=== PATIENT | male | born 1960 | race African-American/Black ===

== ENCOUNTER 2018-02-15 11:54 | Inpatient (IN) | payer OTHER ==
[2018-02-15 12:23] VITALS: BMI 21.1
--- NOTE | 2018-02-15 13:04 | PDOC ---
History of Present Illness - General Chief Complaint: Injury Stated Complaint: FALL Time Seen by Provider: 02/15/18 12:35 History Source: Patient, Old Records Exam Limitations: No Limitations - History of Present Illness Initial Comments: 58 y/o male presenting to [facility] via ambulance. Pt denies active chief complaint but states he thinks he passed out for approx. 2 hours this morning while reading the paper in his living room. He then woke up and walked to [facility], where an ambulance was called and transported him to this facility. He states he does this about three times a year but doesnt know why. Per triage notes, pt was found passed out in the grass in front of his house. PCP: Dr. Chinchilla Social: EtOH: Endorses 2 beers yesterday but none today. Triage note reports h/o EtOH abuse. Tobacco: Endorses smoking [address] Drugs: Pt denies but prior records indicate marijuana usage. Medical Hx: Pt initially stated did not know if he had any medical problems but then remembers he has a history of seizures and takes Dilantin. Surgical Hx: - Pt denies past surgical history. Past History - Past Medical History Allergies/Adverse Reactions: Allergies Allergy/AdvReac Type Severity Reaction Status Date / Time No Known Allergies Allergy Verified 02/15/18 12:23 Home Medications: Ambulatory Orders Amlodipine Besylate [Norvasc -] 10 mg PO DAILY 02/15/18 Phenytoin Na Extended [Dilantin -] 100 mg PO DAILY 02/15/18 COPD: No GI Disorders: Yes (pancreatitis 2007) HTN: Yes Seizures: Yes - Suicide/Smoking/Psychosocial Hx Smoking History: Never smoked Have you smoked in the past 12 months: Yes Number of Cigarettes Smoked Daily: 4 Information on smoking cessation initiated: No 'Breaking Loose' booklet given: 09/09/12 Hx Alcohol Use: No Drug/Substance Use Hx: No Substance Use Type: Alcohol, Marijuana Hx Substance Use Treatment: No Review of Systems - Review of Systems Able to Perform ROS?: Yes Comments:: In addition to that documented in the HPI above, the additional ROS was obtained : Constitutional: Denies fevers or chills Eyes: Denies vision changes ENMT: Denies sore throat CV: Denies chest pain Resp: Denies SOB GI: Denies vomiting or diarrhea *Physical Exam - Vital Signs Last Vital Signs Temp Pulse Resp BP Pulse Ox 98.8 F 125 H 18 131/98 100 02/15/18 11:54 02/15/18 11:54 02/15/18 11:54 02/15/18 11:54 02/15/18 11:54 - Physical Exam Comments: Constitutional: Well-developed, thin male in no acute distress or obvious discomfort. Found standing unassisted by beside hospital bed. Alert and oriented x4. Answered all questions appropriately and completely. Speech was non -labored, non-pressured. Head: Normocephalic. No obvious external signs of trauma. No periorbital ecchymosis or Battles sign. Eyes: PERRL. EOMI. Sclerae white. Conjunctiva moist and not injected. Ears: External auditory canals and tympanic membranes clear. Hearing grossly intact. No hemotympanum. Nose: No nasal discharge. Throat: Oral cavity and pharynx normal. No inflammation, swelling, exudate, or lesions. Teeth and gingiva in good general condition. Neck: Supple, trachea is midline. Pt able to laterally rotate neck to left and right >45 degrees. No subjective C-spine tenderness or bony deformities. No step off. Cardiovascular: Tachycardic rate and regular rhythm. No murmur, rubs, clicks, or gallops. Peripheral pulses: Radial pulses full. Respiratory: Breathing unlabored. Equal chest rise and fall. Clear to auscultation bilaterally. No stridor, no wheezing, no rhonchi. Gastrointestinal: abdomen is soft, non-tender, non-distended. No hepatosplenemegaly. No pulsatile masses. No overlying skin lesions or obvious signs of trauma. Neuro: Alert and oriented. Moving all four extremities spontaneously. Gait normal, observed walking throughout the department. None tremulous. Skin: Warm, dry, and intact. No bruising, rashes, or other lesions. Lymphatics: No cervical, supraclavicular, epitrochlear or inguinal nodes palpated. : No R or L CVA tenderness. Psych: Affect: appropriate. Mood: normal. ED Treatment Course - LABORATORY CBC & Chemistry Diagram: 02/15/18 14:45 02/15/18 14:45 Medical Decision Making - Medical Decision Making *Reviewed vital signs, nursing notes, and prior visit documentation (if available). On initial interview, pt stated he did not want any further medical evaluation. He subsequently changed his opinion after further discussion. 58 y/o male s/p possible syncopal episode. Possible history of seizures and EtOH abuse. Afebrile. Vitals remarkable for mild tachycardia. Benign physical exam. Suspect possible seizure. D/D ACS, arrhythmia, vasovagal syndrome, resolved TIA, substance abuse, hyperthyroidism, electrolyte derangement. Will obtain CBC, CMP, Mag, Alcohol level, Cardiac Profile, EKG, CXR, UA, Urine Culture, UDS, and Dilantin level. Ordered NS IVFB for tachycardia. 14:48 Pt displayed tonic-clonic seizure like activity for approx. 1- 2 minutes with postictal period. No tongue biting. Ativan administered as protective given this is likely the second seizure today. All labs still pending. 16:08 Pt out of bed unassisted and against advice. Started to stumble. RN rushed to bedside and assisted the pt to a sitting position on the floor. Pt never struck his head or neck. Pt never lost consciousness. He was then assisted back into bed. Noted pt removed his IV catheter. Pt's Dilantin level found to be subtheraputic. Suspect this is the cause of the pt's seizure. 16:[address] Bowman, neurologist education analyst. Suggested loading pt with Dilantin and Lebrium if concern for withdrawal seizures. Pt will be admitted for observation and repeat Dilantin level. 18:12 Pt has repeatedly attempted to get out of bed. Pt voided urine and feces onto the floor. Hes mentation has changed since initial presentation. He is now confused and disoriented. Concern for EtOH withdrawal. Additional Ativan and Librium has been administered with little effect. Ordered Haldol and Benadryl as pt is now not competent to refuse care and continues to attempt to remove IV lines, EKG leads, and attempts to walk away from bed. Ordered head CT given mental status change. Concern for EtoH withdrawal versus Wernicke-Korsakoff. Ordered banana bag for electrolyte replenishment. Pt noted to have anion gap. Ordered VBG, acetone, and lactic acid. 02/15/18 19:00 Pt signed out to resident Dr. Ramirez after she was verbally appraised of the pt's HPI and current condition. Will follow up on CT scan and pending laboratory results. Will also likely admit pt with concern for altered mental status and seizures. *DC/Admit/Observation/Transfer Diagnosis at time of Disposition: Seizure - Discharge Dispostion Condition at time of disposition: Stable - Referrals - Patient Instructions - Post Discharge Activity
[2018-02-15] MEDS ORDERED: SODIUM CHLORIDE 0.9% 500 ML INFUS.BAG IV ONE (13:18)
--- NOTE | 2018-02-15 13:34 | PDOC ---
Attending Attestation - Resident Resident Name: ParkerJeronimo mora - ED Attending Attestation I have performed the following: I have examined & evaluated the patient, The case was reviewed & discussed with the resident, I agree w/resident's findings & plan, Exceptions are as noted - HPI HPI: 02/15/18 13:31 58-year-old gentleman history of seizures (on Dilantin) brought on by EMS for syncope/seizure. The patients history seems inconsistent obtain multiple providers the patient's notes that he was fine yesterday was drinking beer and watching sports, this morning approximately 10:00 he started feeling very dizzy and unwell was walking to [facility]. He reports that he went to the ER and EMS was called and brought the patient to [facility]. The patient denies any headache, chest pain, shortness of breath, palpitations, nausea, vomiting, abdominal pain, neck pain, back pain, extremity pain. The patient states that he is not worse today for evaluation but after extensive discussion he states that he does not like IVs but will agree to including a 1 chance to obtain his blood work and given fluids. The patient notes that he occasionally has seizures his last one was probably 7 months ago and does feel lightheaded prior to the seizures although today he denies any tongue biting, urinary or bowel incontinence. He states that he uses his Dilantin and does not miss any doses. GENERAL: The patient is awake, alert, and fully oriented, Nontoxic - in no acute distress. HEAD: Normocephalic, atraumatic. EYES: extraocular movements intact, sclera anicteric, conjunctiva clear. ENT: Normal voice, Moist mucous membranes. NECK: Normal range of motion, supple LUNGS: Breath sounds equal, clear to auscultation bilaterally. No wheezes, no rhonchi, no rales. HEART: tachycardic ABDOMEN: Soft, nontender, normoactive bowel sounds. No guarding, no rebound. . No CVA tenderness EXTREMITIES: Normal range of motion, no edema. NEUROLOGICAL: No facial assymetry, Normal speech, PSYCH: Normal mood, normal affect. SKIN: Warm, Dry, normal turgor, Back: No midline tenderness to the cervical, thoracic or lumbar spine Musculoskelatal: FROM of b/l shoulders, elbows, wrist. FROM of hips, knees, ankles - No signs of ecchymosis, erythema, or crepitus noted on palpation extremities, chest wall, clavicals, ribs, back. Differential for the patient's symptoms include syncope versus seizures, metabolic derangements, subtherapeutic Dilantin, Will obtain blood work will give fluids No signs of traumatic injury - Physicial Exam PE: 02/21/18 01:36 see abobve - Critical Care Time Total Critical Care Time: 45 Critical Care Statement: The care of this patient involved high complexity decision making to prevent further life threatening deterioration of the patient 's condition and/or to evaluate & treat vital organ system(s) failure or risk of failure. - Medical Decision Making 02/15/18 14:49 Patient had a witnessed tonic-clonic seizure episode lasting approximately 1 minute, stopped spontaneously. pt was given 2mg if ativan IV will see if his dilantin level is low - if not will obtain CT as this is his 2nd seizure today. 02/15/18 16:20 pts brother was bedside, states he just got out of work - notes the pt is an alcoholic, drinks daily, was with him yesterday when they were watching the game and drinking beers. pt has hx of seizures and is not compliant with meds, has had seizrues due to withdrawal in the past. last one was ~7 months ago. 02/15/18 17:10 pt was seen standnig, wobbling by RN, RN rushed out to pt and reached him as he was falling, was able to grab his arm and assist him to the seated position. The pt landed on his buttock. no head injury or LOC. I was immediately bedside evaluting the patient. 02/15/18 18:10 pt very agitated had pulled out his IV he seems more confused than before, ?CT? HR is in the 110 range, mildly tremulous. given 3mg o fativan restrained 4 pts at this time will give haldol and benadryl on labs, pt also has a anion gap with bicarb of 15 - juanis send vbg, lactic acid, acetones, to see what th ecause of his anion gap is 02/15/18 19:10 signed out to evening team to fu with results and dispo pt
[2018-02-15] MEDS ORDERED: LORazepam 2 MG/ML SDV VIAL ONE ×4 (14:39→22:17)
[2018-02-15 14:56] LABS: BASO % 0.5 % (0-2.0); EOS % 0.3 % (0-4.5); HEMATOCRIT 40.8 % (35.4-49); HEMOGLOBIN 13.1 GM/dL (11.7-16.9); LYMPH % 28.2 % (8-40); MCH 32.4 pg (25.7-33.7); MCHC 32.1 g/dl (32.0-35.9); MEAN CELL VOLUME 100.9 fl (80-96); MEAN PLT VOLUME 11.4 fl (7.5-11.1); MONO % 11.2 % (3.8-10.2); NEUT % 59.8 % (42.8-82.8); PLATELET COUNT 99 K/MM3 (134-434); RBC 4.04 M/mm3 (4.00-5.60); RDW 14.7 % (11.9-15.9); WHITE BLOOD COUNT 10.8 K/mm3 (4.0-10.0)
[2018-02-15 15:55] LABS: ALBUMIN 4.2 g/dl (3.4-5.0); ALK PHOS 157 U/L (45-117); ANION GAP 19 MMOL/L (8-16); BILIRUBIN,TOTAL 0.6 mg/dL (0.2-1); BLOOD UREA NITROGEN 7 mg/dL (7-18); CALCIUM 9.3 mg/dL (8.5-10.1); CHLORIDE 108 mmol/L (98-107); CO2 15 mmol/L (21-32); CREATININE 0.7 mg/dL (0.55-1.3); GLUCOSE,RANDOM 113 mg/dL (74-106); MAGNESIUM 1.7 mg/dL (1.8-2.4); POTASSIUM 4.2 mmol/L (3.5-5.1); SGOT/AST 136 U/L (15-37); SGPT/ALT 45 U/L (13-61); SODIUM 143 mmol/L (136-145)
[2018-02-15] MEDS ORDERED: chlordiazePOXIDE HCL 25 MG CAPSULE ONE (16:54)
[2018-02-15] MEDS ORDERED: chlordiazePOXIDE HCL 25 MG CAPSULE PO ONE (17:00)
[2018-02-15] MEDS ORDERED: FOLIC ACID INJECTION - 1 MG, THIAMINE HCL 100 MG, MULTIVIT INJECTION ADULT 10 ML in SOD... IVPB ONE (17:25)
[2018-02-15] MEDS ORDERED: FOSPHENYTOIN SODIUM 1,000 MG in SODIUM CHLORIDE 100 ML IVPB ONE (17:26)
[2018-02-15 17:52] LABS: URINE APPEARANCE CLEAR; URINE BILIRUBIN NEGATIVE (<2.0 mg/dL); URINE COLOR LTYELLOW; URINE GLUCOSE (UA) NEGATIVE (NEGATIVE); URINE KETONE TRACE (NEGATIVE); URINE LEUK ESTERASE NEGATIVE (NEGATIVE); URINE NITRITE NEGATIVE (NEGATIVE); URINE PROTEIN NEGATIVE (NEGATIVE); URINE UROBILINOGEN NEGATIVE mg/dL (0.2-1.0)
[2018-02-15 17:59] LABS: COCAINE, UR NEGATIVE ng/ml (CUTOFF=300); METHADONE, UR NEGATIVE ng/ml (CUTOFF=300); OPIATES, URI NEGATIVE ng/ml (CUTOFF=300); PHENCYCLIDINE,URINE NEGATIVE ng/ml (CUTOFF=25); URINE AMPHETAMINES NEGATIVE ng/ml (CUTOFF=500); URINE BARBITURATES NEGATIVE ng/ml (CUTOFF=200); URINE BENZODIAZEPINES NEGATIVE ng/ml (CUTOFF=200)
[2018-02-15] MEDS ORDERED: HALOPERIDOL LACTATE 5 MG/ML IM ONE (18:10)
[2018-02-15 18:32] LABS: EPI CELLS RARE /HPF (FEW); URINE MUCUS RARE
[2018-02-15] MEDS ORDERED: HALOPERIDOL LACTATE 5 MG/ML ONE (18:40)
--- NOTE | 2018-02-15 19:34 | PDOC ---
*Physical Exam - Vital Signs Last Vital Signs Temp Pulse Resp BP Pulse Ox 98.8 F 125 H 18 131/98 100 02/15/18 11:54 02/15/18 11:54 02/15/18 11:54 02/15/18 11:54 02/15/18 11:54 ED Treatment Course - LABORATORY CBC & Chemistry Diagram: 02/16/18 12:35 02/16/18 04:20 - ADDITIONAL ORDERS Additional order review: Laboratory Results 02/15/18 02/15/18 02/15/18 16:13 16:13 14:45 Sodium Potassium Chloride Carbon Dioxide Anion Gap BUN Creatinine Creat Clearance w eGFR Random Glucose Calcium Magnesium Total Bilirubin AST ALT Alkaline Phosphatase Creatine Kinase Creatine Kinase Index CK-MB (CK-2) Troponin I Total Protein Albumin TSH Urine Color Ltyellow Urine Appearance Clear Urine pH 5.0 Ur Specific [place] 1.013 Urine Protein Negative Urine Glucose (UA) Negative Urine Ketones Trace H Urine Blood 1+ H Urine Nitrite Negative Urine Bilirubin Negative Urine Urobilinogen Negative Ur Leukocyte Esterase Negative Urine WBC (Auto) 4 Urine RBC (Auto) <1 Ur Epithelial Cells Rare Urine Mucus Rare Opiates Screen Negative Methadone Screen Negative Barbiturate Screen Negative Phenytoin 3.9 L Phencyclidine Screen Negative Ur Amphetamines Screen Negative MDMA (Ecstasy) Screen Negative Benzodiazepines Screen Negative Cocaine Screen Negative U Marijuana (THC) Screen Positive A* Alcohol, Quantitative 02/15/18 14:45 Sodium 143 Potassium 4.2 Chloride 108 H Carbon Dioxide 15 L Anion Gap 19 H BUN 7 Creatinine 0.7 Creat Clearance w eGFR > 60 Random Glucose 113 H Calcium 9.3 Magnesium 1.7 L Total Bilirubin 0.6 AST 136 H ALT 45 Alkaline Phosphatase 157 H Creatine Kinase 183 Creatine Kinase Index 0.7 CK-MB (CK-2) 1.3 Troponin I < 0.02 Total Protein 8.0 Albumin 4.2 TSH 4.79 H Urine Color Urine Appearance Urine pH Ur Specific [place] Urine Protein Urine Glucose (UA) Urine Ketones Urine Blood Urine Nitrite Urine Bilirubin Urine Urobilinogen Ur Leukocyte Esterase Urine WBC (Auto) Urine RBC (Auto) Ur Epithelial Cells Urine Mucus Opiates Screen Methadone Screen Barbiturate Screen Phenytoin Phencyclidine Screen Ur Amphetamines Screen MDMA (Ecstasy) Screen Benzodiazepines Screen Cocaine Screen U Marijuana (THC) Screen Alcohol, Quantitative < 3.0 02/15/18 14:45 RBC 4.04 MCV 100.9 H MCHC 32.1 RDW 14.7 MPV 11.4 H Neutrophils % 59.8 Lymphocytes % 28.2 Monocytes % 11.2 H Eosinophils % 0.3 Basophils % 0.5 - Medications Given in the ED: ED Medications Discontinued Medications Generic Name Dose Route Start Last Admin Trade Name David PRN Reason Stop Dose Admin Chlordiazepoxide HCl 50 mg 02/15/18 17:00 02/15/18 17:00 Librium - PO 02/15/18 17:01 50 mg ONCE ONE Administration Diphenhydramine HCl 50 mg 02/15/18 18:11 02/15/18 18:45 Benadryl Injection - IVPUSH 02/15/18 18:12 50 mg ONCE ONE Administration Haloperidol 5 mg 02/15/18 18:10 02/15/18 18:45 Haldol Injection (Fast Acting) - IM 02/15/18 18:11 5 mg ONCE ONE Administration Lorazepam 2 mg 02/15/18 14:47 02/15/18 15:07 Ativan Injection - IM 02/15/18 14:48 Not Given ONCE ONE Lorazepam 2 mg 02/15/18 14:59 02/15/18 14:40 Ativan Injection - IVPUSH 02/15/18 15:00 2 mg ONCE ONE Administration Lorazepam 2 mg 02/15/18 16:51 02/15/18 16:55 Ativan Injection - IVPUSH 02/15/18 16:52 2 mg ONCE ONE Administration Lorazepam 1 mg 02/15/18 16:52 02/15/18 17:18 Ativan Injection - IVPUSH 02/15/18 16:53 1 mg ONCE ONE Administration Lorazepam 3 mg 02/15/18 17:21 02/15/18 18:58 Ativan Injection - IVPUSH 02/15/18 17:22 Not Given ONCE ONE Sodium Chloride 1,000 ml 02/15/18 13:18 02/15/18 14:30 Normal Saline - IV 02/15/18 13:19 1,000 ml ONCE ONE Administration Medical Decision Making - Medical Decision Making 02/15/18 19:31 58 year old male presented to ED for syncope, had a tonic clonic seizure in the Emergency Department. - 2 mg Ativan was given Initial Vital Signs Temp Pulse Resp BP Pulse Ox 98.8 F 125 H 18 131/98 100 02/15/18 11:54 02/15/18 11:54 02/15/18 11:54 02/15/18 11:54 02/15/18 11:54 Afebrile. Tachycardic, likely due to ETOH withdrawal. Mild hypertension, not high enough to be concerned for DT. No hypoxia on room air. Pt has hx of seizure disorder - Dilantin subtherapeutic Pt has hx chronic ETOH abuse, last drank two beers yesterday, AMS, agitated - Librium 50 mg given - Haldol 5 mg and Benadryl 50 mg given for agitation - Total of 5 mg Ativan given at this time - Serum ETOH level normal - Concern for Wernicke encephalopathy - Banana bag ordered - Fosphenytoin ordered Pending - CT head - AMS labs 02/15/18 20:23 CBC WBC 10.8 K/mm3 (4.0-10.0) H 02/15/18 14:45 RBC 4.04 M/mm3 (4.00-5.60) 02/15/18 14:45 Hgb 13.1 GM/dL (11.7-16.9) 02/15/18 14:45 Hct 40.8 % (35.4-49) 02/15/18 14:45 MCV 100.9 fl (80-96) H 02/15/18 14:45 MCH 32.4 pg (25.7-33.7) 02/15/18 14:45 MCHC 32.1 g/dl (32.0-35.9) 02/15/18 14:45 RDW 14.7 % (11.9-15.9) 02/15/18 14:45 Plt Count 99 K/MM3 (134-434) L 02/15/18 14:45 MPV 11.4 fl (7.5-11.1) H 02/15/18 14:45 Absolute Neuts (auto) 6.4 K/mm3 (1.5-8.0) 02/15/18 14:45 Neutrophils % 59.8 % (42.8-82.8) 02/15/18 14:45 Lymphocytes % 28.2 % (8-40) 02/15/18 14:45 Monocytes % 11.2 % (3.8-10.2) H 02/15/18 14:45 Eosinophils % 0.3 % (0-4.5) 02/15/18 14:45 Basophils % 0.5 % (0-2.0) 02/15/18 14:45 Nucleated RBC % 0 % (0-0) 02/15/18 14:45 Mild leukocytosis without left shift, elevated monocytes. No anemia, but elevated MCV. Likely secondary to ETOH abuse and malnutrition. CMP Sodium 143 mmol/L (136-145) 02/15/18 14:45 Potassium 4.2 mmol/L (3.5-5.1) 02/15/18 14:45 Chloride 108 mmol/L (98-107) H 02/15/18 14:45 Carbon Dioxide 15 mmol/L (21-32) L 02/15/18 14:45 Anion Gap 19 MMOL/L (8-16) H 02/15/18 14:45 BUN 7 mg/dL (7-18) 02/15/18 14:45 Creatinine 0.7 mg/dL (0.55-1.3) 02/15/18 14:45 Creat Clearance w eGFR > 60 (>60) 02/15/18 14:45 Random Glucose 113 mg/dL (74-106) H 02/15/18 14:45 Calcium 9.3 mg/dL (8.5-10.1) 02/15/18 14:45 Magnesium 1.7 mg/dL (1.8-2.4) L 02/15/18 14:45 Total Bilirubin 0.6 mg/dL (0.2-1) 02/15/18 14:45 AST 136 U/L (15-37) H 02/15/18 14:45 ALT 45 U/L (13-61) 02/15/18 14:45 Alkaline Phosphatase 157 U/L (45-117) H 02/15/18 14:45 Creatine Kinase 183 IU/L (26-308) 02/15/18 14:45 Creatine Kinase Index 0.7 % (0.0-5.0) 02/15/18 14:45 CK-MB (CK-2) 1.3 ng/mL (0.5-3.6) 02/15/18 14:45 Troponin I < 0.02 ng/ml (0.00-0.05) 02/15/18 14:45 Total Protein 8.0 g/dl (6.4-8.2) 02/15/18 14:45 Albumin 4.2 g/dl (3.4-5.0) 02/15/18 14:45 TSH 4.79 uIU/ml (0.358-3.74) H 02/15/18 14:45 Transaminitis consistent with ETOH abuse. Hypothyroid. Low phosphorus. - Phosphorus ordered. No acute kidney injury. 02/15/18 20:43 Pt reassessed, attempting to get out of bed, awake, alert but confused. 02/15/18 21:43 Lactate 2.4 - Will repeat after fluid hydration VBG normal. Anion Gap Anion Gap 19 MMOL/L (8-16) H 02/15/18 14:45 02/15/18 22:26 Pt reassessed, awake, alert, confused, attempting to climb out of bed, then returns to sleep. Toxic alcohol ingestion considered. Isopropyl alcohol ingestion unlikely, (+) anion gap, (-) serum osmol gap, positive acetone. Ethylene glycol ingestion unlikely, (+) anion gap, no renal failure, no hypocalcemia. Methanol ingestion unlikely, (+) anion gap, (-) serum osmol gap. 02/16/18 00:08 EKG performed at 2303 - rate 75, regular rhythm, normal axis, normal intervals, no acute ST changes. Salicyclates negative Acetaminophen level negative 02/16/18 01:33 Pt reassessed, awake, alert, confused, talking to himself, hallucinating. 02/16/18 03:11 Pt agitated prior to CT, Haldol 5 mg and Ativan [address] head - no evidence of hemorrhage, mass, acute infarct. nonacute infarct in left medial frontal lobe. Repeat BMP, lactate ordered. 02/16/18 05:08 Pt reassessed, awake, alert, confused, attempting to climb out of bed, then returns to sleep. Repeat anion gap 11 - Resolved with IVF Repeat lactate 1.1 - Resolved with IVF Repeat K+ 3.0 - IV Potassium ordered, pt unable to tolerate PO due to AMS Repeat calcium 7.1 - Calcium ordered Pt will be admitted for suspected Wernicke Encephalopathy, ETOH withdrawal, seizure, hallucinations, suspected DT. 02/16/18 05:[address] Faulkner about the case, who agrees to have the patient admitted. 02/16/18 06:[address] Faulkner, who states the ICU attending will assess the patient and decide if the pt will be placed in ICU or not. 02/16/18 07:20 I signed the case out to Dr. Parker, he states he will await confirmation of placement for patient from admitting team. *DC/Admit/Observation/Transfer Diagnosis at time of Disposition: Seizure - Discharge Dispostion Condition at time of disposition: Stable Decision to Admit order: Yes - Referrals - Patient Instructions - Post Discharge Activity
[2018-02-15 21:40] LABS: VENOUS PC02 38.6 mmHg (38-52); VENOUS PH 7.38 (7.32-7.42); VENOUS PO2 36.7 mmHg (28-48)
[2018-02-16] MEDS ORDERED: SODIUM CHLORIDE 1,000 ML IV STA (00:02)
[2018-02-16] MEDS ORDERED: HALOPERIDOL LACTATE 5 MG/ML IM ONE (01:41)
[2018-02-16] MEDS ORDERED: LORazepam 2 MG/ML SDV VIAL ONE ×2 (01:49→09:05)
[2018-02-16] MEDS ORDERED: HALOPERIDOL LACTATE 5 MG/ML ONE (01:49)
[2018-02-16 05:04] LABS: ANION GAP 11 MMOL/L (8-16); BLOOD UREA NITROGEN 5 mg/dL (7-18); CALCIUM 7.1 mg/dL (8.5-10.1); CHLORIDE 109 mmol/L (98-107); CO2 20 mmol/L (21-32); CREATININE 0.5 mg/dL (0.55-1.3); GLUCOSE,RANDOM 68 mg/dL (74-106); SODIUM 141 mmol/L (136-145)
[2018-02-16] MEDS ORDERED: CALCIUM GLUCONATE 10% - 1,000 MG/10 ML VIAL IVPUSH ONE (05:43)
[2018-02-16] MEDS ORDERED: KCL 10 MEQ IVPB 30 MEQ/300 ML INFUS.BAG IVPB ONE (05:59)
[2018-02-16] MEDS ORDERED: CALCIUM GLUCONATE 10% - 1,000 MG/10 ML VIAL ONE (05:59)
[2018-02-16] MEDS: KCL 10 MEQ IVPB 10 MEQ/100 ML INFUS.BAG IVPB SCH ×3 (06:09→08:28)
[2018-02-16] MEDS ORDERED: DEXTROSE 5%-NORMAL SALINE 1,000 ML IV SCH (08:30)
--- NOTE | 2018-02-16 08:31 | HP ---
CHIEF COMPLAINT: Altered mental status, seizures PCP: unknown HISTORY OF PRESENT ILLNESS: 58 year old male with a history of known seizure disorder presents to the hospital for syncopal episode. Patient had witnessed seizure in emergency room. It was reported to me that the patient was initially A&Ox4, but then steadily progressed to A&Ox0, wanting to leave AMA, and having a fall. History from the patient is unable to be taken because he is not alert or oriented. Patient's brother informed the ED that he drinks frequently and heavily, his last drink being either yesterday or the day before. ER course was notable for: (1) platelets 99 (2) mag 1.7 (3) dilantin level low PAST MEDICAL HISTORY: seizures PAST SURGICAL HISTORY: unknown Social History: Smoking: unknown Alcohol: heavy Drugs: unknown Family History: unknown Allergies No Known Allergies Allergy (Verified 02/15/18 12:23) HOME MEDICATIONS: Home Medications Medication Instructions Recorded Amlodipine Besylate [Norvasc -] 10 mg PO DAILY 02/15/18 Phenytoin Na Extended [Dilantin -] 100 mg PO DAILY 02/15/18 REVIEW OF SYSTEMS CONSTITUTIONAL: Absent: fever, chills, diaphoresis, generalized weakness, malaise, loss of appetite, weight change HEENT: Absent: rhinorrhea, nasal congestion, throat pain, throat swelling, difficulty swallowing, mouth swelling, ear pain, eye pain, visual changes CARDIOVASCULAR: Absent: chest pain, syncope, palpitations, irregular heart rate, lightheadedness , peripheral edema RESPIRATORY: Absent: cough, shortness of breath, dyspnea with exertion, orthopnea, wheezing, stridor, hemoptysis GASTROINTESTINAL: Absent: abdominal pain, abdominal distension, nausea, vomiting, diarrhea, constipation, melena, hematochezia GENITOURINARY: Absent: dysuria, frequency, urgency, hesitancy, hematuria, flank pain, genital pain MUSCULOSKELETAL: Absent: myalgia, arthralgia, joint swelling, back pain, neck pain SKIN: Absent: rash, itching, pallor HEMATOLOGIC/IMMUNOLOGIC: Absent: easy bleeding, easy bruising, lymphadenopathy, frequent infections ENDOCRINE: Absent: unexplained weight gain, unexplained weight loss, heat intolerance, cold intolerance NEUROLOGIC: Absent: headache, focal weakness or paresthesias, dizziness, unsteady gait, seizure, mental status changes, bladder or bowel incontinence PSYCHIATRIC: Absent: anxiety, depression, suicidal or homicidal ideation, hallucinations. PHYSICAL EXAMINATION Vital Signs - 24 hr 02/15/18 02/15/18 02/15/18 11:54 14:50 17:45 Temperature 98.8 F Pulse Rate 125 H Pulse Rate [ 122 H Apical] Respiratory 18 18 20 Rate Blood Pressure 131/98 Blood Pressure 148/89 156/99 [Right Arm] O2 Sat by Pulse 100 99 100 Oximetry (%) 02/15/18 02/15/18 02/16/18 19:10 20:00 00:30 Temperature 98.3 F Pulse Rate Pulse Rate [ 96 H 87 Apical] Respiratory 18 18 Rate Blood Pressure Blood Pressure 144/91 135/83 [Right Arm] O2 Sat by Pulse 100 100 100 Oximetry (%) 02/16/18 02/16/18 04:45 07:30 Temperature 97.9 F 98 F Pulse Rate Pulse Rate [ 69 104 H Apical] Respiratory 18 19 Rate Blood Pressure Blood Pressure 152/94 149/90 [Right Arm] O2 Sat by Pulse 100 97 Oximetry (%) GENERAL: A&Ox0 EYES: Nystagmus (horizontal and vertical noted) ENT: Dry mucus membranes NECK: No JVD LUNGS: CTA HEART: RRR, no murmurs ABDOMEN: Thin, Soft, nontender, BS present EXTREMITIES: 2+ pulses, no edema. NEUROLOGICAL: Unable to assess due to mental status Laboratory Results - last 24 hr 02/15/18 02/15/18 02/15/18 14:45 14:45 14:45 WBC 10.8 H RBC 4.04 Hgb 13.1 Hct 40.8 MCV 100.9 H MCH 32.4 MCHC 32.1 RDW 14.7 Plt Count 99 L MPV 11.4 H Absolute Neuts (auto) 6.4 Neutrophils % 59.8 Lymphocytes % 28.2 Monocytes % 11.2 H Eosinophils % 0.3 Basophils % 0.5 Nucleated RBC % 0 VBG pH POC VBG pCO2 POC VBG pO2 Mixed VBG HCO3 Sodium 143 Potassium 4.2 Chloride 108 H Carbon Dioxide 15 L Anion Gap 19 H BUN 7 Creatinine 0.7 Creat Clearance w eGFR > 60 Random Glucose 113 H Serum Osmolality Lactic Acid Calcium 9.3 Magnesium 1.7 L Total Bilirubin 0.6 AST 136 H ALT 45 Alkaline Phosphatase 157 H Ammonia Creatine Kinase 183 Creatine Kinase Index 0.7 CK-MB (CK-2) 1.3 Troponin I < 0.02 Total Protein 8.0 Albumin 4.2 Vitamin B12 TSH 4.79 H Urine Color Urine Appearance Urine pH Ur Specific [place] Urine Protein Urine Glucose (UA) Urine Ketones Urine Blood Urine Nitrite Urine Bilirubin Urine Urobilinogen Ur Leukocyte Esterase Urine WBC (Auto) Urine RBC (Auto) Ur Epithelial Cells Urine Mucus Salicylates 2.4 L Opiates Screen Methadone Screen Acetaminophen < 2.0 L Barbiturate Screen Phenytoin 3.9 L Phencyclidine Screen Ur Amphetamines Screen MDMA (Ecstasy) Screen Benzodiazepines Screen Cocaine Screen U Marijuana (THC) Screen Alcohol, Quantitative < 3.0 Acetone, Qual 02/15/18 02/15/18 02/15/18 16:13 16:13 20:09 WBC RBC Hgb Hct MCV MCH MCHC RDW Plt Count MPV Absolute Neuts (auto) Neutrophils % Lymphocytes % Monocytes % Eosinophils % Basophils % Nucleated RBC % VBG pH POC VBG pCO2 POC VBG pO2 Mixed VBG HCO3 Sodium Potassium Chloride Carbon Dioxide Anion Gap BUN Creatinine Creat Clearance w eGFR Random Glucose Serum Osmolality Lactic Acid Calcium Magnesium Total Bilirubin AST ALT Alkaline Phosphatase Ammonia 28.19 Creatine Kinase Creatine Kinase Index CK-MB (CK-2) Troponin I Total Protein Albumin Vitamin B12 TSH Urine Color Ltyellow Urine Appearance Clear Urine pH 5.0 Ur Specific [place] 1.013 Urine Protein Negative Urine Glucose (UA) Negative Urine Ketones Trace H Urine Blood 1+ H Urine Nitrite Negative Urine Bilirubin Negative Urine Urobilinogen Negative Ur Leukocyte Esterase Negative Urine WBC (Auto) 4 Urine RBC (Auto) <1 Ur Epithelial Cells Rare Urine Mucus Rare Salicylates Opiates Screen Negative Methadone Screen Negative Acetaminophen Barbiturate Screen Negative Phenytoin Phencyclidine Screen Negative Ur Amphetamines Screen Negative MDMA (Ecstasy) Screen Negative Benzodiazepines Screen Negative Cocaine Screen Negative U Marijuana (THC) Screen Positive A* Alcohol, Quantitative Acetone, Qual 02/15/18 02/15/18 02/15/18 20:55 20:55 20:55 WBC RBC Hgb Hct MCV MCH MCHC RDW Plt Count MPV Absolute Neuts (auto) Neutrophils % Lymphocytes % Monocytes % Eosinophils % Basophils % Nucleated RBC % VBG pH 7.38 POC VBG pCO2 38.6 POC VBG pO2 36.7 Mixed VBG HCO3 22.5 Sodium Potassium Chloride Carbon Dioxide Anion Gap BUN Creatinine Creat Clearance w eGFR Random Glucose Serum Osmolality Lactic Acid 2.4 H* Calcium Magnesium Total Bilirubin AST ALT Alkaline Phosphatase Ammonia Creatine Kinase Creatine Kinase Index CK-MB (CK-2) Troponin I Total Protein Albumin Vitamin B12 TSH Urine Color Urine Appearance Urine pH Ur Specific [place] Urine Protein Urine Glucose (UA) Urine Ketones Urine Blood Urine Nitrite Urine Bilirubin Urine Urobilinogen Ur Leukocyte Esterase Urine WBC (Auto) Urine RBC (Auto) Ur Epithelial Cells Urine Mucus Salicylates Opiates Screen Methadone Screen Acetaminophen Barbiturate Screen Phenytoin Phencyclidine Screen Ur Amphetamines Screen MDMA (Ecstasy) Screen Benzodiazepines Screen Cocaine Screen U Marijuana (THC) Screen Alcohol, Quantitative Acetone, Qual Positive small 1+ 02/15/18 02/15/18 02/16/18 20:55 20:55 04:20 WBC RBC Hgb Hct MCV MCH MCHC RDW Plt Count MPV Absolute Neuts (auto) Neutrophils % Lymphocytes % Monocytes % Eosinophils % Basophils % Nucleated RBC % VBG pH POC VBG pCO2 POC VBG pO2 Mixed VBG HCO3 Sodium 141 Potassium 3.0 L Chloride 109 H Carbon Dioxide 20 L Anion Gap 11 BUN 5 L Creatinine 0.5 L Creat Clearance w eGFR > 60 Random Glucose 68 L Serum Osmolality 289 Lactic Acid Calcium 7.1 L Magnesium Total Bilirubin AST ALT Alkaline Phosphatase Ammonia Creatine Kinase Creatine Kinase Index CK-MB (CK-2) Troponin I Total Protein Albumin Vitamin B12 620 TSH Urine Color Urine Appearance Urine pH Ur Specific [place] Urine Protein Urine Glucose (UA) Urine Ketones Urine Blood Urine Nitrite Urine Bilirubin Urine Urobilinogen Ur Leukocyte Esterase Urine WBC (Auto) Urine RBC (Auto) Ur Epithelial Cells Urine Mucus Salicylates Opiates Screen Methadone Screen Acetaminophen Barbiturate Screen Phenytoin Phencyclidine Screen Ur Amphetamines Screen MDMA (Ecstasy) Screen Benzodiazepines Screen Cocaine Screen U Marijuana (THC) Screen Alcohol, Quantitative Acetone, Qual 02/16/18 04:20 WBC RBC Hgb Hct MCV MCH MCHC RDW Plt Count MPV Absolute Neuts (auto) Neutrophils % Lymphocytes % Monocytes % Eosinophils % Basophils % Nucleated RBC % VBG pH POC VBG pCO2 POC VBG pO2 Mixed VBG HCO3 Sodium Potassium Chloride Carbon Dioxide Anion Gap BUN Creatinine Creat Clearance w eGFR Random Glucose Serum Osmolality Lactic Acid 1.7 Calcium Magnesium Total Bilirubin AST ALT Alkaline Phosphatase Ammonia Creatine Kinase Creatine Kinase Index CK-MB (CK-2) Troponin I Total Protein Albumin Vitamin B12 TSH Urine Color Urine Appearance Urine pH Ur Specific [place] Urine Protein Urine Glucose (UA) Urine Ketones Urine Blood Urine Nitrite Urine Bilirubin Urine Urobilinogen Ur Leukocyte Esterase Urine WBC (Auto) Urine RBC (Auto) Ur Epithelial Cells Urine Mucus Salicylates Opiates Screen Methadone Screen Acetaminophen Barbiturate Screen Phenytoin Phencyclidine Screen Ur Amphetamines Screen MDMA (Ecstasy) Screen Benzodiazepines Screen Cocaine Screen U Marijuana (THC) Screen Alcohol, Quantitative Acetone, Qual ASSESSMENT/PLAN: 58 year old male with a history of known seizure disorder presents to the hospital for syncopal episode and admitted for progressive altered mental status #Altered Mental Status: in the setting of alcohol withdrawal vs seizures -dilantin lvl low, loaded with dilantin in ED -keppra 500 IV BID -detox consulted, patient put on librium protocol -ICU consulted -Neuro consulted -folic acid -watch for DTs and seizure-like activity -banana bag given in ED, folate given #Hypertension -amlodipine 10mg PO #FEN -Banana bag given -D5LR -NPO except meds #Prophylaxis -lovenox #Disposition -admit to ICU for monitoring for DTs Visit type - Emergency Visit Emergency Visit: Yes ED Registration Date: 02/16/18 Care time: The patient presented to the Emergency Department on the above date and was hospitalized for further evaluation of their emergent condition. - New Patient This patient is new to me today: Yes Date on this admission: 02/16/18 - Critical Care Critical Care patient: Yes Total Critical Care Time (in minutes): 35 Critical Care Statement: The care of this patient involved high complexity decision making to prevent further life threatening deterioration of the patient 's condition and/or to evaluate & treat vital organ system(s) failure or risk of failure.
--- NOTE | 2018-02-16 08:35 | CON.NEURO ---
Consult - History of Present Illness History of Present Illness: 58-year-old gentleman history of seizures (on Dilantin) brought on by EMS for syncope/seizure. The patients history seems inconsistent obtain multiple providers the patient's notes that he was fine yesterday was drinking beer and watching sports, this morning approximately 10:00 he started feeling very dizzy and unwell was walking to [facility]. He reports that he went to the ER and EMS was called and brought the patient to [facility]. The patient denies any headache, chest pain, shortness of breath, palpitations, nausea, vomiting, abdominal pain, neck pain, back pain, extremity pain. The patient notes that he occasionally has seizures his last one was probably 7 months ago and does feel lightheaded prior to the seizures although today he denies any tongue biting, urinary or bowel incontinence. as per brotehr + HX of ETOH and withdrawal seziure in past. s/p fall in ER -- + metabolic issues also noted -- transferred to ICU. CT HD prelim (-) dilantin level 3.9 - Alcohol/Substance Use Hx Alcohol Use: No - Smoking History Smoking history: Never smoked Have you smoked in the past 12 months: Yes Aproximately how many cigarettes per day: 4 Home Medications - Allergies Allergies/Adverse Reactions: Allergies Allergy/AdvReac Type Severity Reaction Status Date / Time No Known Allergies Allergy Verified 02/15/18 12:23 - Home Medications Home Medications: Ambulatory Orders Amlodipine Besylate [Norvasc -] 10 mg PO DAILY 02/15/18 Phenytoin Na Extended [Dilantin -] 100 mg PO DAILY 02/15/18 Physical Exam-Neuro Vital Signs: Vital Signs Temperature 98 F 02/16/18 07:30 Pulse Rate 104 H 02/16/18 07:30 Respiratory Rate 19 02/16/18 07:30 Blood Pressure 149/90 02/16/18 07:30 O2 Sat by Pulse Oximetry (%) 97 02/16/18 07:30 Constitutional: Yes: Well Nourished Labs: CBC, BMP 02/15/18 14:45 02/16/18 04:20 - Neuro Exam Level Of Consciousness: Yes: Alert (awake alert conversive, no focal weakness, no astrerixis, nonfocal ) Imaging - Results Cat Scan: Report Reviewed, Image Reviewed Problem List - Problems (1) Alcohol abuse Code(s): F10.10 - ALCOHOL ABUSE, UNCOMPLICATED (2) Seizure Code(s): R56.9 - UNSPECIFIED CONVULSIONS Assessment/Plan 58-year-old gentleman history of seizures (on Dilantin) brought on by EMS for syncope/seizure. The patients history seems inconsistent obtain multiple providers the patient's notes that he was fine yesterday was drinking beer and watching sports, this morning approximately 10:00 he started feeling very dizzy and unwell was walking to [facility]. He reports that he went to the ER and EMS was called and brought the patient to [facility]. The patient denies any headache, chest pain, shortness of breath, palpitations, nausea, vomiting, abdominal pain, neck pain, back pain, extremity pain. The patient notes that he occasionally has seizures his last one was probably 7 months ago and does feel lightheaded prior to the seizures although today he denies any tongue biting, urinary or bowel incontinence. as per toddte + HX of ETOH and withdrawal seizure in past. s/p fall in ER -- + metabolic issues also noted -- transferred to ICU. CT HD prelim (-) dilantin level 3.9 AP : breakthrough seziure-- ? withdrawal component vs noncompliance elevated LFTS, so will DC DILANTIN start jacy [id number] [facility]
[2018-02-16] MEDS ORDERED: chlordiazePOXIDE HCL 25 MG CAPSULE PO PRN ×2 (08:51→12:17)
[2018-02-16] MEDS ORDERED: LORazepam 2 MG/ML SDV VIAL IM PRN (09:04)
[2018-02-16] MEDS ORDERED: FOLIC ACID INJECTION - 1 MG, THIAMINE HCL 100 MG, MULTIVIT INJECTION ADULT 10 ML in SOD... IVPB ONE (10:00)
[2018-02-16] MEDS ORDERED: PHENYTOIN NA EXTENDED 100 MG CAPSULE (FP) PO SCH (10:00)
[2018-02-16] MEDS: DEXTROSE 5%-LACTATED RINGERS 1,000 ML IV SCH ×2 (10:00→20:13)
[2018-02-16] MEDS ORDERED: ENOXAPARIN NA (PORCINE) 40 MG/0.4 ML DISP.SYRIN SQ SCH (10:00)
--- NOTE | 2018-02-16 10:42 | EKG ---
Test Reason : Blood Pressure : / mmHG Vent. Rate : 075 BPM Atrial Rate : 075 BPM P-R Int : 150 ms QRS Dur : 078 ms QT Int : 370 ms P-R-T Axes : 078 081 079 degrees QTc Int : 413 ms NORMAL SINUS RHYTHM NORMAL ECG Confirmed by Nik Cavanaugh MD ([id number]) on 02/16/2018 10:42:36 AM Referred By: Confirmed By:Nik Cavanaugh MD
--- NOTE | 2018-02-16 10:56 | PN ---
Teaching Attending Note Name of Resident: Tano Lambert ATTENDING PHYSICIAN STATEMENT I saw and evaluated the patient. I reviewed the resident's note and discussed the case with the resident. I agree with the resident's findings and plan as documented. SUBJECTIVE: This is a 58 year old man with a history of seizures who came to the ED yesterday because he thought he passed out for 2 hours while reading the newspaper at home. He reported that he walked to [facility] ED where an ambulance brought him here. Records show that he was found passed out in front of his house. While in the ED, he had tonic-clonic seizure activity followed by a post-ictal period. He later became confused and he is currently unable to provide a history. Family reported that he drinks heavily and that they believe he has not had a drink in 1-2 days. OBJECTIVE: Vital Signs Period Temp Pulse Resp BP Sys/Rubio Pulse Ox Last 24 Hr 97.9 F-98.8 F 69-125 18-20 131-156/83-99 97-100 GENERAL: Lethargic, arousable, confused HEART: S1S2, RRR LUNGS: Clear ABDOMEN: Soft, non-tender, non-distended, normal BS EXTREMITIES: No edema Laboratory Tests 02/15/18 02/15/18 02/15/18 14:45 14:45 14:45 WBC 10.8 H RBC 4.04 Hgb 13.1 Hct 40.8 MCV 100.9 H MCH 32.4 MCHC 32.1 RDW 14.7 Plt Count 99 L MPV 11.4 H Absolute Neuts (auto) 6.4 Neutrophils % 59.8 Lymphocytes % 28.2 Monocytes % 11.2 H Eosinophils % 0.3 Basophils % 0.5 Nucleated RBC % 0 VBG pH POC VBG pCO2 POC VBG pO2 Mixed VBG HCO3 Sodium 143 Potassium 4.2 Chloride 108 H Carbon Dioxide 15 L Anion Gap 19 H BUN 7 Creatinine 0.7 Creat Clearance w eGFR > 60 Random Glucose 113 H Serum Osmolality Lactic Acid Calcium 9.3 Magnesium 1.7 L Total Bilirubin 0.6 AST 136 H ALT 45 Alkaline Phosphatase 157 H Ammonia Creatine Kinase 183 Creatine Kinase Index 0.7 CK-MB (CK-2) 1.3 Troponin I < 0.02 Total Protein 8.0 Albumin 4.2 Vitamin B12 TSH 4.79 H Urine Color Urine Appearance Urine pH Ur Specific [place] Urine Protein Urine Glucose (UA) Urine Ketones Urine Blood Urine Nitrite Urine Bilirubin Urine Urobilinogen Ur Leukocyte Esterase Urine WBC (Auto) Urine RBC (Auto) Ur Epithelial Cells Urine Mucus Salicylates 2.4 L Opiates Screen Methadone Screen Acetaminophen < 2.0 L Barbiturate Screen Phenytoin 3.9 L Phencyclidine Screen Ur Amphetamines Screen MDMA (Ecstasy) Screen Benzodiazepines Screen Cocaine Screen U Marijuana (THC) Screen Alcohol, Quantitative < 3.0 Acetone, Qual RPR Titer 02/15/18 02/15/18 02/15/18 16:13 16:13 20:09 WBC RBC Hgb Hct MCV MCH MCHC RDW Plt Count MPV Absolute Neuts (auto) Neutrophils % Lymphocytes % Monocytes % Eosinophils % Basophils % Nucleated RBC % VBG pH POC VBG pCO2 POC VBG pO2 Mixed VBG HCO3 Sodium Potassium Chloride Carbon Dioxide Anion Gap BUN Creatinine Creat Clearance w eGFR Random Glucose Serum Osmolality Lactic Acid Calcium Magnesium Total Bilirubin AST ALT Alkaline Phosphatase Ammonia 28.19 Creatine Kinase Creatine Kinase Index CK-MB (CK-2) Troponin I Total Protein Albumin Vitamin B12 TSH Urine Color Ltyellow Urine Appearance Clear Urine pH 5.0 Ur Specific [place] 1.013 Urine Protein Negative Urine Glucose (UA) Negative Urine Ketones Trace H Urine Blood 1+ H Urine Nitrite Negative Urine Bilirubin Negative Urine Urobilinogen Negative Ur Leukocyte Esterase Negative Urine WBC (Auto) 4 Urine RBC (Auto) <1 Ur Epithelial Cells Rare Urine Mucus Rare Salicylates Opiates Screen Negative Methadone Screen Negative Acetaminophen Barbiturate Screen Negative Phenytoin Phencyclidine Screen Negative Ur Amphetamines Screen Negative MDMA (Ecstasy) Screen Negative Benzodiazepines Screen Negative Cocaine Screen Negative U Marijuana (THC) Screen Positive A* Alcohol, Quantitative Acetone, Qual RPR Titer 02/15/18 02/15/18 02/15/18 20:55 20:55 20:55 WBC RBC Hgb Hct MCV MCH MCHC RDW Plt Count MPV Absolute Neuts (auto) Neutrophils % Lymphocytes % Monocytes % Eosinophils % Basophils % Nucleated RBC % VBG pH 7.38 POC VBG pCO2 38.6 POC VBG pO2 36.7 Mixed VBG HCO3 22.5 Sodium Potassium Chloride Carbon Dioxide Anion Gap BUN Creatinine Creat Clearance w eGFR Random Glucose Serum Osmolality Lactic Acid 2.4 H* Calcium Magnesium Total Bilirubin AST ALT Alkaline Phosphatase Ammonia Creatine Kinase Creatine Kinase Index CK-MB (CK-2) Troponin I Total Protein Albumin Vitamin B12 TSH Urine Color Urine Appearance Urine pH Ur Specific [place] Urine Protein Urine Glucose (UA) Urine Ketones Urine Blood Urine Nitrite Urine Bilirubin Urine Urobilinogen Ur Leukocyte Esterase Urine WBC (Auto) Urine RBC (Auto) Ur Epithelial Cells Urine Mucus Salicylates Opiates Screen Methadone Screen Acetaminophen Barbiturate Screen Phenytoin Phencyclidine Screen Ur Amphetamines Screen MDMA (Ecstasy) Screen Benzodiazepines Screen Cocaine Screen U Marijuana (THC) Screen Alcohol, Quantitative Acetone, Qual Positive small 1+ RPR Titer 02/15/18 02/15/18 02/15/18 20:55 20:55 20:55 WBC RBC Hgb Hct MCV MCH MCHC RDW Plt Count MPV Absolute Neuts (auto) Neutrophils % Lymphocytes % Monocytes % Eosinophils % Basophils % Nucleated RBC % VBG pH POC VBG pCO2 POC VBG pO2 Mixed VBG HCO3 Sodium Potassium Chloride Carbon Dioxide Anion Gap BUN Creatinine Creat Clearance w eGFR Random Glucose Serum Osmolality 289 Lactic Acid Calcium Magnesium Total Bilirubin AST ALT Alkaline Phosphatase Ammonia Creatine Kinase Creatine Kinase Index CK-MB (CK-2) Troponin I Total Protein Albumin Vitamin B12 620 TSH Urine Color Urine Appearance Urine pH Ur Specific [place] Urine Protein Urine Glucose (UA) Urine Ketones Urine Blood Urine Nitrite Urine Bilirubin Urine Urobilinogen Ur Leukocyte Esterase Urine WBC (Auto) Urine RBC (Auto) Ur Epithelial Cells Urine Mucus Salicylates Opiates Screen Methadone Screen Acetaminophen Barbiturate Screen Phenytoin Phencyclidine Screen Ur Amphetamines Screen MDMA (Ecstasy) Screen Benzodiazepines Screen Cocaine Screen U Marijuana (THC) Screen Alcohol, Quantitative Acetone, Qual RPR Titer Nonreactive 02/16/18 02/16/18 04:20 04:20 WBC RBC Hgb Hct MCV MCH MCHC RDW Plt Count MPV Absolute Neuts (auto) Neutrophils % Lymphocytes % Monocytes % Eosinophils % Basophils % Nucleated RBC % VBG pH POC VBG pCO2 POC VBG pO2 Mixed VBG HCO3 Sodium 141 Potassium 3.0 L Chloride 109 H Carbon Dioxide 20 L Anion Gap 11 BUN 5 L Creatinine 0.5 L Creat Clearance w eGFR > 60 Random Glucose 68 L Serum Osmolality Lactic Acid 1.7 Calcium 7.1 L Magnesium Total Bilirubin AST ALT Alkaline Phosphatase Ammonia Creatine Kinase Creatine Kinase Index CK-MB (CK-2) Troponin I Total Protein Albumin Vitamin B12 TSH Urine Color Urine Appearance Urine pH Ur Specific [place] Urine Protein Urine Glucose (UA) Urine Ketones Urine Blood Urine Nitrite Urine Bilirubin Urine Urobilinogen Ur Leukocyte Esterase Urine WBC (Auto) Urine RBC (Auto) Ur Epithelial Cells Urine Mucus Salicylates Opiates Screen Methadone Screen Acetaminophen Barbiturate Screen Phenytoin Phencyclidine Screen Ur Amphetamines Screen MDMA (Ecstasy) Screen Benzodiazepines Screen Cocaine Screen U Marijuana (THC) Screen Alcohol, Quantitative Acetone, Qual RPR Titer Home Medications Medication Instructions Recorded Amlodipine Besylate [Norvasc -] 10 mg PO DAILY 02/15/18 Phenytoin Na Extended [Dilantin -] 100 mg PO DAILY 02/15/18 ASSESSMENT AND PLAN: This is a 58 year old man with a history of HTN, seizure disorder who presented to the ED after being found passed out in front of his house. While in the ED, he had a tonic-clonic seizure followed by post-ictal period then confusion. 1. Acute metabolic encephalopathy secondary to acute alcohol withdrawal - Ativan IV 2. Seizure, likely alcohol withdrawal - Continue Dilantin - level low so was loaded in ED - Keppra started 3. Thrombocytopenia secondary to alcohol use - Monitor platelets 4. Hypokalemia - Replete potassium, magnesium 5. Hypomagnesemia - Supplement magnesium 6. Hypophosphatemia - Supplement phosphorus 7. Continuous alcohol dependence - Thiamine, multivitamin, folic acid 8. HTN - Continue Norvasc
[2018-02-16] MEDS ORDERED: chlordiazePOXIDE HCL 25 MG CAPSULE PO SCH ×2 (11:00)
[2018-02-16] MEDS: amLODIPine BESYLATE 10 MG TABLET (FP) PO SCH (11:02)
[2018-02-16] MEDS: MUPIROCIN 2% TOPICAL OINTMENT FOR DECOLONIZATION NS SCH ×2 (11:03→22:00)
[2018-02-16] MEDS: FOLIC ACID 1 MG TABLET (FP) PO SCH (11:03)
--- NOTE | 2018-02-16 11:04 | CONSULT ---
Consultation: REQUESTING PROVIDER: CONSULT REQUEST: We have been asked to medically evaluate this patient for ICU. HISTORY OF PRESENT ILLNESS: Pt. is a 50 y.o. M w/ PMHx. of seizure disorder and EtOH abuse. Pt. record from chart as Pt. is in a confused state. Pt. passed out yesterday morning and walked into the [facility] ER, where he called an EMS was sent here to [facility]. In the ER he states that he does this 3x per year. Pt. in the ED was found to be A&O x 4. Pt. had a witnessed seizure that lasted 1 -2 min with postictal confusion. Pt. did not bite tongue. Ativan protocol was started as Pt. had elevated LFTs. Pt. was belligerent in ED and restraints were ordered. EKG was found to be normal. Pt. denies any pain, chest pain, difficulty breathing or any complaints. Pt. keeps asking to leave and get a sandwich. This afternoon Pt. admits to drinking 1 pint of "Gin Juice" per day and that he drank recently. This afternoon Pt. had a seizure, as witnessed by nursing staff, for approximately 2 minutes. Pt. was given 2mg Ativan. REVIEW OF SYSTEMS: Pt. unable to answer due/ to mental status. Pt. was A&O x 1 when I assessed. PHYSICAL EXAMINATION Vital Signs - 24 hr 02/15/18 02/15/18 02/15/18 11:54 14:50 17:45 Temperature 98.8 F Pulse Rate 125 H Pulse Rate [ 122 H Apical] Respiratory 18 18 20 Rate Blood Pressure 131/98 Blood Pressure 148/89 156/99 [Right Arm] O2 Sat by Pulse 100 99 100 Oximetry (%) 02/15/18 02/15/18 02/16/18 19:10 20:00 00:30 Temperature 98.3 F Pulse Rate Pulse Rate [ 96 H 87 Apical] Respiratory 18 18 Rate Blood Pressure Blood Pressure 144/91 135/83 [Right Arm] O2 Sat by Pulse 100 100 100 Oximetry (%) 02/16/18 02/16/18 04:45 07:30 Temperature 97.9 F 98 F Pulse Rate Pulse Rate [ 69 104 H Apical] Respiratory 18 19 Rate Blood Pressure Blood Pressure 152/94 149/90 [Right Arm] O2 Sat by Pulse 100 97 Oximetry (%) GENERAL: NAD, A&O x 1, disheveled appearance, confused/delirious HEAD: Normal with no signs of trauma. EYES: Pupils dilated and fixed, , scleral icterus, EARS, NOSE, THROAT: Ears normal, nares patent, oropharynx with exudates. Dry mucous membranes. LUNGS: Breath sounds equal, clear to auscultation bilaterally. No wheezes, and no crackles. No accessory muscle use. HEART: Limited exam- Regular rate and rhythm, normal S1 and S2 ABDOMEN: nontender, not distended, normoactive bowel sounds, guarding?, soft?- Pt. moving around and uncooperative UPPER EXTREMITIES: warm, well-perfused. No cyanosis. No clubbing. No peripheral edema. LOWER EXTREMITIES: 2+ dorsal pedal pulses, warm, well-perfused. No calf tenderness. No peripheral edema. PSYCHIATRIC: Uncooperative. Confused/delirious. SKIN: Warm, dry, xerotic skin in extremities. Laboratory Results - last 24 hr 02/15/18 02/15/18 02/15/18 14:45 14:45 14:45 WBC 10.8 H RBC 4.04 Hgb 13.1 Hct 40.8 MCV 100.9 H MCH 32.4 MCHC 32.1 RDW 14.7 Plt Count 99 L MPV 11.4 H Absolute Neuts (auto) 6.4 Neutrophils % 59.8 Lymphocytes % 28.2 Monocytes % 11.2 H Eosinophils % 0.3 Basophils % 0.5 Nucleated RBC % 0 VBG pH POC VBG pCO2 POC VBG pO2 Mixed VBG HCO3 Sodium 143 Potassium 4.2 Chloride 108 H Carbon Dioxide 15 L Anion Gap 19 H BUN 7 Creatinine 0.7 Creat Clearance w eGFR > 60 Random Glucose 113 H Serum Osmolality Lactic Acid Calcium 9.3 Magnesium 1.7 L Total Bilirubin 0.6 AST 136 H ALT 45 Alkaline Phosphatase 157 H Ammonia Creatine Kinase 183 Creatine Kinase Index 0.7 CK-MB (CK-2) 1.3 Troponin I < 0.02 Total Protein 8.0 Albumin 4.2 Vitamin B12 TSH 4.79 H Urine Color Urine Appearance Urine pH Ur Specific [place] Urine Protein Urine Glucose (UA) Urine Ketones Urine Blood Urine Nitrite Urine Bilirubin Urine Urobilinogen Ur Leukocyte Esterase Urine WBC (Auto) Urine RBC (Auto) Ur Epithelial Cells Urine Mucus Salicylates 2.4 L Opiates Screen Methadone Screen Acetaminophen < 2.0 L Barbiturate Screen Phenytoin 3.9 L Phencyclidine Screen Ur Amphetamines Screen MDMA (Ecstasy) Screen Benzodiazepines Screen Cocaine Screen U Marijuana (THC) Screen Alcohol, Quantitative < 3.0 Acetone, Qual RPR Titer 02/15/18 02/15/18 02/15/18 16:13 16:13 20:09 WBC RBC Hgb Hct MCV MCH MCHC RDW Plt Count MPV Absolute Neuts (auto) Neutrophils % Lymphocytes % Monocytes % Eosinophils % Basophils % Nucleated RBC % VBG pH POC VBG pCO2 POC VBG pO2 Mixed VBG HCO3 Sodium Potassium Chloride Carbon Dioxide Anion Gap BUN Creatinine Creat Clearance w eGFR Random Glucose Serum Osmolality Lactic Acid Calcium Magnesium Total Bilirubin AST ALT Alkaline Phosphatase Ammonia 28.19 Creatine Kinase Creatine Kinase Index CK-MB (CK-2) Troponin I Total Protein Albumin Vitamin B12 TSH Urine Color Ltyellow Urine Appearance Clear Urine pH 5.0 Ur Specific [place] 1.013 Urine Protein Negative Urine Glucose (UA) Negative Urine Ketones Trace H Urine Blood 1+ H Urine Nitrite Negative Urine Bilirubin Negative Urine Urobilinogen Negative Ur Leukocyte Esterase Negative Urine WBC (Auto) 4 Urine RBC (Auto) <1 Ur Epithelial Cells Rare Urine Mucus Rare Salicylates Opiates Screen Negative Methadone Screen Negative Acetaminophen Barbiturate Screen Negative Phenytoin Phencyclidine Screen Negative Ur Amphetamines Screen Negative MDMA (Ecstasy) Screen Negative Benzodiazepines Screen Negative Cocaine Screen Negative U Marijuana (THC) Screen Positive A* Alcohol, Quantitative Acetone, Qual RPR Titer 02/15/18 02/15/18 02/15/18 20:55 20:55 20:55 WBC RBC Hgb Hct MCV MCH MCHC RDW Plt Count MPV Absolute Neuts (auto) Neutrophils % Lymphocytes % Monocytes % Eosinophils % Basophils % Nucleated RBC % VBG pH 7.38 POC VBG pCO2 38.6 POC VBG pO2 36.7 Mixed VBG HCO3 22.5 Sodium Potassium Chloride Carbon Dioxide Anion Gap BUN Creatinine Creat Clearance w eGFR Random Glucose Serum Osmolality Lactic Acid 2.4 H* Calcium Magnesium Total Bilirubin AST ALT Alkaline Phosphatase Ammonia Creatine Kinase Creatine Kinase Index CK-MB (CK-2) Troponin I Total Protein Albumin Vitamin B12 TSH Urine Color Urine Appearance Urine pH Ur Specific [place] Urine Protein Urine Glucose (UA) Urine Ketones Urine Blood Urine Nitrite Urine Bilirubin Urine Urobilinogen Ur Leukocyte Esterase Urine WBC (Auto) Urine RBC (Auto) Ur Epithelial Cells Urine Mucus Salicylates Opiates Screen Methadone Screen Acetaminophen Barbiturate Screen Phenytoin Phencyclidine Screen Ur Amphetamines Screen MDMA (Ecstasy) Screen Benzodiazepines Screen Cocaine Screen U Marijuana (THC) Screen Alcohol, Quantitative Acetone, Qual Positive small 1+ RPR Titer 02/15/18 02/15/18 02/15/18 20:55 20:55 20:55 WBC RBC Hgb Hct MCV MCH MCHC RDW Plt Count MPV Absolute Neuts (auto) Neutrophils % Lymphocytes % Monocytes % Eosinophils % Basophils % Nucleated RBC % VBG pH POC VBG pCO2 POC VBG pO2 Mixed VBG HCO3 Sodium Potassium Chloride Carbon Dioxide Anion Gap BUN Creatinine Creat Clearance w eGFR Random Glucose Serum Osmolality 289 Lactic Acid Calcium Magnesium Total Bilirubin AST ALT Alkaline Phosphatase Ammonia Creatine Kinase Creatine Kinase Index CK-MB (CK-2) Troponin I Total Protein Albumin Vitamin B12 620 TSH Urine Color Urine Appearance Urine pH Ur Specific [place] Urine Protein Urine Glucose (UA) Urine Ketones Urine Blood Urine Nitrite Urine Bilirubin Urine Urobilinogen Ur Leukocyte Esterase Urine WBC (Auto) Urine RBC (Auto) Ur Epithelial Cells Urine Mucus Salicylates Opiates Screen Methadone Screen Acetaminophen Barbiturate Screen Phenytoin Phencyclidine Screen Ur Amphetamines Screen MDMA (Ecstasy) Screen Benzodiazepines Screen Cocaine Screen U Marijuana (THC) Screen Alcohol, Quantitative Acetone, Qual RPR Titer Nonreactive 02/16/18 02/16/18 04:20 04:20 WBC RBC Hgb Hct MCV MCH MCHC RDW Plt Count MPV Absolute Neuts (auto) Neutrophils % Lymphocytes % Monocytes % Eosinophils % Basophils % Nucleated RBC % VBG pH POC VBG pCO2 POC VBG pO2 Mixed VBG HCO3 Sodium 141 Potassium 3.0 L Chloride 109 H Carbon Dioxide 20 L Anion Gap 11 BUN 5 L Creatinine 0.5 L Creat Clearance w eGFR > 60 Random Glucose 68 L Serum Osmolality Lactic Acid 1.7 Calcium 7.1 L Magnesium Total Bilirubin AST ALT Alkaline Phosphatase Ammonia Creatine Kinase Creatine Kinase Index CK-MB (CK-2) Troponin I Total Protein Albumin Vitamin B12 TSH Urine Color Urine Appearance Urine pH Ur Specific [place] Urine Protein Urine Glucose (UA) Urine Ketones Urine Blood Urine Nitrite Urine Bilirubin Urine Urobilinogen Ur Leukocyte Esterase Urine WBC (Auto) Urine RBC (Auto) Ur Epithelial Cells Urine Mucus Salicylates Opiates Screen Methadone Screen Acetaminophen Barbiturate Screen Phenytoin Phencyclidine Screen Ur Amphetamines Screen MDMA (Ecstasy) Screen Benzodiazepines Screen Cocaine Screen U Marijuana (THC) Screen Alcohol, Quantitative Acetone, Qual RPR Titer Active Medications Current Medications Amlodipine Besylate (Norvasc -) 10 mg PO DAILY [facility] Last Admin: 02/16/18 11:02 Dose: Not Given Chlorhexidine Gluconate (Hibiclens For Decolonization -) 1 applic TP HS [facility] Enoxaparin Sodium (Lovenox -) 40 mg SQ DAILY [facility] Folic Acid (Folic Acid -) 1 mg PO DAILY [facility] Last Admin: 02/16/18 11:03 Dose: Not Given Folic Acid 1 mg/ Thiamine HCl 100 mg/ Multivitamins/Minerals 10 ml/ Sodium Chloride 1,000 mls @ 125 mls/hr IVPB ONCE ONE Stop: 02/16/18 17:59 Last Admin: 02/16/18 11:02 Dose: 125 mls/hr Dextrose/Lactated Ringer's (D5-Lr -) 1,000 mls @ 83 mls/hr IV ASDIR [facility] Levetiracetam (Keppra Injection -) 500 mg IVPB BID [facility] Lorazepam (Ativan Injection -) 2 mg IVPUSH Q6H-IV [facility] Last Admin: 02/16/18 10:00 Dose: 2 mg Lorazepam (Ativan Injection -) 2 mg IM Q2H PRN PRN Reason: ANXIETY Mupirocin (Bactroban Ointment (For Decolonization) -) 1 applic NS BID [facility] Stop: 02/21/18 09:59 Last Admin: 02/16/18 11:03 Dose: 1 applic ASSESSMENT/PLAN: Pt. is a 50 y.o. M w/ PMHx. of seizure disorder and EtOH abuse presenting to the ICU with confusion and #Neurology -Seizure Disorder s/p witnessed seizure in the ED ( 1-2 min, tonic-clonic, post-ictal state, Phenytoin level 3.9) Started Keppra 500mg BID D/C-ed Dilantin Neurology consult appreciated (Dr. Bowman) #Psychiatry -Delirium Tremens CIWA score of 17 c/w Ativan 2mg Q6H and Q2H PRN as Pt. is refusing Librium at this time ABD-US: showed mild dilatation of intrahepatic biliary tree, diffuse fatty liver infiltrates, chronic calcific pancreas w/ dilated irregular main duct (8mm ). 1:1 Observation Alcohol level <3.0 Detox consult appreciated #F/E/N -replete electrolytes as needed -received Banana bag -Replete Thiamine, Folic Acid and B12(620 -02/16/18) -Regular Diet #DVT Ppx. -Lovenox 40mg SQ #Dispo: We will continue to follow the patient. Thank you for this consultative opportunity. Visit type - Emergency Visit Emergency Visit: No - New Patient This patient is new to me today: Yes Date on this admission: 03/02/18 - Critical Care Critical Care patient: Yes Total Critical Care Time (in minutes): 44 Critical Care Statement: The care of this patient involved high complexity decision making to prevent further life threatening deterioration of the patient 's condition and/or to evaluate & treat vital organ system(s) failure or risk of failure.
[2018-02-16] MEDS: levETIRAcetam 500 MG/5 ML INJECTION VIAL IVPB SCH ×2 (11:52→22:00)
--- NOTE | 2018-02-16 11:52 | CONSULT ---
"Consult Detox [facility] Reason for Current Admission/Consult: alcohol use and seizure, ? DT's - History History of Present Illness: 58 yo male with acute mental status changes. Pt is in 4 point restraints- pt was trying to leave bed to go to his favorite deli for a sandwich. Pt is alert but oriented to name, address, . Pt states his favorite drink is gin juice- drinks about a pint a day. Also drinks beer- could not quantify how much he drank. Pt not able to endorse to h/ o withdrawal Sx, seizures or DT's. Says he goes to [facility] as needed- could not verbalize why he goes there. In 2012: pt was admitted to [facility] for alcohol dependence- could not access those notes. Pt denies being in pain now. Pt is on Bezodiazepines- Librium or Valium for presumed alcohol withdrawal. Admission tox screen positive only for THC, negative for all substances including alcohol. Confidential Drug Utilization Report/QUALITY IMPROVEMENT COORDINATOR. Search Terms: sean raymundo, 1960 Search Date: 02/16/2018 11:51:13 AM The Drug Utilization Report below displays all of the controlled substance prescriptions, if any, that your patient has filled in the last twelve months. The information displayed on this report is compiled from pharmacy submissions to the Department, and accurately reflects the information as submitted by the pharmacies. This report was requested by: Jagdeep Ann | Reference #: [id number] There are no results for the search terms that you entered. - History Source History Provided By: Patient Limitations to Obtaining History: Other (delirium) - Alcohol/Substance Use Hx Alcohol Use: Yes (gin juice and beer) CIWA Score - CIWA Score Nausea/Vomitin-No Nausea/No Vomiting (pt is with acute mental status changes - CIWA score probably not accurate) Muscle Tremors: None Anxiety: 2 Agitation: 5 Paroxysmal Sweats: No Perspiration Orientation: 1-Uncertain about Date Assessment Plan - Diagnosis (1) Alcohol abuse Status: Acute - Plan Plan: pt has a h/o alcohol use. Unclear if this episode of mental status changes is related to alcohol use/withdrawal. Agree with current benzo based treatment for h/o alcohol use and repleting his vitamins and minerals. Please call us back if we can be of further assistance: [phone]. - Medication Detox Regimen/Protocol: Librium"
[2018-02-16 12:51] LABS: HEMOGLOBIN 14.2 GM/dL (11.7-16.9); MCH 32.6 pg (25.7-33.7); MEAN CELL VOLUME 98.8 fl (80-96); MEAN PLT VOLUME 11.1 fl (7.5-11.1); PLATELET COUNT 91 K/MM3 (134-434); RBC 4.35 M/mm3 (4.00-5.60); RDW 14.3 % (11.9-15.9); WHITE BLOOD COUNT 8.7 K/mm3 (4.0-10.0)
--- NOTE | 2018-02-16 12:58 | PN ---
Teaching Attending Note Name of Resident: Hi Reza ATTENDING PHYSICIAN STATEMENT I saw and evaluated the patient. I reviewed the resident's note and discussed the case with the resident. I agree with the resident's findings and plan as documented. SUBJECTIVE: Pt seen and examined in the ICU. Confused, tachycardic but no further seizures noted. OBJECTIVE: Vital Signs Period Temp Pulse Resp BP Sys/Rubio Pulse Ox Last 24 Hr 97.9 F-98.3 F 69-122 18-20 135-156/83-99 97-100 Intake & Output 02/13/18 02/14/18 02/15/18 02/16/18 23:59 23:59 23:59 23:59 Weight 61.235 kg 61.235 kg Gen: confused, breathing nonlabored Heart: tachycardic, regular Lung: decreased breath sounds at the bases Abd: soft, nontender Ext: no edema CBC, BMP 02/16/18 12:35 02/16/18 04:20 Active Medications Amlodipine Besylate (Norvasc -) 10 mg PO DAILY [facility] Last Admin: 02/16/18 11:02 Dose: Not Given Chlordiazepoxide HCl (Librium -) 50 mg PO [id number] [facility] Stop: 02/17/18 05:01 Chlordiazepoxide HCl (Librium -) 25 mg PO [id number] [facility] Stop: 02/18/18 05:01 Chlordiazepoxide HCl (Librium -) 15 mg PO [id number] [facility] Stop: 02/19/18 05:01 Chlordiazepoxide HCl (Librium -) 25 mg PO Q4H PRN PRN Reason: WITHDRAWAL(CONT SUBST) Stop: 02/19/18 12:16 Chlordiazepoxide HCl (Librium -) 10 mg PO [id number] [facility] Stop: 02/20/18 05:01 Chlorhexidine Gluconate (Hibiclens For Decolonization -) 1 applic TP HS [facility] Enoxaparin Sodium (Lovenox -) 40 mg SQ DAILY [facility] Folic Acid (Folic Acid -) 1 mg PO DAILY [facility] Last Admin: 02/16/18 11:03 Dose: Not Given Folic Acid 1 mg/ Thiamine HCl 100 mg/ Multivitamins/Minerals 10 ml/ Sodium Chloride 1,000 mls @ 125 mls/hr IVPB ONCE ONE Stop: 02/16/18 17:59 Last Admin: 02/16/18 11:02 Dose: 125 mls/hr Dextrose/Lactated Ringer's (D5-Lr -) 1,000 mls @ 83 mls/hr IV ASDIR [facility] Influenza Virus Vaccine Quadrival (Flulaval Quad [id number]) 60 mcg IM .ONCE ONE Stop: 02/16/18 12:53 Levetiracetam (Keppra Injection -) 500 mg IVPB BID [facility] Last Admin: 02/16/18 11:52 Dose: 500 mg Mupirocin (Bactroban Ointment (For Decolonization) -) 1 applic NS BID [facility] Stop: 02/21/18 09:59 Last Admin: 02/16/18 11:03 Dose: 1 applic ASSESSMENT AND PLAN: Altered Mental Status Alcohol Abuse r/o Alcohol Withdrawal Thrombocytopenia Seizure Disorder HTN - librium protocol - aspiration precautions - IVF - replete lytes - DVT prophylaxis - continue ICU monitoring
[2018-02-16] MEDS ORDERED: FLU VACCINE QUAD 60 MCG/0.5 ML (MDV 18-19) IM ONE (13:00)
[2018-02-16] MEDS ORDERED: POTASSIUM CHLORIDE TABS 20 MEQ TABLET.ER (FP) PO ONE (13:13)
[2018-02-16 13:15] LABS: MAGNESIUM 1.5 mg/dL (1.8-2.4)
[2018-02-16] MEDS ORDERED: MAGNESIUM SULF 50% (8.12 MEQ/2 ML-1 GM VIAL) IVPB ONE (13:31)
[2018-02-16] MEDS ORDERED: CYANOCOBALAMIN (VITAMIN B-12) 1000 MCG/1 ML VIAL IM ONE (14:00)
[2018-02-16] MEDS ORDERED: POTASSIUM PHOSPHATE 40 MM in SODIUM CHLORIDE 500 ML IVPB ONE (14:30)
[2018-02-16] MEDS ORDERED: LORazepam 2 MG/ML SDV VIAL IVPUSH SCH (15:00)
[2018-02-16] MEDS ORDERED: PT OWN MED DRAWER 7, Y5N ONE (15:46)
[2018-02-16] MEDS: LORazepam 2 MG/ML SDV VIAL IM PRN ×2 (19:00→23:22)
[2018-02-16] MEDS: CHLORHEXIDINE GLUCONATE 4% CLEANSER FOR DECOLONIZATION TP SCH (22:00)
[2018-02-17] MEDS: LORazepam 2 MG/ML SDV VIAL IM PRN ×5 (04:17→20:00)
[2018-02-17 06:11] LABS: HEP B CORE AB, TOT Positive (Negative); HEPATITIS B CORE ANTIBODY,IGM Negative (Negative)
[2018-02-17 06:39] LABS: ANION GAP 13 MMOL/L (8-16); BLOOD UREA NITROGEN 4 mg/dL (7-18); CALCIUM 8.1 mg/dL (8.5-10.1); CHLORIDE 101 mmol/L (98-107); CO2 21 mmol/L (21-32); CREATININE 0.6 mg/dL (0.55-1.3); GLUCOSE,RANDOM 142 mg/dL (74-106); HEMATOCRIT 42.5 % (35.4-49); HEMOGLOBIN 13.8 GM/dL (11.7-16.9); MCH 32.7 pg (25.7-33.7); MCHC 32.5 g/dl (32.0-35.9); MEAN CELL VOLUME 100.7 fl (80-96); MEAN PLT VOLUME 11.9 fl (7.5-11.1); PHOSPHOROUS 3.2 mg/dL (2.5-4.9); PLATELET COUNT 73 K/MM3 (134-434); POTASSIUM 3.8 mmol/L (3.5-5.1); RBC 4.21 M/mm3 (4.00-5.60); SODIUM 135 mmol/L (136-145); WHITE BLOOD COUNT 8.8 K/mm3 (4.0-10.0)
[2018-02-17] MEDS: amLODIPine BESYLATE 10 MG TABLET (FP) PO SCH (09:42)
[2018-02-17] MEDS: levETIRAcetam 500 MG/5 ML INJECTION VIAL IVPB SCH ×2 (09:42→22:28)
[2018-02-17] MEDS: FOLIC ACID 1 MG TABLET (FP) PO SCH (09:42)
[2018-02-17] MEDS: MUPIROCIN 2% TOPICAL OINTMENT FOR DECOLONIZATION NS SCH ×2 (09:44→22:27)
[2018-02-17] MEDS: DEXTROSE 5%-LACTATED RINGERS 1,000 ML IV SCH (09:44)
--- NOTE | 2018-02-17 10:30 | PN ---
Progress Note (short form) - Note Progress Note: 58-year-old gentleman history of seizures (on Dilantin) brought on by EMS for syncope/seizure. The patients history seems inconsistent obtain multiple providers the patient's notes that he was fine yesterday was drinking beer and watching sports, this morning approximately 10:00 he started feeling very dizzy and unwell was walking to [facility]. He reports that he went to the ER and EMS was called and brought the patient to [facility]. The patient denies any headache, chest pain, shortness of breath, palpitations, nausea, vomiting, abdominal pain, neck pain, back pain, extremity pain. The patient notes that he occasionally has seizures his last one was probably 7 months ago and does feel lightheaded prior to the seizures although today he denies any tongue biting, urinary or bowel incontinence. as per brotehr + HX of ETOH and withdrawal seziure in past. s/p fall in ER -- + metabolic issues also noted -- transferred to ICU. CT HD left frontal encephalomalcia dilantin level 3.9 FU : confused , not oriented to place, yr ,time no new sz reported seen by addiction medicine - Alcohol/Substance Use Hx Alcohol Use: No - Smoking History Smoking history: Never smoked Have you smoked in the past 12 months: Yes Aproximately how many cigarettes per day: 4 Home Medications - Allergies Allergies/Adverse Reactions: Allergies Allergy/AdvReac Type Severity Reaction Status Date / Time No Known Allergies Allergy Verified 02/15/18 12:23 - Home Medications Home Medications: Ambulatory Orders Amlodipine Besylate [Norvasc -] 10 mg PO DAILY 02/15/18 Phenytoin Na Extended [Dilantin -] 100 mg PO DAILY 02/15/18 Physical Exam-Neuro Vital Signs: Vital Signs Temperature 98.4 F 02/17/18 10:00 Pulse Rate 74 02/17/18 10:00 Respiratory Rate 20 02/17/18 10:00 Blood Pressure 140/108 H 02/17/18 10:00 O2 Sat by Pulse Oximetry (%) 97 02/16/18 21:00 Constitutional: Yes: Well Nourished Labs: CBCD WBC 8.8 K/mm3 (4.0-10.0) 02/17/18 05:30 RBC 4.21 M/mm3 (4.00-5.60) 02/17/18 05:30 Hgb 13.8 GM/dL (11.7-16.9) 02/17/18 05:30 Hct 42.5 % (35.4-49) 02/17/18 05:30 MCV 100.7 fl (80-96) H 02/17/18 05:30 MCHC 32.5 g/dl (32.0-35.9) 02/17/18 05:30 RDW 14.0 % (11.9-15.9) 02/17/18 05:30 Plt Count 73 K/MM3 (134-434) L 02/17/18 05:30 MPV 11.9 fl (7.5-11.1) H 02/17/18 05:30 CMP Sodium 135 mmol/L (136-145) L 02/17/18 05:30 Potassium 3.8 mmol/L (3.5-5.1) 02/17/18 05:30 Chloride 101 mmol/L (98-107) 02/17/18 05:30 Carbon Dioxide 21 mmol/L (21-32) 02/17/18 05:30 Anion Gap 13 MMOL/L (8-16) 02/17/18 05:30 BUN 4 mg/dL (7-18) L 02/17/18 05:30 Creatinine 0.6 mg/dL (0.55-1.3) 02/17/18 05:30 Creat Clearance w eGFR > 60 (>60) 02/17/18 05:30 Calcium 8.1 mg/dL (8.5-10.1) L 02/17/18 05:30 Total Bilirubin 0.6 mg/dL (0.2-1) 02/15/18 14:45 AST 136 U/L (15-37) H 02/15/18 14:45 ALT 45 U/L (13-61) 02/15/18 14:45 Alkaline Phosphatase 157 U/L (45-117) H 02/15/18 14:45 Total Protein 8.0 g/dl (6.4-8.2) 02/15/18 14:45 Albumin 4.2 g/dl (3.4-5.0) 02/15/18 14:45 - Neuro Exam Level Of Consciousness: Yes: Alert (awake alert conversive, no focal weakness, no astrerixis, nonfocal ) Imaging - Results Cat Scan: Report Reviewed, Image Reviewed Problem List - Problems (1) Alcohol abuse Code(s): F10.10 - ALCOHOL ABUSE, UNCOMPLICATED (2) Seizure Code(s): R56.9 - UNSPECIFIED CONVULSIONS Assessment/Plan 58-year-old gentleman history of seizures (on Dilantin) brought on by EMS for syncope/seizure. The patients history seems inconsistent obtain multiple providers the patient's notes that he was fine yesterday was drinking beer and watching sports, this morning approximately 10:00 he started feeling very dizzy and unwell was walking to [facility]. He reports that he went to the ER and EMS was called and brought the patient to [facility]. The patient denies any headache, chest pain, shortness of breath, palpitations, nausea, vomiting, abdominal pain, neck pain, back pain, extremity pain. The patient notes that he occasionally has seizures his last one was probably 7 months ago and does feel lightheaded prior to the seizures although today he denies any tongue biting, urinary or bowel incontinence. as per tatiana + HX of ETOH and withdrawal seizure in past. s/p fall in ER -- + metabolic issues also noted -- transferred to ICU. CT HD prelim (-) dilantin level 3.9 AP : breakthrough seizure-- ? withdrawal component vs noncompliance with underlying encephalopathy elevated LFTS, now off of DILANTIN continue keppra 500BID librium protocol and FU electrolyes FU B12 , B1 and TSh levels DR BELTRAN Problem List - Problems (1) Alcohol abuse Code(s): F10.10 - ALCOHOL ABUSE, UNCOMPLICATED (2) Seizure Code(s): R56.9 - UNSPECIFIED CONVULSIONS
[2018-02-17] MEDS ORDERED: chlordiazePOXIDE HCL 25 MG CAPSULE PO SCH ×2 (11:00)
[2018-02-17] MEDS ORDERED: PANTOPRAZOLE SODIUM 40 MG VIAL IVPUSH SCH (12:00)
--- NOTE | 2018-02-17 12:15 | PN ---
Teaching Attending Note Name of Resident: Hi Reza ATTENDING PHYSICIAN STATEMENT I saw and evaluated the patient. I reviewed the resident's note and discussed the case with the resident. I agree with the resident's findings and plan as documented. SUBJECTIVE: Pt seen and examined in the ICU. Remains confused, agitated at times. OBJECTIVE: Vital Signs Period Temp Pulse Resp BP Sys/Rubio Pulse Ox Last 24 Hr 98 F-98.9 F 67-95 14-20 113-154/68-108 97-97 Intake & Output 02/14/18 02/15/18 02/16/18 02/17/18 23:59 23:59 23:59 23:59 Intake Total 1125 1546 Balance 1125 1546 Weight 61.235 kg 61.235 kg Gen: confused but in NAD Heart: RRR Lung: decreased breath sounds at the bases Abd: soft, nontender Ext: no edema CBC, BMP 02/17/18 05:30 02/17/18 05:30 Active Medications Amlodipine Besylate (Norvasc -) 10 mg PO DAILY [facility] Last Admin: 02/17/18 09:42 Dose: 10 mg Chlorhexidine Gluconate (Hibiclens For Decolonization -) 1 applic TP HS [facility] Last Admin: 02/16/18 22:00 Dose: 1 applic Folic Acid (Folic Acid -) 1 mg PO DAILY [facility] Last Admin: 02/17/18 09:42 Dose: 1 mg Dextrose/Lactated Ringer's (D5-Lr -) 1,000 mls @ 83 mls/hr IV ASDIR [facility] Last Admin: 02/17/18 09:44 Dose: 83 mls/hr Levetiracetam (Keppra Injection -) 500 mg IVPB BID [facility] Last Admin: 02/17/18 09:42 Dose: 500 mg Lorazepam (Ativan Injection -) 2 mg IM Q6H PRN PRN Reason: ANXIETY Last Admin: 02/17/18 09:42 Dose: 2 mg Lorazepam (Ativan Injection -) 2 mg IM Q2H PRN PRN Reason: ANXIETY Last Admin: 02/17/18 11:07 Dose: 2 mg Mupirocin (Bactroban Ointment (For Decolonization) -) 1 applic NS BID [facility] Stop: 02/21/18 09:59 Last Admin: 02/17/18 09:44 Dose: 1 applic Pantoprazole Sodium (Protonix Iv) 40 mg IVPUSH DAILY [facility] ASSESSMENT AND PLAN: Altered Mental Status Alcohol Abuse/Alcohol Withdrawal Thrombocytopenia Seizure Disorder HTN - librium protocol - aspiration precautions - IVF - replete lytes - DVT prophylaxis - can monitor on floor
--- NOTE | 2018-02-17 15:11 | PN ---
Teaching Attending Note Name of Resident: Pantera Cook ATTENDING PHYSICIAN STATEMENT I saw and evaluated the patient. I reviewed the resident's note and discussed the case with the resident. I agree with the resident's findings and plan as documented. SUBJECTIVE: not able to obtain hx due to AMS. No events over night . admitted to visual hallucinations to resident OBJECTIVE: NAD , awake, talking to himself, dry MM Cv : RRR, noMRG Lungs: CTAB ABd: sfot, NT, ND , NL BS , liver and spleen are not palpated or percussed Ext : no edema . refused feet exam ASSESSMENT AND PLAN: 58 y/o man with h/o ETOH abuse, seizure disorder/withdrawal seizures, and HTN who presented with AMS and was found ot have seizures in ER 1- AMS/encephalopathy due to ETOH withdrawal - treat alcohol withdrawal - cont keppra - off dilantin 2- Seizure : cont keppra 3- ETOH withdrawal and DT : - monitor closely - cont Ativan per CIWA . hold for sedation - thiamin, folate, MVT . - monitor electrolytes closely and replete 4- slightly elevated TSH: repeat TFTs when in normal state of health as out pt 5- Elevated lactic acid, due to volume depletion and seizure. cont IVF 6- Dc lovenox due to thrombocytopenia ( form alcohol use ) SCDS monitor in ICU Critical Care Total Critical Care Time (in minutes): 40 Critical Care Statement: The care of this patient involved high complexity decision making to prevent further life threatening deterioration of the patient 's condition and/or to evaluate & treat vital organ system(s) failure or risk of failure.
--- NOTE | 2018-02-17 16:09 | PN ---
Physical Exam: SUBJECTIVE: Patient seen and examined. SIMEON overnight, no seizure activity. Pt. received flu shot yesterday. Pt. endorses having Hepatitis B for the last 30 years, states that he got it from swimming in a pool with one of his male friends. Pt. denies IV drug use and denies having sex with men. During the afternoon, Pt. became alarmed and stated that he was seeing and hearing a dog run around his room, Pt. given 2mg Ativan. OBJECTIVE: Vital Signs Period Temp Pulse Resp BP Sys/Rubio Pulse Ox Last 24 Hr 98.1 F-98.7 F 67-90 14-20 100-155/57-108 97-97 GENERAL: The patient is awake, alert oriented to name only, in no acute distress. HEAD: Normal with no signs of trauma. EYES: PERRL, extraocular movements intact, sclera icteric, No ptosis. ENT: Ears normal, nares patent, oropharynx clear without exudates, moist mucous membranes. LUNGS: Breath sounds equal, clear to auscultation bilaterally, no wheezes, no crackles, no accessory muscle use. HEART: Regular rate and rhythm, S1, S2 without murmur ABDOMEN: Soft, nontender, nondistended, normoactive bowel sounds, no guarding EXTREMITIES: 2+ dorsal pedal pulses, warm, well-perfused, no calf tenderness, no edema. NEUROLOGICAL: Cranial nerves II through XII grossly intact. Confused speech, gait not observed. SKIN: Warm, dry, normal turgor Laboratory Results - last 24 hr 02/16/18 02/17/18 02/17/18 12:35 05:30 05:30 WBC 8.8 RBC 4.21 Hgb 13.8 Hct 42.5 MCV 100.7 H MCH 32.7 MCHC 32.5 RDW 14.0 Plt Count 73 L MPV 11.9 H Sodium 135 L Potassium 3.8 Chloride 101 Carbon Dioxide 21 Anion Gap 13 BUN 4 L Creatinine 0.6 Creat Clearance w eGFR > 60 Random Glucose 142 H Calcium 8.1 L Phosphorus 3.2 Magnesium 2.0 Free T4 0.91 Hep B Core Total Ab Positive H Hep B Core IgM Ab Negative Active Medications Current Medications Amlodipine Besylate (Norvasc -) 10 mg PO DAILY [facility] Last Admin: 02/17/18 09:42 Dose: 10 mg Chlorhexidine Gluconate (Hibiclens For Decolonization -) 1 applic TP HS [facility] Last Admin: 02/16/18 22:00 Dose: 1 applic Folic Acid (Folic Acid -) 1 mg PO DAILY [facility] Last Admin: 02/17/18 09:42 Dose: 1 mg Dextrose/Lactated Ringer's (D5-Lr -) 1,000 mls @ 83 mls/hr IV ASDIR [facility] Last Admin: 02/17/18 09:44 Dose: 83 mls/hr Levetiracetam (Keppra Injection -) 500 mg IVPB BID [facility] Last Admin: 02/17/18 09:42 Dose: 500 mg Lorazepam (Ativan Injection -) 2 mg IM Q6H PRN PRN Reason: ANXIETY Last Admin: 02/17/18 09:42 Dose: 2 mg Lorazepam (Ativan Injection -) 2 mg IM Q2H PRN PRN Reason: ANXIETY Last Admin: 02/17/18 13:49 Dose: 2 mg Mupirocin (Bactroban Ointment (For Decolonization) -) 1 applic NS BID [facility] Stop: 02/21/18 09:59 Last Admin: 02/17/18 09:44 Dose: 1 applic Pantoprazole Sodium (Protonix Iv) 40 mg IVPUSH DAILY [facility] Last Admin: 02/17/18 13:49 Dose: 40 mg Thiamine HCl (Vitamin B1 -) 100 mg PO DAILY [facility] ASSESSMENT/PLAN: Pt. is a 50 y.o. M w/ PMHx. of seizure disorder and EtOH abuse presenting to the ICU with confusion and agitation. #Neurology -Seizure Disorder -stable s/p witnessed seizure in the ED ( 1-2 min, tonic-clonic, post-ictal state, Phenytoin level 3.9) Started Keppra 500mg BID D/C-ed Dilantin Neurology consult appreciated (Dr. Bowman) #Psychiatry -Delirium Tremens CIWA score of 10 today c/w Ativan 2mg Q6H and Q2H PRN as Pt. is refusing Librium at this time ABD-US: showed mild dilatation of intrahepatic biliary tree, diffuse fatty liver infiltrates, chronic calcific pancreas w/ dilated irregular main duct (8mm ). 1:1 Observation Alcohol level <3.0 Detox consult appreciated #F/E/N -replete electrolytes as needed -received Banana bag -Replete Thiamine, Folic Acid and B12(620 -02/16/18) -Regular Diet #DVT Ppx. -Lovenox 40mg SQ #Dispo: Med/Surg Visit type - Emergency Visit Emergency Visit: Yes ED Registration Date: 02/16/18 Care time: The patient presented to the Emergency Department on the above date and was hospitalized for further evaluation of their emergent condition. - New Patient This patient is new to me today: No - Critical Care Critical Care patient: Yes Total Critical Care Time (in minutes): 38 Critical Care Statement: The care of this patient involved high complexity decision making to prevent further life threatening deterioration of the patient 's condition and/or to evaluate & treat vital organ system(s) failure or risk of failure. - Discharge Referral Referred to [facility] Med P.C.: No
[2018-02-17 19:23] LABS: INR 1.03 (0.83-1.09); PROTHROMBIN TIME (PATIENT) 12.2 SEC (9.7-13.0)
--- NOTE | 2018-02-17 21:15 | PN ---
Physical Exam: SUBJECTIVE: Patient seen and examined this morning in the ICU. Patient was able to tolerate dinner; Otherwise no acute events as per nursing staff. Unable to obtain Hx as patient was altered, speaking to himself. OBJECTIVE: Vital Signs Period Temp Pulse Resp BP Sys/Rubio Pulse Ox Last 24 Hr 97.5 F-98.7 F 67-90 14-20 100-155/57-119 97-97 GENERAL: A&O to name only, NAD HEAD: NCAT EYES: PERRL ENT: Oropharynx clear without exudates, MMM NECK: No JVD. LUNGS: CTA bilaterally, no wheezes HEART: Regular rate and rhythm, S1, S2 without murmur ABDOMEN: Soft, nontender, nondistended, + bowel sounds, no guarding EXTREMITIES: 2+ pulses, no edema. NEUROLOGICAL: Confused speech. Unable to assess further as patient has difficulty following commands SKIN: Warm, dry, no rashes or lesions noted Laboratory Results - last 24 hr 02/16/18 02/17/18 02/17/18 12:35 05:30 05:30 WBC 8.8 RBC 4.21 Hgb 13.8 Hct 42.5 MCV 100.7 H MCH 32.7 MCHC 32.5 RDW 14.0 Plt Count 73 L MPV 11.9 H PT with INR INR PTT (Actin FS) Sodium 135 L Potassium 3.8 Chloride 101 Carbon Dioxide 21 Anion Gap 13 BUN 4 L Creatinine 0.6 Creat Clearance w eGFR > 60 Random Glucose 142 H Calcium 8.1 L Phosphorus 3.2 Magnesium 2.0 Free T4 0.91 Hep B Core Total Ab Positive H Hep B Core IgM Ab Negative 02/17/18 18:00 WBC RBC Hgb Hct MCV MCH MCHC RDW Plt Count MPV PT with INR 12.20 INR 1.03 PTT (Actin FS) 29.0 Sodium Potassium Chloride Carbon Dioxide Anion Gap BUN Creatinine Creat Clearance w eGFR Random Glucose Calcium Phosphorus Magnesium Free T4 Hep B Core Total Ab Hep B Core IgM Ab Microbiology 02/15/18 20:55 Blood - Peripheral Venous Blood Culture - Preliminary NO GROWTH OBTAINED AFTER 48 HOURS, INCUBATION TO CONTINUE FOR 3 DAYS. 02/15/18 20:55 Blood - Peripheral Venous Blood Culture - Preliminary NO GROWTH OBTAINED AFTER 48 HOURS, INCUBATION TO CONTINUE FOR 3 DAYS. 02/15/18 16:13 Urine - Urine Clean Catch Urine Culture - Final NO GROWTH OBTAINED Active Medications Amlodipine Besylate (Norvasc -) 10 mg PO DAILY [facility] Last Admin: 02/17/18 09:42 Dose: 10 mg Chlorhexidine Gluconate (Hibiclens For Decolonization -) 1 applic TP HS [facility] Last Admin: 02/16/18 22:00 Dose: 1 applic Folic Acid (Folic Acid -) 1 mg PO DAILY [facility] Last Admin: 02/17/18 09:42 Dose: 1 mg Dextrose/Lactated Ringer's (D5-Lr -) 1,000 mls @ 83 mls/hr IV ASDIR [facility] Last Admin: 02/17/18 09:44 Dose: 83 mls/hr Levetiracetam (Keppra Injection -) 500 mg IVPB BID [facility] Last Admin: 02/17/18 09:42 Dose: 500 mg Lorazepam (Ativan Injection -) 2 mg IM Q6H PRN PRN Reason: ANXIETY Last Admin: 02/17/18 20:00 Dose: 2 mg Lorazepam (Ativan Injection -) 2 mg IM Q2H PRN PRN Reason: ANXIETY Last Admin: 02/17/18 13:49 Dose: 2 mg Mupirocin (Bactroban Ointment (For Decolonization) -) 1 applic NS BID [facility] Stop: 02/21/18 09:59 Last Admin: 02/17/18 09:44 Dose: 1 applic Pantoprazole Sodium (Protonix Iv) 40 mg IVPUSH DAILY [facility] Last Admin: 02/17/18 13:49 Dose: 40 mg Thiamine HCl (Vitamin B1 -) 100 mg PO DAILY [facility] IMAGING: -EKG: NORMAL SINUS RHYTHM, NORMAL ECG -CXR: No acute disease. -CT Head without contrast: The craniocervical junction was not included on this exam as well as inferior margin of the cerebellum, bilaterally. Moderate atrophy and ventricular dilatation. Encephalomalacia in the left frontal lobe, anteriorly that has increased in size since prior examination. Otherwise, no gross acute intracranial pathology is identified. -US Abdomen: Mild dilatation of the intrahepatic biliary tree. Diffuse fatty infiltration of the liver. Limited evaluation of the pancreas. Findings suggest chronic calcific pancreatitis with dilated, somewhat irregular main pancreatic duct. ASSESSMENT/PLAN: 58 y/o M with PMHx of known seizure disorder and EtOH abuse presents to the hospital with altered mental status. 1. Acute metabolic encephalopathy -Likely due to alcohol withdrawal, CIWA score 10 today (down from 17) -Continue to monitor for DTs and seizure-like activity -Banana bag given in ED; Continue Thiamine, Folic acid -Alcohol level < 3.0 -Continue Ativan; Patient has been refusing librium -Detox (Dr. Ann) consulted, Appreciate rec's -Continue D5-Lr @ 83 mls/hr 2. Hx of Known seizure disorder -S/P witnessed, Tonic-clonic seizure with post-ictal state in the ED -Dilantin level low on arrival ED, Dilantin D/C'ed -Neurology (Dr. Bowman) consulted, appreciate rec's -Continue Keppra 500 IV BID -aspiration precautions 3. HTN -Amlodipine 10mg PO -Continue to monitor 4. Lactic Acidosis -Resolved 5. FEN -D5-Lr @ 83 mls/hr -Lytes WNL, Closely monitor -Regular diet 6. PPx -Lovenox held; SCDs Dispo: Med-Surg Visit type - Emergency Visit Emergency Visit: Yes ED Registration Date: 02/16/18 Care time: The patient presented to the Emergency Department on the above date and was hospitalized for further evaluation of their emergent condition. - New Patient This patient is new to me today: Yes Date on this admission: 02/17/18 - Critical Care Critical Care patient: Yes Total Critical Care Time (in minutes): 45 Critical Care Statement: The care of this patient involved high complexity decision making to prevent further life threatening deterioration of the patient 's condition and/or to evaluate & treat vital organ system(s) failure or risk of failure.
[2018-02-17] MEDS: CHLORHEXIDINE GLUCONATE 4% CLEANSER FOR DECOLONIZATION TP SCH (22:27)
[2018-02-18] MEDS: LORazepam 2 MG/ML SDV VIAL IM PRN (00:39)
[2018-02-18] MEDS: DEXTROSE 5%-LACTATED RINGERS 1,000 ML IV SCH (02:30)
[2018-02-18] MEDS ORDERED: DEXTROSE 5%-LACTATED RINGERS 1,000 ML IV SCH (07:03)
[2018-02-18] MEDS ORDERED: LORazepam 2 MG/ML SDV VIAL IM PRN ×3 (07:03→07:08)
[2018-02-18 07:25] LABS: HEMATOCRIT 41.7 % (35.4-49); HEMOGLOBIN 13.7 GM/dL (11.7-16.9); MCH 32.7 pg (25.7-33.7); MCHC 32.9 g/dl (32.0-35.9); MEAN CELL VOLUME 99.2 fl (80-96); MEAN PLT VOLUME 11.3 fl (7.5-11.1); PLATELET COUNT 60 K/MM3 (134-434); RBC 4.21 M/mm3 (4.00-5.60); RDW 14.1 % (11.9-15.9); WHITE BLOOD COUNT 6.6 K/mm3 (4.0-10.0)
[2018-02-18 08:09] LABS: ANION GAP 9 MMOL/L (8-16); CHLORIDE 101 mmol/L (98-107); CO2 25 mmol/L (21-32); CREATININE 0.5 mg/dL (0.55-1.3); GLUCOSE,RANDOM 206 mg/dL (74-106); MAGNESIUM 1.7 mg/dL (1.8-2.4); PHOSPHOROUS 2.2 mg/dL (2.5-4.9); POTASSIUM 3.7 mmol/L (3.5-5.1); SODIUM 136 mmol/L (136-145)
[2018-02-18 08:13] LABS: BLOOD UREA NITROGEN 1 mg/dL (7-18)
[2018-02-18] MEDS ORDERED: THIAMINE HCL 100 MG TABLET (FP) PO SCH (10:00)
[2018-02-18] MEDS ORDERED: MAGNESIUM SULF 50% (8.12 MEQ/2 ML-1 GM VIAL) IVPB ONE (10:26)
[2018-02-18] MEDS ORDERED: POTASSIUM PHOSPHATE 30 MM in SODIUM CHLORIDE 500 ML IVPB ONE (10:27)
[2018-02-18] MEDS ORDERED: chlordiazePOXIDE 5 MG CAPSULE PO SCH ×2 (11:00)
[2018-02-18] MEDS: levETIRAcetam 500 MG/5 ML INJECTION VIAL IVPB SCH ×2 (11:12→21:31)
[2018-02-18] MEDS: FOLIC ACID 1 MG TABLET (FP) PO SCH (11:15)
[2018-02-18] MEDS: PANTOPRAZOLE SODIUM 40 MG VIAL IVPUSH SCH (11:15)
[2018-02-18] MEDS: THIAMINE HCL 100 MG TABLET (FP) PO SCH (11:15)
[2018-02-18] MEDS: amLODIPine BESYLATE 10 MG TABLET (FP) PO SCH (11:16)
[2018-02-18] MEDS: SODIUM CHLORIDE 1,000 ML IV SCH ×2 (11:16→11:20)
--- NOTE | 2018-02-18 14:36 | PN ---
Teaching Attending Note Name of Resident: Vale Chun ATTENDING PHYSICIAN STATEMENT I saw and evaluated the patient. I reviewed the resident's note and discussed the case with the resident. I agree with the resident's findings and plan as documented. SUBJECTIVE: confused and agitated over night . no other events. unable to take hx form patient OBJECTIVE: NAD , awake, knows his name , not location or year . no nystagmus . no facial droop Cv: RRR, no MRG Lungs: CTAB ABd: soft , NT, ND , NL BS Ext : no edema ASSESSMENT AND PLAN: 58 y/o man with h/o ETOH abuse, seizure disorder/withdrawal seizures, and HTN who presented with AMS and was found ot have seizures in ER 1- AMS/encephalopathy due to ETOH withdrawal - treat alcohol withdrawal 2- Seizure: cont keppra. off dilantin 3- ETOH withdrawal and DT: - cont Ativan per CIWA. hold for sedation - thiamin, folate, MVT . - replete electrolytes 4- Slightly elevated TSH: repeat TFTs when in normal state of health as out pt 5- follow final hepatitis serology 6-SCDS due to thrombocytopenia
--- NOTE | 2018-02-18 18:50 | PN ---
Physical Exam: SUBJECTIVE: Patient seen and examined this morning at bedside. Patient was very confused, mumbling his words, not speaking in a coherent or understandable manner. Unable to obtain history as patient was altered and fell asleep during examination. OBJECTIVE: Vital Signs Period Temp Pulse Resp BP Sys/Rubio Pulse Ox Last 24 Hr 97.8 F-99.1 F 69-96 18-20 102-147/58-81 97-100 GENERAL: A&Ox1 to name only, NAD HEAD: NCAT EYES: PERRL ENT: Oropharynx clear without exudates, MMM NECK: No JVD. LUNGS: CTA bilaterally, no wheezes HEART: Regular rate and rhythm, S1, S2 without murmur ABDOMEN: Soft, nontender, nondistended, + bowel sounds, no guarding EXTREMITIES: 2+ pulses, no edema. Upper extremities restrained. NEUROLOGICAL: Confused speech. Unable to assess further as patient has difficulty following commands, Unable to assess CIWA score SKIN: Warm, dry Laboratory Results - last 24 hr 02/15/18 02/17/18 02/17/18 15:00 05:30 18:00 WBC RBC Hgb Hct MCV MCH MCHC RDW Plt Count MPV PT with INR 12.20 INR 1.03 PTT (Actin FS) 29.0 Sodium Potassium Chloride Carbon Dioxide Anion Gap BUN Creatinine Creat Clearance w eGFR Random Glucose Calcium Phosphorus Magnesium Total T3 72.00 Ethylene Glycol Cancelled Methyl Alcohol Level Cancelled 02/18/18 02/18/18 06:24 06:24 WBC 6.6 RBC 4.21 Hgb 13.7 Hct 41.7 MCV 99.2 H MCH 32.7 MCHC 32.9 RDW 14.1 Plt Count 60 L MPV 11.3 H PT with INR INR PTT (Actin FS) Sodium 136 Potassium 3.7 Chloride 101 Carbon Dioxide 25 Anion Gap 9 BUN 1 L* Creatinine 0.5 L Creat Clearance w eGFR > 60 Random Glucose 206 H Calcium 8.0 L Phosphorus 2.2 L Magnesium 1.7 L Total T3 Ethylene Glycol Methyl Alcohol Level Microbiology 02/15/18 20:55 Blood - Peripheral Venous Blood Culture - Preliminary NO GROWTH OBTAINED AFTER 48 HOURS, INCUBATION TO CONTINUE FOR 3 DAYS. 02/15/18 20:55 Blood - Peripheral Venous Blood Culture - Preliminary NO GROWTH OBTAINED AFTER 48 HOURS, INCUBATION TO CONTINUE FOR 3 DAYS. 10/01/18 16:13 Urine - Urine Clean Catch Urine Culture - Final NO GROWTH OBTAINED Active Medications Amlodipine Besylate (Norvasc -) 10 mg PO DAILY [facility] Last Admin: 02/18/18 11:16 Dose: 10 mg Folic Acid (Folic Acid -) 1 mg PO DAILY [facility] Last Admin: 02/18/18 11:15 Dose: 1 mg Sodium Chloride (Normal Saline -) 1,000 mls @ 83 mls/hr IV ASDIR [facility] Last Admin: 02/18/18 11:20 Dose: 83 mls/hr Levetiracetam (Keppra Injection -) 500 mg IVPB BID [facility] Last Admin: 02/18/18 11:12 Dose: 500 mg Lorazepam (Ativan Injection -) 2 mg IM Q6H PRN PRN Reason: ANXIETY Lorazepam (Ativan Injection -) 2 mg IM Q2H PRN PRN Reason: ANXIETY Multivitamins/Minerals/Vitamin C (Tab-A-Vit -) 1 tab PO DAILY [facility] Pantoprazole Sodium (Protonix Iv) 40 mg IVPUSH DAILY [facility] Last Admin: 02/18/18 11:15 Dose: 40 mg Thiamine HCl (Vitamin B1 -) 100 mg PO DAILY [facility] Last Admin: 02/18/18 11:15 Dose: 100 mg IMAGING: -EKG: NORMAL SINUS RHYTHM, NORMAL ECG -CXR: No acute disease. -CT Head without contrast: The craniocervical junction was not included on this exam as well as inferior margin of the cerebellum, bilaterally. Moderate atrophy and ventricular dilatation. Encephalomalacia in the left frontal lobe, anteriorly that has increased in size since prior examination. Otherwise, no gross acute intracranial pathology is identified. -US Abdomen: Mild dilatation of the intrahepatic biliary tree. Diffuse fatty infiltration of the liver. Limited evaluation of the pancreas. Findings suggest chronic calcific pancreatitis with dilated, somewhat irregular main pancreatic duct. ASSESSMENT/PLAN: 58 y/o M with PMHx of known seizure disorder and EtOH abuse presents to the hospital with altered mental status. 1. Acute metabolic encephalopathy -Likely due to alcohol withdrawal, CIWA score 10 yesterday, unable to assess today given patients mental status -Continue to monitor for DTs and seizure-like activity -Banana bag given in ED; Continue Thiamine, Folic acid -Alcohol level < 3.0 -Continue Ativan; Patient has been refusing librium -Detox (Dr. Ann) consulted, Appreciate rec's -Continue NS @ 83 mls/hr 2. Hx of Known seizure disorder -S/P witnessed, Tonic-clonic seizure with post-ictal state in the ED -Dilantin level low on arrival ED, Dilantin D/C'ed -Neurology (Dr. Bowman) consulted, appreciate rec's -Continue Keppra 500 IV BID -Aspiration precautions 3. HTN -Amlodipine 10mg PO -Continue to monitor 4. Lactic Acidosis -Resolved 5. FEN -NS @ 83 mls/hr -Lytes WNL, Closely monitor -Regular diet 6. PPx -Lovenox held; SCDs Dispo: Med-Surg Visit type - Emergency Visit Emergency Visit: Yes ED Registration Date: 02/16/18 Care time: The patient presented to the Emergency Department on the above date and was hospitalized for further evaluation of their emergent condition. - New Patient This patient is new to me today: No - Critical Care Critical Care patient: No
[2018-02-19] MEDS: SODIUM CHLORIDE 1,000 ML IV SCH ×2 (05:42→15:33)
[2018-02-19 06:06] LABS: HEP.C VIRUS AB <0.1 s/co ratio (0.0-0.9)
[2018-02-19 08:27] LABS: BASO % 0.8 % (0-2.0); EOS % 2.4 % (0-4.5); HEMATOCRIT 40.7 % (35.4-49); HEMOGLOBIN 13.4 GM/dL (11.7-16.9); LYMPH % 20.8 % (8-40); MCH 32.6 pg (25.7-33.7); MCHC 32.8 g/dl (32.0-35.9); MEAN CELL VOLUME 99.4 fl (80-96); MEAN PLT VOLUME 11.6 fl (7.5-11.1); MONO % 18.9 % (3.8-10.2); NEUT % 57.1 % (42.8-82.8); PLATELET COUNT 69 K/MM3 (134-434); RDW 13.9 % (11.9-15.9)
[2018-02-19 08:34] LABS: ALBUMIN 3.4 g/dl (3.4-5.0); ALK PHOS 132 U/L (45-117); ANION GAP 10 MMOL/L (8-16); BILIRUBIN,TOTAL 0.7 mg/dL (0.2-1); CALCIUM 8.9 mg/dL (8.5-10.1); CHLORIDE 100 mmol/L (98-107); CO2 28 mmol/L (21-32); CREATININE 0.3 mg/dL (0.55-1.3); GLUCOSE,RANDOM 81 mg/dL (74-106); MAGNESIUM 1.8 mg/dL (1.8-2.4); PHOSPHOROUS 3.1 mg/dL (2.5-4.9); POTASSIUM 3.3 mmol/L (3.5-5.1); SGOT/AST 89 U/L (15-37); SGPT/ALT 32 U/L (13-61); SODIUM 137 mmol/L (136-145); TOT PROT 6.6 g/dl (6.4-8.2)
[2018-02-19 08:48] LABS: BLOOD UREA NITROGEN 1 mg/dL (7-18)
[2018-02-19] MEDS: amLODIPine BESYLATE 10 MG TABLET (FP) PO SCH (10:00)
[2018-02-19] MEDS: MULTIVITAMINS (DAILY MVI) TABLET (FP) PO SCH (10:00)
[2018-02-19] MEDS: FOLIC ACID 1 MG TABLET (FP) PO SCH (10:00)
[2018-02-19] MEDS: THIAMINE HCL 100 MG TABLET (FP) PO SCH (10:00)
[2018-02-19] MEDS ORDERED: chlordiazePOXIDE 5 MG CAPSULE PO SCH (11:00)
[2018-02-19] MEDS ORDERED: chlordiazePOXIDE HCL 10 MG CAPSULE PO SCH (11:00)
[2018-02-19] MEDS: levETIRAcetam 500 MG/5 ML INJECTION VIAL IVPB SCH ×2 (11:39→21:48)
[2018-02-19] MEDS: PANTOPRAZOLE SODIUM 40 MG VIAL IVPUSH SCH (11:40)
[2018-02-19] MEDS ORDERED: LORazepam 1 MG TABLET PO PRN (17:08)
[2018-02-19] MEDS ORDERED: LORazepam 2 MG/ML SDV VIAL IM PRN (18:29)
--- NOTE | 2018-02-19 19:02 | PN ---
Teaching Attending Note Name of Resident: Vale Chun ATTENDING PHYSICIAN STATEMENT I saw and evaluated the patient. I reviewed the resident's note and discussed the case with the resident. I agree with the resident's findings and plan as documented. SUBJECTIVE: he feels better. No pain . wants to go home . per RN cough with food intake , was suctioned OBJECTIVE: NAD, awake,alert , cooperative Cv: RRR, no MRG Lungs: CTAB Ext : no edema , no tremor ASSESSMENT AND PLAN: 58 y/o man with h/o ETOH abuse, seizure disorder/withdrawal seizures, and HTN who presented with AMS and was found ot have seizures in ER 1- AMS/encephalopathy due to ETOH withdrawal . improved - treat alcohol withdrawal 2- Seizure: cont keppra. off dilantin 3- ETOH withdrawal and DT: - cont Ativan per CIWA. hold for sedation - add po ativan PRN . decrease IV ativan to 1 mg - thiamin, folate, MVT . - replete electrolytes 4- Slightly elevated TSH: repeat TFTs when in normal state of health as out pt 5- follow final hepatitis serology: add hep B s abs. 6-SCDS due to thrombocytopenia
--- NOTE | 2018-02-19 19:13 | PN ---
Physical Exam: SUBJECTIVE: Patient seen and examined this morning at bedside. Patient remains very confused, continues to mumble his words, however speech was more coherent. Patient received Ativan x1 overnight. OBJECTIVE: Vital Signs Period Temp Pulse Resp BP Sys/Rubio Pulse Ox Last 24 Hr 97.7 F-99.2 F 80-104 20-20 108-139/76-88 100 GENERAL: A&Ox1 to name only, NAD, Dried residual white spite over his face HEAD: NCAT EYES: PERRL ENT: Oropharynx clear without exudates, MMM NECK: No JVD. LUNGS: CTA bilaterally, no wheezes HEART: Regular rate and rhythm, S1, S2 without murmur ABDOMEN: Soft, nontender, nondistended, + bowel sounds, no guarding EXTREMITIES: 2+ pulses, no edema. Upper and lower extremities restrained. NEUROLOGICAL: Confused speech. Unable to assess further as patient has difficulty following commands, Unable to assess CIWA score SKIN: Warm, dry Laboratory Results - last 24 hr 02/16/18 02/17/18 02/19/18 12:35 12:05 07:30 WBC 8.0 RBC 4.10 Hgb 13.4 Hct 40.7 MCV 99.4 H MCH 32.6 MCHC 32.8 RDW 13.9 Plt Count 69 L MPV 11.6 H Absolute Neuts (auto) 4.6 Neutrophils % 57.1 Lymphocytes % 20.8 D Monocytes % 18.9 H Eosinophils % 2.4 D Basophils % 0.8 Nucleated RBC % 0 Sodium Potassium Chloride Carbon Dioxide Anion Gap BUN Creatinine Creat Clearance w eGFR Random Glucose Calcium Phosphorus Magnesium Total Bilirubin AST ALT Alkaline Phosphatase Total Protein Albumin Hepatitis A IgM Ab Negative Hep Bs Antigen Negative Hep B Core IgM Ab Negative Hepatitis Be Antibody Negative Hepatitis Be Antigen Negative Hepatitis C Antibody <0.1 02/19/18 07:30 WBC RBC Hgb Hct MCV MCH MCHC RDW Plt Count MPV Absolute Neuts (auto) Neutrophils % Lymphocytes % Monocytes % Eosinophils % Basophils % Nucleated RBC % Sodium 137 Potassium 3.3 L Chloride 100 Carbon Dioxide 28 Anion Gap 10 BUN 1 L* Creatinine 0.3 L Creat Clearance w eGFR > 60 Random Glucose 81 Calcium 8.9 Phosphorus 3.1 Magnesium 1.8 Total Bilirubin 0.7 AST 89 H ALT 32 Alkaline Phosphatase 132 H Total Protein 6.6 Albumin 3.4 Hepatitis A IgM Ab Hep Bs Antigen Hep B Core IgM Ab Hepatitis Be Antibody Hepatitis Be Antigen Hepatitis C Antibody Microbiology 02/15/18 20:55 Blood - Peripheral Venous Blood Culture - Preliminary NO GROWTH OBTAINED AFTER 72 HOURS, INCUBATION TO CONTINUE FOR 2 DAYS. 02/15/18 20:55 Blood - Peripheral Venous Blood Culture - Preliminary NO GROWTH OBTAINED AFTER 72 HOURS, INCUBATION TO CONTINUE FOR 2 DAYS. 02/15/18 16:13 Urine - Urine Clean Catch Urine Culture - Final NO GROWTH OBTAINED Active Medications Amlodipine Besylate (Norvasc -) 10 mg PO DAILY [facility] Last Admin: 02/19/18 10:00 Dose: Not Given Folic Acid (Folic Acid -) 1 mg PO DAILY [facility] Last Admin: 02/19/18 10:00 Dose: Not Given Sodium Chloride (Normal Saline -) 1,000 mls @ 83 mls/hr IV ASDIR [facility] Last Admin: 02/19/18 15:33 Dose: Not Given Levetiracetam (Keppra Injection -) 500 mg IVPB BID [facility] Last Admin: 02/19/18 11:39 Dose: 500 mg Lorazepam (Ativan -) 2 mg PO Q6H PRN PRN Reason: ANXIETY Lorazepam (Ativan Injection -) 1 mg IM Q6H PRN PRN Reason: ANXIETY Stop: 02/20/18 18:28 Multivitamins/Minerals/Vitamin C (Tab-A-Vit -) 1 tab PO DAILY [facility] Last Admin: 02/19/18 10:00 Dose: Not Given Pantoprazole Sodium (Protonix Iv) 40 mg IVPUSH DAILY [facility] Last Admin: 02/19/18 11:40 Dose: 40 mg Thiamine HCl (Vitamin B1 -) 100 mg PO DAILY [facility] Last Admin: 02/19/18 10:00 Dose: Not Given IMAGING: -EKG: NORMAL SINUS RHYTHM, NORMAL ECG -CXR: No acute disease. -CT Head without contrast: The craniocervical junction was not included on this exam as well as inferior margin of the cerebellum, bilaterally. Moderate atrophy and ventricular dilatation. Encephalomalacia in the left frontal lobe, anteriorly that has increased in size since prior examination. Otherwise, no gross acute intracranial pathology is identified. -US Abdomen: Mild dilatation of the intrahepatic biliary tree. Diffuse fatty infiltration of the liver. Limited evaluation of the pancreas. Findings suggest chronic calcific pancreatitis with dilated, somewhat irregular main pancreatic duct. ASSESSMENT/PLAN: 58 y/o M with PMHx of known seizure disorder and EtOH abuse presents to the hospital with altered mental status. 1. Acute metabolic encephalopathy -Likely due to alcohol withdrawal, CIWA score 10 yesterday, unable to assess today given patients mental status -Continue to monitor for DTs and seizure-like activity -Banana bag given in ED; Continue Thiamine, Folic acid -Alcohol level < 3.0 -Continue IV Ativan, Added PO Ativan also; Patient has been refusing librium -Detox (Dr. Ann) consulted, Appreciate rec's -Continue NS @ 83 mls/hr 2. Hx of Known seizure disorder -S/P witnessed, Tonic-clonic seizure with post-ictal state in the ED -Dilantin level low on arrival ED, Dilantin D/C'ed -Neurology (Dr. Bowman) consulted, appreciate rec's -Continue Keppra 500 IV BID -Aspiration precautions 3. HTN -Amlodipine 10mg PO -Continue to monitor 4. Lactic Acidosis -Resolved 5. FEN -NS @ 83 mls/hr -Lytes WNL, Closely monitor -Regular diet 6. PPx -Lovenox held; SCDs Dispo: Med-Surg Visit type - Emergency Visit Emergency Visit: Yes ED Registration Date: 02/16/18 Care time: The patient presented to the Emergency Department on the above date and was hospitalized for further evaluation of their emergent condition. - New Patient This patient is new to me today: No - Critical Care Critical Care patient: No - Discharge Referral Referred to [facility] Med P.C.: No
[2018-02-20] MEDS: levETIRAcetam 500 MG/5 ML INJECTION VIAL IVPB SCH ×2 (01:58→10:50)
[2018-02-20] MEDS: THIAMINE HCL 100 MG TABLET (FP) PO SCH (10:49)
[2018-02-20] MEDS: levETIRAcetam 500 MG TABLET (FP) PO SCH ×2 (10:49→21:18)
[2018-02-20] MEDS: amLODIPine BESYLATE 10 MG TABLET (FP) PO SCH (10:49)
[2018-02-20] MEDS: MULTIVITAMINS (DAILY MVI) TABLET (FP) PO SCH (10:50)
[2018-02-20] MEDS: PANTOPRAZOLE SODIUM 40 MG VIAL IVPUSH SCH (10:51)
[2018-02-20] MEDS: FOLIC ACID 1 MG TABLET (FP) PO SCH (11:04)
--- NOTE | 2018-02-20 14:46 | PN ---
Physical Exam: SUBJECTIVE: Patient seen and examined this morning at bedside. Received Ativan PO x1 over night. Kept falling asleep during my interview. Unable to obtain ROS. OBJECTIVE: Vital Signs Period Temp Pulse Resp BP Sys/Rubio Pulse Ox Last 24 Hr 98.1 F-99.2 F 81-104 16-20 108-154/53-91 97-97 GENERAL: A&Ox1 to name only, Kept falling asleep during my exam, believes he is outside on eriberto av HEAD: NCAT EYES: PERRL ENT: Oropharynx clear without exudates, MMM NECK: No JVD. LUNGS: CTA bilaterally, no wheezes HEART: Regular rate and rhythm, S1, S2 without murmur ABDOMEN: Soft, nontender, nondistended, + bowel sounds, no guarding EXTREMITIES: 2+ pulses, no edema. Upper and lower extremities restrained. NEUROLOGICAL: Confused speech. Only able to perform handgrip, does not respond to other commands. Unable to assess CIWA score SKIN: Warm, dry Active Medications Amlodipine Besylate (Norvasc -) 10 mg PO DAILY [facility] Last Admin: 02/20/18 10:49 Dose: 10 mg Folic Acid (Folic Acid -) 1 mg PO DAILY [facility] Last Admin: 02/20/18 11:04 Dose: 1 mg Sodium Chloride (Normal Saline -) 1,000 mls @ 83 mls/hr IV ASDIR [facility] Last Admin: 02/19/18 15:33 Dose: Not Given Levetiracetam (Keppra -) 500 mg PO BID [facility] Last Admin: 02/20/18 10:49 Dose: 500 mg Lorazepam (Ativan -) 1 mg PO Q6H PRN PRN Reason: ANXIETY Multivitamins/Minerals/Vitamin C (Tab-A-Vit -) 1 tab PO DAILY [facility] Last Admin: 02/20/18 10:50 Dose: 1 tab Pantoprazole Sodium (Protonix Iv) 40 mg IVPUSH DAILY [facility] Last Admin: 02/20/18 10:51 Dose: Not Given Thiamine HCl (Vitamin B1 -) 100 mg PO DAILY [facility] Last Admin: 02/20/18 10:49 Dose: 100 mg IMAGING: -EKG: NORMAL SINUS RHYTHM, NORMAL ECG -CXR: No acute disease. -CT Head without contrast: The craniocervical junction was not included on this exam as well as inferior margin of the cerebellum, bilaterally. Moderate atrophy and ventricular dilatation. Encephalomalacia in the left frontal lobe, anteriorly that has increased in size since prior examination. Otherwise, no gross acute intracranial pathology is identified. -US Abdomen: Mild dilatation of the intrahepatic biliary tree. Diffuse fatty infiltration of the liver. Limited evaluation of the pancreas. Findings suggest chronic calcific pancreatitis with dilated, somewhat irregular main pancreatic duct. ASSESSMENT/PLAN: 58 y/o M with PMHx of known seizure disorder and EtOH abuse presents to the hospital with altered mental status. 1. Acute metabolic encephalopathy -Likely due to alcohol withdrawal, Previous CIWA score 10, unable to assess today given patients mental status -Continue to monitor for DTs and seizure-like activity -Banana bag given in ED; Continue Thiamine, Folic acid -Alcohol level < 3.0 -Decreased PO Ativan to 1mg, d/c'ed IV Ativan; Patient has been refusing librium -Detox (Dr. Ann) consulted, Appreciate rec's -Continue NS @ 83 mls/hr 2. Hx of Known seizure disorder -S/P witnessed, Tonic-clonic seizure with post-ictal state in the ED -Dilantin level low on arrival ED, Dilantin D/C'ed -Neurology (Dr. Bowman) consulted, appreciate rec's -Keppra 500mg BID changed to PO -Aspiration precautions 3. HTN -Amlodipine 10mg PO -Continue to monitor 4. Lactic Acidosis -Resolved 5. FEN -NS @ 83 mls/hr -Lytes WNL, Closely monitor -Regular diet 6. PPx -Lovenox held; SCDs Dispo: Med-Surg Visit type - Emergency Visit Emergency Visit: Yes ED Registration Date: 02/16/18 Care time: The patient presented to the Emergency Department on the above date and was hospitalized for further evaluation of their emergent condition. - New Patient This patient is new to me today: No - Critical Care Critical Care patient: No - Discharge Referral Referred to [facility] Med P.C.: No
--- NOTE | 2018-02-20 15:22 | PN ---
Teaching Attending Note Name of Resident: Vale Chun ATTENDING PHYSICIAN STATEMENT I saw and evaluated the patient. I reviewed the resident's note and discussed the case with the resident. I agree with the resident's findings and plan as documented. SUBJECTIVE: received ativan , lethargic , unable to obtain hx lost IV access OBJECTIVE: NAD,lethargic, opens eyes to commands but not particiapte in exam Cv: RRR, no MRG Lungs: CTAB Ext : no edema , no tremor Abd: sfot, NT, ND ,NL BS ASSESSMENT AND PLAN: 58 y/o man with h/o ETOH abuse, seizure disorder/withdrawal seizures, and HTN who presented with AMS and was found ot have seizures in ER 1- AMS/encephalopathy due to ETOH withdrawal - treat alcohol withdrawal 2- Seizure: cont keppra. switch to po 3- ETOH withdrawal and DT: - dc IV ativan ( too much sedation ) - decrease dose of po ativan - thiamin, folate, MVT. -follow electrolytes 4- Slightly elevated TSH: repeat TFTs when in normal state of health as out pt 5- follow final hepatitis serology: add hep B s abs. 6-SCDS due to thrombocytopenia
[2018-02-20] MEDS: SODIUM CHLORIDE 1,000 ML IV SCH (18:11)
[2018-02-20] MEDS: LORazepam 1 MG TABLET PO PRN (21:18)
[2018-02-21] MEDS: SODIUM CHLORIDE 1,000 ML IV SCH ×2 (06:03→15:25)
[2018-02-21 08:02] LABS: ANION GAP 8 MMOL/L (8-16); BLOOD UREA NITROGEN 8 mg/dL (7-18); CALCIUM 8.2 mg/dL (8.5-10.1); CHLORIDE 99 mmol/L (98-107); CO2 30 mmol/L (21-32); CREATININE 0.5 mg/dL (0.55-1.3); GLUCOSE,RANDOM 70 mg/dL (74-106); PHOSPHOROUS 3.3 mg/dL (2.5-4.9); POTASSIUM 3.2 mmol/L (3.5-5.1); SODIUM 137 mmol/L (136-145)
[2018-02-21] MEDS: amLODIPine BESYLATE 10 MG TABLET (FP) PO SCH (09:26)
[2018-02-21] MEDS: levETIRAcetam 500 MG TABLET (FP) PO SCH ×2 (09:26→22:44)
[2018-02-21] MEDS: FOLIC ACID 1 MG TABLET (FP) PO SCH (09:26)
[2018-02-21] MEDS: THIAMINE HCL 100 MG TABLET (FP) PO SCH (09:26)
[2018-02-21] MEDS: PANTOPRAZOLE SODIUM 40 MG VIAL IVPUSH SCH (09:26)
[2018-02-21] MEDS: MULTIVITAMINS (DAILY MVI) TABLET (FP) PO SCH (09:26)
[2018-02-21] MEDS ORDERED: POTASSIUM CHLORIDE TABS 20 MEQ TABLET.ER (FP) PO ONE ×2 (16:54→21:00)
--- NOTE | 2018-02-21 17:02 | PN ---
Progress Note (short form) - Note Progress Note: Subjective: No pain, no complaints. He wants to go home Objective: Vital Signs: Last Vital Signs Temp Pulse Resp BP Pulse Ox 98.4 F 70 20 117/49 L 97 02/21/18 13:56 02/21/18 13:56 02/21/18 13:56 02/21/18 13:56 02/21/18 09:00 Laboratory Results - last 24 hr 02/21/18 06:00 Sodium 137 Potassium 3.2 L Chloride 99 Carbon Dioxide 30 Anion Gap 8 BUN 8 Creatinine 0.5 L Creat Clearance w eGFR > 60 Random Glucose 70 L Calcium 8.2 L Phosphorus 3.3 Magnesium 2.0 Physical Exam: NAD,awake , alert , cooperative Cv: RRR, no MRG Lungs: CTAB Ext : no edema, no tremor Abd: soft, NT, ND , NL BS ASSESSMENT AND PLAN: 58 y/o man with h/o ETOH abuse, seizure disorder/withdrawal seizures, and HTN who presented with AMS and was found ot have seizures in ER 1- AMS/encephalopathy due to ETOH withdrawal - treat alcohol withdrawal 2- Seizure: cont keppra. switch to po 3- ETOH withdrawal and DT: much improved -cont with PO ativan as needed. last use 6 pm yesterday - thiamin, folate, MVT. -follow electrolytes and replete 4- Slightly elevated TSH: repeat TFTs when in normal state of health as out pt 5- follow final hepatitis serology: add hep B s abs. 6-SCDS due to thrombocytopenia PT eval pending . if no use of ativan by tomorrow , then can dc Visit type - Emergency Visit Emergency Visit: Yes ED Registration Date: 02/16/18 Care time: The patient presented to the Emergency Department on the above date and was hospitalized for further evaluation of their emergent condition. - New Patient This patient is new to me today: No - Critical Care Critical Care patient: No
[2018-02-21] MEDS: LORazepam 1 MG TABLET PO PRN (22:46)
[2018-02-22 08:16] LABS: MAGNESIUM 1.8 mg/dL (1.8-2.4); PHOSPHOROUS 2.4 mg/dL (2.5-4.9); POTASSIUM 4.3 mmol/L (3.5-5.1)
[2018-02-22] MEDS: MULTIVITAMINS (DAILY MVI) TABLET (FP) PO SCH (10:19)
[2018-02-22] MEDS: levETIRAcetam 500 MG TABLET (FP) PO SCH (10:19)
[2018-02-22] MEDS: FOLIC ACID 1 MG TABLET (FP) PO SCH (10:19)
[2018-02-22] MEDS: amLODIPine BESYLATE 10 MG TABLET (FP) PO SCH (10:19)
[2018-02-22] MEDS: THIAMINE HCL 100 MG TABLET (FP) PO SCH (10:19)
[2018-02-22] MEDS: PANTOPRAZOLE SODIUM 40 MG VIAL IVPUSH SCH (10:20)
[2018-02-22] MEDS ORDERED: NAPH,MB-DB/K PH,MBDB POWDER PACKET PO ONE (11:10)
--- NOTE | 2018-02-22 12:24 | CONSULT ---
Admitting History and Physical - Primary Care Physician PCP: Claudia Maloney - Admission History of Present Illness: 58 y/o M with PMHx of known seizure disorder and EtOH abuse presents to the hospital with altered mental status. Per EMR: Acute metabolic encephalopathy-Likely due to alcohol withdrawal EKG: NORMAL SINUS RHYTHM, NORMAL ECG -CXR: No acute disease. -CT Head without contrast: The craniocervical junction was not included on this exam as well as inferior margin of the cerebellum, bilaterally. Moderate atrophy and ventricular dilatation. Encephalomalacia in the left frontal lobe, anteriorly that has increased in size since prior examination. Otherwise, no gross acute intracranial pathology is identified. -US Abdomen: Mild dilatation of the intrahepatic biliary tree. Diffuse fatty infiltration of the liver. Limited evaluation of the pancreas. Findings suggest chronic calcific pancreatitis with dilated, somewhat irregular main pancreatic duct. Selected Entries 02/21/18 02/21/18 02/21/18 01:00 05:00 09:00 Breakfast Lunch Temperature 98.2 F 98.6 F 98.3 F 02/21/18 02/21/18 02/21/18 13:56 17:32 21:00 Breakfast 50% Lunch 50% Temperature 98.4 F 98.6 F 98.2 F 02/22/18 02/22/18 02/22/18 01:51 06:01 08:28 Breakfast Lunch Temperature 98.4 F 98.3 F 98.4 F 02/22/18 09:31 Breakfast 100% Lunch Temperature Laboratory Tests 02/19/18 07:30 WBC 8.0 History Source: Medical Record Limitations to Obtaining History: Clinical Condition - Smoking History Smoking history: Never smoked Have you smoked in the past 12 months: Yes Aproximately how many cigarettes per day: 4 - Alcohol/Substance Use Hx Alcohol Use: Yes (gin juice and beer) History - Admission Reason For Visit: SEIZURE HYPOCALCEMIA - Diagnostics X-ray: Report Reviewed - General Mental Status: Awake and Alert, Able to Follow Commands, Forgetful (not oriented to time) Attention: Intact Ability to Follow Directions: Good Head/Neck Control: WFL - Hearing Hearing: Normal Speech Evaluation - Communication Primary Language: H[place]UR[place] Communication: Yes: Within Normal Limits - Speech Production Able to Make Needs Known: Yes: WNL Intelligibility: Yes: WNL - Speech Characteristics Voice Loudness: Normal Voice Pitch: Yes: Normal Voice Phonatory-based Quality: Yes: Normal Speech Pattern: Normal Speech Clarity: < 100% Nasal Resonance: Normal Articulation: Yes: Precise - Language/Auditory Comprehension Follows: Yes: 1 Stage Simple Commands - Language/Verbal Expression Able to Respond to Simple Queries: Yes: WNL Able to Communicate Wants and Needs: Yes: WNL Functional Communication Status: Yes: WNL - Swallow Evaluation/Bedside Assessment Current Nutritional Intake: Soft, Thin Liquids Oral Secretions: Yes: WFL Dentition: Yes: Edentulous Facial Symmetry at Rest: Symmetrical Facial Symmetry on Retraction: Symmetrical Facial Movement: Controlled Against Resistance Opening: Normal Against Resistance Closing: Normal Pucker Lips: Normal Smile: Normal Lingual Movement: Normal, Symmetric Lingual Speed of Movement: Normal Lingual Movement Strgth Against Opposition: Normal Lingual Movement Characteristics: Normal Velopharyngeal Movement: Normal Laryngeal Elevation: WFL Laryngeal Movement: Able to Palpate Rate of Intake: WFL Bolus Size: WFL Labial Seal: WFL Chewing: WFL Oral Prep Time: WFL A-P Transit: WFL Pocketing: None Timing of Swallow: WFL Coughing/Throat Clear: No Change in Voice: No Recommendations - Speech Evaluation, Impression/Plan Impression: Edentulous. Swallowing overtly intact. - Dysphagia Impressions/Plan Swallowing Skills: WFL Dysphagia Impressions: No Impairment *Silent aspiration: cannot be R/O at bedside - Recommendations Diet Consistency: Regular (soft) Medication Administration: Whole with water Liquids: Thin Liquids
--- NOTE | 2018-02-22 14:19 | PN ---
Teaching Attending Note Name of Resident: Vale Chun ATTENDING PHYSICIAN STATEMENT I saw and evaluated the patient. I reviewed the resident's note and discussed the case with the resident. I agree with the resident's findings and plan as documented. SUBJECTIVE: No fever or chills. No abd pain , no N/V . was given ativan last night due to his wanting to leave the bed. OBJECTIVE: NAD,awake , alert , cooperative . knows his location , president, month, year, medical condition and address. Cv: RRR, no MRG Lungs: CTAB Ext : no edema, no tremor Abd: soft, NT, ND , NL BS Gait: he walked with me about 30 feet holding to the IV stand . he was steady and turned safely . NO light headedness . he uses a walker at home ASSESSMENT AND PLAN: 58 y/o man with h/o ETOH abuse, seizure disorder/withdrawal seizures, and HTN who presented with AMS and was found ot have seizures in ER 1- AMS/encephalopathy due to ETOH withdrawal - resolved. last ativan was given at 10 pm as he wanted to leave the bed 2- Seizure: cont keppra. off dilantin . 3- ETOH withdrawal and DT: resolved - thiamin, folate, MVT. 4- Slightly elevated TSH: repeat TFTs when in normal state of health as out pt 5- Final hepatitis serology indicate old infection PT eval pending . will dc home today with Home pT if indicated. patient was observed walking ( as above) . he is capable of making decisions and does not need psych eval.
[2018-02-22 14:23] VITALS: BP 122/67; PULSE 78; TEMP 98.3
--- NOTE | 2018-02-22 15:34 | DS ---
Physical Exam: SUBJECTIVE: Patient seen and examined this morning at bedside. No acute overnight events, no new complaints. Denies fevers, chills, chest pain, SOB, nausea, vomiting, diarrhea, constipation. OBJECTIVE: Vital Signs Period Temp Pulse Resp BP Sys/Rubio Pulse Ox Last 24 Hr 98.2 F-98.6 F 64-80 18-20 106-137/59-76 97-98 PHYSICAL EXAM GENERAL: A&Ox3, NAD HEAD: NCAT EYES: PERRL, EOMI ENT: Oropharynx clear without exudates, MMM NECK: No JVD LUNGS: CTA bilaterally, no wheezes HEART: Regular rate and rhythm, S1, S2 without murmur ABDOMEN: Soft, nontender, nondistended, + bowel sounds, no guarding EXTREMITIES: 2+ pulses, no edema. NEUROLOGICAL: Cranial nerves II through XII grossly intact. Normal speech, SKIN: Warm, dry LABS Laboratory Results - last 24 hr 02/21/18 02/22/18 06:00 06:30 Potassium 4.3 Phosphorus 2.4 L Magnesium 1.8 Hep Bs Antibody, Quant 23.6 Microbiology 02/15/18 20:55 Blood - Peripheral Venous Blood Culture - Final NO GROWTH AFTER 5 DAYS INCUBATION 02/15/18 20:55 Blood - Peripheral Venous Blood Culture - Final NO GROWTH AFTER 5 DAYS INCUBATION 02/15/18 16:13 Urine - Urine Clean Catch Urine Culture - Final NO GROWTH OBTAINED IMAGING: -EKG: NORMAL SINUS RHYTHM, NORMAL ECG -CXR: No acute disease. -CT Head without contrast: The craniocervical junction was not included on this exam as well as inferior margin of the cerebellum, bilaterally. Moderate atrophy and ventricular dilatation. Encephalomalacia in the left frontal lobe, anteriorly that has increased in size since prior examination. Otherwise, no gross acute intracranial pathology is identified. -US Abdomen: Mild dilatation of the intrahepatic biliary tree. Diffuse fatty infiltration of the liver. Limited evaluation of the pancreas. Findings suggest chronic calcific pancreatitis with dilated, somewhat irregular main pancreatic duct. HOSPITAL COURSE: Date of Admission:02/16/18 Date of Discharge: 02/22/18 58 y/o M with PMHx of known seizure disorder and EtOH abuse was [facility] to [facility] with altered mental status. Patient was admitted to the ICU for Alcohol withdrawal and possibly delirium tremens. Addiction medicine and Neurology were both consulted. In the setting of elevated LFTs on admission, Patients home dose Dilantin was discontinued, he was started on Keppra 500mg BID and an abdominal ultrasound was done (noted above). His CIWA score on admission was 17 and patient was started on an Ativan protocol as he was refusing Librium. Patients CIWA score trended down, he was weened off Ativan, his electrolytes ( Potassium, Mag, Phos), thiamine, folic acid were all repleted and his lactic acidosis resolved. He was monitored for thrombocytopenia as his plts continued to trend down. He was told this is likely due to his alcohol use and to continue to monitor for signs of bleeding. He was also evaluated by speech and swallow who recommended a regular diet with thin liquids. Patient was discharged home and refused VNS at home. He was given strict instructions to follow up with GI, his PCP and to eliminate alcohol use. Minutes to complete discharge: 40 Discharge Summary Reason For Visit: SEIZURE HYPOCALCEMIA Current Active Problems Alcohol abuse (Acute) Hypokalemia (Acute) Hypomagnesemia (Acute) Hypophosphatasia (Acute) HTN (hypertension) (Chronic) Seizure disorder (Chronic) Condition: Stable - Instructions Diet, Activity, Other Instructions: You presented to the hospital with altered mental status likely due to alcohol withdrawal. Imaging of your head did not reveal any pathology. It is very important you stop using alcohol. You were seen by a Detox doctor. Please visit [facility] whenever you are ready for help in quitting. Dr. Ann's information has also been provided to you. You were seen by a neurologist. Your home dose Dilantin has been stopped and you were started on Keppra. Please continue to take this medication as prescribed. It is very important you do not miss a dose as this medication helps control your seizures. Abdominal Ultrasound revealed some abnormalities with your liver and pancreas. Please follow up with a GI doctor to further manage these problems. Dr. Ascencio 's information has been provided. Many of your electrolytes (potassium, phosphorus, magnesium) were low. It is important to eat nutritious meals regularly and to hydrate yourself. We are giving you multivitamins including thiamine, ad folic acid to take daily. It is important you follow up with your primary care physician in one week to have electrolyte levels checked again. Please follow up with your primary care physician in one week. If you do not have one, Please follow up with Dr. Chun on Thursday at 3pm at the [facility]. Continue all your other medications as prescribed Please return to the ER if you have any signs or symptoms of chest pain, shortness of breath, uncontrollable fever, chills, nausea, vomiting, numbness, tingling, or weakness in any part of your body, changes in vision, or slurred speech. Please return to the ER if symptoms persist, worsen, or new symptoms arise. Referrals: Troy Ruth MD [Staff Physician] - 1 Week (Please follow up with Dr. Chun on Thursday at 3pm.) Sid Ascencio DO [Staff Physician] - 1 Week Bob Bowman DO [Staff Physician] - 1 Week Jagdeep Ann MD [Staff Physician] - 1 Week Disposition: HOME - Home Medications Comprehensive Discharge Medication List: Ambulatory Orders Amlodipine Besylate [Norvasc -] 10 mg PO DAILY 02/15/18 Folic Acid - 1 mg PO DAILY #30 tablet 02/22/18 Multivitamins [Multivit ([facility] Formulary)] 1 tab PO DAILY #30 tab 02/22/18 Thiamine HCl [Vitamin B1 -] 100 mg PO DAILY #30 tablet 02/22/18 levETIRAcetam [Keppra -] 500 mg PO BID #60 tablet 02/22/18 This patient is new to me today: No Emergency Visit: No Critical Care patient: No - Discharge Referral Referred to [facility] Med P.C.: No
== END 2018-02-22 18:05 | disposition home or self-care (01) | DRG 775 ==
LOC: JER 11:54 → JERBED 02-16 05:17 → UNDOADMIN 02-16 06:42 → JICU 02-16 08:44 → J7W 02-17 19:30
PROVIDERS: ADMIT Internal Medicine; ATTEND Internal Medicine
PROC: HZ2ZZZZ Detoxification Services for Substance Abuse Treatment (ICD-10-PCS; principal; 2018-02-16)
DX: F10.231 Alcohol dependence with withdrawal delirium (principal); E87.2 Acidosis; D69.6 Thrombocytopenia, unspecified; R41.82 Altered mental status, unspecified; E87.6 Hypokalemia; I10 Essential (primary) hypertension; G40.909 Epilepsy, unspecified, not intractable, without status epilepticus; E83.42 Hypomagnesemia; E83.39 Other disorders of phosphorus metabolism; K76.0 Fatty (change of) liver, not elsewhere classified; R00.0 Tachycardia, unspecified; R74.0 Nonspecific elevation of levels of transaminase and lactic acid dehydrogenase [LDH]; E03.9 Hypothyroidism, unspecified; D72.829 Elevated white blood cell count, unspecified; R44.3 Hallucinations, unspecified
CPT/HCPCS: 36415; 70450-TC; 71045-TC-FY; 76705-TC; 80048; 80053; 80074; 80185; 80307; 81003; 81015; 82009; 82140; 82550; 82553; 82607; 82693; 82803; 83605; 83690; 83735; 83930; 84100; 84132; 84439; 84443; 84480; 84484; 85025; 85027; 85610; 85730; 86317; 86593; 86704; 86705; 86707; 87040; 87086; 87350; 87389; 87522; 90688; 93005; 93010; 97116-GP; 97161-GP; 99285-25; G0008; J7030

== ENCOUNTER 2018-07-16 09:13 | Inpatient (IN) | payer OTHER ==
[2018-07-16] MEDS ORDERED: LORazepam 2 MG/ML SDV VIAL ONE ×2 (09:18→09:26)
[2018-07-16] MEDS ORDERED: levETIRAcetam 500 MG/5 ML INJECTION VIAL IVPB ONE ×2 (09:22→09:38)
[2018-07-16] MEDS ORDERED: RAPID SEQUENCE INTUBATION KIT NR ONE (09:26)
[2018-07-16] MEDS: PROPOFOL 1,000,000 MCG/100 ML VIAL IVPB SCH ×2 (09:38→15:36)
[2018-07-16] MEDS ORDERED: PROPOFOL 1,000,000 MCG/100 ML VIAL ONE ×2 (09:38→12:24)
[2018-07-16] MEDS ORDERED: SUCCINYLCHOLINE CHLORIDE 200 MG/10 ML VIAL IVPUSH ONE (09:39)
[2018-07-16] MEDS ORDERED: ACETAMINOPHEN INJECTION 100 ML IVPB ONE (09:39)
[2018-07-16] MEDS ORDERED: ETOMIDATE 40 MG/20 ML VIAL IVPUSH ONE (09:39)
[2018-07-16] MEDS ORDERED: SODIUM CHLORIDE 1,000 ML IV STA (09:39)
[2018-07-16] MEDS ORDERED: ACETAMINOPHEN 1000 MG/100 ML VIAL (NON FORMULARY) IVPB ONE (09:55)
[2018-07-16 10:03] LABS: BASO % 0.5 % (0-2.0); EOS % 0.2 % (0-4.5); HEMATOCRIT 36.2 % (35.4-49); HEMOGLOBIN 12.3 GM/dL (11.7-16.9); LYMPH % 40.8 % (8-40); MCH 35.5 pg (25.7-33.7); MCHC 34.1 g/dl (32.0-35.9); MEAN CELL VOLUME 104.1 fl (80-96); MEAN PLT VOLUME 12.9 fl (7.5-11.1); MONO % 8.9 % (3.8-10.2); NEUT % 49.6 % (42.8-82.8); RBC 3.47 M/mm3 (4.00-5.60); RDW 13.8 % (11.9-15.9); WHITE BLOOD COUNT 7.5 K/mm3 (4.0-10.0)
[2018-07-16] MEDS ORDERED: FOLIC ACID INJECTION - 1 MG, THIAMINE HCL 100 MG, MULTIVIT INJECTION ADULT 10 ML in SOD... IVPB ONE ×2 (10:23→15:22)
[2018-07-16 10:29] LABS: VENOUS PC02 36.7 mmHg (38-52); VENOUS PH 7.29 (7.32-7.42); VENOUS PO2 38.3 mmHg (28-48)
--- NOTE | 2018-07-16 10:29 | PDOC ---
History of Present Illness <Maame Campos - Last Filed: 07/16/18 12:05> - General History Source: EMS Exam Limitations: Unresponsive - History of Present Illness Initial Comments: 07/16/18 10:23 58 year old male with PMH HTN, seizure disorder, ETOH abuse BIBA to ED after 3 witnessed falls. Upon presentation pt was unresponsive, actively seizing. <Radha Ramirez - Last Filed: 07/16/18 14:18> - General Chief Complaint: Injury Stated Complaint: FALL Time Seen by Provider: 07/16/18 09:40 Past History <Maame Campos - Last Filed: 07/16/18 12:05> - Past Medical History COPD: No GI Disorders: Yes (pancreatitis 2007) HTN: Yes Seizures: Yes - Suicide/Smoking/Psychosocial Hx Smoking History: Never smoked Have you smoked in the past 12 months: No Number of Cigarettes Smoked Daily: 4 Information on smoking cessation initiated: No 'Breaking Loose' booklet given: 09/09/12 Hx Alcohol Use: No Drug/Substance Use Hx: No Substance Use Type: Alcohol, Marijuana Hx Substance Use Treatment: No <Radha Ramirez - Last Filed: 07/16/18 14:18> - Past Medical History Allergies/Adverse Reactions: Allergies Allergy/AdvReac Type Severity Reaction Status Date / Time No Known Allergies Allergy Verified 07/16/18 09:34 Home Medications: Ambulatory Orders Amlodipine Besylate [Norvasc -] 10 mg PO DAILY 02/15/18 Folic Acid - 1 mg PO DAILY #30 tablet 02/22/18 Multivitamins [Multivit ([facility] Formul[facility])] 1 tab PO DAILY #30 tab 02/22/18 Thiamine HCl [Vitamin B1 -] 100 mg PO DAILY #30 tablet 02/22/18 levETIRAcetam [Keppra -] 500 mg PO BID #60 tablet 02/22/18 Review of Systems - Review of Systems Able to Perform ROS?: No (Pt unresponsive) <Radha Ramirez - Last Filed: 07/16/18 14:18> *Physical Exam - Vital Signs Last Vital Signs Temp Pulse Resp BP Pulse Ox 99.9 F H 90 12 130/80 100 07/16/18 11:13 07/16/18 11:54 07/16/18 11:54 07/16/18 11:54 07/16/18 11:54 <Maame Campos - Last Filed: 07/16/18 12:05> - Vital Signs Last Vital Signs Temp Pulse Resp BP Pulse Ox 102.1 F H 155 H 12 155/92 100 07/16/18 09:57 07/16/18 09:28 07/16/18 09:30 07/16/18 09:38 07/16/18 09:15 - Physical Exam Comments: 07/16/18 10:25 Constitutional: cachectic. frail. HEENT: head is normocephalic, atraumatic. no scalp hematomas. no romero sign. no raccoon eyes. PERRLA. Neck: supple. Heart: tachycardic. regular rhythm. no murmurs, rubs or gallops. Lungs: clear to auscultation bilaterally. no crackles, rhonchi or wheezing. no stridor. Abdomen: soft, flat, nontender. normal bowel sounds. Extremities: Peripheral pulses intact. No lower extremity edema. Neurological: unresponsive. moving all four extremities. Psych: unresponsive. <Radha Ramirez - Last Filed: 07/16/18 14:18> Moderate Sedation - Procedure Monitoring Vital Signs: Procedure Monitoring Vital Signs Temperature 99.9 F H 07/16/18 11:13 Pulse Rate 90 07/16/18 11:54 Respiratory Rate 12 07/16/18 11:54 Blood Pressure 130/80 07/16/18 11:54 O2 Sat by Pulse Oximetry (%) 100 07/16/18 11:54 <Maame Campos - Last Filed: 07/16/18 12:05> - Procedure Monitoring Vital Signs: Procedure Monitoring Vital Signs Temperature 102.1 F H 07/16/18 09:57 Pulse Rate 155 H 07/16/18 09:28 Respiratory Rate 12 07/16/18 09:30 Blood Pressure 155/92 07/16/18 09:38 O2 Sat by Pulse Oximetry (%) 100 07/16/18 09:15 <Radha Ramirez - Last Filed: 07/16/18 14:18> Procedures - Lumbar Puncture Indication: AMS, Fever, other (Seizure) CT Scan: Yes Betadine Prep: Yes Position: Left lateral decubitus Site: L4-L51 Local Anesthesia: 1% Lidocaine with epi Volume(ml): 5 Lumbar Puncture Kit: Adult Opening Pressure(mmHg): N/A Closing Pressure(mmHg): N/A Traumatic Tap: No Tubes Obtained: 4 Clear Fluid: Yes Progress: 07/16/18 13:36 Pt tolerated procedure well. Pre-procedure vitals: HR 115 RR 15 BP 118/82 Post-procedure vitals: HR 109 RR 12 BP 136/98 <Radha Ramirez - Last Filed: 07/16/18 14:18> ED Treatment Course - LABORATORY CBC & Chemistry Diagram: 07/16/18 09:32 07/16/18 09:32 - ADDITIONAL ORDERS Additional order review: Laboratory Results 07/16/18 07/16/18 07/16/18 11:09 10:46 10:24 PTT (Actin FS) Anticoagulation Therapy No Result Required. Puncture Site Right radial ABG pH 7.40 ABG pCO2 at Pt Temp 34.3 L ABG pO2 at Pt Temp 231.0 H* ABG HCO3 20.6 L ABG O2 Sat (Measured) 99.4 H ABG O2 Content 15.0 ABG Base Excess -3.2 L Praful Test Positive VBG pH POC VBG pCO2 POC VBG pO2 Mixed VBG HCO3 Carboxyhemoglobin 0.6 Methemoglobin 0.5 O2 Delivery Device No Result Required. Oxygen Flow Rate Yes Vent Mode No Result Required. Vent Rate No Result Required. Mechanical Rate No Result Required. Pressure Support Vent No Result Required. Sodium Potassium Chloride Carbon Dioxide Anion Gap BUN Creatinine Creat Clearance w eGFR POC Glucometer Random Glucose Lactic Acid Calcium Total Bilirubin AST ALT Alkaline Phosphatase Ammonia Creatine Kinase Creatine Kinase Index CK-MB (CK-2) Troponin I Total Protein Albumin Urine Color Straw Urine Appearance Clear Urine pH 6.0 Ur Specific [place] 1.009 L Urine Protein Negative Urine Glucose (UA) 1+ H Urine Ketones Negative Urine Blood 1+ H Urine Nitrite Negative Urine Bilirubin Negative Urine Urobilinogen Negative Ur Leukocyte Esterase Negative Urine WBC (Auto) None Urine RBC (Auto) 1 Urine Mucus Rare Salicylates Cancelled Acetaminophen Cancelled 07/16/18 07/16/18 07/16/18 10:22 10:19 09:44 PTT (Actin FS) Anticoagulation Therapy Puncture Site ABG pH ABG pCO2 at Pt Temp ABG pO2 at Pt Temp ABG HCO3 ABG O2 Sat (Measured) ABG O2 Content ABG Base Excess Praful Test VBG pH 7.29 L POC VBG pCO2 36.7 L POC VBG pO2 38.3 Mixed VBG HCO3 17.1 L Carboxyhemoglobin Methemoglobin O2 Delivery Device Oxygen Flow Rate Vent Mode Vent Rate Mechanical Rate Pressure Support Vent Sodium Potassium Chloride Carbon Dioxide Anion Gap BUN Creatinine Creat Clearance w eGFR POC Glucometer Random Glucose Lactic Acid 9.7 H* Calcium Total Bilirubin AST ALT Alkaline Phosphatase Ammonia 82.10 H Creatine Kinase Creatine Kinase Index CK-MB (CK-2) Troponin I Total Protein Albumin Urine Color Urine Appearance Urine pH Ur Specific [place] Urine Protein Urine Glucose (UA) Urine Ketones Urine Blood Urine Nitrite Urine Bilirubin Urine Urobilinogen Ur Leukocyte Esterase Urine WBC (Auto) Urine RBC (Auto) Urine Mucus Salicylates Acetaminophen 07/16/18 07/16/18 07/16/18 09:38 09:38 09:32 PTT (Actin FS) 27.9 Anticoagulation Therapy Puncture Site ABG pH ABG pCO2 at Pt Temp ABG pO2 at Pt Temp ABG HCO3 ABG O2 Sat (Measured) ABG O2 Content ABG Base Excess Praful Test VBG pH POC VBG pCO2 POC VBG pO2 Mixed VBG HCO3 Carboxyhemoglobin Methemoglobin O2 Delivery Device Oxygen Flow Rate Vent Mode Vent Rate Mechanical Rate Pressure Support Vent Sodium 128 L Potassium 4.0 Chloride 93 L Carbon Dioxide 15 L Anion Gap 20 H BUN 4 L Creatinine 1.1 Creat Clearance w eGFR > 60 POC Glucometer Random Glucose 238 H Lactic Acid Calcium 8.3 L Total Bilirubin 1.4 H AST 506 H ALT 160 H Alkaline Phosphatase 130 H Ammonia Creatine Kinase 286 Creatine Kinase Index 0.8 CK-MB (CK-2) 2.3 Troponin I 0.03 0.03 Total Protein 7.6 Albumin 4.1 Urine Color Urine Appearance Urine pH Ur Specific [place] Urine Protein Urine Glucose (UA) Urine Ketones Urine Blood Urine Nitrite Urine Bilirubin Urine Urobilinogen Ur Leukocyte Esterase Urine WBC (Auto) Urine RBC (Auto) Urine Mucus Salicylates < 1.7 L Acetaminophen < 10 L 07/16/18 09:24 PTT (Actin FS) Anticoagulation Therapy Puncture Site ABG pH ABG pCO2 at Pt Temp ABG pO2 at Pt Temp ABG HCO3 ABG O2 Sat (Measured) ABG O2 Content ABG Base Excess Praful Test VBG pH POC VBG pCO2 POC VBG pO2 Mixed VBG HCO3 Carboxyhemoglobin Methemoglobin O2 Delivery Device Oxygen Flow Rate Vent Mode Vent Rate Mechanical Rate Pressure Support Vent Sodium Potassium Chloride Carbon Dioxide Anion Gap BUN Creatinine Creat Clearance w eGFR POC Glucometer 279 Random Glucose Lactic Acid Calcium Total Bilirubin AST ALT Alkaline Phosphatase Ammonia Creatine Kinase Creatine Kinase Index CK-MB (CK-2) Troponin I Total Protein Albumin Urine Color Urine Appearance Urine pH Ur Specific [place] Urine Protein Urine Glucose (UA) Urine Ketones Urine Blood Urine Nitrite Urine Bilirubin Urine Urobilinogen Ur Leukocyte Esterase Urine WBC (Auto) Urine RBC (Auto) Urine Mucus Salicylates Acetaminophen 07/16/18 07/16/18 09:32 09:24 RBC 3.47 L MCV 104.1 H MCHC 34.1 RDW 13.8 MPV 12.9 H D Neutrophils % 49.6 Lymphocytes % 40.8 H D Monocytes % 8.9 Eosinophils % 0.2 D Basophils % 0.5 POC Glucometer 279 - Medications Given in the ED: ED Medications Discontinued Medications Generic Name Dose Route Start Last Admin Trade Name Jjq PRN Reason Stop Dose Admin Acetaminophen 1,000 mg 07/16/18 09:55 07/16/18 09:40 Ofirmev Injection - IVPB 07/16/18 09:56 1,000 mg ONCE ONE Administration Etomidate 20 mg 07/16/18 09:39 07/16/18 09:28 Amidate - IVPUSH 07/16/18 09:40 20 mg NOW ONE Administration Fentanyl 25 mcg 07/16/18 11:30 07/16/18 11:15 Sublimaze Injection - IVPUSH 07/16/18 11:31 25 mcg ONCE ONE Administration Sodium Chloride 1,000 mls @ 1,000 mls/hr 07/16/18 09:39 07/16/18 10:14 Normal Saline - IV 07/16/18 10:38 1,000 mls/hr ASDIR STA Administration Ceftriaxone Sodium 1,000 mg/ 50 mls @ 100 mls/hr 07/16/18 10:39 07/16/18 10: 59 Dextrose IVPB 07/16/18 11:08 100 mls/hr ONCE ONE Administration Piperacillin Sod/Tazobactam 100 mls @ 200 mls/hr 07/16/18 10:39 07/16/18 11: 15 Sod 4.5 gm/ Dextrose IVPB 07/16/18 11:08 200 mls/hr ONCE ONE Administration Protocol Lactulose 20 gm 07/16/18 10:49 07/16/18 11:34 Cephulac (Oral Use) PO 07/16/18 10:50 20 gm ONCE ONE Administration Levetiracetam 1,000 mg 07/16/18 09:38 07/16/18 09:25 Keppra Injection - IVPB 07/16/18 09:39 1,000 mg ONCE ONE Administration Lorazepam 4 mg 07/16/18 09:38 07/16/18 09:26 Ativan Injection - IVPUSH 07/16/18 09:39 4 mg ONCE ONE Administration Propofol 20 mcg 07/16/18 11:17 07/16/18 10:00 Diprivan - IVPUSH 07/16/18 11:18 20 mcg ONCE ONE Administration Propofol 30 mcg 07/16/18 11:18 07/16/18 11:00 Diprivan - IVPUSH 07/16/18 11:19 30 mcg ONCE ONE Administration Propofol 30 mcg 07/16/18 11:18 07/16/18 10:40 Diprivan - IVPUSH 07/16/18 11:19 30 mcg ONCE ONE Administration Succinylcholine Chloride 100 mg 07/16/18 09:39 07/16/18 09:28 Quelicin - IVPUSH 07/16/18 09:40 100 mg ONCE ONE Administration <Maame Campos - Last Filed: 07/16/18 12:05> - LABORATORY CBC & Chemistry Diagram: 07/16/18 09:32 07/16/18 09:32 - ADDITIONAL ORDERS Additional order review: Laboratory Results 07/16/18 07/16/18 09:38 09:24 PTT (Actin FS) 27.9 POC Glucometer 279 07/16/18 07/16/18 09:32 09:24 RBC 3.47 L MCV 104.1 H MCHC 34.1 RDW 13.8 Neutrophils % 49.6 Lymphocytes % 40.8 H D Monocytes % 8.9 Eosinophils % 0.2 D Basophils % 0.5 POC Glucometer 279 - RADIOLOGY Radiology Studies Ordered: Category Date Time Status CERVICAL SPINE CT W/O CONTR [CT] Stat CT Scan 07/16/18 09:59 Taken - Medications Given in the ED: ED Medications Discontinued Medications Generic Name Dose Route Start Last Admin Trade Name David PRN Reason Stop Dose Admin Acetaminophen 1,000 mg 07/16/18 09:55 07/16/18 09:40 Ofirmev Injection - IVPB 07/16/18 09:56 1,000 mg ONCE ONE Administration Etomidate 20 mg 07/16/18 09:39 07/16/18 09:28 Amidate - IVPUSH 07/16/18 09:40 20 mg NOW ONE Administration Levetiracetam 1,000 mg 07/16/18 09:38 07/16/18 09:25 Keppra Injection - IVPB 07/16/18 09:39 1,000 mg ONCE ONE Administration Lorazepam 4 mg 07/16/18 09:38 07/16/18 09:26 Ativan Injection - IVPUSH 07/16/18 09:39 4 mg ONCE ONE Administration Succinylcholine Chloride 100 mg 07/16/18 09:39 07/16/18 09:28 Quelicin - IVPUSH 07/16/18 09:40 100 mg ONCE ONE Administration <Radha Ramirez - Last Filed: 07/16/18 14:18> Medical Decision Making - Medical Decision Making 07/16/18 10:26 58 year old male with above PMH brought to ED by EMS after multiple witnessed falls. Pt actively seizing in ED. Given Ativan 2 mg without resolution of seizure. Given Keppra 1000 mg without resolution of seizure. Pt sedated and intubated and started on propofol drip. Pt required 10 cc propofol bolus initially. In CT pt was not adequately sedated, another 10 cc bolus of propofol was given. Once back in ED pt again became not adequately sedated, 30 cc propofol bolus given with adequate sedation. Initial Vital Signs Temp Pulse Resp BP Pulse Ox 102.5 F H 156 H 18 149/90 100 07/16/18 09:15 07/16/18 09:15 07/16/18 09:15 07/16/18 09:15 07/16/18 09:15 Febrile. Tachycardic. No tachypnea. Mild hypertension. No hypoxia on room air. Imaging ordered: CT head, CT c-spine, CXR Medications ordered: Vancomycin, Zosyn, Ceftriaxone, Acyclovir, normal saline bolus 1000 cc, banana bag, tylenol IV, propofol drip CBC WBC 7.5 K/mm3 (4.0-10.0) 07/16/18 09:32 RBC 3.47 M/mm3 (4.00-5.60) L 07/16/18 09:32 Hgb 12.3 GM/dL (11.7-16.9) 07/16/18 09:32 Hct 36.2 % (35.4-49) 07/16/18 09:32 MCV 104.1 fl (80-96) H 07/16/18 09:32 MCH 35.5 pg (25.7-33.7) H 07/16/18 09:32 MCHC 34.1 g/dl (32.0-35.9) 07/16/18 09:32 RDW 13.8 % (11.9-15.9) 07/16/18 09:32 Absolute Neuts (auto) 3.7 K/mm3 (1.5-8.0) 07/16/18 09:32 Neutrophils % 49.6 % (42.8-82.8) 07/16/18 09:32 Lymphocytes % 40.8 % (8-40) H D 07/16/18 09:32 Monocytes % 8.9 % (3.8-10.2) 07/16/18 09:32 Eosinophils % 0.2 % (0-4.5) D 07/16/18 09:32 Basophils % 0.5 % (0-2.0) 07/16/18 09:32 Nucleated RBC % 0 % (0-0) 07/16/18 09:32 No leukocytosis. No anemia. Increased MCV - Hx of ETOH abuse - Banana bag ordered Thombocytopenia. CMP POC Glucometer 279 UNITS (80-120) 07/16/18 09:24 POC glucose mild hyperglycemia - Pt is receiving normal saline bolus 1000 cc 07/16/18 10:35 CT head report: moferate volume loss. ventricular dilation. periventricular chronic microvascular ischemic disease changes. encephalomalacia in the left frontal lobe anteriorly. no mass lesion, no gross acute infarct, no intracranial hemorrhage indentified. no midline shift. right medial maxillary antrostomy. CT c-spine report: no compression deformities, no subluxation, ET tube noted, NG tube noted, no acute bony abnormalities. 07/16/18 10:50 CMP Sodium 128 mmol/L (136-145) L 07/16/18 09:32 Potassium 4.0 mmol/L (3.5-5.1) 07/16/18 09:32 Chloride 93 mmol/L (98-107) L 07/16/18 09:32 Carbon Dioxide 15 mmol/L (21-32) L 07/16/18 09:32 Anion Gap 20 MMOL/L (8-16) H 07/16/18 09:32 BUN 4 mg/dL (7-18) L 07/16/18 09:32 Creatinine 1.1 mg/dL (0.55-1.3) 07/16/18 09:32 Creat Clearance w eGFR > 60 (>60) 07/16/18 09:32 POC Glucometer 279 UNITS (80-120) 07/16/18 09:24 Random Glucose 238 mg/dL (74-106) H 07/16/18 09:32 Calcium 8.3 mg/dL (8.5-10.1) L 07/16/18 09:32 Total Bilirubin 1.4 mg/dL (0.2-1) H 07/16/18 09:32 AST 506 U/L (15-37) H 07/16/18 09:32 ALT 160 U/L (13-61) H 07/16/18 09:32 Alkaline Phosphatase 130 U/L (45-117) H 07/16/18 09:32 Ammonia 82.10 umol/L (11-32) H 07/16/18 09:44 Creatine Kinase 286 U/L (26-308) 07/16/18 09:32 Troponin I 0.03 ng/ml (0.00-0.05) 07/16/18 09:38 Total Protein 7.6 g/dl (6.4-8.2) 07/16/18 09:32 Albumin 4.1 g/dl (3.4-5.0) 07/16/18 09:32 Hyponatremia - Pt is receiving normal saline, will recheck after normal saline and banana bag BROOKS Transaminitis Hyperammonemia - Lactulose ordered Urine Test Results Urine Color Straw 07/16/18 10:24 Urine Appearance Clear 07/16/18 10:24 Urine pH 6.0 (5.0-8.0) 07/16/18 10:24 Ur Specific [place] 1.009 (1.010-1.035) L 07/16/18 10:24 Urine Protein Negative (NEGATIVE) 07/16/18 10:24 Urine Glucose (UA) 1+ (NEGATIVE) H 07/16/18 10:24 Urine Ketones Negative (NEGATIVE) 07/16/18 10:24 Urine Blood 1+ (NEGATIVE) H 07/16/18 10:24 Urine Nitrite Negative (NEGATIVE) 07/16/18 10:24 Urine Bilirubin Negative (<2.0 mg/dL) 07/16/18 10:24 Ur Leukocyte Esterase Negative (NEGATIVE) 07/16/18 10:24 Urine Mucus Rare 07/16/18 10:24 Negative for UTI. Influenza testing negative. 07/16/18 12:46 CXR report: no evidence of active pulmonary disease. Urine drug screen negative. 07/16/18 12:[address] Saldivar, neuro purification operator, about the case. He recommended: 1) Keppra 1000 mg daily 2) Locosamide 400 mg loading dose 3) Locosamide 200 mg BID He stated he will come to evaluate the patient. 07/16/18 12:56 Next of Kin was attempted to be contacted for consent for lumbar puncture. No next of kin listed in the system. Risk of meningitis high, pt febrile and seizing. Will perform LP. 07/16/18 14:01 LP performed without difficulty. See above procedure note. 07/16/18 14:18 Pt transported to ICU by RN. <Radha Ramirez - Last Filed: 07/16/18 14:18> *DC/Admit/Observation/Transfer - Discharge Dispostion Decision to Admit order: Yes <Maame Campos - Last Filed: 07/16/18 12:05> - Discharge Dispostion Decision to Admit order: Yes <Radha Ramirez - Last Filed: 07/16/18 14:18> Diagnosis at time of Disposition: Seizure, Sepsis Altered mental status Qualifiers: Altered mental status type: coma Coma depth: [place] coma 3-8 Coma timing: at arrival to emergency department Qualified Code(s): R40.2432 - [place] coma scale score 3-8, at arrival to emergency department - Discharge Dispostion Condition at time of disposition: Critical
[2018-07-16 10:31] LABS: ALBUMIN 4.1 g/dl (3.4-5.0); ALK PHOS 130 U/L (45-117); ANION GAP 20 MMOL/L (8-16); BILIRUBIN,TOTAL 1.4 mg/dL (0.2-1); BLOOD UREA NITROGEN 4 mg/dL (7-18); CALCIUM 8.3 mg/dL (8.5-10.1); CHLORIDE 93 mmol/L (98-107); CO2 15 mmol/L (21-32); CREATININE 1.1 mg/dL (0.55-1.3); GLUCOSE,RANDOM 238 mg/dL (74-106); SGOT/AST 506 U/L (15-37); SGPT/ALT 160 U/L (13-61); SODIUM 128 mmol/L (136-145); TOT PROT 7.6 g/dl (6.4-8.2)
[2018-07-16] MEDS ORDERED: CEFTRIAXONE 1,000 MG in DEXTROSE 5%-WATER - 50 ML IVPB ONE (10:39)
[2018-07-16] MEDS ORDERED: PIPERACILLIN/TAZOB 4.5 GM 4.5 GM in DEXTROSE 5%-WATER 100 ML IVPB ONE (10:39)
[2018-07-16] MEDS ORDERED: VANCOMYCIN 1,000 MG in DEXTROSE 5%-WATER - 250 ML IVPB ONE (10:39)
[2018-07-16] MEDS ORDERED: ACYCLOVIR INJECTION 680 MG in DEXTROSE 5%-WATER - 100 ML IVPB ONE (10:40)
[2018-07-16] MEDS ORDERED: VANCOMYCIN 1 GRAM (PRE-DOCKED) 1,000 MG/250 ML BAG IVPB ONE (10:48)
[2018-07-16] MEDS ORDERED: PIPERACILLIN/TAZOB 4.5 GM 4.5 GM/100 ML BAG IVPB ONE (10:48)
[2018-07-16] MEDS ORDERED: CEFTRIAXONE 1 GM/50 ML BAG ONE (10:48)
[2018-07-16 10:49] LABS: URINE APPEARANCE CLEAR; URINE BILIRUBIN NEGATIVE (<2.0 mg/dL); URINE COLOR STRAW; URINE GLUCOSE (UA) 1+ (NEGATIVE); URINE KETONE NEGATIVE (NEGATIVE); URINE LEUK ESTERASE NEGATIVE (NEGATIVE); URINE NITRITE NEGATIVE (NEGATIVE); URINE PROTEIN NEGATIVE (NEGATIVE); URINE UROBILINOGEN NEGATIVE mg/dL (0.2-1.0)
[2018-07-16] MEDS ORDERED: LACTULOSE 20 GM/30 ML UDC (FOR ORAL USE ONLY) PO ONE (10:49)
[2018-07-16 10:53] LABS: URINE MUCUS RARE
[2018-07-16] MEDS ORDERED: PROPOFOL 200 MG/20 ML VIAL IVPUSH ONE ×3 (11:17→11:18)
[2018-07-16 11:22] LABS: ARTERIAL BLD GAS O2 SATURATION 99.4 % (90-98.9); ARTERIAL BLOOD GAS BASE EXCESS -3.2 meq/l (-2-2); ARTERIAL BLOOD GAS PCO2 34.3 mmHg (35-45); CARBOXYHEMOGLOBIN 0.6 gm% (0.5-2.0)
[2018-07-16 11:23] LABS: ALLENS TEST POSITIVE
[2018-07-16] MEDS ORDERED: LACTULOSE 20 GM/30 ML UDC (FOR ORAL USE ONLY) ONE (11:26)
[2018-07-16 11:36] LABS: PLATELET COUNT 31 K/MM3 (134-434)
[2018-07-16] MEDS ORDERED: fentaNYL CITRATE 250 MCG/5 ML VIAL ONE ×2 (11:39→21:31)
[2018-07-16] MEDS ORDERED: FENTANYL INJECTION 500 MCG in DEXTROSE 5%-WATER - 90 ML IVPB SCH (11:45)
--- NOTE | 2018-07-16 12:00 | CONSULT ---
Consultation: REQUESTING PROVIDER: Dr. Gamboa CONSULT REQUEST: We have been asked to medically evaluate this patient for seizures HISTORY OF PRESENT ILLNESS: 58 year old male with a past medical history of hypertension, seizure disorder, pancreatitis and alcohol abuse was brought to the hospital following 3 falls. Upon being brought to the emergency room, he was noted to be seizing. In the ED , he received 4 rounds of ativan, keppra, and finally he was sedated with propofol and intubated. History is unable to be taken at present time due to mental status. He was admitted in February REVIEW OF SYSTEMS: Unable to assess due to mental status PHYSICAL EXAMINATION Vital Signs - 24 hr 07/16/18 07/16/18 07/16/18 09:15 09:28 09:30 Temperature 102.5 F H Pulse Rate 156 H Pulse Rate [ 155 H Left] Respiratory 18 16 Rate Blood Pressure 149/90 Blood Pressure 144/99 [Left Arm] O2 Sat by Pulse 100 Oximetry (%) 07/16/18 07/16/18 07/16/18 09:38 09:57 10:42 Temperature 102.1 F H Pulse Rate Pulse Rate [ Left] Respiratory Rate Blood Pressure Blood Pressure 155/92 [Left Arm] O2 Sat by Pulse 100 Oximetry (%) 07/16/18 07/16/18 07/16/18 10:44 11:13 11:54 Temperature 99.9 F H Pulse Rate Pulse Rate [ 113 H 96 H 90 Left] Respiratory 12 12 Rate Blood Pressure Blood Pressure 131/88 155/84 130/80 [Left Arm] O2 Sat by Pulse 100 100 100 Oximetry (%) GENERAL: A&Ox0, intubated and sedated EYES: PERRLA, EOMI ENT: Dry mucus membranes NECK: No JVD LUNGS: CTA, no wheezes, intubated and sedated HEART: mildly tachycardic, no murmurs ABDOMEN: Soft, BS present EXTREMITIES: 2+ pulses, no edema. NEUROLOGICAL: Unable to assess Laboratory Results - last 24 hr 07/16/18 07/16/18 07/16/18 09:24 09:32 09:32 WBC 7.5 RBC 3.47 L Hgb 12.3 Hct 36.2 MCV 104.1 H MCH 35.5 H MCHC 34.1 RDW 13.8 Plt Count 31 L* D MPV 12.9 H D Absolute Neuts (auto) 3.7 Neutrophils % 49.6 Lymphocytes % 40.8 H D Monocytes % 8.9 Eosinophils % 0.2 D Basophils % 0.5 Nucleated RBC % 0 Platelet Comment Large platelets PTT (Actin FS) Anticoagulation Therapy Puncture Site ABG pH ABG pCO2 at Pt Temp ABG pO2 at Pt Temp ABG HCO3 ABG O2 Sat (Measured) ABG O2 Content ABG Base Excess Praful Test VBG pH POC VBG pCO2 POC VBG pO2 Mixed VBG HCO3 Carboxyhemoglobin Methemoglobin O2 Delivery Device Oxygen Flow Rate Vent Mode Vent Rate Mechanical Rate Pressure Support Vent Sodium 128 L Potassium 4.0 Chloride 93 L Carbon Dioxide 15 L Anion Gap 20 H BUN 4 L Creatinine 1.1 Creat Clearance w eGFR > 60 POC Glucometer 279 Random Glucose 238 H Lactic Acid Calcium 8.3 L Total Bilirubin 1.4 H AST 506 H ALT 160 H Alkaline Phosphatase 130 H Ammonia Creatine Kinase 286 Creatine Kinase Index 0.8 CK-MB (CK-2) 2.3 Troponin I 0.03 Total Protein 7.6 Albumin 4.1 Urine Color Urine Appearance Urine pH Ur Specific [place] Urine Protein Urine Glucose (UA) Urine Ketones Urine Blood Urine Nitrite Urine Bilirubin Urine Urobilinogen Ur Leukocyte Esterase Urine WBC (Auto) Urine RBC (Auto) Urine Mucus Salicylates < 1.7 L Acetaminophen < 10 L Influenza A (Rapid) Influenza B (Rapid) 07/16/18 07/16/18 07/16/18 09:38 09:38 09:44 WBC RBC Hgb Hct MCV MCH MCHC RDW Plt Count MPV Absolute Neuts (auto) Neutrophils % Lymphocytes % Monocytes % Eosinophils % Basophils % Nucleated RBC % Platelet Comment PTT (Actin FS) 27.9 Anticoagulation Therapy Puncture Site ABG pH ABG pCO2 at Pt Temp ABG pO2 at Pt Temp ABG HCO3 ABG O2 Sat (Measured) ABG O2 Content ABG Base Excess Praful Test VBG pH POC VBG pCO2 POC VBG pO2 Mixed VBG HCO3 Carboxyhemoglobin Methemoglobin O2 Delivery Device Oxygen Flow Rate Vent Mode Vent Rate Mechanical Rate Pressure Support Vent Sodium Potassium Chloride Carbon Dioxide Anion Gap BUN Creatinine Creat Clearance w eGFR POC Glucometer Random Glucose Lactic Acid Calcium Total Bilirubin AST ALT Alkaline Phosphatase Ammonia 82.10 H Creatine Kinase Creatine Kinase Index CK-MB (CK-2) Troponin I 0.03 Total Protein Albumin Urine Color Urine Appearance Urine pH Ur Specific [place] Urine Protein Urine Glucose (UA) Urine Ketones Urine Blood Urine Nitrite Urine Bilirubin Urine Urobilinogen Ur Leukocyte Esterase Urine WBC (Auto) Urine RBC (Auto) Urine Mucus Salicylates Acetaminophen Influenza A (Rapid) Influenza B (Rapid) 07/16/18 07/16/18 07/16/18 10:19 10:22 10:24 WBC RBC Hgb Hct MCV MCH MCHC RDW Plt Count MPV Absolute Neuts (auto) Neutrophils % Lymphocytes % Monocytes % Eosinophils % Basophils % Nucleated RBC % Platelet Comment PTT (Actin FS) Anticoagulation Therapy Puncture Site ABG pH ABG pCO2 at Pt Temp ABG pO2 at Pt Temp ABG HCO3 ABG O2 Sat (Measured) ABG O2 Content ABG Base Excess Praful Test VBG pH 7.29 L POC VBG pCO2 36.7 L POC VBG pO2 38.3 Mixed VBG HCO3 17.1 L Carboxyhemoglobin Methemoglobin O2 Delivery Device Oxygen Flow Rate Vent Mode Vent Rate Mechanical Rate Pressure Support Vent Sodium Potassium Chloride Carbon Dioxide Anion Gap BUN Creatinine Creat Clearance w eGFR POC Glucometer Random Glucose Lactic Acid 9.7 H* Calcium Total Bilirubin AST ALT Alkaline Phosphatase Ammonia Creatine Kinase Creatine Kinase Index CK-MB (CK-2) Troponin I Total Protein Albumin Urine Color Straw Urine Appearance Clear Urine pH 6.0 Ur Specific [place] 1.009 L Urine Protein Negative Urine Glucose (UA) 1+ H Urine Ketones Negative Urine Blood 1+ H Urine Nitrite Negative Urine Bilirubin Negative Urine Urobilinogen Negative Ur Leukocyte Esterase Negative Urine WBC (Auto) None Urine RBC (Auto) 1 Urine Mucus Rare Salicylates Acetaminophen Influenza A (Rapid) Influenza B (Rapid) 07/16/18 07/16/18 07/16/18 10:46 10:55 11:09 WBC RBC Hgb Hct MCV MCH MCHC RDW Plt Count MPV Absolute Neuts (auto) Neutrophils % Lymphocytes % Monocytes % Eosinophils % Basophils % Nucleated RBC % Platelet Comment PTT (Actin FS) Anticoagulation Therapy No Result Required. Puncture Site Right radial ABG pH 7.40 ABG pCO2 at Pt Temp 34.3 L ABG pO2 at Pt Temp 231.0 H* ABG HCO3 20.6 L ABG O2 Sat (Measured) 99.4 H ABG O2 Content 15.0 ABG Base Excess -3.2 L Praful Test Positive VBG pH POC VBG pCO2 POC VBG pO2 Mixed VBG HCO3 Carboxyhemoglobin 0.6 Methemoglobin 0.5 O2 Delivery Device No Result Required. Oxygen Flow Rate Yes Vent Mode No Result Required. Vent Rate No Result Required. Mechanical Rate No Result Required. Pressure Support Vent No Result Required. Sodium Potassium Chloride Carbon Dioxide Anion Gap BUN Creatinine Creat Clearance w eGFR POC Glucometer Random Glucose Lactic Acid Calcium Total Bilirubin AST ALT Alkaline Phosphatase Ammonia Creatine Kinase Creatine Kinase Index CK-MB (CK-2) Troponin I Total Protein Albumin Urine Color Urine Appearance Urine pH Ur Specific [place] Urine Protein Urine Glucose (UA) Urine Ketones Urine Blood Urine Nitrite Urine Bilirubin Urine Urobilinogen Ur Leukocyte Esterase Urine WBC (Auto) Urine RBC (Auto) Urine Mucus Salicylates Cancelled Acetaminophen Cancelled Influenza A (Rapid) Negative Influenza B (Rapid) Negative Active Medications Generic Name Dose Route Start Last Admin Trade Name Freq PRN Reason Stop Dose Admin Propofol 1,000,000 mcg in 100 mls @ 2.041 mls/hr 07/16/18 10:00 07/16/18 11: 16 Diprivan - IVPB 45 mcg/kg/min TITR MIGUEL 18.371 mls/hr Titration Protocol 5 MCG/KG/MIN Folic Acid 1 mg/ Thiamine HCl 1,000 mls @ 125 mls/hr 07/16/18 10:23 07/16/18 10:47 100 mg/ Multivitamins/Minerals IVPB 07/16/18 18:22 125 mls/hr 10 ml/ Sodium Chloride ONCE ONE Administration Vancomycin HCl 1,000 mg/ 250 mls @ 166.667 mls/hr 07/16/18 10:39 07/16/18 11: 17 Dextrose IVPB 07/16/18 12:08 166.667 mls/hr ONCE ONE Administration Protocol Fentanyl 500 mcg/ Dextrose 100 mls @ 5 mls/hr 07/16/18 11:45 07/16/18 11:50 IVPB 25 mcg/hr TITR MIGUEL 5 mls/hr Administration Protocol 25 MCG/HR ASSESSMENT/PLAN: 58 year old male with a past medical history of hypertension, seizure disorder, pancreatitis and alcohol abuse was brought to the hospital following 3 falls and found to be seizing requiring intubation. Neurological: patient intubated and sedated on propofol, unable to assess mental status at present time but not actively seizing - possibly secondary to improper use of antiepileptic medications, febrile -LP performed and CSF sent for analysis -per neuro, Keppra 1000 mg daily -Lacosamide 200 mg BID -Dr. Saldivar consulted -ammonia elevated which could be component of hepatic encephalopathy, lactulose titrate to 3 bm a day -banana bag for alcoholism -trend lactate, hydrate patient -head CT negative Cardiovascular -tachycardic but otherwise stable Pulmonary -intubated and sedated -vent settings TV 400, PEEP 1, FIO2 40 Rate 12 -will attempt to wake up and wean in AM Gastrointestinal -cirrhotic picture with chronic decrease in platelets, elevated INR, decreased albumin, and elevated LFTs, patient also has chronic pancreatitis -banana bag and further fluid resuscitation -ultrasound ruq -lactulose titrated to 3 bm a day Renal -patient is hyponatremic, repeat BMP after banana bag finishes and start normal saline if not improved ID patient was febrile on admission follow cultures CXR Heme patient thrombocytopenic and has elevated INR, likely secondary to cirrhosis- like picture transfuse platelets if <10 or if signs of bleeding Prophylaxis SCDs Dispo: We will continue to follow the patient. Thank you for this consultative opportunity. Visit type - Emergency Visit Emergency Visit: Yes ED Registration Date: 07/16/18 Care time: The patient presented to the Emergency Department on the above date and was hospitalized for further evaluation of their emergent condition. - New Patient This patient is new to me today: Yes Date on this admission: 07/16/18 - Critical Care Critical Care patient: Yes Total Critical Care Time (in minutes): 38 Critical Care Statement: The care of this patient involved high complexity decision making to prevent further life threatening deterioration of the patient 's condition and/or to evaluate & treat vital organ system(s) failure or risk of failure.
--- NOTE | 2018-07-16 12:33 | PDOC ---
Attending Attestation - Medical Decision Making 07/16/18 12:38 Call placed to neurology maintenance mechanic telephone, awaiting call back from [facility]. <Georgette Rodriguez - Last Filed: 07/16/18 12:38> - Resident Resident Name: Radha Ramirez - HPI HPI: 07/16/18 12:26 Pt presents to the ED actively seizing. As per EMS, the patient fell several times and was confused, but not seizing in the ambulance. Chart review suggests history of seizure disorder treated with dilantin and alcoholism. Prior visits to the ED for altered mental status. 07/16/18 12:27 - Physicial Exam PE: 07/16/18 12:30 Agree with resident exam. Patient was actively seizing on arrival to the ED. Normotensive with oxygen saturation of 100% on RA. No external signs of trauma. Disconjugate gaze which resolved after sedation and intubation. - Critical Care Time Total Critical Care Time: 60 Critical Care Statement: The care of this patient involved high complexity decision making to prevent further life threatening deterioration of the patient 's condition and/or to evaluate & treat vital organ system(s) failure or risk of failure. - Medical Decision Making 07/16/18 12:33 Pt presents to the ED with altered mental status and status epilepticus. Actively seizing on ED arrival, no response to ativan 4 mg IV and keppra 1 g. Intubated for status epilepticus and sedated with propofol. Rectal temp 102. Labs show mild hyponatremia, elevated ammonia and acidosis. Differential included status epilepticus due to non compliance with medications, sepsis, meningitis, intracranial lession, hepatic encephalopathy. CT head is negative for acute findings. IV antibiotics for sepsis started, along with ceftriaxone and acyclovir. Flu test is negative. Will perform LP to rule out meningitis. Will admit to ICU. <Maame Campos - Last Filed: 07/16/18 13:51> Attestations - Attestations 07/16/18 12:39 Documentation prepared by Georgette Rodriguez, acting as medical videographer for Maame Campos MD. <Georgette Rodriguez - Last Filed: 07/16/18 12:38>
[2018-07-16 12:38] LABS: COCAINE, UR NEGATIVE ng/ml (CUTOFF=300); METHADONE, UR NEGATIVE ng/ml (CUTOFF=300); OPIATES, URI NEGATIVE ng/ml (CUTOFF=300); PHENCYCLIDINE,URINE NEGATIVE ng/ml (CUTOFF=25); URINE AMPHETAMINES NEGATIVE ng/ml (CUTOFF=500); URINE BARBITURATES NEGATIVE ng/ml (CUTOFF=200); URINE BENZODIAZEPINES NEGATIVE ng/ml (CUTOFF=200)
[2018-07-16] MEDS ORDERED: Lacosamide 200 MG/20 ML VIAL IVPB ONE (12:53)
[2018-07-16 13:08] LABS: INR 1.74 (0.83-1.09); PROTHROMBIN TIME (PATIENT) 20.6 SEC (9.7-13.0)
[2018-07-16] MEDS ORDERED: DEXTROSE 5%-0.45% SALINE 1,000 ML IV SCH (14:15)
--- NOTE | 2018-07-16 15:12 | PN ---
Teaching Attending Note Name of Resident: Tano Lambert ATTENDING PHYSICIAN STATEMENT I saw and evaluated the patient. I reviewed the resident's note and discussed the case with the resident. I agree with the resident's findings and plan as documented. SUBJECTIVE: Patient seen and examined in the ICU. 58 M, HTN, seizure disorder, pancreatitis , and ETOH abuse. Admitted via the ER after 3 witnessed falls. Patient was apparently actively seizing upon presentation to the ER. No further history is available. Patient was endotracheally intubated and placed on mechanical ventilation for refractory seizures and airway protection. LP was performed for concern for meningitis. CXR: No acute process. Intake & Output 07/13/18 07/14/18 07/15/18 07/16/18 23:59 23:59 23:59 23:59 Weight 1.654 oz Last Vital Signs Temp Pulse Resp BP Pulse Ox 99.5 F 98 H 12 104/77 99 07/16/18 14:17 07/16/18 14:17 07/16/18 14:17 07/16/18 14:17 07/16/18 14:17 Active Medications Propofol (Diprivan -) 1,000,000 mcg in 100 mls @ 2.041 mls/hr IVPB TITR MIGUEL; Protocol Last Titration: 07/16/18 11:16 Dose: 45 mcg/kg/min, 18.371 mls/hr Folic Acid 1 mg/ Thiamine HCl 100 mg/ Multivitamins/Minerals 10 ml/ Sodium Chloride 1,000 mls @ 125 mls/hr IVPB ONCE ONE Stop: 07/16/18 18:22 Last Admin: 07/16/18 10:47 Dose: 125 mls/hr Fentanyl 500 mcg/ Dextrose 100 mls @ 5 mls/hr IVPB TITR MIGUEL; Protocol Last Admin: 07/16/18 11:50 Dose: 25 mcg/hr, 5 mls/hr Dextrose/Sodium Chloride (D5-1/2ns -) 1,000 mls @ 83 mls/hr IV ASDIR MIGUEL Levetiracetam (Keppra Injection -) 500 mg IVPB BID MIGUEL Constitutional: Intubated and sedated, cachectic. HEENT: normocephalic, atraumatic. Neck: supple. Heart: S1S2, tachycardic. regular rhythm. no murmurs, rubs or gallops. Lungs: clear to auscultation bilaterally. no crackles, rhonchi or wheezing. no stridor. Abdomen: soft, flat, nontender. normal bowel sounds. Extremities: Peripheral pulses intact. No lower extremity edema. Neurological: sedated Psych: sedated Laboratory Results 07/16/18 07/16/18 07/16/18 11:09 10:46 10:24 PTT (Actin FS) Anticoagulation Therapy No Result Required. Puncture Site Right radial ABG pH 7.40 ABG pCO2 at Pt Temp 34.3 L ABG pO2 at Pt Temp 231.0 H* ABG HCO3 20.6 L ABG O2 Sat (Measured) 99.4 H ABG O2 Content 15.0 ABG Base Excess -3.2 L Praful Test Positive VBG pH POC VBG pCO2 POC VBG pO2 Mixed VBG HCO3 Carboxyhemoglobin 0.6 Methemoglobin 0.5 O2 Delivery Device No Result Required. Oxygen Flow Rate Yes Vent Mode No Result Required. Vent Rate No Result Required. Mechanical Rate No Result Required. Pressure Support Vent No Result Required. Sodium Potassium Chloride Carbon Dioxide Anion Gap BUN Creatinine Creat Clearance w eGFR POC Glucometer Random Glucose Lactic Acid Calcium Total Bilirubin AST ALT Alkaline Phosphatase Ammonia Creatine Kinase Creatine Kinase Index CK-MB (CK-2) Troponin I Total Protein Albumin Urine Color Straw Urine Appearance Clear Urine pH 6.0 Ur Specific [place] 1.009 L Urine Protein Negative Urine Glucose (UA) 1+ H Urine Ketones Negative Urine Blood 1+ H Urine Nitrite Negative Urine Bilirubin Negative Urine Urobilinogen Negative Ur Leukocyte Esterase Negative Urine WBC (Auto) None Urine RBC (Auto) 1 Urine Mucus Rare Salicylates Cancelled Acetaminophen Cancelled 07/16/18 07/16/18 07/16/18 10:22 10:19 09:44 PTT (Actin FS) Anticoagulation Therapy Puncture Site ABG pH ABG pCO2 at Pt Temp ABG pO2 at Pt Temp ABG HCO3 ABG O2 Sat (Measured) ABG O2 Content ABG Base Excess Praful Test VBG pH 7.29 L POC VBG pCO2 36.7 L POC VBG pO2 38.3 Mixed VBG HCO3 17.1 L Carboxyhemoglobin Methemoglobin O2 Delivery Device Oxygen Flow Rate Vent Mode Vent Rate Mechanical Rate Pressure Support Vent Sodium Potassium Chloride Carbon Dioxide Anion Gap BUN Creatinine Creat Clearance w eGFR POC Glucometer Random Glucose Lactic Acid 9.7 H* Calcium Total Bilirubin AST ALT Alkaline Phosphatase Ammonia 82.10 H Creatine Kinase Creatine Kinase Index CK-MB (CK-2) Troponin I Total Protein Albumin Urine Color Urine Appearance Urine pH Ur Specific [place] Urine Protein Urine Glucose (UA) Urine Ketones Urine Blood Urine Nitrite Urine Bilirubin Urine Urobilinogen Ur Leukocyte Esterase Urine WBC (Auto) Urine RBC (Auto) Urine Mucus Salicylates Acetaminophen 07/16/18 07/16/18 07/16/18 09:38 09:38 09:32 PTT (Actin FS) 27.9 Anticoagulation Therapy Puncture Site ABG pH ABG pCO2 at Pt Temp ABG pO2 at Pt Temp ABG HCO3 ABG O2 Sat (Measured) ABG O2 Content ABG Base Excess Praful Test VBG pH POC VBG pCO2 POC VBG pO2 Mixed VBG HCO3 Carboxyhemoglobin Methemoglobin O2 Delivery Device Oxygen Flow Rate Vent Mode Vent Rate Mechanical Rate Pressure Support Vent Sodium 128 L Potassium 4.0 Chloride 93 L Carbon Dioxide 15 L Anion Gap 20 H BUN 4 L Creatinine 1.1 Creat Clearance w eGFR > 60 POC Glucometer Random Glucose 238 H Lactic Acid Calcium 8.3 L Total Bilirubin 1.4 H AST 506 H ALT 160 H Alkaline Phosphatase 130 H Ammonia Creatine Kinase 286 Creatine Kinase Index 0.8 CK-MB (CK-2) 2.3 Troponin I 0.03 0.03 Total Protein 7.6 Albumin 4.1 Urine Color Urine Appearance Urine pH Ur Specific [place] Urine Protein Urine Glucose (UA) Urine Ketones Urine Blood Urine Nitrite Urine Bilirubin Urine Urobilinogen Ur Leukocyte Esterase Urine WBC (Auto) Urine RBC (Auto) Urine Mucus Salicylates < 1.7 L Acetaminophen < 10 L 07/16/18 09:24 PTT (Actin FS) Anticoagulation Therapy Puncture Site ABG pH ABG pCO2 at Pt Temp ABG pO2 at Pt Temp ABG HCO3 ABG O2 Sat (Measured) ABG O2 Content ABG Base Excess Praful Test VBG pH POC VBG pCO2 POC VBG pO2 Mixed VBG HCO3 Carboxyhemoglobin Methemoglobin O2 Delivery Device Oxygen Flow Rate Vent Mode Vent Rate Mechanical Rate Pressure Support Vent Sodium Potassium Chloride Carbon Dioxide Anion Gap BUN Creatinine Creat Clearance w eGFR POC Glucometer 279 Random Glucose Lactic Acid Calcium Total Bilirubin AST ALT Alkaline Phosphatase Ammonia Creatine Kinase Creatine Kinase Index CK-MB (CK-2) Troponin I Total Protein Albumin Urine Color Urine Appearance Urine pH Ur Specific [place] Urine Protein Urine Glucose (UA) Urine Ketones Urine Blood Urine Nitrite Urine Bilirubin Urine Urobilinogen Ur Leukocyte Esterase Urine WBC (Auto) Urine RBC (Auto) Urine Mucus Salicylates Acetaminophen 07/16/18 07/16/18 09:32 09:24 RBC 3.47 L MCV 104.1 H MCHC 34.1 RDW 13.8 MPV 12.9 H D Neutrophils % 49.6 Lymphocytes % 40.8 H D Monocytes % 8.9 Eosinophils % 0.2 D Basophils % 0.5 POC Glucometer 279 Laboratory Results 07/16/18 07/16/18 09:38 09:24 PTT (Actin FS) 27.9 POC Glucometer 279 07/16/18 07/16/18 09:32 09:24 RBC 3.47 L MCV 104.1 H MCHC 34.1 RDW 13.8 Neutrophils % 49.6 Lymphocytes % 40.8 H D Monocytes % 8.9 Eosinophils % 0.2 D Basophils % 0.5 POC Glucometer 279 IMP: Acute Respiratory Failure Status epilepticus Suspected Cirrhosis Transaminitis Seizure D/O History of ETOH abuse Low clinical suspicion of meningitis Hyperammonemia Follow CSF assay Change IVF to normal saline Strict I & O AEDs Monitor off ABX for now Replete lytes Lactulose Requires ICU monitoring Dr Ann Critical care time spent in reviewing chart, evaluating patient and formulating plan - 36 minutes.
[2018-07-16] MEDS ORDERED: PROPOFOL 1,000,000 MCG/100 ML VIAL IVPB SCH (15:30)
[2018-07-16] MEDS ORDERED: LACTULOSE 20 GM/30 ML UDC (FOR ORAL USE ONLY) PO PRN (16:08)
--- NOTE | 2018-07-16 16:39 | HP ---
CHIEF COMPLAINT: seizure PCP:none HISTORY OF PRESENT ILLNESS: 58 year old male with PMH HTN, seizure disorder, ETOH abuse BIBA to ED after 3 witnessed falls. Upon presentation pt was unresponsive, actively seizing. In her he recieved the anti seizure later on was intubated and started on propofol .He has multiple admissions to hospital for seizure and alcohol intoxication. ER course was notable for: (1)uncontrolled seizure (2)alcohol abuse (3)multiple admissions Recent Travel:none PAST MEDICAL HISTORY:seizure disorder PAST SURGICAL HISTORY:not known Social History: Smoking:yes Alcohol:yes Drugs: nne Family History:not known Allergies No Known Allergies Allergy (Verified 07/16/18 09:34) HOME MEDICATIONS: Home Medications Medication Instructions Recorded Amlodipine Besylate [Norvasc -] 10 mg PO DAILY 02/15/18 Folic Acid - 1 mg PO DAILY #30 tablet 02/22/18 Multivitamins [Multivit ([facility] 1 tab PO DAILY #30 tab 02/22/18 Formulary)] Thiamine HCl [Vitamin B1 -] 100 mg PO DAILY #30 tablet 02/22/18 levETIRAcetam [Keppra -] 500 mg PO BID #60 tablet 02/22/18 REVIEW OF SYSTEMS cannot be done due to intubation PHYSICAL EXAMINATION Vital Signs - 24 hr 07/16/18 07/16/18 07/16/18 09:15 09:28 09:30 Temperature 102.5 F H Pulse Rate 156 H Pulse Rate [ 155 H Left] Respiratory 18 16 Rate Blood Pressure 149/90 Blood Pressure 144/99 [Left Arm] O2 Sat by Pulse 100 Oximetry (%) 07/16/18 07/16/18 07/16/18 09:38 09:57 10:42 Temperature 102.1 F H Pulse Rate Pulse Rate [ Left] Respiratory Rate Blood Pressure Blood Pressure 155/92 [Left Arm] O2 Sat by Pulse 100 Oximetry (%) 07/16/18 07/16/18 07/16/18 10:44 11:13 11:54 Temperature 99.9 F H Pulse Rate Pulse Rate [ 113 H 96 H 90 Left] Respiratory 12 12 Rate Blood Pressure Blood Pressure 131/88 155/84 130/80 [Left Arm] O2 Sat by Pulse 100 100 100 Oximetry (%) 07/16/18 07/16/18 07/16/18 13:02 13:45 14:15 Temperature Pulse Rate Pulse Rate [ 104 H Left] Respiratory 14 12 20 Rate Blood Pressure Blood Pressure 106/78 [Left Arm] O2 Sat by Pulse 99 Oximetry (%) 07/16/18 07/16/18 14:17 16:06 Temperature 99.5 F Pulse Rate 98 H Pulse Rate [ Left] Respiratory 12 13 Rate Blood Pressure 104/77 Blood Pressure [Left Arm] O2 Sat by Pulse 99 Oximetry (%) GENERAL: on vent HEAD: Normal with no signs of trauma. EYES: Pupils equal, round and reactive to light, extraocular movements intact, sclera anicteric, conjunctiva clear. No lid lag. EARS, NOSE, THROAT:et in place NECK: Normal range of motion, supple without lymphadenopathy, JVD, or masses. LUNGS: Breath sounds equal, clear to auscultation bilaterally. No wheezes, and no crackles. No accessory muscle use. HEART: Regular rate and rhythm, normal S1 and S2 without murmur, rub or gallop. ABDOMEN: Soft, nontender, not distended, normoactive bowel sounds, no guarding, no rebound, no masses. No hepatomegaly or splenomegaly. MUSCULOSKELETAL: Normal range of motion at all joints. No bony deformities or tenderness. No CVA tenderness. UPPER EXTREMITIES: 2+ pulses, warm, well-perfused. No cyanosis. No clubbing. No peripheral edema. LOWER EXTREMITIES: 2+ pulses, warm, well-perfused. No calf tenderness. No peripheral edema. NEUROLOGICAL: induced coma SKIN: Warm, dry, normal turgor, no rashes or lesions noted, normal capillary refill. Laboratory Results - last 24 hr 07/16/18 07/16/18 07/16/18 09:24 09:32 09:32 WBC 7.5 RBC 3.47 L Hgb 12.3 Hct 36.2 MCV 104.1 H MCH 35.5 H MCHC 34.1 RDW 13.8 Plt Count 31 L* D MPV 12.9 H D Absolute Neuts (auto) 3.7 Neutrophils % 49.6 Lymphocytes % 40.8 H D Monocytes % 8.9 Eosinophils % 0.2 D Basophils % 0.5 Nucleated RBC % 0 Platelet Comment Large platelets PT with INR INR PTT (Actin FS) Anticoagulation Therapy Puncture Site ABG pH ABG pCO2 at Pt Temp ABG pO2 at Pt Temp ABG HCO3 ABG O2 Sat (Measured) ABG O2 Content ABG Base Excess Praful Test VBG pH POC VBG pCO2 POC VBG pO2 Mixed VBG HCO3 Carboxyhemoglobin Methemoglobin O2 Delivery Device Oxygen Flow Rate Vent Mode Vent Rate Mechanical Rate Pressure Support Vent Sodium 128 L Potassium 4.0 Chloride 93 L Carbon Dioxide 15 L Anion Gap 20 H BUN 4 L Creatinine 1.1 Creat Clearance w eGFR > 60 POC Glucometer 279 Random Glucose 238 H Lactic Acid Calcium 8.3 L Total Bilirubin 1.4 H AST 506 H ALT 160 H Alkaline Phosphatase 130 H Ammonia Creatine Kinase 286 Creatine Kinase Index 0.8 CK-MB (CK-2) 2.3 Troponin I 0.03 Total Protein 7.6 Albumin 4.1 Urine Color Urine Appearance Urine pH Ur Specific [place] Urine Protein Urine Glucose (UA) Urine Ketones Urine Blood Urine Nitrite Urine Bilirubin Urine Urobilinogen Ur Leukocyte Esterase Urine WBC (Auto) Urine RBC (Auto) Urine Mucus Salicylates < 1.7 L Opiates Screen Methadone Screen Acetaminophen < 10 L Barbiturate Screen Phenytoin Phencyclidine Screen Ur Amphetamines Screen MDMA (Ecstasy) Screen Benzodiazepines Screen Cocaine Screen U Marijuana (THC) Screen HIV 1&2 Antibody Screen HIV P24 Antigen Influenza A (Rapid) Influenza B (Rapid) 07/16/18 07/16/18 07/16/18 09:38 09:38 09:44 WBC RBC Hgb Hct MCV MCH MCHC RDW Plt Count MPV Absolute Neuts (auto) Neutrophils % Lymphocytes % Monocytes % Eosinophils % Basophils % Nucleated RBC % Platelet Comment PT with INR INR PTT (Actin FS) 27.9 Anticoagulation Therapy Puncture Site ABG pH ABG pCO2 at Pt Temp ABG pO2 at Pt Temp ABG HCO3 ABG O2 Sat (Measured) ABG O2 Content ABG Base Excess Praful Test VBG pH POC VBG pCO2 POC VBG pO2 Mixed VBG HCO3 Carboxyhemoglobin Methemoglobin O2 Delivery Device Oxygen Flow Rate Vent Mode Vent Rate Mechanical Rate Pressure Support Vent Sodium Potassium Chloride Carbon Dioxide Anion Gap BUN Creatinine Creat Clearance w eGFR POC Glucometer Random Glucose Lactic Acid Calcium Total Bilirubin AST ALT Alkaline Phosphatase Ammonia 82.10 H Creatine Kinase Creatine Kinase Index CK-MB (CK-2) Troponin I 0.03 Total Protein Albumin Urine Color Urine Appearance Urine pH Ur Specific [place] Urine Protein Urine Glucose (UA) Urine Ketones Urine Blood Urine Nitrite Urine Bilirubin Urine Urobilinogen Ur Leukocyte Esterase Urine WBC (Auto) Urine RBC (Auto) Urine Mucus Salicylates Opiates Screen Methadone Screen Acetaminophen Barbiturate Screen Phenytoin Phencyclidine Screen Ur Amphetamines Screen MDMA (Ecstasy) Screen Benzodiazepines Screen Cocaine Screen U Marijuana (THC) Screen HIV 1&2 Antibody Screen HIV P24 Antigen Influenza A (Rapid) Influenza B (Rapid) 07/16/18 07/16/18 07/16/18 10:16 10:19 10:22 WBC RBC Hgb Hct MCV MCH MCHC RDW Plt Count MPV Absolute Neuts (auto) Neutrophils % Lymphocytes % Monocytes % Eosinophils % Basophils % Nucleated RBC % Platelet Comment PT with INR INR PTT (Actin FS) Anticoagulation Therapy Puncture Site ABG pH ABG pCO2 at Pt Temp ABG pO2 at Pt Temp ABG HCO3 ABG O2 Sat (Measured) ABG O2 Content ABG Base Excess Praful Test VBG pH 7.29 L POC VBG pCO2 36.7 L POC VBG pO2 38.3 Mixed VBG HCO3 17.1 L Carboxyhemoglobin Methemoglobin O2 Delivery Device Oxygen Flow Rate Vent Mode Vent Rate Mechanical Rate Pressure Support Vent Sodium Potassium Chloride Carbon Dioxide Anion Gap BUN Creatinine Creat Clearance w eGFR POC Glucometer Random Glucose Lactic Acid 3.8 H* 9.7 H* Calcium Total Bilirubin AST ALT Alkaline Phosphatase Ammonia Creatine Kinase Creatine Kinase Index CK-MB (CK-2) Troponin I Total Protein Albumin Urine Color Urine Appearance Urine pH Ur Specific [place] Urine Protein Urine Glucose (UA) Urine Ketones Urine Blood Urine Nitrite Urine Bilirubin Urine Urobilinogen Ur Leukocyte Esterase Urine WBC (Auto) Urine RBC (Auto) Urine Mucus Salicylates Opiates Screen Methadone Screen Acetaminophen Barbiturate Screen Phenytoin Phencyclidine Screen Ur Amphetamines Screen MDMA (Ecstasy) Screen Benzodiazepines Screen Cocaine Screen U Marijuana (THC) Screen HIV 1&2 Antibody Screen HIV P24 Antigen Influenza A (Rapid) Influenza B (Rapid) 07/16/18 07/16/18 07/16/18 10:24 10:40 10:46 WBC RBC Hgb Hct MCV MCH MCHC RDW Plt Count MPV Absolute Neuts (auto) Neutrophils % Lymphocytes % Monocytes % Eosinophils % Basophils % Nucleated RBC % Platelet Comment PT with INR INR PTT (Actin FS) Anticoagulation Therapy Puncture Site ABG pH ABG pCO2 at Pt Temp ABG pO2 at Pt Temp ABG HCO3 ABG O2 Sat (Measured) ABG O2 Content ABG Base Excess Praful Test VBG pH POC VBG pCO2 POC VBG pO2 Mixed VBG HCO3 Carboxyhemoglobin Methemoglobin O2 Delivery Device Oxygen Flow Rate Vent Mode Vent Rate Mechanical Rate Pressure Support Vent Sodium Potassium Chloride Carbon Dioxide Anion Gap BUN Creatinine Creat Clearance w eGFR POC Glucometer Random Glucose Lactic Acid Calcium Total Bilirubin AST ALT Alkaline Phosphatase Ammonia Creatine Kinase Creatine Kinase Index CK-MB (CK-2) Troponin I Total Protein Albumin Urine Color Straw Urine Appearance Clear Urine pH 6.0 Ur Specific [place] 1.009 L Urine Protein Negative Urine Glucose (UA) 1+ H Urine Ketones Negative Urine Blood 1+ H Urine Nitrite Negative Urine Bilirubin Negative Urine Urobilinogen Negative Ur Leukocyte Esterase Negative Urine WBC (Auto) None Urine RBC (Auto) 1 Urine Mucus Rare Salicylates Cancelled Opiates Screen Negative Methadone Screen Negative Acetaminophen Cancelled Barbiturate Screen Negative Phenytoin Phencyclidine Screen Negative Ur Amphetamines Screen Negative MDMA (Ecstasy) Screen Negative Benzodiazepines Screen Negative Cocaine Screen Negative U Marijuana (THC) Screen Negative HIV 1&2 Antibody Screen HIV P24 Antigen Influenza A (Rapid) Influenza B (Rapid) 07/16/18 07/16/18 07/16/18 10:55 11:09 12:00 WBC RBC Hgb Hct MCV MCH MCHC RDW Plt Count MPV Absolute Neuts (auto) Neutrophils % Lymphocytes % Monocytes % Eosinophils % Basophils % Nucleated RBC % Platelet Comment PT with INR 20.60 H INR 1.74 H PTT (Actin FS) Anticoagulation Therapy No Result Required. Puncture Site Right radial ABG pH 7.40 ABG pCO2 at Pt Temp 34.3 L ABG pO2 at Pt Temp 231.0 H* ABG HCO3 20.6 L ABG O2 Sat (Measured) 99.4 H ABG O2 Content 15.0 ABG Base Excess -3.2 L Praful Test Positive VBG pH POC VBG pCO2 POC VBG pO2 Mixed VBG HCO3 Carboxyhemoglobin 0.6 Methemoglobin 0.5 O2 Delivery Device No Result Required. Oxygen Flow Rate Yes Vent Mode No Result Required. Vent Rate No Result Required. Mechanical Rate No Result Required. Pressure Support Vent No Result Required. Sodium Potassium Chloride Carbon Dioxide Anion Gap BUN Creatinine Creat Clearance w eGFR POC Glucometer Random Glucose Lactic Acid Calcium Total Bilirubin AST ALT Alkaline Phosphatase Ammonia Creatine Kinase Creatine Kinase Index CK-MB (CK-2) Troponin I Total Protein Albumin Urine Color Urine Appearance Urine pH Ur Specific [place] Urine Protein Urine Glucose (UA) Urine Ketones Urine Blood Urine Nitrite Urine Bilirubin Urine Urobilinogen Ur Leukocyte Esterase Urine WBC (Auto) Urine RBC (Auto) Urine Mucus Salicylates Opiates Screen Methadone Screen Acetaminophen Barbiturate Screen Phenytoin Phencyclidine Screen Ur Amphetamines Screen MDMA (Ecstasy) Screen Benzodiazepines Screen Cocaine Screen U Marijuana (THC) Screen HIV 1&2 Antibody Screen HIV P24 Antigen Influenza A (Rapid) Negative Influenza B (Rapid) Negative 07/16/18 07/16/18 12:32 12:32 WBC RBC Hgb Hct MCV MCH MCHC RDW Plt Count MPV Absolute Neuts (auto) Neutrophils % Lymphocytes % Monocytes % Eosinophils % Basophils % Nucleated RBC % Platelet Comment PT with INR INR PTT (Actin FS) Anticoagulation Therapy Puncture Site ABG pH ABG pCO2 at Pt Temp ABG pO2 at Pt Temp ABG HCO3 ABG O2 Sat (Measured) ABG O2 Content ABG Base Excess Praful Test VBG pH POC VBG pCO2 POC VBG pO2 Mixed VBG HCO3 Carboxyhemoglobin Methemoglobin O2 Delivery Device Oxygen Flow Rate Vent Mode Vent Rate Mechanical Rate Pressure Support Vent Sodium Potassium Chloride Carbon Dioxide Anion Gap BUN Creatinine Creat Clearance w eGFR POC Glucometer Random Glucose Lactic Acid Calcium Total Bilirubin AST ALT Alkaline Phosphatase Ammonia Creatine Kinase Creatine Kinase Index CK-MB (CK-2) Troponin I Total Protein Albumin Urine Color Urine Appearance Urine pH Ur Specific [place] Urine Protein Urine Glucose (UA) Urine Ketones Urine Blood Urine Nitrite Urine Bilirubin Urine Urobilinogen Ur Leukocyte Esterase Urine WBC (Auto) Urine RBC (Auto) Urine Mucus Salicylates Opiates Screen Methadone Screen Acetaminophen Barbiturate Screen Phenytoin 4.9 L Phencyclidine Screen Ur Amphetamines Screen MDMA (Ecstasy) Screen Benzodiazepines Screen Cocaine Screen U Marijuana (THC) Screen HIV 1&2 Antibody Screen Negative HIV P24 Antigen Negative Influenza A (Rapid) Influenza B (Rapid) ASSESSMENT/PLAN: 58 year old male with PMH HTN, seizure disorder, ETOH abuse BIBA to ED after 3 witnessed falls. Upon presentation pt was unresponsive, actively seizing. Neuro consult , pulmonary and ham smoker consult and f/u for vent management start on iv kappra iv fluid thiamin and folic acid he got his first dose in ER icu management Visit type - Emergency Visit Emergency Visit: Yes ED Registration Date: 07/16/18 Care time: The patient presented to the Emergency Department on the above date and was hospitalized for further evaluation of their emergent condition. - New Patient This patient is new to me today: Yes Date on this admission: 07/16/18 - Critical Care Critical Care patient: Yes Total Critical Care Time (in minutes): 45 Critical Care Statement: The care of this patient involved high complexity decision making to prevent further life threatening deterioration of the patient 's condition and/or to evaluate & treat vital organ system(s) failure or risk of failure.
[2018-07-16 17:30] LABS: CSF APPEARANCE CLEAR; CSF COLOR COLORLESS
[2018-07-16 17:31] LABS: CSF WBC 0
[2018-07-16 18:01] LABS: BF GLUCOSE (CSF ONLY) 133 mg/dL (40-70)
--- NOTE | 2018-07-16 18:58 | CON.NEURO ---
Consult Consult Specialty:: NEUROLOGY-SHIVAM KELLY - History of Present Illness History of Present Illness: 58 year old male with PMH HTN, seizure disorder, ETOH abuse BIBA to ED after 3 witnessed falls. Upon presentation pt was unresponsive, actively seizing. In her he recieved the anti seizure later on was intubated and started on propofol .He has multiple admissions to hospital for seizure and alcohol intoxication. CT head-left frontal encephalomalacia. He is currently sedated with fentanyl/propofol. ER course was notable for: (1)uncontrolled seizure (2)alcohol abuse (3)multiple admissions - Alcohol/Substance Use Hx Alcohol Use: No - Smoking History Smoking history: Never smoked Have you smoked in the past 12 months: No Aproximately how many cigarettes per day: 4 Home Medications - Allergies Allergies/Adverse Reactions: Allergies Allergy/AdvReac Type Severity Reaction Status Date / Time No Known Allergies Allergy Verified 07/16/18 09:34 - Home Medications Home Medications: Ambulatory Orders Amlodipine Besylate [Norvasc -] 10 mg PO DAILY 02/15/18 Folic Acid - 1 mg PO DAILY #30 tablet 02/22/18 Multivitamins [Multivit ([facility] Formulary)] 1 tab PO DAILY #30 tab 02/22/18 Thiamine HCl [Vitamin B1 -] 100 mg PO DAILY #30 tablet 02/22/18 levETIRAcetam [Keppra -] 500 mg PO BID #60 tablet 02/22/18 Physical Exam-Neuro Vital Signs: Vital Signs Temperature 99.5 F 07/16/18 14:17 Pulse Rate 93 H 07/16/18 18:00 Respiratory Rate 19 07/16/18 18:24 Blood Pressure 107/78 07/16/18 18:00 O2 Sat by Pulse Oximetry (%) 99 07/16/18 14:17 Labs: CBC, BMP 07/16/18 09:32 07/16/18 09:32 INR, PTT INR 1.74 (0.83-1.09) H 07/16/18 12:00 - Neuro Exam Level Of Consciousness: Yes: Sedated Eyes: Yes: CRYSTAL Cranial Nerves II-XII Intact: Yes (+ Dolls eye movements/corneal reflexes) Motor Strength: 0/5: Left Arm, Right Arm, Left Leg, Right Leg (sedated, not testable) Gait: Deferred Assessment/Plan Pt. with sz. d/o, left frontal encephalomalacia, now with flurry of sz. In ER i recommended loading with Lacosamide 400mg x1 and cont Keppra 1000mg bid. He is now sedated.On empiric ceftriaxone/acyclovir L/P results pending Suggest: Will presume NCSE, would cont Keppra 1000mg bid and lacosamide 200mg bid Cont. of ceftriaxone/acyclovir dependant on tap results, if no abn than would d/ c. EEG, taper sedation tomorrow. Thank you, Carolina Saldivar MD
[2018-07-16] MEDS: DEXTROSE 5%-NORMAL SALINE 1,000 ML IV SCH (21:28)
[2018-07-16] MEDS: levETIRAcetam 500 MG/5 ML INJECTION VIAL IVPB SCH (21:37)
[2018-07-16] MEDS: LACTULOSE 20 GM/30 ML UDC (FOR ORAL USE ONLY) PO SCH (21:38)
[2018-07-16] MEDS: Lacosamide 200 MG/20 ML VIAL IVPB SCH (21:41)
[2018-07-16] MEDS ORDERED: HEPARIN NA (PORCINE) 5,000 UNITS/ML 1ML VIAL SQ SCH (22:00)
[2018-07-17 00:27] LABS: ANION GAP 9 MMOL/L (8-16); CALCIUM 7.6 mg/dL (8.5-10.1); CHLORIDE 94 mmol/L (98-107); CO2 26 mmol/L (21-32); CREATININE 0.7 mg/dL (0.55-1.3); GLUCOSE,RANDOM 132 mg/dL (74-106); SODIUM 129 mmol/L (136-145)
[2018-07-17 00:31] LABS: BLOOD UREA NITROGEN 2 mg/dL (7-18); POTASSIUM 2.8 mmol/L (3.5-5.1)
[2018-07-17] MEDS: KCL 10 MEQ IVPB 10 MEQ/100 ML INFUS.BAG IVPB SCH ×3 (00:48→02:47)
[2018-07-17] MEDS ORDERED: MAGNESIUM 2GM/50ML STERILE WATER IVPB IVPB ONE (00:52)
[2018-07-17] MEDS ORDERED: diazePAM 5 MG TABLET PO SCH (06:00)
[2018-07-17] MEDS: LACTULOSE 20 GM/30 ML UDC (FOR ORAL USE ONLY) PO SCH ×3 (06:26→22:08)
[2018-07-17 07:14] LABS: BASO % 0.4 % (0-2.0); EOS % 1.8 % (0-4.5); HEMATOCRIT 32.1 % (35.4-49); HEMOGLOBIN 11.2 GM/dL (11.7-16.9); LYMPH % 29.4 % (8-40); MCH 35.3 pg (25.7-33.7); MCHC 34.9 g/dl (32.0-35.9); MEAN CELL VOLUME 101.2 fl (80-96); MEAN PLT VOLUME 10.7 fl (7.5-11.1); MONO % 4.5 % (3.8-10.2); NEUT % 63.9 % (42.8-82.8); RBC 3.17 M/mm3 (4.00-5.60); RDW 13.4 % (11.9-15.9); WHITE BLOOD COUNT 9.1 K/mm3 (4.0-10.0)
[2018-07-17 07:27] LABS: PLATELET COUNT 16 K/MM3 (134-434)
[2018-07-17 07:30] LABS: ALK PHOS 99 U/L (45-117); ANION GAP 9 MMOL/L (8-16); BILIRUBIN,TOTAL 1.6 mg/dL (0.2-1); CALCIUM 7.4 mg/dL (8.5-10.1); CHLORIDE 94 mmol/L (98-107); CO2 25 mmol/L (21-32); CREATININE 0.7 mg/dL (0.55-1.3); GLUCOSE,RANDOM 101 mg/dL (74-106); MAGNESIUM 2.8 mg/dL (1.8-2.4); PHOSPHOROUS 2.6 mg/dL (2.5-4.9); SGOT/AST 237 U/L (15-37); SGPT/ALT 102 U/L (13-61); SODIUM 129 mmol/L (136-145)
[2018-07-17] MEDS ORDERED: POTASSIUM CHLORIDE 20 MEQ PREMIX IVPB 100 ML IVPB SCH (07:45)
[2018-07-17] MEDS ORDERED: POTASSIUM CHLORIDE TABS 20 MEQ TABLET.ER (FP) PO ONE (08:08)
[2018-07-17 08:30] LABS: BLOOD UREA NITROGEN 1 mg/dL (7-18)
[2018-07-17] MEDS: levETIRAcetam 500 MG/5 ML INJECTION VIAL IVPB SCH ×2 (09:06→23:25)
[2018-07-17] MEDS: Lacosamide 200 MG/20 ML VIAL IVPB SCH ×2 (09:11→23:25)
--- NOTE | 2018-07-17 09:38 | PN ---
Teaching Attending Note Name of Resident: Frida Vieyra ATTENDING PHYSICIAN STATEMENT I saw and evaluated the patient. I reviewed the resident's note and discussed the case with the resident. I agree with the resident's findings and plan as documented. SUBJECTIVE: Patient seen and examined in the ICU. Intubated and off sedation. Agitated but able to follow some commands. CPAP trial started. Intake & Output 07/14/18 07/15/18 07/16/18 07/17/18 23:59 23:59 23:59 23:59 Intake Total 1714 Output Total 300 700 Balance -300 1014 Weight 103 lb 6.349 oz Last Vital Signs Temp Pulse Resp BP Pulse Ox 99.6 F 99 H 14 88/69 L 100 07/17/18 06:00 07/17/18 06:00 07/17/18 06:30 07/17/18 06:00 07/16/18 21:48 Active Medications Heparin Sodium (Porcine) (Heparin -) 5,000 unit SQ BID [facility] Last Admin: 07/16/18 21:41 Dose: 5,000 unit Fentanyl 500 mcg/ Dextrose 100 mls @ 5 mls/hr IVPB TITR MIGUEL; Protocol Last Titration: 07/17/18 08:09 Dose: 0 mcg/hr, 0 mls/hr Propofol (Diprivan -) 1,000,000 mcg in 100 mls @ 0.001 mls/hr IVPB TITR MIGUEL; Protocol Last Titration: 07/17/18 08:08 Dose: 0 mcg/kg/min, 0 mls/hr Dextrose/Sodium Chloride (D5-Ns -) 1,000 mls @ 83 mls/hr IV ASDIR [facility] Last Admin: 07/16/18 21:28 Dose: Not Given Lacosamide (Vimpat Injection -) 200 mg IVPB BID [facility] Last Admin: 07/17/18 09:11 Dose: 200 mg Lactulose (Cephulac (Oral Use)) 20 gm PO TID [facility] Last Admin: 07/17/18 06:26 Dose: 20 gm Levetiracetam (Keppra Injection -) 500 mg IVPB BID [facility] Last Admin: 07/17/18 09:06 Dose: 500 mg Pantoprazole Sodium (Protonix -) 20 mg PO DAILY [facility] Constitutional: Intubated, awake, cachectic. HEENT: normocephalic, atraumatic. Neck: supple. Heart: S1S2, tachycardic. regular rhythm. no murmurs, rubs or gallops. Lungs: clear to auscultation bilaterally. no crackles, rhonchi or wheezing. no stridor. Abdomen: soft, flat, nontender. normal bowel sounds. Extremities: Peripheral pulses intact. No lower extremity edema. Neurological: sedated Psych: sedated Laboratory Results - last 24 hr 07/16/18 07/16/18 07/16/18 09:24 09:32 09:32 WBC 7.5 RBC 3.47 L Hgb 12.3 Hct 36.2 MCV 104.1 H MCH 35.5 H MCHC 34.1 RDW 13.8 Plt Count 31 L* D MPV 12.9 H D Absolute Neuts (auto) 3.7 Neutrophils % 49.6 Lymphocytes % 40.8 H D Monocytes % 8.9 Eosinophils % 0.2 D Basophils % 0.5 Nucleated RBC % 0 Platelet Comment Large platelets PT with INR INR PTT (Actin FS) Anticoagulation Therapy Puncture Site ABG pH ABG pCO2 at Pt Temp ABG pO2 at Pt Temp ABG HCO3 ABG O2 Sat (Measured) ABG O2 Content ABG Base Excess Praful Test VBG pH POC VBG pCO2 POC VBG pO2 Mixed VBG HCO3 Carboxyhemoglobin Methemoglobin O2 Delivery Device Oxygen Flow Rate Vent Mode Vent Rate Mechanical Rate Pressure Support Vent Sodium 128 L Potassium 4.0 Chloride 93 L Carbon Dioxide 15 L Anion Gap 20 H BUN 4 L Creatinine 1.1 Creat Clearance w eGFR > 60 POC Glucometer 279 Random Glucose 238 H Lactic Acid Calcium 8.3 L Phosphorus Magnesium Total Bilirubin 1.4 H AST 506 H ALT 160 H Alkaline Phosphatase 130 H Ammonia Creatine Kinase 286 Creatine Kinase Index 0.8 CK-MB (CK-2) 2.3 Troponin I 0.03 Total Protein 7.6 Albumin 4.1 Urine Color Urine Appearance Urine pH Ur Specific [place] Urine Protein Urine Glucose (UA) Urine Ketones Urine Blood Urine Nitrite Urine Bilirubin Urine Urobilinogen Ur Leukocyte Esterase Urine WBC (Auto) Urine RBC (Auto) Urine Mucus CSF Appearance CSF Color CSF WBC CSF RBC CSF Neutrophils CSF Lymphocytes CSF Eosinophils CSF Basophils CSF Macrophages CSF Plasma Cells CSF Diff Comment CSF Comment CSF Glucose CSF Total Protein Salicylates < 1.7 L Opiates Screen Methadone Screen Acetaminophen < 10 L Barbiturate Screen Phenytoin Phencyclidine Screen Ur Amphetamines Screen MDMA (Ecstasy) Screen Benzodiazepines Screen Cocaine Screen U Marijuana (THC) Screen HIV 1&2 Antibody Screen HIV P24 Antigen Influenza A (Rapid) Influenza B (Rapid) 07/16/18 07/16/18 07/16/18 09:38 09:38 09:44 WBC RBC Hgb Hct MCV MCH MCHC RDW Plt Count MPV Absolute Neuts (auto) Neutrophils % Lymphocytes % Monocytes % Eosinophils % Basophils % Nucleated RBC % Platelet Comment PT with INR INR PTT (Actin FS) 27.9 Anticoagulation Therapy Puncture Site ABG pH ABG pCO2 at Pt Temp ABG pO2 at Pt Temp ABG HCO3 ABG O2 Sat (Measured) ABG O2 Content ABG Base Excess Praful Test VBG pH POC VBG pCO2 POC VBG pO2 Mixed VBG HCO3 Carboxyhemoglobin Methemoglobin O2 Delivery Device Oxygen Flow Rate Vent Mode Vent Rate Mechanical Rate Pressure Support Vent Sodium Potassium Chloride Carbon Dioxide Anion Gap BUN Creatinine Creat Clearance w eGFR POC Glucometer Random Glucose Lactic Acid Calcium Phosphorus Magnesium Total Bilirubin AST ALT Alkaline Phosphatase Ammonia 82.10 H Creatine Kinase Creatine Kinase Index CK-MB (CK-2) Troponin I 0.03 Total Protein Albumin Urine Color Urine Appearance Urine pH Ur Specific [place] Urine Protein Urine Glucose (UA) Urine Ketones Urine Blood Urine Nitrite Urine Bilirubin Urine Urobilinogen Ur Leukocyte Esterase Urine WBC (Auto) Urine RBC (Auto) Urine Mucus CSF Appearance CSF Color CSF WBC CSF RBC CSF Neutrophils CSF Lymphocytes CSF Eosinophils CSF Basophils CSF Macrophages CSF Plasma Cells CSF Diff Comment CSF Comment CSF Glucose CSF Total Protein Salicylates Opiates Screen Methadone Screen Acetaminophen Barbiturate Screen Phenytoin Phencyclidine Screen Ur Amphetamines Screen MDMA (Ecstasy) Screen Benzodiazepines Screen Cocaine Screen U Marijuana (THC) Screen HIV 1&2 Antibody Screen HIV P24 Antigen Influenza A (Rapid) Influenza B (Rapid) 07/16/18 07/16/18 07/16/18 10:16 10:19 10:22 WBC RBC Hgb Hct MCV MCH MCHC RDW Plt Count MPV Absolute Neuts (auto) Neutrophils % Lymphocytes % Monocytes % Eosinophils % Basophils % Nucleated RBC % Platelet Comment PT with INR INR PTT (Actin FS) Anticoagulation Therapy Puncture Site ABG pH ABG pCO2 at Pt Temp ABG pO2 at Pt Temp ABG HCO3 ABG O2 Sat (Measured) ABG O2 Content ABG Base Excess Praful Test VBG pH 7.29 L POC VBG pCO2 36.7 L POC VBG pO2 38.3 Mixed VBG HCO3 17.1 L Carboxyhemoglobin Methemoglobin O2 Delivery Device Oxygen Flow Rate Vent Mode Vent Rate Mechanical Rate Pressure Support Vent Sodium Potassium Chloride Carbon Dioxide Anion Gap BUN Creatinine Creat Clearance w eGFR POC Glucometer Random Glucose Lactic Acid 3.8 H* 9.7 H* Calcium Phosphorus Magnesium Total Bilirubin AST ALT Alkaline Phosphatase Ammonia Creatine Kinase Creatine Kinase Index CK-MB (CK-2) Troponin I Total Protein Albumin Urine Color Urine Appearance Urine pH Ur Specific [place] Urine Protein Urine Glucose (UA) Urine Ketones Urine Blood Urine Nitrite Urine Bilirubin Urine Urobilinogen Ur Leukocyte Esterase Urine WBC (Auto) Urine RBC (Auto) Urine Mucus CSF Appearance CSF Color CSF WBC CSF RBC CSF Neutrophils CSF Lymphocytes CSF Eosinophils CSF Basophils CSF Macrophages CSF Plasma Cells CSF Diff Comment CSF Comment CSF Glucose CSF Total Protein Salicylates Opiates Screen Methadone Screen Acetaminophen Barbiturate Screen Phenytoin Phencyclidine Screen Ur Amphetamines Screen MDMA (Ecstasy) Screen Benzodiazepines Screen Cocaine Screen U Marijuana (THC) Screen HIV 1&2 Antibody Screen HIV P24 Antigen Influenza A (Rapid) Influenza B (Rapid) 07/16/18 07/16/18 07/16/18 10:24 10:40 10:46 WBC RBC Hgb Hct MCV MCH MCHC RDW Plt Count MPV Absolute Neuts (auto) Neutrophils % Lymphocytes % Monocytes % Eosinophils % Basophils % Nucleated RBC % Platelet Comment PT with INR INR PTT (Actin FS) Anticoagulation Therapy Puncture Site ABG pH ABG pCO2 at Pt Temp ABG pO2 at Pt Temp ABG HCO3 ABG O2 Sat (Measured) ABG O2 Content ABG Base Excess Praful Test VBG pH POC VBG pCO2 POC VBG pO2 Mixed VBG HCO3 Carboxyhemoglobin Methemoglobin O2 Delivery Device Oxygen Flow Rate Vent Mode Vent Rate Mechanical Rate Pressure Support Vent Sodium Potassium Chloride Carbon Dioxide Anion Gap BUN Creatinine Creat Clearance w eGFR POC Glucometer Random Glucose Lactic Acid Calcium Phosphorus Magnesium Total Bilirubin AST ALT Alkaline Phosphatase Ammonia Creatine Kinase Creatine Kinase Index CK-MB (CK-2) Troponin I Total Protein Albumin Urine Color Straw Urine Appearance Clear Urine pH 6.0 Ur Specific [place] 1.009 L Urine Protein Negative Urine Glucose (UA) 1+ H Urine Ketones Negative Urine Blood 1+ H Urine Nitrite Negative Urine Bilirubin Negative Urine Urobilinogen Negative Ur Leukocyte Esterase Negative Urine WBC (Auto) None Urine RBC (Auto) 1 Urine Mucus Rare CSF Appearance CSF Color CSF WBC CSF RBC CSF Neutrophils CSF Lymphocytes CSF Eosinophils CSF Basophils CSF Macrophages CSF Plasma Cells CSF Diff Comment CSF Comment CSF Glucose CSF Total Protein Salicylates Cancelled Opiates Screen Negative Methadone Screen Negative Acetaminophen Cancelled Barbiturate Screen Negative Phenytoin Phencyclidine Screen Negative Ur Amphetamines Screen Negative MDMA (Ecstasy) Screen Negative Benzodiazepines Screen Negative Cocaine Screen Negative U Marijuana (THC) Screen Negative HIV 1&2 Antibody Screen HIV P24 Antigen Influenza A (Rapid) Influenza B (Rapid) 07/16/18 07/16/18 07/16/18 10:55 11:09 12:00 WBC RBC Hgb Hct MCV MCH MCHC RDW Plt Count MPV Absolute Neuts (auto) Neutrophils % Lymphocytes % Monocytes % Eosinophils % Basophils % Nucleated RBC % Platelet Comment PT with INR 20.60 H INR 1.74 H PTT (Actin FS) Anticoagulation Therapy No Result Required. Puncture Site Right radial ABG pH 7.40 ABG pCO2 at Pt Temp 34.3 L ABG pO2 at Pt Temp 231.0 H* ABG HCO3 20.6 L ABG O2 Sat (Measured) 99.4 H ABG O2 Content 15.0 ABG Base Excess -3.2 L Praful Test Positive VBG pH POC VBG pCO2 POC VBG pO2 Mixed VBG HCO3 Carboxyhemoglobin 0.6 Methemoglobin 0.5 O2 Delivery Device No Result Required. Oxygen Flow Rate Yes Vent Mode No Result Required. Vent Rate No Result Required. Mechanical Rate No Result Required. Pressure Support Vent No Result Required. Sodium Potassium Chloride Carbon Dioxide Anion Gap BUN Creatinine Creat Clearance w eGFR POC Glucometer Random Glucose Lactic Acid Calcium Phosphorus Magnesium Total Bilirubin AST ALT Alkaline Phosphatase Ammonia Creatine Kinase Creatine Kinase Index CK-MB (CK-2) Troponin I Total Protein Albumin Urine Color Urine Appearance Urine pH Ur Specific [place] Urine Protein Urine Glucose (UA) Urine Ketones Urine Blood Urine Nitrite Urine Bilirubin Urine Urobilinogen Ur Leukocyte Esterase Urine WBC (Auto) Urine RBC (Auto) Urine Mucus CSF Appearance CSF Color CSF WBC CSF RBC CSF Neutrophils CSF Lymphocytes CSF Eosinophils CSF Basophils CSF Macrophages CSF Plasma Cells CSF Diff Comment CSF Comment CSF Glucose CSF Total Protein Salicylates Opiates Screen Methadone Screen Acetaminophen Barbiturate Screen Phenytoin Phencyclidine Screen Ur Amphetamines Screen MDMA (Ecstasy) Screen Benzodiazepines Screen Cocaine Screen U Marijuana (THC) Screen HIV 1&2 Antibody Screen HIV P24 Antigen Influenza A (Rapid) Negative Influenza B (Rapid) Negative 07/16/18 07/16/18 07/16/18 12:32 12:32 13:25 WBC RBC Hgb Hct MCV MCH MCHC RDW Plt Count MPV Absolute Neuts (auto) Neutrophils % Lymphocytes % Monocytes % Eosinophils % Basophils % Nucleated RBC % Platelet Comment PT with INR INR PTT (Actin FS) Anticoagulation Therapy Puncture Site ABG pH ABG pCO2 at Pt Temp ABG pO2 at Pt Temp ABG HCO3 ABG O2 Sat (Measured) ABG O2 Content ABG Base Excess Praful Test VBG pH POC VBG pCO2 POC VBG pO2 Mixed VBG HCO3 Carboxyhemoglobin Methemoglobin O2 Delivery Device Oxygen Flow Rate Vent Mode Vent Rate Mechanical Rate Pressure Support Vent Sodium Potassium Chloride Carbon Dioxide Anion Gap BUN Creatinine Creat Clearance w eGFR POC Glucometer Random Glucose Lactic Acid Calcium Phosphorus Magnesium Total Bilirubin AST ALT Alkaline Phosphatase Ammonia Creatine Kinase Creatine Kinase Index CK-MB (CK-2) Troponin I Total Protein Albumin Urine Color Urine Appearance Urine pH Ur Specific [place] Urine Protein Urine Glucose (UA) Urine Ketones Urine Blood Urine Nitrite Urine Bilirubin Urine Urobilinogen Ur Leukocyte Esterase Urine WBC (Auto) Urine RBC (Auto) Urine Mucus CSF Appearance Clear CSF Color Colorless CSF WBC 0 CSF RBC 1 CSF Neutrophils TNP CSF Lymphocytes TNP CSF Eosinophils TNP CSF Basophils TNP CSF Macrophages TNP CSF Plasma Cells TNP CSF Diff Comment No Result Required. CSF Comment No Result Required. CSF Glucose 133 H CSF Total Protein 54 H Salicylates Opiates Screen Methadone Screen Acetaminophen Barbiturate Screen Phenytoin 4.9 L Phencyclidine Screen Ur Amphetamines Screen MDMA (Ecstasy) Screen Benzodiazepines Screen Cocaine Screen U Marijuana (THC) Screen HIV 1&2 Antibody Screen Negative HIV P24 Antigen Negative Influenza A (Rapid) Influenza B (Rapid) 07/16/18 07/16/18 07/17/18 16:50 23:30 00:00 WBC RBC Hgb Hct MCV MCH MCHC RDW Plt Count MPV Absolute Neuts (auto) Neutrophils % Lymphocytes % Monocytes % Eosinophils % Basophils % Nucleated RBC % Platelet Comment PT with INR INR PTT (Actin FS) Anticoagulation Therapy Puncture Site ABG pH ABG pCO2 at Pt Temp ABG pO2 at Pt Temp ABG HCO3 ABG O2 Sat (Measured) ABG O2 Content ABG Base Excess Praful Test VBG pH POC VBG pCO2 POC VBG pO2 Mixed VBG HCO3 Carboxyhemoglobin Methemoglobin O2 Delivery Device Oxygen Flow Rate Vent Mode Vent Rate Mechanical Rate Pressure Support Vent Sodium 129 L Potassium 2.8 L* Chloride 94 L Carbon Dioxide 26 Anion Gap 9 BUN 2 L* Creatinine 0.7 Creat Clearance w eGFR > 60 POC Glucometer Random Glucose 132 H Lactic Acid 2.7 H* Calcium 7.6 L Phosphorus Magnesium 1.2 L Total Bilirubin AST ALT Alkaline Phosphatase Ammonia Creatine Kinase Creatine Kinase Index CK-MB (CK-2) Troponin I Total Protein Albumin Urine Color Urine Appearance Urine pH Ur Specific [place] Urine Protein Urine Glucose (UA) Urine Ketones Urine Blood Urine Nitrite Urine Bilirubin Urine Urobilinogen Ur Leukocyte Esterase Urine WBC (Auto) Urine RBC (Auto) Urine Mucus CSF Appearance CSF Color CSF WBC CSF RBC CSF Neutrophils CSF Lymphocytes CSF Eosinophils CSF Basophils CSF Macrophages CSF Plasma Cells CSF Diff Comment CSF Comment CSF Glucose CSF Total Protein Salicylates Opiates Screen Methadone Screen Acetaminophen Barbiturate Screen Phenytoin Phencyclidine Screen Ur Amphetamines Screen MDMA (Ecstasy) Screen Benzodiazepines Screen Cocaine Screen U Marijuana (THC) Screen HIV 1&2 Antibody Screen HIV P24 Antigen Influenza A (Rapid) Influenza B (Rapid) 07/17/18 07/17/18 05:30 05:30 WBC 9.1 RBC 3.17 L Hgb 11.2 L Hct 32.1 L MCV 101.2 H MCH 35.3 H MCHC 34.9 RDW 13.4 Plt Count 16 L* D MPV 10.7 D Absolute Neuts (auto) 5.8 Neutrophils % 63.9 D Lymphocytes % 29.4 D Monocytes % 4.5 Eosinophils % 1.8 D Basophils % 0.4 Nucleated RBC % 0 Platelet Comment PT with INR INR PTT (Actin FS) Anticoagulation Therapy Puncture Site ABG pH ABG pCO2 at Pt Temp ABG pO2 at Pt Temp ABG HCO3 ABG O2 Sat (Measured) ABG O2 Content ABG Base Excess Praful Test VBG pH POC VBG pCO2 POC VBG pO2 Mixed VBG HCO3 Carboxyhemoglobin Methemoglobin O2 Delivery Device Oxygen Flow Rate Vent Mode Vent Rate Mechanical Rate Pressure Support Vent Sodium 129 L Potassium 3.0 L Chloride 94 L Carbon Dioxide 25 Anion Gap 9 BUN 1 L* Creatinine 0.7 Creat Clearance w eGFR > 60 POC Glucometer Random Glucose 101 Lactic Acid Calcium 7.4 L Phosphorus 2.6 Magnesium 2.8 H Total Bilirubin 1.6 H AST 237 H ALT 102 H Alkaline Phosphatase 99 Ammonia Creatine Kinase Creatine Kinase Index CK-MB (CK-2) Troponin I Total Protein 6.0 L Albumin 3.0 L Urine Color Urine Appearance Urine pH Ur Specific [place] Urine Protein Urine Glucose (UA) Urine Ketones Urine Blood Urine Nitrite Urine Bilirubin Urine Urobilinogen Ur Leukocyte Esterase Urine WBC (Auto) Urine RBC (Auto) Urine Mucus CSF Appearance CSF Color CSF WBC CSF RBC CSF Neutrophils CSF Lymphocytes CSF Eosinophils CSF Basophils CSF Macrophages CSF Plasma Cells CSF Diff Comment CSF Comment CSF Glucose CSF Total Protein Salicylates Opiates Screen Methadone Screen Acetaminophen Barbiturate Screen Phenytoin Phencyclidine Screen Ur Amphetamines Screen MDMA (Ecstasy) Screen Benzodiazepines Screen Cocaine Screen U Marijuana (THC) Screen HIV 1&2 Antibody Screen HIV P24 Antigen Influenza A (Rapid) Influenza B (Rapid) IMP: Acute Respiratory Failure Status epilepticus Suspected Cirrhosis Transaminitis Seizure D/O History of ETOH abuse Low clinical suspicion of meningitis Hyperammonemia SBTs with trial of extubation Follow pending CSF assay IVF ETOH withdrawal monitoring Strict I & O AEDs Monitor off ABX for now Replete lytes Lactulose Requires continued ICU monitoring Dr Ann Critical care time spent in reviewing chart, evaluating patient and formulating plan - 36 minutes.
[2018-07-17] MEDS ORDERED: chlordiazePOXIDE HCL 25 MG CAPSULE PO PRN ×2 (09:50→11:37)
--- NOTE | 2018-07-17 10:17 | PN ---
Physical Exam: SUBJECTIVE: Patient seen and examined by me at bedside Intubated and off sedation. Patient agitated off sedation but is able to follow commands. Plans for Extubation today. OBJECTIVE: Vital Signs Period Temp Pulse Resp BP Sys/Rubio Pulse Ox Last 24 Hr 98.2 F-99.9 F 90-119 12-20 83-155/62-88 99-100 GENERAL: The patient is awake, intubated, off sedation and able to follow some verbal commands HEAD: Normal with no signs of trauma. EYES: PERRL, sclera anicteric, conjunctiva clear. ENT: Dry mucous membranes. NECK: (-) JVD LUNGS: Breath sounds equal, clear to auscultation bilaterally, no wheezes, no crackles, no accessory muscle use. HEART: Tachycardia with regular rhythm, normal s1 and s2 without murmur, rub or gallop. ABDOMEN: Soft, nontender, nondistended, normoactive bowel sounds. EXTREMITIES: No edema. NEUROLOGICAL: Unable to assess Laboratory Results 07/17/18 05:30 07/17/18 05:30 07/17/18 05:30 Magnesium 2.8 H Total Bilirubin 1.6 H AST 237 H ALT 102 H Alkaline Phosphatase 99 Active Medications Generic Name Dose Route Start Last Admin Trade Name Freq PRN Reason Stop Dose Admin Chlordiazepoxide HCl 25 mg 07/17/18 09:50 Librium - PO Q4H PRN WITHDRAWAL(CONT SUBST) Fentanyl 500 mcg/ Dextrose 100 mls @ 5 mls/hr 07/16/18 11:45 07/17/18 08:09 IVPB 0 mcg/hr TITR MIGUEL 0 mls/hr Titration Protocol 25 MCG/HR Dextrose/Sodium Chloride 1,000 mls @ 83 mls/hr 07/16/18 16:45 07/16/18 21:28 D5-Ns - IV Not Given ASDIR MIGUEL Lacosamide 200 mg 07/16/18 22:00 07/17/18 09:11 Vimpat Injection - IVPB 200 mg BID MIGUEL Administration Lactulose 20 gm 07/16/18 22:00 07/17/18 06:26 Cephulac (Oral Use) PO 20 gm TID MIGUEL Administration Levetiracetam 500 mg 07/16/18 22:00 07/17/18 09:06 Keppra Injection - IVPB 500 mg BID MIGUEL Administration Pantoprazole Sodium 20 mg 07/17/18 10:00 Protonix - PO DAILY MIGUEL ASSESSMENT/PLAN: Patient is a 58 year old male who was brought to the hospital following 3 falls and found to be seizing requiring intubation. Neurological #History of Seizure Disorder -Patient intubated and sedated on propofol - possibly secondary to improper use of antiepileptic medications vs alcohol withdrawal -LP pending -Continue Keppra 1000 mg daily and Lacosamide 200 mg BID -Continue lactulose and titrate to 3 bm a day -Continue D5-NS @83mls/hr #History of Alcohol Abuse and Withdrawal -Unable to fully assess CIWA score as patient is extremely agitated -Will begin Librium Protocol Cardiovascular #HTN -Currently borderline hypotensive. -Hold off BP medications -Continue to monitor BP Pulmonary -intubated and sedated -vent settings TV 400, PEEP 1, FIO2 40 Rate 12 -will attempt to extubate Gastrointestinal -Cirrhotic picture with chronic decrease in platelets, elevated INR, decreased albumin, and elevated LFTs, patient also has chronic pancreatitis -Continue D5-NS @83mls/hr -ultrasound ruq -lactulose titrated to 3 bm a day Renal -Hyponatremia, Hypokalemia. -40meq PO KCl ordered -Continue to monitor ID -Patient was febrile on admission but was afebrile overnight -LP results pending -Continue to monitor off antibiotics Heme -patient thrombocytopenic and has elevated INR, likely secondary to cirrhosis- like picture -Platelets 16 today. Will order HIIT and repeat CBC later this afternoon F/E/N -D5-NS@83mls/hr -Hyponatremia and hypokalemia. Replete and repeat -NPO until extubation Prophylaxis -SCD's for DVT -Protonix 20mg daily Disposition -Full code -Continue ICU monitoring. Will attempt to extubate Frida Vieyra [id number] Visit type - Emergency Visit Emergency Visit: Yes ED Registration Date: 07/16/18 Care time: The patient presented to the Emergency Department on the above date and was hospitalized for further evaluation of their emergent condition. - New Patient This patient is new to me today: Yes Date on this admission: 07/17/18 - Critical Care Critical Care patient: Yes Total Critical Care Time (in minutes): 45 Critical Care Statement: The care of this patient involved high complexity decision making to prevent further life threatening deterioration of the patient 's condition and/or to evaluate & treat vital organ system(s) failure or risk of failure.
[2018-07-17] MEDS ORDERED: chlordiazePOXIDE HCL 25 MG CAPSULE PO SCH (11:00)
[2018-07-17] MEDS: PANTOPRAZOLE 20 MG TABLET (FP) PO SCH (11:18)
[2018-07-17] MEDS ORDERED: diazePAM 5 MG TABLET PO ONE (11:40)
[2018-07-17] MEDS: diazePAM 5 MG TABLET PO SCH ×3 (12:08→22:31)
[2018-07-17] MEDS: diazePAM 5 MG TABLET PO PRN ×2 (12:23→18:53)
--- NOTE | 2018-07-17 14:00 | PN ---
Physical Exam: SUBJECTIVE: Patient seen and examined. He is sleepy but arousable after being given Valium. He was extubated earlier today. OBJECTIVE: Vital Signs Period Temp Pulse Resp BP Sys/Rubio Pulse Ox Last 24 Hr 98.2 F-100.3 F 93-119 9-20 81-116/62-80 99-100 GENERAL: The patient is in no acute distress. LUNGS: Breath sounds equal, clear to auscultation bilaterally, no wheezes, no crackles, no accessory muscle use. HEART: Regular rate and rhythm, S1, S2 without murmur, rub or gallop. ABDOMEN: Soft, nontender, nondistended, normoactive bowel sounds, no guarding, no rebound, no hepatosplenomegaly, no masses. EXTREMITIES: 2+ pulses, warm, well-perfused, no edema. Laboratory Results - last 24 hr 07/16/18 07/16/18 07/16/18 13:25 16:50 23:30 WBC RBC Hgb Hct MCV MCH MCHC RDW Plt Count MPV Absolute Neuts (auto) Neutrophils % Lymphocytes % Monocytes % Eosinophils % Basophils % Nucleated RBC % Sodium 129 L Potassium 2.8 L* Chloride 94 L Carbon Dioxide 26 Anion Gap 9 BUN 2 L* Creatinine 0.7 Creat Clearance w eGFR > 60 Random Glucose 132 H Lactic Acid 2.7 H* Calcium 7.6 L Phosphorus Magnesium Total Bilirubin AST ALT Alkaline Phosphatase Total Protein Albumin CSF Appearance Clear CSF Color Colorless CSF WBC 0 CSF RBC 1 CSF Neutrophils TNP CSF Lymphocytes TNP CSF Eosinophils TNP CSF Basophils TNP CSF Macrophages TNP CSF Plasma Cells TNP CSF Diff Comment No Result Required. CSF Comment No Result Required. CSF Glucose 133 H CSF Total Protein 54 H 07/17/18 07/17/18 07/17/18 00:00 05:30 05:30 WBC 9.1 RBC 3.17 L Hgb 11.2 L Hct 32.1 L MCV 101.2 H MCH 35.3 H MCHC 34.9 RDW 13.4 Plt Count 16 L* D MPV 10.7 D Absolute Neuts (auto) 5.8 Neutrophils % 63.9 D Lymphocytes % 29.4 D Monocytes % 4.5 Eosinophils % 1.8 D Basophils % 0.4 Nucleated RBC % 0 Sodium 129 L Potassium 3.0 L Chloride 94 L Carbon Dioxide 25 Anion Gap 9 BUN 1 L* Creatinine 0.7 Creat Clearance w eGFR > 60 Random Glucose 101 Lactic Acid Calcium 7.4 L Phosphorus 2.6 Magnesium 1.2 L 2.8 H Total Bilirubin 1.6 H AST 237 H ALT 102 H Alkaline Phosphatase 99 Total Protein 6.0 L Albumin 3.0 L CSF Appearance CSF Color CSF WBC CSF RBC CSF Neutrophils CSF Lymphocytes CSF Eosinophils CSF Basophils CSF Macrophages CSF Plasma Cells CSF Diff Comment CSF Comment CSF Glucose CSF Total Protein Active Medications Generic Name Dose Route Start Last Admin Trade Name Freq PRN Reason Stop Dose Admin Diazepam 5 mg 07/19/18 10:00 Valium - PO 07/20/18 22:01 BID MIGUEL Diazepam 5 mg 07/21/18 10:00 Valium - PO 07/21/18 10:01 DAILY MIGUEL Diazepam 10 mg 07/17/18 11:40 07/17/18 12:23 Valium - PO 07/20/18 11:39 10 mg Q4H PRN Administration WITHDRAWAL(CONT SUBST) Diazepam 5 mg 07/17/18 12:00 Valium - PO 07/18/18 22:01 [facility] Dextrose/Sodium Chloride 1,000 mls @ 83 mls/hr 07/16/18 16:45 07/16/18 21:28 D5-Ns - IV Not Given ASDIR MIGULE Lacosamide 200 mg 07/16/18 22:00 07/17/18 09:11 Vimpat Injection - IVPB 200 mg BID MIGUEL Administration Lactulose 20 gm 07/16/18 22:00 07/17/18 06:26 Cephulac (Oral Use) PO 20 gm TID MIGUEL Administration Levetiracetam 500 mg 07/16/18 22:00 07/17/18 09:06 Keppra Injection - IVPB 500 mg BID MIGUEL Administration Pantoprazole Sodium 20 mg 07/17/18 10:00 07/17/18 11:18 Protonix - PO 20 mg DAILY MIGUEL Administration ASSESSMENT/PLAN: This is a 58 year old man with a history of HTN, seizure disorder, alcohol abuse who presented to the ED seizing. 1. Acute hypoxic respiratory failure secondary to seizures - Extubated today 2. Seizure disorder with status epilepticus - Resolved - Continue Keppra, Valium - Vimpat added yesterday - Doubt meningitis 3. Probable alcoholic cirrhosis 4. Hyperammonemia - Continue Lactulose 5. Continuous alcohol dependence - Continue Valium for possible withdrawal 6. Thrombocytopenia - Likely secondary to liver disease 7. Hyponatremia - Continue IV NS - Monitor electrolytes 8. Hypokalemia - Replete potassium 9. DVT prophylaxis - SCDs - Not on heparin/Lovenox secondary to thrombocytopenia Visit type - Emergency Visit Emergency Visit: Yes ED Registration Date: 07/16/18 Care time: The patient presented to the Emergency Department on the above date and was hospitalized for further evaluation of their emergent condition. - New Patient This patient is new to me today: Yes Date on this admission: 07/17/18 - Critical Care Critical Care patient: No - Discharge Referral Referred to [facility] No
[2018-07-17 21:26] LABS: BASO % 0.2 % (0-2.0); EOS % 0.6 % (0-4.5); HEMATOCRIT 34.9 % (35.4-49); HEMOGLOBIN 11.9 GM/dL (11.7-16.9); LYMPH % 17.8 % (8-40); MCH 34.9 pg (25.7-33.7); MCHC 34.1 g/dl (32.0-35.9); MEAN CELL VOLUME 102.2 fl (80-96); MONO % 6.9 % (3.8-10.2); NEUT % 74.5 % (42.8-82.8); RBC 3.42 M/mm3 (4.00-5.60); WHITE BLOOD COUNT 9.8 K/mm3 (4.0-10.0)
[2018-07-17] MEDS: DEXTROSE 5%-NORMAL SALINE 1,000 ML IV SCH (22:08)
[2018-07-17 22:09] LABS: MEAN PLT VOLUME 10.8 fl (7.5-11.1)
[2018-07-17 22:10] LABS: PLATELET COUNT 16 K/MM3 (134-434)
[2018-07-17 22:11] LABS: PLATELET ESTIMATE MARKEDLY DECREASED.
[2018-07-18] MEDS ORDERED: ACETAMINOPHEN 325 MG TABLET (FP) PO ONE (01:49)
[2018-07-18 05:56] LABS: HEMATOCRIT 31.3 % (35.4-49); HEMOGLOBIN 10.9 GM/dL (11.7-16.9); MCH 35.1 pg (25.7-33.7); MCHC 34.8 g/dl (32.0-35.9); MEAN CELL VOLUME 100.7 fl (80-96); MEAN PLT VOLUME 10.9 fl (7.5-11.1); RBC 3.11 M/mm3 (4.00-5.60); RDW 12.9 % (11.9-15.9); WHITE BLOOD COUNT 8.5 K/mm3 (4.0-10.0)
[2018-07-18 06:10] LABS: PLATELET COUNT 16 K/MM3 (134-434)
[2018-07-18] MEDS: LACTULOSE 20 GM/30 ML UDC (FOR ORAL USE ONLY) PO SCH ×3 (06:29→21:24)
[2018-07-18] MEDS: diazePAM 5 MG TABLET PO SCH ×3 (06:29→21:16)
[2018-07-18 06:30] LABS: ALBUMIN 3.2 g/dl (3.4-5.0); ALK PHOS 96 U/L (45-117); ANION GAP 9 MMOL/L (8-16); BILIRUBIN,TOTAL 1.5 mg/dL (0.2-1); CALCIUM 8.3 mg/dL (8.5-10.1); CHLORIDE 100 mmol/L (98-107); CO2 25 mmol/L (21-32); CREATININE 0.6 mg/dL (0.55-1.3); GLUCOSE,RANDOM 74 mg/dL (74-106); MAGNESIUM 1.7 mg/dL (1.8-2.4); PHOSPHOROUS 1.9 mg/dL (2.5-4.9); SGOT/AST 135 U/L (15-37); SGPT/ALT 76 U/L (13-61); SODIUM 135 mmol/L (136-145)
[2018-07-18 06:42] LABS: POTASSIUM 2.8 mmol/L (3.5-5.1)
[2018-07-18 06:43] LABS: BLOOD UREA NITROGEN 2 mg/dL (7-18)
[2018-07-18 07:09] LABS: HBSAG SCREEN Negative (Negative); HEP B CORE AB, TOT Positive (Negative)
[2018-07-18] MEDS ORDERED: POTASSIUM PHOSPHATE 30 MM in DEXTROSE 5%-WATER - 250 ML IVPB ONE (08:16)
[2018-07-18] MEDS ORDERED: POTASSIUM CHLORIDE TABS 20 MEQ TABLET.ER (FP) PO ONE (08:17)
[2018-07-18] MEDS ORDERED: MAGNESIUM SULF 50% (8.12 MEQ/2 ML-1 GM VIAL) IVPB ONE (08:17)
[2018-07-18] MEDS: diazePAM 5 MG TABLET PO PRN (08:24)
[2018-07-18] MEDS: levETIRAcetam 500 MG/5 ML INJECTION VIAL IVPB SCH ×2 (09:12→21:15)
--- NOTE | 2018-07-18 09:41 | PN ---
Teaching Attending Note Name of Resident: Durga Faulkner ATTENDING PHYSICIAN STATEMENT I saw and evaluated the patient. I reviewed the resident's note and discussed the case with the resident. I agree with the resident's findings and plan as documented. SUBJECTIVE: Patient seen and examined in the ICU. Remains extubated. Awake and alert but very confused. Thinks he is in [place]. Unaware he is in a hospital. Denies CP or SOB. Tolerating PO intake. ] Intake & Output 07/15/18 07/16/18 07/17/18 07/18/18 23:59 23:59 23:59 23:59 Intake Total 2764 400 Output Total 300 700 Balance -300 2064 400 Weight 103 lb 6.349 oz 107 lb 5.842 oz Last Vital Signs Temp Pulse Resp BP Pulse Ox 98.5 F 65 10 144/76 98 07/18/18 06:00 07/18/18 06:00 07/18/18 06:00 07/18/18 06:00 07/17/18 22:00 Active Medications Diazepam (Valium -) 5 mg PO BID [facility] Stop: 07/20/18 22:01 Diazepam (Valium -) 5 mg PO DAILY [facility] Stop: 07/21/18 10:01 Diazepam (Valium -) 10 mg PO Q4H PRN PRN Reason: WITHDRAWAL(CONT SUBST) Stop: 07/20/18 11:39 Last Admin: 07/18/18 08:24 Dose: 10 mg Diazepam (Valium -) 5 mg PO TID [facility] Stop: 07/18/18 22:01 Last Admin: 07/18/18 06:29 Dose: 5 mg Potassium Phosphate 30 mm/ (Dextrose) 260 mls @ 43.333 mls/hr IVPB ONCE ONE Stop: 07/18/18 14:15 Last Admin: 07/18/18 09:07 Dose: 43.333 mls/hr Lacosamide (Vimpat Injection -) 200 mg IVPB BID [facility] Last Admin: 07/17/18 23:25 Dose: 200 mg Lactulose (Cephulac (Oral Use)) 20 gm PO TID [facility] Last Admin: 07/18/18 06:29 Dose: Not Given Levetiracetam (Keppra Injection -) 500 mg IVPB BID [facility] Last Admin: 07/18/18 09:12 Dose: 500 mg Pantoprazole Sodium (Protonix -) 20 mg PO DAILY MIGUEL Last Admin: 07/17/18 11:18 Dose: 20 mg Constitutional: Extubated, awake, confused HEENT: normocephalic, atraumatic. Neck: supple. Heart: S1S2. no murmurs, rubs or gallops. Lungs: clear to auscultation bilaterally. no crackles, rhonchi or wheezing. no stridor. Abdomen: soft, flat, nontender. normal bowel sounds. Extremities: Peripheral pulses intact. No lower extremity edema. Neurological: confused, non-focal Psych: confused Laboratory Results - last 24 hr 07/16/18 07/16/18 07/16/18 12:32 19:00 19:00 WBC RBC Hgb Hct MCV MCH MCHC RDW Plt Count MPV Absolute Neuts (auto) Neutrophils % Lymphocytes % Monocytes % Eosinophils % Basophils % Nucleated RBC % Platelet Estimate Platelet Comment Sodium Potassium Chloride Carbon Dioxide Anion Gap BUN Creatinine Creat Clearance w eGFR POC Glucometer Random Glucose Calcium Phosphorus Magnesium Total Bilirubin AST ALT Alkaline Phosphatase Total Protein Albumin Hepatitis A Ab Total Negative Hep Bs Antigen Negative Hep Bs Antibody Reactive Hep B Core Total Ab Positive H Hep C Ab Diagnostic <0.1 HIV Genotype Non reactive Blood Type Antibody Screen 07/17/18 07/17/18 07/18/18 21:15 22:40 02:49 WBC 9.8 RBC 3.42 L Hgb 11.9 Hct 34.9 L MCV 102.2 H MCH 34.9 H MCHC 34.1 RDW 13.0 Plt Count 16 L* MPV 10.8 Absolute Neuts (auto) 7.3 Neutrophils % 74.5 Lymphocytes % 17.8 D Monocytes % 6.9 Eosinophils % 0.6 Basophils % 0.2 Nucleated RBC % 0 Platelet Estimate Markedly decreased. Platelet Comment Sodium Potassium Chloride Carbon Dioxide Anion Gap BUN Creatinine Creat Clearance w eGFR POC Glucometer 103 Random Glucose Calcium Phosphorus Magnesium Total Bilirubin AST ALT Alkaline Phosphatase Total Protein Albumin Hepatitis A Ab Total Hep Bs Antigen Hep Bs Antibody Hep B Core Total Ab Hep C Ab Diagnostic HIV Genotype Blood Type A POSITIVE Antibody Screen Negative 07/18/18 07/18/18 07/18/18 02:50 05:18 05:30 WBC 8.5 RBC 3.11 L Hgb 10.9 L Hct 31.3 L MCV 100.7 H MCH 35.1 H MCHC 34.8 RDW 12.9 Plt Count 16 L* MPV 10.9 Absolute Neuts (auto) Neutrophils % Lymphocytes % Monocytes % Eosinophils % Basophils % Nucleated RBC % Platelet Estimate Platelet Comment Sodium Potassium Chloride Carbon Dioxide Anion Gap BUN Creatinine Creat Clearance w eGFR POC Glucometer 87 Random Glucose Calcium Phosphorus Magnesium Total Bilirubin AST ALT Alkaline Phosphatase Total Protein Albumin Hepatitis A Ab Total Hep Bs Antigen Hep Bs Antibody Hep B Core Total Ab Hep C Ab Diagnostic HIV Genotype Blood Type A POSITIVE Antibody Screen 07/18/18 05:30 WBC RBC Hgb Hct MCV MCH MCHC RDW Plt Count MPV Absolute Neuts (auto) Neutrophils % Lymphocytes % Monocytes % Eosinophils % Basophils % Nucleated RBC % Platelet Estimate Platelet Comment Sodium 135 L Potassium 2.8 L* Chloride 100 Carbon Dioxide 25 Anion Gap 9 BUN 2 L* Creatinine 0.6 Creat Clearance w eGFR > 60 POC Glucometer Random Glucose 74 Calcium 8.3 L Phosphorus 1.9 L Magnesium 1.7 L Total Bilirubin 1.5 H AST 135 H ALT 76 H Alkaline Phosphatase 96 Total Protein 6.0 L Albumin 3.2 L Hepatitis A Ab Total Hep Bs Antigen Hep Bs Antibody Hep B Core Total Ab Hep C Ab Diagnostic HIV Genotype Blood Type Antibody Screen IMP: Acute Respiratory Failure Status epilepticus Suspected Cirrhosis Transaminitis Seizure D/O History of ETOH abuse Low clinical suspicion of meningitis Hyperammonemia PO as tolerated IVF ETOH withdrawal monitoring Strict I & O AEDs Monitor off ABX for now Replete lytes Lactulose Caution with Valium for over sedation Floor Dr Ann
--- NOTE | 2018-07-18 09:45 | PN ---
Physical Exam: SUBJECTIVE: Patient seen and examined at bedside. Pt was confused and combative during the night. OBJECTIVE: Vital Signs Period Temp Pulse Resp BP Sys/Rubio Pulse Ox Last 24 Hr 98.3 F-100.5 F 65-119 9-20 97-144/66-88 98-100 Gen: Alert. Not oriented. Appears comfortable HEENT: NCAT, EOMI, adentulous Neck: no jvd Cardio: rrr, normal s1s2, no mrg Pulm: cta b/l, no rales/ronchi Abd: scaphoid, soft, nontender Ext: no edema Laboratory Results - last 24 hr 07/16/18 07/16/18 07/16/18 12:32 19:00 19:00 WBC RBC Hgb Hct MCV MCH MCHC RDW Plt Count MPV Absolute Neuts (auto) Neutrophils % Lymphocytes % Monocytes % Eosinophils % Basophils % Nucleated RBC % Platelet Estimate Platelet Comment Sodium Potassium Chloride Carbon Dioxide Anion Gap BUN Creatinine Creat Clearance w eGFR POC Glucometer Random Glucose Calcium Phosphorus Magnesium Total Bilirubin AST ALT Alkaline Phosphatase Total Protein Albumin Hepatitis A Ab Total Negative Hep Bs Antigen Negative Hep Bs Antibody Reactive Hep B Core Total Ab Positive H Hep C Ab Diagnostic <0.1 HIV Genotype Non reactive Blood Type Antibody Screen 07/17/18 07/17/18 07/18/18 21:15 22:40 02:49 WBC 9.8 RBC 3.42 L Hgb 11.9 Hct 34.9 L MCV 102.2 H MCH 34.9 H MCHC 34.1 RDW 13.0 Plt Count 16 L* MPV 10.8 Absolute Neuts (auto) 7.3 Neutrophils % 74.5 Lymphocytes % 17.8 D Monocytes % 6.9 Eosinophils % 0.6 Basophils % 0.2 Nucleated RBC % 0 Platelet Estimate Markedly decreased. Platelet Comment Sodium Potassium Chloride Carbon Dioxide Anion Gap BUN Creatinine Creat Clearance w eGFR POC Glucometer 103 Random Glucose Calcium Phosphorus Magnesium Total Bilirubin AST ALT Alkaline Phosphatase Total Protein Albumin Hepatitis A Ab Total Hep Bs Antigen Hep Bs Antibody Hep B Core Total Ab Hep C Ab Diagnostic HIV Genotype Blood Type A POSITIVE Antibody Screen Negative 07/18/18 07/18/18 07/18/18 02:50 05:18 05:30 WBC 8.5 RBC 3.11 L Hgb 10.9 L Hct 31.3 L MCV 100.7 H MCH 35.1 H MCHC 34.8 RDW 12.9 Plt Count 16 L* MPV 10.9 Absolute Neuts (auto) Neutrophils % Lymphocytes % Monocytes % Eosinophils % Basophils % Nucleated RBC % Platelet Estimate Platelet Comment Sodium Potassium Chloride Carbon Dioxide Anion Gap BUN Creatinine Creat Clearance w eGFR POC Glucometer 87 Random Glucose Calcium Phosphorus Magnesium Total Bilirubin AST ALT Alkaline Phosphatase Total Protein Albumin Hepatitis A Ab Total Hep Bs Antigen Hep Bs Antibody Hep B Core Total Ab Hep C Ab Diagnostic HIV Genotype Blood Type A POSITIVE Antibody Screen 07/18/18 05:30 WBC RBC Hgb Hct MCV MCH MCHC RDW Plt Count MPV Absolute Neuts (auto) Neutrophils % Lymphocytes % Monocytes % Eosinophils % Basophils % Nucleated RBC % Platelet Estimate Platelet Comment Sodium 135 L Potassium 2.8 L* Chloride 100 Carbon Dioxide 25 Anion Gap 9 BUN 2 L* Creatinine 0.6 Creat Clearance w eGFR > 60 POC Glucometer Random Glucose 74 Calcium 8.3 L Phosphorus 1.9 L Magnesium 1.7 L Total Bilirubin 1.5 H AST 135 H ALT 76 H Alkaline Phosphatase 96 Total Protein 6.0 L Albumin 3.2 L Hepatitis A Ab Total Hep Bs Antigen Hep Bs Antibody Hep B Core Total Ab Hep C Ab Diagnostic HIV Genotype Blood Type Antibody Screen Active Medications Generic Name Dose Route Start Last Admin Trade Name Freq PRN Reason Stop Dose Admin Diazepam 5 mg 07/19/18 10:00 Valium - PO 07/20/18 22:01 BID MIGUEL Diazepam 5 mg 07/21/18 10:00 Valium - PO 07/21/18 10:01 DAILY MIGUEL Diazepam 10 mg 07/17/18 11:40 07/18/18 08:24 Valium - PO 07/20/18 11:39 10 mg Q4H PRN Administration WITHDRAWAL(CONT SUBST) Diazepam 5 mg 07/17/18 12:00 07/18/18 06:29 Valium - PO 07/18/18 22:01 5 mg TID MIGUEL Administration Potassium Phosphate 30 mm/ 260 mls @ 43.333 mls/hr 07/18/18 08:16 07/18/18 09 :07 Dextrose IVPB 07/18/18 14:15 43.333 mls/hr ONCE ONE Administration Lacosamide 200 mg 07/16/18 22:00 07/17/18 23:25 Vimpat Injection - IVPB 200 mg BID MIGUEL Administration Lactulose 20 gm 07/16/18 22:00 07/18/18 06:29 Cephulac (Oral Use) PO Not Given TID MIGUEL Levetiracetam 500 mg 07/16/18 22:00 07/18/18 09:12 Keppra Injection - IVPB 500 mg BID MIGUEL Administration Pantoprazole Sodium 20 mg 07/17/18 10:00 07/17/18 11:18 Protonix - PO 20 mg DAILY MIGUEL Administration ASSESSMENT/PLAN: Patient is a 58 year old male who was brought to the hospital following 3 falls and found to be seizing requiring intubation. Neurological #History of Seizure Disorder -possibly secondary to improper use of antiepileptic medications vs alcohol withdrawal -LP pending -Continue Keppra 1000 mg daily and Lacosamide 200 mg BID -Continue lactulose and titrate to 3 bm a day -off sedation. Try to minimize sedation #History of Alcohol Abuse and Withdrawal -pt on valium protocol Cardiovascular #HTN -BP wnl at this time -Hold off BP medications -Continue to monitor BP Pulmonary -extubated and comfortable Gastrointestinal -Cirrhotic picture with chronic decrease in platelets, elevated INR, decreased albumin, and elevated LFTs, patient also has chronic pancreatitis -ultrasound ruq without acute pathology. Stable CBD dilation and fatty liver -lactulose titrated to 3 bm a day Renal -Hyponatremia, Hypokalemia, hypomagnesemia, hypophosphatemia -electrolyte abnormalities possibly 2/2 EtOH abuse -replete -Continue to monitor ID -Patient was febrile on admission but was afebrile overnight -LP results pending -Continue to monitor off antibiotics Heme -patient thrombocytopenic and has elevated INR, likely secondary to cirrhosis- like picture -Platelets 16. DORINA panel pending. -Will need 2 physician consent for plt transfusion F/E/N -Hyponatremia and hypokalemia, hypomagnesemia, hypophosphatemia. Replete and repeat -NPO until extubation Prophylaxis -SCD's for DVT -Protonix 20mg daily Disposition -Full code -transfer to [facility] Visit type - Emergency Visit Emergency Visit: No - New Patient This patient is new to me today: Yes Date on this admission: 07/18/18 - Critical Care Critical Care patient: Yes Total Critical Care Time (in minutes): 45 Critical Care Statement: The care of this patient involved high complexity decision making to prevent further life threatening deterioration of the patient 's condition and/or to evaluate & treat vital organ system(s) failure or risk of failure.
[2018-07-18] MEDS ORDERED: CHLORHEXIDINE GLUCONATE 0.12% 15ML CUP MM SCH (10:00)
--- NOTE | 2018-07-18 10:04 | PN ---
Physical Exam: SUBJECTIVE: Patient seen and examined. He is sleepy but arousable. OBJECTIVE: Vital Signs Period Temp Pulse Resp BP Sys/Rubio Pulse Ox Last 24 Hr 98.3 F-100.5 F 65-119 10-20 97-144/69-88 98-100 GENERAL: The patient is in no acute distress. LUNGS: Breath sounds equal, clear to auscultation bilaterally, no wheezes, no crackles, no accessory muscle use. HEART: Regular rate and rhythm, S1, S2 without murmur, rub or gallop. ABDOMEN: Soft, nontender, nondistended, normoactive bowel sounds, no guarding, no rebound, no hepatosplenomegaly, no masses. EXTREMITIES: 2+ pulses, warm, well-perfused, no edema. Laboratory Results - last 24 hr 07/16/18 07/16/18 07/16/18 12:32 19:00 19:00 WBC RBC Hgb Hct MCV MCH MCHC RDW Plt Count MPV Absolute Neuts (auto) Neutrophils % Lymphocytes % Monocytes % Eosinophils % Basophils % Nucleated RBC % Platelet Estimate Platelet Comment Sodium Potassium Chloride Carbon Dioxide Anion Gap BUN Creatinine Creat Clearance w eGFR POC Glucometer Random Glucose Calcium Phosphorus Magnesium Total Bilirubin AST ALT Alkaline Phosphatase Total Protein Albumin Hepatitis A Ab Total Negative Hep Bs Antigen Negative Hep Bs Antibody Reactive Hep B Core Total Ab Positive H Hep C Ab Diagnostic <0.1 HIV Genotype Non reactive Blood Type Antibody Screen 07/17/18 07/17/18 07/18/18 21:15 22:40 02:49 WBC 9.8 RBC 3.42 L Hgb 11.9 Hct 34.9 L MCV 102.2 H MCH 34.9 H MCHC 34.1 RDW 13.0 Plt Count 16 L* MPV 10.8 Absolute Neuts (auto) 7.3 Neutrophils % 74.5 Lymphocytes % 17.8 D Monocytes % 6.9 Eosinophils % 0.6 Basophils % 0.2 Nucleated RBC % 0 Platelet Estimate Markedly decreased. Platelet Comment Sodium Potassium Chloride Carbon Dioxide Anion Gap BUN Creatinine Creat Clearance w eGFR POC Glucometer 103 Random Glucose Calcium Phosphorus Magnesium Total Bilirubin AST ALT Alkaline Phosphatase Total Protein Albumin Hepatitis A Ab Total Hep Bs Antigen Hep Bs Antibody Hep B Core Total Ab Hep C Ab Diagnostic HIV Genotype Blood Type A POSITIVE Antibody Screen Negative 07/18/18 07/18/18 07/18/18 02:50 05:18 05:30 WBC 8.5 RBC 3.11 L Hgb 10.9 L Hct 31.3 L MCV 100.7 H MCH 35.1 H MCHC 34.8 RDW 12.9 Plt Count 16 L* MPV 10.9 Absolute Neuts (auto) Neutrophils % Lymphocytes % Monocytes % Eosinophils % Basophils % Nucleated RBC % Platelet Estimate Platelet Comment Sodium Potassium Chloride Carbon Dioxide Anion Gap BUN Creatinine Creat Clearance w eGFR POC Glucometer 87 Random Glucose Calcium Phosphorus Magnesium Total Bilirubin AST ALT Alkaline Phosphatase Total Protein Albumin Hepatitis A Ab Total Hep Bs Antigen Hep Bs Antibody Hep B Core Total Ab Hep C Ab Diagnostic HIV Genotype Blood Type A POSITIVE Antibody Screen 07/18/18 05:30 WBC RBC Hgb Hct MCV MCH MCHC RDW Plt Count MPV Absolute Neuts (auto) Neutrophils % Lymphocytes % Monocytes % Eosinophils % Basophils % Nucleated RBC % Platelet Estimate Platelet Comment Sodium 135 L Potassium 2.8 L* Chloride 100 Carbon Dioxide 25 Anion Gap 9 BUN 2 L* Creatinine 0.6 Creat Clearance w eGFR > 60 POC Glucometer Random Glucose 74 Calcium 8.3 L Phosphorus 1.9 L Magnesium 1.7 L Total Bilirubin 1.5 H AST 135 H ALT 76 H Alkaline Phosphatase 96 Total Protein 6.0 L Albumin 3.2 L Hepatitis A Ab Total Hep Bs Antigen Hep Bs Antibody Hep B Core Total Ab Hep C Ab Diagnostic HIV Genotype Blood Type Antibody Screen Active Medications Generic Name Dose Route Start Last Admin Trade Name Freq PRN Reason Stop Dose Admin Diazepam 5 mg 07/19/18 10:00 Valium - PO 07/20/18 22:01 BID MIGUEL Diazepam 5 mg 07/21/18 10:00 Valium - PO 07/21/18 10:01 DAILY MIGUEL Diazepam 10 mg 07/17/18 11:40 07/18/18 08:24 Valium - PO 07/20/18 11:39 10 mg Q4H PRN Administration WITHDRAWAL(CONT SUBST) Diazepam 5 mg 07/17/18 12:00 07/18/18 06:29 Valium - PO 07/18/18 22:01 5 mg TID MIGUEL Administration Potassium Phosphate 30 mm/ 260 mls @ 43.333 mls/hr 07/18/18 08:16 07/18/18 09 :07 Dextrose IVPB 07/18/18 14:15 43.333 mls/hr ONCE ONE Administration Lacosamide 200 mg 07/16/18 22:00 07/17/18 23:25 Vimpat Injection - IVPB 200 mg BID MIGUEL Administration Lactulose 20 gm 07/16/18 22:00 07/18/18 06:29 Cephulac (Oral Use) PO Not Given TID MIGUEL Levetiracetam 500 mg 07/16/18 22:00 07/18/18 09:12 Keppra Injection - IVPB 500 mg BID MIGUEL Administration Pantoprazole Sodium 20 mg 07/17/18 10:00 07/17/18 11:18 Protonix - PO 20 mg DAILY MIGUEL Administration ASSESSMENT/PLAN: This is a 58 year old man with a history of HTN, seizure disorder, alcohol abuse who presented to the ED seizing. 1. Acute hypoxic respiratory failure secondary to seizures - Extubated 3/ 2. Seizure disorder with status epilepticus - Resolved - Continue Keppra, Vimpat, Valium - Doubt meningitis 3. Probable alcoholic cirrhosis 4. Hyperammonemia - Continue Lactulose 5. Continuous alcohol dependence - Continue Valium for possible withdrawal 6. Thrombocytopenia - Likely secondary to liver disease - 1 unit platelets ordered for transfusion today - HIT Ab pending 7. Hyponatremia - Improved 8. Hypokalemia - Continue to replete potassium 9. Hypomagnesemia - Supplement magnesium 10. Hypophosphatemia - Supplement phosphorus 11. DVT prophylaxis - SCDs - Not on heparin/Lovenox secondary to thrombocytopenia Visit type - Emergency Visit Emergency Visit: Yes ED Registration Date: 07/16/18 Care time: The patient presented to the Emergency Department on the above date and was hospitalized for further evaluation of their emergent condition. - New Patient This patient is new to me today: No - Critical Care Critical Care patient: No - Discharge Referral Referred to [facility] Med [facility] No
[2018-07-18] MEDS: Lacosamide 200 MG/20 ML VIAL IVPB SCH ×2 (10:30→22:36)
[2018-07-18] MEDS ORDERED: chlordiazePOXIDE HCL 25 MG CAPSULE PO SCH (11:00)
[2018-07-18] MEDS: PANTOPRAZOLE 20 MG TABLET (FP) PO SCH (11:10)
[2018-07-18 12:41] VITALS: BMI 16.7
[2018-07-18] MEDS ORDERED: diazePAM 5 MG TABLET PO PRN (13:30)
[2018-07-18] MEDS: LORazepam 2 MG/ML SDV VIAL IM PRN (20:26)
[2018-07-19] MEDS: LORazepam 2 MG/ML SDV VIAL IM PRN (04:25)
[2018-07-19] MEDS: LACTULOSE 20 GM/30 ML UDC (FOR ORAL USE ONLY) PO SCH ×3 (06:41→23:39)
[2018-07-19 08:54] LABS: ALBUMIN 3.4 g/dl (3.4-5.0); ALK PHOS 107 U/L (45-117); ANION GAP 8 MMOL/L (8-16); BILIRUBIN,DIRECT 0.9 mg/dL (0.0-0.2); BILIRUBIN,TOTAL 1.5 mg/dL (0.2-1); CALCIUM 8.8 mg/dL (8.5-10.1); CHLORIDE 101 mmol/L (98-107); CO2 27 mmol/L (21-32); CREATININE 0.6 mg/dL (0.55-1.3); GLUCOSE,RANDOM 86 mg/dL (74-106); POTASSIUM 3.2 mmol/L (3.5-5.1); SGOT/AST 76 U/L (15-37); SGPT/ALT 62 U/L (13-61); SODIUM 136 mmol/L (136-145); TOT PROT 6.5 g/dl (6.4-8.2)
[2018-07-19 09:01] LABS: BLOOD UREA NITROGEN 2 mg/dL (7-18)
[2018-07-19] MEDS: PANTOPRAZOLE 20 MG TABLET (FP) PO SCH (09:18)
[2018-07-19] MEDS: levETIRAcetam 500 MG/5 ML INJECTION VIAL IVPB SCH ×2 (09:18→23:40)
[2018-07-19] MEDS: Lacosamide 200 MG/20 ML VIAL IVPB SCH ×2 (09:18→23:39)
[2018-07-19] MEDS: diazePAM 5 MG TABLET PO SCH ×2 (09:18→23:39)
--- NOTE | 2018-07-19 09:42 | PN ---
Physical Exam: SUBJECTIVE: Patient seen and examined. He is awake, alert and confused. OBJECTIVE: Vital Signs Period Temp Pulse Resp BP Sys/Rubio Pulse Ox Last 24 Hr 97.5 F-98.8 F 74-94 15-20 104-145/69-86 98 GENERAL: The patient is in no acute distress. LUNGS: Breath sounds equal, clear to auscultation bilaterally, no wheezes, no crackles, no accessory muscle use. HEART: Regular rate and rhythm, S1, S2 without murmur, rub or gallop. ABDOMEN: Soft, nontender, nondistended, normoactive bowel sounds, no guarding, no rebound, no hepatosplenomegaly, no masses. EXTREMITIES: 2+ pulses, warm, well-perfused, no edema. Laboratory Results - last 24 hr 07/19/18 07/19/18 07/19/18 07:40 07:40 07:40 WBC Cancelled Corrected WBC (auto) Cancelled RBC Cancelled Hgb Cancelled Hct Cancelled MCV Cancelled MCH Cancelled MCHC Cancelled RDW Cancelled Plt Count Cancelled MPV Cancelled Manual Slide Review Cancelled Platelet Comment Cancelled Sodium 136 Potassium 3.2 L Chloride 101 Carbon Dioxide 27 Anion Gap 8 BUN 2 L* Creatinine 0.6 Creat Clearance w eGFR > 60 Random Glucose 86 Calcium 8.8 Phosphorus 3.0 Magnesium 2.0 Total Bilirubin 1.5 H Direct Bilirubin 0.9 H AST 76 H ALT 62 H Alkaline Phosphatase 107 Ammonia 53.90 H Total Protein 6.5 Albumin 3.4 Active Medications Generic Name Dose Route Start Last Admin Trade Name Freq PRN Reason Stop Dose Admin Diazepam 10 mg 07/18/18 13:30 Valium - PO 07/20/18 11:39 Q4H PRN WITHDRAWAL(CONT SUBST) Diazepam 5 mg 07/19/18 10:00 07/19/18 09:18 Valium - PO 07/20/18 22:01 5 mg BID MIGUEL Administration Diazepam 5 mg 07/21/18 10:00 Valium - PO 07/21/18 10:01 DAILY MIGUEL Lacosamide 200 mg 07/18/18 22:00 07/19/18 09:18 Vimpat Injection - IVPB 200 mg BID MIGUEL Administration Lactulose 20 gm 07/18/18 14:00 07/19/18 06:41 Cephulac (Oral Use) PO 20 gm TID MIGUEL Administration Levetiracetam 500 mg 07/18/18 22:00 07/19/18 09:18 Keppra Injection - IVPB 500 mg BID MIGUEL Administration Lorazepam 1 mg 07/18/18 19:00 07/19/18 04:25 Ativan Injection - IM 1 mg Q6H PRN Administration AGITATION Pantoprazole Sodium 20 mg 07/19/18 10:00 07/19/18 09:18 Protonix - PO 20 mg DAILY MIGUEL Administration ASSESSMENT/PLAN: This is a 58 year old man with a history of HTN, seizure disorder, alcohol abuse who presented to the ED seizing. 1. Acute hypoxic respiratory failure secondary to seizures - Extubated 07/17 2. Seizure disorder with status epilepticus - Resolved - Continue Keppra, Vimpat, Valium - Doubt meningitis 3. Probable alcoholic cirrhosis 4. Hyperammonemia - Continue Lactulose 5. Continuous alcohol dependence - Continue Valium for possible withdrawal 6. Thrombocytopenia - Likely secondary to liver disease - Transfused 1 unit platelets with improvement - HIT Ab pending 7. Hyponatremia - Improved 8. Hypokalemia - Continue to replete potassium 9. Hypomagnesemia - Improved 10. Hypophosphatemia - Improved 11. DVT prophylaxis - SCDs - Not on heparin/Lovenox secondary to thrombocytopenia Visit type - Emergency Visit Emergency Visit: Yes ED Registration Date: 07/16/18 Care time: The patient presented to the Emergency Department on the above date and was hospitalized for further evaluation of their emergent condition. - New Patient This patient is new to me today: No - Critical Care Critical Care patient: No - Discharge Referral Referred to [facility] Med P.C.: No
[2018-07-19] MEDS ORDERED: POTASSIUM CHLORIDE TABS 20 MEQ TABLET.ER (FP) PO ONE (09:43)
[2018-07-19] MEDS ORDERED: diazePAM 5 MG TABLET PO SCH (10:00)
[2018-07-19 10:57] LABS: BASO % 0.6 % (0-2.0); EOS % 2.9 % (0-4.5); HEMATOCRIT 31.2 % (35.4-49); HEMOGLOBIN 10.8 GM/dL (11.7-16.9); LYMPH % 26.6 % (8-40); MCH 35.3 pg (25.7-33.7); MCHC 34.6 g/dl (32.0-35.9); MEAN CELL VOLUME 102.3 fl (80-96); MEAN PLT VOLUME 9.7 fl (7.5-11.1); MONO % 10.5 % (3.8-10.2); NEUT % 59.4 % (42.8-82.8); PLATELET COUNT 89 K/MM3 (134-434); RBC 3.05 M/mm3 (4.00-5.60); RDW 13.1 % (11.9-15.9); WHITE BLOOD COUNT 6.7 K/mm3 (4.0-10.0)
[2018-07-19] MEDS ORDERED: chlordiazePOXIDE 5 MG CAPSULE PO SCH (11:00)
--- NOTE | 2018-07-19 11:06 | EKG ---
Test Reason : Blood Pressure : / mmHG Vent. Rate : 147 BPM Atrial Rate : 147 BPM P-R Int : 000 ms QRS Dur : 058 ms QT Int : 328 ms P-R-T Axes : 080 036 085 degrees QTc Int : 513 ms SINUS TACHYCARDIA SEPTAL INFARCT , AGE UNDETERMINED ABNORMAL ECG WHEN COMPARED WITH ECG OF 15-FEB-2018 23:03, VENT. RATE HAS INCREASED BY 72 BPM T WAVE VARIATION Confirmed by SOLANGE KELLY, JUDIT ([id number]) on 07/19/2018 11:06:26 AM Referred By: Confirmed By:JUDIT NARVAEZ MD
[2018-07-20] MEDS ORDERED: PT OWN MED DRAWER 7, Y5N ONE (02:43)
[2018-07-20] MEDS: LACTULOSE 20 GM/30 ML UDC (FOR ORAL USE ONLY) PO SCH ×3 (06:59→22:15)
[2018-07-20 07:30] LABS: HEMATOCRIT 33.7 % (35.4-49); HEMOGLOBIN 11.5 GM/dL (11.7-16.9); MCH 34.7 pg (25.7-33.7); MEAN PLT VOLUME 10.5 fl (7.5-11.1); PLATELET COUNT 115 K/MM3 (134-434); RDW 13.2 % (11.9-15.9); WHITE BLOOD COUNT 6.8 K/mm3 (4.0-10.0)
[2018-07-20 08:37] LABS: ANION GAP 8 MMOL/L (8-16); BLOOD UREA NITROGEN 3 mg/dL (7-18); CALCIUM 9.1 mg/dL (8.5-10.1); CHLORIDE 101 mmol/L (98-107); CO2 26 mmol/L (21-32); CREATININE 0.6 mg/dL (0.55-1.3); GLUCOSE,RANDOM 83 mg/dL (74-106); MAGNESIUM 1.7 mg/dL (1.8-2.4); PHOSPHOROUS 2.8 mg/dL (2.5-4.9); POTASSIUM 3.8 mmol/L (3.5-5.1); SODIUM 135 mmol/L (136-145)
[2018-07-20] MEDS: PANTOPRAZOLE 20 MG TABLET (FP) PO SCH (10:42)
[2018-07-20] MEDS: diazePAM 5 MG TABLET PO SCH ×2 (10:43→22:16)
[2018-07-20] MEDS: levETIRAcetam 500 MG/5 ML INJECTION VIAL IVPB SCH ×2 (10:45→22:16)
[2018-07-20] MEDS ORDERED: chlordiazePOXIDE HCL 10 MG CAPSULE PO SCH (11:00)
--- NOTE | 2018-07-20 11:17 | PN ---
Physical Exam: SUBJECTIVE: Patient seen and examined at the bedside. OBJECTIVE: Vital Signs Period Temp Pulse Resp BP Sys/Rubio Pulse Ox Last 24 Hr 97.9 F-100.5 F 70-90 18-20 113-140/69-84 100 GENERAL: The patient is awake, and able to follow some verbal commands HEAD: Normal with no signs of trauma. EYES: PERRL, sclera anicteric, conjunctiva clear. ENT: Dry mucous membranes. LUNGS: Breath sounds equal, clear to auscultation bilaterally, no wheezes, no crackles, no accessory muscle use. HEART: rrr ABDOMEN: Soft, nontender, nondistended, normoactive bowel sounds. EXTREMITIES: No edema. Laboratory Results - last 24 hr 07/16/18 07/16/18 07/19/18 13:25 23:30 10:30 WBC RBC Hgb Hct MCV MCH MCHC RDW Plt Count 89 L D MPV 9.7 D Sodium Potassium Chloride Carbon Dioxide Anion Gap BUN Creatinine Creat Clearance w eGFR Random Glucose Calcium Phosphorus Magnesium CSF Lyme Disease DNA Cancelled Hepatitis Be Antibody Positive H HSV I DNA Quant (PCR) Cancelled HSV II DNA Quant (PCR) Cancelled 07/20/18 07/20/18 07:00 07:00 WBC 6.8 RBC 3.30 L Hgb 11.5 L Hct 33.7 L MCV 102.0 H MCH 34.7 H MCHC 34.0 RDW 13.2 Plt Count 115 L D MPV 10.5 Sodium 135 L Potassium 3.8 Chloride 101 Carbon Dioxide 26 Anion Gap 8 BUN 3 L Creatinine 0.6 Creat Clearance w eGFR > 60 Random Glucose 83 Calcium 9.1 Phosphorus 2.8 Magnesium 1.7 L CSF Lyme Disease DNA Hepatitis Be Antibody HSV I DNA Quant (PCR) HSV II DNA Quant (PCR) Active Medications Generic Name Dose Route Start Last Admin Trade Name Freq PRN Reason Stop Dose Admin Diazepam 10 mg 07/18/18 13:30 Valium - PO 07/20/18 11:39 Q4H PRN WITHDRAWAL(CONT SUBST) Diazepam 5 mg 07/19/18 10:00 07/20/18 10:43 Valium - PO 07/20/18 22:01 5 mg BID MIGUEL Administration Diazepam 5 mg 07/21/18 10:00 Valium - PO 07/21/18 10:01 DAILY MIGUEL Lacosamide 200 mg 07/18/18 22:00 07/19/18 23:39 Vimpat Injection - IVPB 200 mg BID MIGUEL Administration Lactulose 20 gm 07/18/18 14:00 07/20/18 06:59 Cephulac (Oral Use) PO 20 gm TID MIGUEL Administration Levetiracetam 500 mg 07/18/18 22:00 07/20/18 10:45 Keppra Injection - IVPB 500 mg BID MIGUEL Administration Lorazepam 1 mg 07/18/18 19:00 07/19/18 04:25 Ativan Injection - IM 1 mg Q6H PRN Administration AGITATION Pantoprazole Sodium 20 mg 07/19/18 10:00 07/20/18 10:42 Protonix - PO 20 mg DAILY MIGUEL Administration ASSESSMENT/PLAN: Patient is a 58 year old male with a past medical history of hypertension, seizure disorder, ETOH abuse BIBA to ED after 3 witnessed falls. Upon presentation pt was unresponsive, actively seizing. He was intubated on admission, extubated on 07/18/18. Neuro: Seizures Possibly 2/2 to etoh withdrawal vs medication non compliance On Keppra bid, Lacosamide 200mg bid Maintain seizure precautions Psyche ETOH abuse/withdrawal On valium protocol Card: Hypertension. controlled GI ast/alt trending down Renal Hyponatremia, resolving Hypokalemia, resolved Hypomagnesemia, supplements added Heme: Thrombocytopenia plates 16>116 Hit panel pending fen tolerating po monitor labs Prophy: scds protonix Visit type - Emergency Visit Emergency Visit: Yes ED Registration Date: 07/16/18 Care time: The patient presented to the Emergency Department on the above date and was hospitalized for further evaluation of their emergent condition. - New Patient This patient is new to me today: Yes Date on this admission: 07/20/18 - Critical Care Critical Care patient: No - Discharge Referral Referred to [facility] Med P.C.: No
[2018-07-20] MEDS: Lacosamide 200 MG/20 ML VIAL IVPB SCH ×2 (11:47→22:16)
[2018-07-20] MEDS: MAGNESIUM OXIDE 400 MG TABLET (FP) PO SCH (22:16)
[2018-07-21 03:15] LABS: FIBROSIS SCORE. 0.92 (0.00-0.21); HCV ALPHA 2 MACRO CHART 286 mg/dL (110-276); HCV GGT 1141 IU/L (0-65); NECRO.INFLAM ACT.SCORE 0.59 (0.00-0.17); NECROINFLAM. ACTIVITY GRADE A2-Moderate activity (.)
[2018-07-21] MEDS: LACTULOSE 20 GM/30 ML UDC (FOR ORAL USE ONLY) PO SCH ×3 (06:58→22:01)
[2018-07-21 07:15] LABS: BASO % 0.8 % (0-2.0); EOS % 1.8 % (0-4.5); HEMATOCRIT 29.2 % (35.4-49); HEMOGLOBIN 9.9 GM/dL (11.7-16.9); LYMPH % 37.6 % (8-40); MCH 34.5 pg (25.7-33.7); MEAN CELL VOLUME 101.6 fl (80-96); MEAN PLT VOLUME 10.2 fl (7.5-11.1); MONO % 30.6 % (3.8-10.2); NEUT % 29.2 % (42.8-82.8); PLATELET COUNT 126 K/MM3 (134-434); RBC 2.88 M/mm3 (4.00-5.60); RDW 13.1 % (11.9-15.9); WHITE BLOOD COUNT 7.1 K/mm3 (4.0-10.0)
[2018-07-21 07:47] LABS: ALBUMIN 2.9 g/dl (3.4-5.0); ALK PHOS 89 U/L (45-117); ANION GAP 6 MMOL/L (8-16); BILIRUBIN,TOTAL 0.6 mg/dL (0.2-1); BLOOD UREA NITROGEN 10 mg/dL (7-18); CALCIUM 8.4 mg/dL (8.5-10.1); CHLORIDE 101 mmol/L (98-107); CO2 27 mmol/L (21-32); CREATININE 0.7 mg/dL (0.55-1.3); GLUCOSE,RANDOM 85 mg/dL (74-106); POTASSIUM 3.7 mmol/L (3.5-5.1); SGOT/AST 44 U/L (15-37); SGPT/ALT 43 U/L (13-61); SODIUM 135 mmol/L (136-145); TOT PROT 5.9 g/dl (6.4-8.2)
[2018-07-21] MEDS ORDERED: diazePAM 5 MG TABLET PO SCH ×2 (10:00)
[2018-07-21] MEDS: PANTOPRAZOLE 20 MG TABLET (FP) PO SCH (10:42)
[2018-07-21] MEDS: LACOSAMIDE 50 MG TABLET PO SCH ×2 (10:42→21:58)
[2018-07-21] MEDS: levETIRAcetam 500 MG TABLET (FP) PO SCH ×2 (10:42→22:00)
[2018-07-21] MEDS: MAGNESIUM OXIDE 400 MG TABLET (FP) PO SCH ×2 (10:42→21:59)
[2018-07-21 11:22] LABS: ANISOCYTOSIS 1+; MACROCYTOSIS 1+; OVALOCYTE 1+; PLATELET ESTIMATE DECREASED; TARGET CELLS 1+
--- NOTE | 2018-07-21 15:57 | PN ---
Physical Exam: SUBJECTIVE: Patient seen and examined at the bedside. in no acute distress. sleeping on and off. has completed the valium protocol OBJECTIVE: discharge planning Vital Signs Period Temp Pulse Resp BP Sys/Rubio Pulse Ox Last 24 Hr 98.1 F-98.5 F 60-96 16-20 118-156/66-86 GENERAL: The patient is awake, and able to follow some verbal commands HEAD: Normal with no signs of trauma. EYES: PERRL, sclera anicteric, conjunctiva clear. ENT: Dry mucous membranes. LUNGS: Breath sounds equal, clear to auscultation bilaterally, no wheezes, no crackles, no accessory muscle use. HEART: rrr ABDOMEN: Soft, nontender, nondistended, normoactive bowel sounds. EXTREMITIES: No edema. Laboratory Results - last 24 hr 07/16/18 07/16/18 07/21/18 13:25 23:30 06:20 WBC 7.1 RBC 2.88 L Hgb 9.9 L Hct 29.2 L MCV 101.6 H MCH 34.5 H MCHC 34.0 RDW 13.1 Plt Count 126 L MPV 10.2 Absolute Neuts (auto) 2.1 Neutrophils % 29.2 L D Neutrophils % (Manual) 33.6 L Band Neutrophils % 1.0 Lymphocytes % 37.6 D Lymphocytes % (Manual) 33.7 Monocytes % 30.6 H D Monocytes % (Manual) 26 H Eosinophils % 1.8 Eosinophils % (Manual) 2.0 Basophils % 0.8 Basophils % (Manual) 1.0 Myelocytes % (Man) 0 Promyelocytes % (Man) 0 Blast Cells % (Manual) 0 Nucleated RBC % 0 Metamyelocytes 0 Hypochromia 0 Platelet Estimate Decreased Polychromasia 0 Poikilocytosis 0 Anisocytosis 1+ Microcytosis 0 Macrocytosis 1+ Target Cells 1+ Ovalocytes 1+ Stomatocytes 1+ Sodium Potassium Chloride Carbon Dioxide Anion Gap BUN Creatinine Creat Clearance w eGFR Random Glucose Calcium Total Bilirubin AST ALT Alkaline Phosphatase Liver GGT 1141 H Liver Total Bilirubin 1.3 H Liver Fibrosis ALT 60 H Liver Haptoglobin 137 Liver Fibrosis Score 0.92 H Necroinflammator Score 0.59 H Necroinflam Pat Score Necroinflammator Grade A2-moderate activity Total Protein Albumin Apolipoprotein A-1 105 CSF Lyme Disease DNA Negative Liver Fibrosis Comment Liver Fibrosis Limits Liver Fibrosis Interp HSV I DNA Quant (PCR) Negative HSV II DNA Quant (PCR) Negative 07/21/18 06:20 WBC RBC Hgb Hct MCV MCH MCHC RDW Plt Count MPV Absolute Neuts (auto) Neutrophils % Neutrophils % (Manual) Band Neutrophils % Lymphocytes % Lymphocytes % (Manual) Monocytes % Monocytes % (Manual) Eosinophils % Eosinophils % (Manual) Basophils % Basophils % (Manual) Myelocytes % (Man) Promyelocytes % (Man) Blast Cells % (Manual) Nucleated RBC % Metamyelocytes Hypochromia Platelet Estimate Polychromasia Poikilocytosis Anisocytosis Microcytosis Macrocytosis Target Cells Ovalocytes Stomatocytes Sodium 135 L Potassium 3.7 Chloride 101 Carbon Dioxide 27 Anion Gap 6 L BUN 10 Creatinine 0.7 Creat Clearance w eGFR > 60 Random Glucose 85 Calcium 8.4 L Total Bilirubin 0.6 AST 44 H ALT 43 Alkaline Phosphatase 89 Liver GGT Liver Total Bilirubin Liver Fibrosis ALT Liver Haptoglobin Liver Fibrosis Score Necroinflammator Score Necroinflam Pat Score Necroinflammator Grade Total Protein 5.9 L Albumin 2.9 L Apolipoprotein A-1 CSF Lyme Disease DNA Liver Fibrosis Comment Liver Fibrosis Limits Liver Fibrosis Interp HSV I DNA Quant (PCR) HSV II DNA Quant (PCR) Active Medications Generic Name Dose Route Start Last Admin Trade Name Freq PRN Reason Stop Dose Admin Lacosamide 200 mg 07/21/18 10:00 07/21/18 10:42 Vimpat - PO 200 mg BID MIGUEL Administration Lactulose 20 gm 07/18/18 14:00 07/21/18 14:41 Cephulac (Oral Use) PO 20 gm TID MIGUEL Administration Levetiracetam 500 mg 07/21/18 10:00 07/21/18 10:42 Keppra - PO 500 mg BID MIGUEL Administration Lorazepam 1 mg 07/18/18 19:00 07/19/18 04:25 Ativan Injection - IM 1 mg Q6H PRN Administration AGITATION Magnesium Oxide 400 mg 07/20/18 22:00 07/21/18 10:42 Mag-Ox - PO 400 mg BID MIGUEL Administration Pantoprazole Sodium 20 mg 07/19/18 10:00 07/21/18 10:42 Protonix - PO 20 mg DAILY MIGUEL Administration ASSESSMENT/PLAN: Patient is a 58 year old male with a past medical history of hypertension, seizure disorder, ETOH abuse BIBA to ED after 3 witnessed falls. Upon presentation pt was unresponsive, actively seizing. He was intubated on admission, extubated on 07/18/18 and been downgraded to med surg. Neuro: Seizures Possibly 2/2 to etoh withdrawal vs medication non compliance On Keppra 500mg bid, Lacosamide 200mg bid Maintain seizure precautions Psyche ETOH abuse/withdrawal completed valium protocol. Card: Hypertension. controlled GI ast/alt trending down Renal Hyponatremia, within normal limits Hypokalemia, resolved Hypomagnesemia, supplements added Heme: Thrombocytopenia plates 16>127 Hit panel reviewed fen tolerating po monitor labs Prophy: scds protonix Visit type - Emergency Visit Emergency Visit: Yes ED Registration Date: 07/16/18 Care time: The patient presented to the Emergency Department on the above date and was hospitalized for further evaluation of their emergent condition. - New Patient This patient is new to me today: No - Critical Care Critical Care patient: No - Discharge Referral Referred to [facility] Med P.C.: No
[2018-07-22] MEDS: LACTULOSE 20 GM/30 ML UDC (FOR ORAL USE ONLY) PO SCH ×3 (06:07→22:17)
[2018-07-22 08:44] LABS: ALK PHOS 79 U/L (45-117); ANION GAP 7 MMOL/L (8-16); BILIRUBIN,TOTAL 0.4 mg/dL (0.2-1); BLOOD UREA NITROGEN 14 mg/dL (7-18); CALCIUM 8.6 mg/dL (8.5-10.1); CHLORIDE 102 mmol/L (98-107); CO2 30 mmol/L (21-32); CREATININE 0.6 mg/dL (0.55-1.3); GLUCOSE,RANDOM 88 mg/dL (74-106); MAGNESIUM 1.8 mg/dL (1.8-2.4); POTASSIUM 3.5 mmol/L (3.5-5.1); SGOT/AST 60 U/L (15-37); SGPT/ALT 41 U/L (13-61); SODIUM 140 mmol/L (136-145)
[2018-07-22 08:59] LABS: BASO % 0.9 % (0-2.0); EOS % 3.6 % (0-4.5); HEMATOCRIT 28.3 % (35.4-49); HEMOGLOBIN 9.6 GM/dL (11.7-16.9); LYMPH % 41.1 % (8-40); MCH 34.7 pg (25.7-33.7); MEAN CELL VOLUME 102.2 fl (80-96); MONO % 27.9 % (3.8-10.2); NEUT % 26.5 % (42.8-82.8); PLATELET COUNT 170 K/MM3 (134-434); RBC 2.77 M/mm3 (4.00-5.60); RDW 13.3 % (11.9-15.9); WHITE BLOOD COUNT 8.8 K/mm3 (4.0-10.0)
[2018-07-22] MEDS: PANTOPRAZOLE 20 MG TABLET (FP) PO SCH (09:33)
[2018-07-22] MEDS: levETIRAcetam 500 MG TABLET (FP) PO SCH ×2 (09:33→22:18)
[2018-07-22] MEDS: LACOSAMIDE 50 MG TABLET PO SCH ×2 (09:33→22:18)
[2018-07-22] MEDS: MAGNESIUM OXIDE 400 MG TABLET (FP) PO SCH ×2 (09:33→22:18)
--- NOTE | 2018-07-22 11:32 | PN ---
Physical Exam: SUBJECTIVE: Patient seen and examined at the bedside. s/p fall from bed without any obvious injury. fall was unwitnessed. will order head ct and monitor per hospital protocol. OBJECTIVE: Vital Signs Period Temp Pulse Resp BP Sys/Rubio Pulse Ox Last 24 Hr 97.7 F-98.1 F 60-87 16-18 109-127/66-75 GENERAL: The patient is awake, and able to follow some verbal commands HEAD: Normal with no signs of trauma. EYES: PERRL, sclera anicteric, conjunctiva clear. ENT: Dry mucous membranes. LUNGS: Breath sounds equal, clear to auscultation bilaterally, no wheezes, no crackles, no accessory muscle use. HEART: rrr ABDOMEN: Soft, nontender, nondistended, normoactive bowel sounds. EXTREMITIES: No edema. Laboratory Results - last 24 hr 07/16/18 07/21/18 07/22/18 13:25 06:20 07:50 WBC 8.8 RBC 2.77 L Hgb 9.6 L Hct 28.3 L MCV 102.2 H MCH 34.7 H MCHC 34.0 RDW 13.3 Plt Count 170 D MPV 10.0 Absolute Neuts (auto) 2.3 Neutrophils % 26.5 L Neutrophils % (Manual) 33.6 L Band Neutrophils % 1.0 Lymphocytes % 41.1 H Lymphocytes % (Manual) 33.7 Monocytes % 27.9 H Monocytes % (Manual) 26 H Eosinophils % 3.6 D Eosinophils % (Manual) 2.0 Basophils % 0.9 Basophils % (Manual) 1.0 Myelocytes % (Man) 0 Promyelocytes % (Man) 0 Blast Cells % (Manual) 0 Nucleated RBC % 0 Metamyelocytes 0 Hypochromia 0 Platelet Estimate Decreased Polychromasia 0 Poikilocytosis 0 Anisocytosis 1+ Microcytosis 0 Macrocytosis 1+ Target Cells 1+ Ovalocytes 1+ Stomatocytes 1+ Sodium Potassium Chloride Carbon Dioxide Anion Gap BUN Creatinine Creat Clearance w eGFR Random Glucose Calcium Magnesium Total Bilirubin AST ALT Alkaline Phosphatase Total Protein Albumin DEEDEE Virus DNA (PCR) Negative 07/22/18 07:50 WBC RBC Hgb Hct MCV MCH MCHC RDW Plt Count MPV Absolute Neuts (auto) Neutrophils % Neutrophils % (Manual) Band Neutrophils % Lymphocytes % Lymphocytes % (Manual) Monocytes % Monocytes % (Manual) Eosinophils % Eosinophils % (Manual) Basophils % Basophils % (Manual) Myelocytes % (Man) Promyelocytes % (Man) Blast Cells % (Manual) Nucleated RBC % Metamyelocytes Hypochromia Platelet Estimate Polychromasia Poikilocytosis Anisocytosis Microcytosis Macrocytosis Target Cells Ovalocytes Stomatocytes Sodium 140 Potassium 3.5 Chloride 102 Carbon Dioxide 30 Anion Gap 7 L BUN 14 Creatinine 0.6 Creat Clearance w eGFR > 60 Random Glucose 88 Calcium 8.6 Magnesium 1.8 Total Bilirubin 0.4 AST 60 H ALT 41 Alkaline Phosphatase 79 Total Protein 6.0 L Albumin 3.0 L DEEDEE Virus DNA (PCR) Active Medications Generic Name Dose Route Start Last Admin Trade Name Freq PRN Reason Stop Dose Admin Lacosamide 200 mg 07/21/18 10:00 07/22/18 09:33 Vimpat - PO 200 mg BID MIGUEL Administration Lactulose 20 gm 07/18/18 14:00 07/22/18 06:07 Cephulac (Oral Use) PO 20 gm TID MIGUEL Administration Levetiracetam 500 mg 07/21/18 10:00 07/22/18 09:33 Keppra - PO 500 mg BID MIGUEL Administration Lorazepam 1 mg 07/18/18 19:00 07/19/18 04:25 Ativan Injection - IM 1 mg Q6H PRN Administration AGITATION Magnesium Oxide 400 mg 07/20/18 22:00 07/22/18 09:33 Mag-Ox - PO 400 mg BID MIGUEL Administration Pantoprazole Sodium 20 mg 07/19/18 10:00 07/22/18 09:33 Protonix - PO 20 mg DAILY MIGUEL Administration ASSESSMENT/PLAN: Patient is a 58 year old male with a past medical history of hypertension, seizure disorder, ETOH abuse BIBA to ED after 3 witnessed falls. Upon presentation pt was unresponsive, actively seizing. He was intubated on admission, extubated on 07/18/18 and been downgraded to med surg. Neuro: Seizures on admission, now controlled. Possibly 2/2 to etoh withdrawal vs medication non compliance On Keppra 500mg bid, Lacosamide 200mg bid Maintain seizure precautions Pulmonary: Acute hypoxic respiratory failure secondary to seizures, resolved Extubated 07/17/18. tolerating room air. Psyche ETOH abuse/withdrawal completed valium protocol. Card: Hypertension. controlled GI ast/alt trending down Renal Hyponatremia, within normal limits Hypokalemia, resolved Hypomagnesemia, supplements added Heme: Thrombocytopenia plates 16>170 fen tolerating po monitor labs Prophy: scds protonix Visit type - Emergency Visit Emergency Visit: Yes ED Registration Date: 07/16/18 Care time: The patient presented to the Emergency Department on the above date and was hospitalized for further evaluation of their emergent condition. - New Patient This patient is new to me today: No - Critical Care Critical Care patient: No - Discharge Referral Referred to [facility] Med P.C.: No
[2018-07-22 14:34] LABS: ANISOCYTOSIS 1+; MACROCYTOSIS 1+; OVALOCYTE 1+; PLATELET ESTIMATE NORMAL; TARGET CELLS 1+
--- NOTE | 2018-07-22 14:38 | FALL ---
Fall Exam - Event Witnessed fall: No Location of Fall: Patient Room Fall from: Bed - Pre-Fall Mental Status: Uncooperative Current Medications: Current Medications Generic Name Dose Route Start Last Admin Trade Name Freq PRN Reason Stop Dose Admin Lacosamide 200 mg 07/21/18 10:00 07/22/18 09:33 Vimpat - PO 200 mg BID MIGUEL Administration Lactulose 20 gm 07/18/18 14:00 07/22/18 06:07 Cephulac (Oral Use) PO 20 gm TID MIGUEL Administration Levetiracetam 500 mg 07/21/18 10:00 07/22/18 09:33 Keppra - PO 500 mg BID MIGUEL Administration Lorazepam 1 mg 07/18/18 19:00 07/19/18 04:25 Ativan Injection - IM 1 mg Q6H PRN Administration AGITATION Magnesium Oxide 400 mg 07/20/18 22:00 07/22/18 09:33 Mag-Ox - PO 400 mg BID MIGUEL Administration Pantoprazole Sodium 20 mg 07/19/18 10:00 07/22/18 09:33 Protonix - PO 20 mg DAILY MIGUEL Administration - Post-Fall Patient Outcome: No Injury Treatment: None Vital Signs: Vital Signs Temperature 98 F 07/22/18 13:31 Pulse Rate 75 07/22/18 13:31 Respiratory Rate 17 07/22/18 13:31 Blood Pressure 101/70 07/22/18 13:31 O2 Sat by Pulse Oximetry (%) 98 07/20/18 10:30 LOC Post-Fall: Unchanged Identify factors for HIGH RISK for Head Injury: Alcoholic pt w liver dysf Critical Care Total Critical Care Time (in minutes): 30 Critical Care Statement: The care of this patient involved high complexity decision making to prevent further life threatening deterioration of the patient 's condition and/or to evaluate & treat vital organ system(s) failure or risk of failure.
[2018-07-22 15:22] LABS: IGA CSF 1.27 mg/dL (0.00-0.64)
[2018-07-22] MEDS ORDERED: PT OWN MED DRAWER 7, Y5N ONE (22:00)
[2018-07-23] MEDS: LACTULOSE 20 GM/30 ML UDC (FOR ORAL USE ONLY) PO SCH ×3 (06:54→22:00)
[2018-07-23] MEDS: MAGNESIUM OXIDE 400 MG TABLET (FP) PO SCH ×2 (10:09→22:00)
[2018-07-23] MEDS: LACOSAMIDE 50 MG TABLET PO SCH ×2 (10:09→22:00)
[2018-07-23] MEDS: levETIRAcetam 500 MG TABLET (FP) PO SCH ×2 (10:09→22:00)
[2018-07-23] MEDS: PANTOPRAZOLE 20 MG TABLET (FP) PO SCH (10:09)
--- NOTE | 2018-07-23 15:48 | PN ---
Physical Exam: SUBJECTIVE: Agitated today. sitting in hallway. requires a sitter for safety. OBJECTIVE: Vital Signs Period Temp Pulse Resp BP Sys/Rubio Pulse Ox Last 24 Hr 97.2 F-98.7 F 62-106 18-20 92-143/53-86 98 GENERAL: The patient is awake, and able to follow some verbal commands HEAD: Normal with no signs of trauma. EYES: PERRL, sclera anicteric, conjunctiva clear. ENT: Dry mucous membranes. LUNGS: Breath sounds equal, clear to auscultation bilaterally, no wheezes, no crackles, no accessory muscle use. HEART: rrr ABDOMEN: Soft, nontender, nondistended, normoactive bowel sounds. EXTREMITIES: No edema. Laboratory Results - last 24 hr 07/16/18 13:25 CSF Lyme IgG Ab 18 kDa Absent CSF Lyme IgG Ab 23 kDa Absent CSF Lyme IgG Ab 28 kDa Absent CSF Lyme IgG Ab 30 kDa Absent CSF Lyme IgG Ab 39 kDa Absent CSF Lyme IgG Ab 41 kDa Present H CSF Lyme IgG Ab 45 kDa Absent CSF Lyme IgG Ab 58 kDa Absent CSF Lyme IgG Ab 66 kDa Absent CSF Lyme IgG Ab 93 kDa Absent CSF Lyme IgM Ab 23 kDa Absent CSF Lyme IgM Ab 39 kDa Absent CSF Lyme IgM Ab 41 kDa Absent Lyme IgG Ab Interpret Negative Lyme IgM Ab Index Negative Active Medications Generic Name Dose Route Start Last Admin Trade Name Freq PRN Reason Stop Dose Admin Lacosamide 200 mg 07/21/18 10:00 07/23/18 10:09 Vimpat - PO 200 mg BID MIGUEL Administration Lactulose 20 gm 07/18/18 14:00 07/23/18 14:23 Cephulac (Oral Use) PO 20 gm TID MIGUEL Administration Levetiracetam 500 mg 07/21/18 10:00 07/23/18 10:09 Keppra - PO 500 mg BID MIGUEL Administration Lorazepam 1 mg 07/23/18 11:58 Ativan - PO Q8H PRN ANXIETY Magnesium Oxide 400 mg 07/20/18 22:00 07/23/18 10:09 Mag-Ox - PO 400 mg BID MIGUEL Administration Pantoprazole Sodium 20 mg 07/19/18 10:00 07/23/18 10:09 Protonix - PO 20 mg DAILY MIGUEL Administration ASSESSMENT/PLAN: Patient is a 58 year old male with a past medical history of hypertension, seizure disorder, ETOH abuse BIBA to ED after 3 witnessed falls. Upon presentation pt was unresponsive, actively seizing. He was intubated on admission, extubated on 07/18/18 and been downgraded to med surg. Neuro: Seizures on admission, now controlled. Possibly 06/19 to etoh withdrawal vs medication non compliance On Keppra 500mg bid, Lacosamide 200mg bid Maintain seizure precautions Pulmonary: Acute hypoxic respiratory failure secondary to seizures, resolved Extubated 07/17/18. tolerating room air. Psyche ETOH abuse/withdrawal completed valium protocol. Card: Hypertension. controlled GI ast/alt trending down Renal Hyponatremia, within normal limits Hypokalemia, resolved Hypomagnesemia, supplements added Heme: Thrombocytopenia plates 16>170 fen tolerating po monitor labs Prophy: scds protonix Awaiting placement Visit type - Emergency Visit Emergency Visit: Yes ED Registration Date: 07/16/18 Care time: The patient presented to the Emergency Department on the above date and was hospitalized for further evaluation of their emergent condition. - New Patient This patient is new to me today: No - Critical Care Critical Care patient: No - Discharge Referral Referred to [facility] Med P.C.: No
[2018-07-24] MEDS: LORazepam 0.5 MG TABLET PO PRN ×2 (02:05→10:14)
[2018-07-24] MEDS: LACTULOSE 20 GM/30 ML UDC (FOR ORAL USE ONLY) PO SCH ×3 (06:24→21:35)
[2018-07-24] MEDS ORDERED: diazePAM 2 MG TABLET PO ONE (09:34)
[2018-07-24] MEDS: LACOSAMIDE 50 MG TABLET PO SCH ×2 (10:13→21:35)
[2018-07-24] MEDS: MAGNESIUM OXIDE 400 MG TABLET (FP) PO SCH ×2 (10:14→21:35)
[2018-07-24] MEDS: levETIRAcetam 500 MG TABLET (FP) PO SCH ×2 (10:14→21:35)
[2018-07-24] MEDS: PANTOPRAZOLE 20 MG TABLET (FP) PO SCH (10:14)
[2018-07-24] MEDS: NICOTINE 21 MG/24 HOURS TOPICAL PATCH TD SCH (10:17)
[2018-07-24] MEDS: diazePAM 2 MG TABLET PO PRN (14:52)
--- NOTE | 2018-07-24 16:48 | PN ---
Physical Exam: SUBJECTIVE: Patient seen and examined at the bedside. OBJECTIVE: Vital Signs Period Temp Pulse Resp BP Sys/Rubio Pulse Ox Last 24 Hr 97.8 F-98.8 F 59-108 18-18 110-145/65-83 99-100 GENERAL: The patient is awake, and able to follow some verbal commands HEAD: Normal with no signs of trauma. EYES: PERRL, sclera anicteric, conjunctiva clear. ENT: Dry mucous membranes. LUNGS: Breath sounds equal, clear to auscultation bilaterally, no wheezes, no crackles, no accessory muscle use. HEART: rrr ABDOMEN: Soft, nontender, nondistended, normoactive bowel sounds. EXTREMITIES: No edema. Active Medications Generic Name Dose Route Start Last Admin Trade Name Freq PRN Reason Stop Dose Admin Diazepam 2 mg 07/24/18 14:38 07/24/18 14:52 Valium - PO 2 mg DAILY PRN Administration AGITATION Lacosamide 200 mg 07/21/18 10:00 07/24/18 10:13 Vimpat - PO 200 mg BID MIGUEL Administration Lactulose 20 gm 07/18/18 14:00 07/24/18 14:05 Cephulac (Oral Use) PO 20 gm TID MIGUEL Administration Levetiracetam 500 mg 07/21/18 10:00 07/24/18 10:14 Keppra - PO 500 mg BID MIGUEL Administration Magnesium Oxide 400 mg 07/20/18 22:00 07/24/18 10:14 Mag-Ox - PO 400 mg BID MIGUEL Administration Nicotine 21 mg 07/24/18 10:00 07/24/18 10:17 Nicoderm Patch - TD 21 mg DAILY MIGUEL Administration Pantoprazole Sodium 20 mg 07/19/18 10:00 07/24/18 10:14 Protonix - PO 20 mg DAILY MIGUEL Administration ASSESSMENT/PLAN: Patient is a 58 year old male with a past medical history of hypertension, seizure disorder, ETOH abuse BIBA to ED after 3 witnessed falls. Upon presentation pt was unresponsive, actively seizing. He was intubated on admission, extubated on 07/18/18 and been downgraded to med surg. Neuro: Seizures on admission, now controlled. Possibly 2/2 to etoh withdrawal vs medication non compliance On Keppra 500mg bid, Lacosamide 200mg bid Maintain seizure precautions Pulmonary: Acute hypoxic respiratory failure secondary to seizures, resolved Extubated 07/17/18. tolerating room air. Psyche ETOH abuse/withdrawal completed valium protocol. episodes of agitation. will give valium 2mg daily and as needed. Card: Hypertension. controlled GI ast/alt trending down Renal Hyponatremia, within normal limits Hypokalemia, resolved Hypomagnesemia, supplements added Heme: Thrombocytopenia plates 16>170 fen tolerating po monitor labs Prophy: scds protonix Awaiting placement Visit type - Emergency Visit Emergency Visit: Yes ED Registration Date: 07/16/18 Care time: The patient presented to the Emergency Department on the above date and was hospitalized for further evaluation of their emergent condition. - New Patient This patient is new to me today: No - Critical Care Critical Care patient: No - Discharge Referral Referred to [facility] Med P.C.: No
[2018-07-25] MEDS: LACTULOSE 20 GM/30 ML UDC (FOR ORAL USE ONLY) PO SCH ×3 (05:31→22:15)
[2018-07-25 09:01] LABS: BASO % 1.4 % (0-2.0); EOS % 3.1 % (0-4.5); HEMATOCRIT 30.3 % (35.4-49); HEMOGLOBIN 10.3 GM/dL (11.7-16.9); LYMPH % 39.6 % (8-40); MEAN CELL VOLUME 102.8 fl (80-96); NEUT % 37.9 % (42.8-82.8); PLATELET COUNT 275 K/MM3 (134-434); RBC 2.94 M/mm3 (4.00-5.60); RDW 13.5 % (11.9-15.9); WHITE BLOOD COUNT 9.5 K/mm3 (4.0-10.0)
[2018-07-25] MEDS: MAGNESIUM OXIDE 400 MG TABLET (FP) PO SCH ×2 (09:20→22:15)
[2018-07-25] MEDS: levETIRAcetam 500 MG TABLET (FP) PO SCH ×2 (09:20→22:15)
[2018-07-25] MEDS: PANTOPRAZOLE 20 MG TABLET (FP) PO SCH (09:20)
[2018-07-25] MEDS: LACOSAMIDE 50 MG TABLET PO SCH ×2 (09:20→22:41)
[2018-07-25] MEDS: NICOTINE 21 MG/24 HOURS TOPICAL PATCH TD SCH (09:20)
[2018-07-25 09:37] LABS: ALBUMIN 3.1 g/dl (3.4-5.0); ALK PHOS 80 U/L (45-117); ANION GAP 6 MMOL/L (8-16); BILIRUBIN,TOTAL 0.4 mg/dL (0.2-1); BLOOD UREA NITROGEN 12 mg/dL (7-18); CALCIUM 8.7 mg/dL (8.5-10.1); CHLORIDE 103 mmol/L (98-107); CO2 29 mmol/L (21-32); CREATININE 0.8 mg/dL (0.55-1.3); GLUCOSE,RANDOM 113 mg/dL (74-106); SGOT/AST 39 U/L (15-37); SGPT/ALT 33 U/L (13-61); SODIUM 138 mmol/L (136-145); TOT PROT 6.3 g/dl (6.4-8.2)
--- NOTE | 2018-07-25 16:15 | PN ---
Physical Exam: SUBJECTIVE: agitated today, dereje vest for safety OBJECTIVE: Vital Signs Period Temp Pulse Resp BP Sys/Rubio Pulse Ox Last 24 Hr 97.6 F-99.5 F 76-101 18-20 104-136/60-91 GENERAL: The patient is awake, and able to follow some verbal commands HEAD: Normal with no signs of trauma. EYES: PERRL, sclera anicteric, conjunctiva clear. ENT: Dry mucous membranes. LUNGS: Breath sounds equal, clear to auscultation bilaterally, no wheezes, no crackles, no accessory muscle use. HEART: rrr ABDOMEN: Soft, nontender, nondistended, normoactive bowel sounds. EXTREMITIES: No edema. Laboratory Results - last 24 hr 07/16/18 07/25/18 07/25/18 13:25 08:45 08:45 WBC 9.5 RBC 2.94 L Hgb 10.3 L Hct 30.3 L MCV 102.8 H MCH 35.0 H MCHC 34.0 RDW 13.5 Plt Count 275 D MPV 9.0 Absolute Neuts (auto) 3.6 Neutrophils % 37.9 L D Lymphocytes % 39.6 Monocytes % 18.0 H Eosinophils % 3.1 Basophils % 1.4 Nucleated RBC % 0 Sodium 138 Potassium 4.0 Chloride 103 Carbon Dioxide 29 Anion Gap 6 L BUN 12 Creatinine 0.8 Creat Clearance w eGFR > 60 Random Glucose 113 H Calcium 8.7 Total Bilirubin 0.4 AST 39 H ALT 33 Alkaline Phosphatase 80 Total Protein 6.3 L Albumin 3.1 L CSF Herpes II IgG Ab 0.48 Active Medications Generic Name Dose Route Start Last Admin Trade Name Jjq PRN Reason Stop Dose Admin Diazepam 2 mg 07/24/18 14:38 07/24/18 14:52 Valium - PO 2 mg DAILY PRN Administration AGITATION Lacosamide 200 mg 07/21/18 10:00 07/25/18 09:20 Vimpat - PO 200 mg BID MIGUEL Administration Lactulose 20 gm 07/18/18 14:00 07/25/18 14:40 Cephulac (Oral Use) PO 20 gm TID MIGUEL Administration Levetiracetam 500 mg 07/21/18 10:00 07/25/18 09:20 Keppra - PO 500 mg BID MIGUEL Administration Magnesium Oxide 400 mg 07/20/18 22:00 07/25/18 09:20 Mag-Ox - PO 400 mg BID MIGUEL Administration Nicotine 21 mg 07/24/18 10:00 07/25/18 09:20 Nicoderm Patch - TD 21 mg DAILY MIGUEL Administration Pantoprazole Sodium 20 mg 07/19/18 10:00 07/25/18 09:20 Protonix - PO 20 mg DAILY MIGUEL Administration ASSESSMENT/PLAN: ASSESSMENT/PLAN: Patient is a 58 year old male with a past medical history of hypertension, seizure disorder, ETOH abuse BIBA to ED after 3 witnessed falls. Upon presentation pt was unresponsive, actively seizing. He was intubated on admission, extubated on 07/18/18 and been downgraded to med surg. He is currently awaiting placement to a facility. Neuro: Seizures on admission, now controlled. Possibly 2/2 to etoh withdrawal vs medication non compliance On Keppra 500mg bid, Lacosamide 200mg bid Maintain seizure precautions Pulmonary: Acute hypoxic respiratory failure secondary to seizures, resolved Extubated 07/17/18. tolerating room air. Psyche ETOH abuse/withdrawal completed valium protocol. episodes of agitation. valium 2mg daily and as needed. Card: Hypertension. controlled GI ast/alt trending down Renal Hyponatremia, within normal limits Hypokalemia, resolved Hypomagnesemia, supplements added Heme: Thrombocytopenia, resolved fen tolerating po monitor labs Prophy: scds protonix Awaiting placement Visit type - Emergency Visit Emergency Visit: Yes ED Registration Date: 07/16/18 Care time: The patient presented to the Emergency Department on the above date and was hospitalized for further evaluation of their emergent condition. - New Patient This patient is new to me today: No - Critical Care Critical Care patient: No - Discharge Referral Referred to [facility] Med P.C.: No
[2018-07-26] MEDS: LACTULOSE 20 GM/30 ML UDC (FOR ORAL USE ONLY) PO SCH ×3 (06:35→23:45)
[2018-07-26] MEDS: NICOTINE 21 MG/24 HOURS TOPICAL PATCH TD SCH (09:13)
[2018-07-26] MEDS: LACOSAMIDE 50 MG TABLET PO SCH ×2 (09:13→23:44)
[2018-07-26] MEDS: MAGNESIUM OXIDE 400 MG TABLET (FP) PO SCH ×2 (09:14→23:44)
[2018-07-26] MEDS: PANTOPRAZOLE 20 MG TABLET (FP) PO SCH (09:14)
[2018-07-26] MEDS: levETIRAcetam 500 MG TABLET (FP) PO SCH ×2 (09:14→23:44)
[2018-07-26 13:19] LABS: MUMPS AB IGG CSF < 5.0 AU/mL (<=10.9)
--- NOTE | 2018-07-26 18:04 | PN ---
Physical Exam: SUBJECTIVE: Patient seen and examined at the bedside. in no acute distress. at times agitated. OBJECTIVE: Patient has been requiring a dereje vest for safety as he is (1) a fall risk and has fallen during this hospitalization and (2) he is impulsive and unsteady on his feet. Vital Signs Period Temp Pulse Resp BP Sys/Rubio Pulse Ox Last 24 Hr 97.3 F-98.8 F 62-98 20-20 109-132/68-79 99-100 GENERAL: The patient is awake, and able to follow some verbal commands HEAD: Normal with no signs of trauma. EYES: PERRL, sclera anicteric, conjunctiva clear. ENT: Dry mucous membranes. LUNGS: Breath sounds equal, clear to auscultation bilaterally, no wheezes, no crackles, no accessory muscle use. HEART: rrr ABDOMEN: Soft, nontender, nondistended, normoactive bowel sounds. EXTREMITIES: No edema. Laboratory Results - last 24 hr 07/16/18 07/16/18 13:25 13:25 CSF Lyme IgG [place]ot No Result Required. CSF Lyme IgM [place]ot No Result Required. CSF Lyme Disease DNA Negative CSF Herpes II IgG Ab 0.48 HSV I IgG Ab 0.06 HSV I DNA Quant (PCR) Negative HSV II DNA Quant (PCR) Negative Active Medications Generic Name Dose Route Start Last Admin Trade Name Freq PRN Reason Stop Dose Admin Diazepam 2 mg 07/24/18 14:38 07/24/18 14:52 Valium - PO 2 mg DAILY PRN Administration AGITATION Lacosamide 200 mg 07/21/18 10:00 07/26/18 09:13 Vimpat - PO 200 mg BID MIGUEL Administration Lactulose 20 gm 07/18/18 14:00 07/26/18 14:04 Cephulac (Oral Use) PO 20 gm TID MIGUEL Administration Levetiracetam 500 mg 07/21/18 10:00 07/26/18 09:14 Keppra - PO 500 mg BID MIGUEL Administration Magnesium Oxide 400 mg 07/20/18 22:00 07/26/18 09:14 Mag-Ox - PO 400 mg BID MIGUEL Administration Nicotine 21 mg 07/24/18 10:00 07/26/18 09:13 Nicoderm Patch - TD 21 mg DAILY MIGUEL Administration Pantoprazole Sodium 20 mg 07/19/18 10:00 07/26/18 09:14 Protonix - PO 20 mg DAILY MIGUEL Administration ASSESSMENT/PLAN: Patient is a 58 year old male with a past medical history of hypertension, seizure disorder, ETOH abuse BIBA to ED after 3 witnessed falls. Upon presentation pt was unresponsive, actively seizing. He was intubated on admission, extubated on 07/18/18 and been downgraded to med surg. He is currently awaiting placement to a facility. Neuro: Seizures on admission, now controlled. Possibly 2/2 to etoh withdrawal vs medication non compliance On Keppra 500mg bid, Lacosamide 200mg bid Maintain seizure precautions Pulmonary: Acute hypoxic respiratory failure secondary to seizures, resolved Extubated 07/17/18. tolerating room air. Psyche ETOH abuse/withdrawal completed valium protocol. episodes of agitation and impulsiveness. On valium 2mg daily prn for agitation. Although agitated, he can be re-directed by staff. Card: Hypertension. controlled GI ast/alt trending down Renal Hyponatremia, within normal limits Hypokalemia, resolved Hypomagnesemia, resolved. supplements added Heme: Thrombocytopenia, resolved fen tolerating po monitor labs Prophy: scds protonix Visit type - Emergency Visit Emergency Visit: Yes ED Registration Date: 07/16/18 Care time: The patient presented to the Emergency Department on the above date and was hospitalized for further evaluation of their emergent condition. - New Patient This patient is new to me today: No - Critical Care Critical Care patient: No - Discharge Referral Referred to [facility] Med P.C.: No
[2018-07-27] MEDS: LACTULOSE 20 GM/30 ML UDC (FOR ORAL USE ONLY) PO SCH ×3 (06:11→22:48)
[2018-07-27] MEDS: LACOSAMIDE 50 MG TABLET PO SCH ×2 (09:05→22:48)
[2018-07-27] MEDS: levETIRAcetam 500 MG TABLET (FP) PO SCH ×2 (09:05→22:48)
[2018-07-27] MEDS: MAGNESIUM OXIDE 400 MG TABLET (FP) PO SCH ×2 (09:05→22:49)
[2018-07-27] MEDS: NICOTINE 21 MG/24 HOURS TOPICAL PATCH TD SCH (09:06)
[2018-07-27] MEDS: PANTOPRAZOLE 20 MG TABLET (FP) PO SCH (09:06)
[2018-07-27 10:25] LABS: HEMATOCRIT 28.9 % (35.4-49); MCH 35.5 pg (25.7-33.7); MCHC 34.5 g/dl (32.0-35.9); MEAN CELL VOLUME 102.7 fl (80-96); MEAN PLT VOLUME 9.2 fl (7.5-11.1); PLATELET COUNT 277 K/MM3 (134-434); RBC 2.81 M/mm3 (4.00-5.60); RDW 13.6 % (11.9-15.9); WHITE BLOOD COUNT 9.4 K/mm3 (4.0-10.0)
[2018-07-27 10:53] LABS: ALBUMIN 2.8 g/dl (3.4-5.0); ALK PHOS 76 U/L (45-117); ANION GAP 7 MMOL/L (8-16); BILIRUBIN,TOTAL 0.2 mg/dL (0.2-1); BLOOD UREA NITROGEN 11 mg/dL (7-18); CALCIUM 8.1 mg/dL (8.5-10.1); CHLORIDE 103 mmol/L (98-107); CO2 27 mmol/L (21-32); CREATININE 0.8 mg/dL (0.55-1.3); GLUCOSE,RANDOM 121 mg/dL (74-106); POTASSIUM 4.4 mmol/L (3.5-5.1); SGOT/AST 31 U/L (15-37); SGPT/ALT 26 U/L (13-61); SODIUM 137 mmol/L (136-145); TOT PROT 5.9 g/dl (6.4-8.2)
--- NOTE | 2018-07-27 17:46 | PN ---
Progress Note, Physician History of Present Illness: Hung aldana/poncho in an attempt to assess patient off restraints in order to obtain rehab placement pt has no acute complaints. - Current Medication List Current Medications: Active Medications Diazepam (Valium -) 2 mg PO DAILY PRN PRN Reason: AGITATION Last Admin: 07/24/18 14:52 Dose: 2 mg Lacosamide (Vimpat -) 200 mg PO BID [facility] Last Admin: 07/27/18 09:05 Dose: 200 mg Lactulose (Cephulac (Oral Use)) 20 gm PO TID [facility] Last Admin: 07/27/18 14:29 Dose: 20 gm Levetiracetam (Keppra -) 500 mg PO BID [facility] Last Admin: 07/27/18 09:05 Dose: 500 mg Magnesium Oxide (Mag-Ox -) 400 mg PO BID [facility] Last Admin: 07/27/18 09:05 Dose: 400 mg Nicotine (Nicoderm Patch -) 21 mg TD DAILY [facility] Last Admin: 07/27/18 09:06 Dose: 21 mg Pantoprazole Sodium (Protonix -) 20 mg PO DAILY [facility] Last Admin: 07/27/18 09:06 Dose: 20 mg - Objective Vital Signs: Vital Signs Temperature 98.3 F 07/27/18 14:51 Pulse Rate 89 07/27/18 14:51 Respiratory Rate 18 07/27/18 14:51 Blood Pressure 121/75 07/27/18 14:51 O2 Sat by Pulse Oximetry (%) 96 07/27/18 09:00 Constitutional: Yes: Calm, Cachectic Eyes: Yes: PERRL HENT: Yes: Atraumatic, Normocephalic Neck: Yes: Supple, Trachea Midline Cardiovascular: Yes: Regular Rate and Rhythm Respiratory: Yes: Regular, CTA Bilaterally Gastrointestinal: Yes: Soft, Hypoactive Bowel Sounds ...Rectal Exam: Yes: WNL Musculoskeletal: Yes: Joint Stiffness Extremities: Yes: WNL Edema: No Peripheral Pulses: Left Radial: 2+, Right Radial: 2+ Integumentary: Yes: WNL Neurological: Yes: Alert, Unsteady Gait, Weakness, Other (forgetful) Psychiatric: Yes: Alert Labs: CBC, BMP 07/27/18 09:30 07/27/18 09:30 INR, PTT INR 1.74 (0.83-1.09) H 07/16/18 12:00 Problem List - Problems (1) Seizure Assessment/Plan: vimpat 200mg BID keppra 500mg BID valium 2mg daily PRN Code(s): R56.9 - UNSPECIFIED CONVULSIONS (2) HTN (hypertension) Assessment/Plan: cardiac diet Code(s): I10 - ESSENTIAL (PRIMARY) HYPERTENSION (3) Encephalopathy Assessment/Plan: lactulose 20gm TID observe off vest frequent neuro checks( q6hrs) Code(s): G93.40 - ENCEPHALOPATHY, UNSPECIFIED Impression/Plan Impression/Plan: GERD: protonix 20mg daily Bowel regimen with senna and colace DISPO: -full code -pt needs short rehab facility Visit type - Emergency Visit Emergency Visit: Yes ED Registration Date: 07/16/18 Care time: The patient presented to the Emergency Department on the above date and was hospitalized for further evaluation of their emergent condition. - New Patient This patient is new to me today: Yes Date on this admission: 07/27/18 - Critical Care Critical Care patient: No - Discharge Referral Referred to [facility] Med P.C.: No
[2018-07-27] MEDS ORDERED: SENNOSIDES 8.6MG TABLET (FP) PO PRN (17:47)
[2018-07-27] MEDS: DOCUSATE SODIUM 100 MG CAPSULE (FP) PO SCH ×2 (18:13→22:49)
[2018-07-28] MEDS: LACTULOSE 20 GM/30 ML UDC (FOR ORAL USE ONLY) PO SCH ×3 (05:49→22:45)
[2018-07-28] MEDS: PANTOPRAZOLE 20 MG TABLET (FP) PO SCH (11:09)
[2018-07-28] MEDS: LACOSAMIDE 50 MG TABLET PO SCH ×2 (11:09→22:45)
[2018-07-28] MEDS: DOCUSATE SODIUM 100 MG CAPSULE (FP) PO SCH ×2 (11:09→22:45)
[2018-07-28] MEDS: MAGNESIUM OXIDE 400 MG TABLET (FP) PO SCH ×2 (11:09→22:45)
[2018-07-28] MEDS: levETIRAcetam 500 MG TABLET (FP) PO SCH ×2 (11:10→22:45)
[2018-07-28] MEDS: NICOTINE 21 MG/24 HOURS TOPICAL PATCH TD SCH (11:11)
--- NOTE | 2018-07-28 11:26 | PN ---
Physical Exam: SUBJECTIVE: Patient seen and examined. He is confused. He says "I feel ok and don't need a doctor." OBJECTIVE: Vital Signs Period Temp Pulse Resp BP Sys/Rubio Pulse Ox Last 24 Hr 98.2 F-99.7 F 71-90 17-20 103-127/59-75 99 GENERAL: The patient is awake, alert, and confused, in no acute distress. LUNGS: Breath sounds equal, clear to auscultation bilaterally, no wheezes, no crackles, no accessory muscle use. HEART: Regular rate and rhythm, S1, S2 without murmur, rub or gallop. ABDOMEN: Soft, nontender, nondistended, normoactive bowel sounds, no guarding, no rebound, no hepatosplenomegaly, no masses. EXTREMITIES: 2+ pulses, warm, well-perfused, no edema. Active Medications Generic Name Dose Route Start Last Admin Trade Name Freq PRN Reason Stop Dose Admin Diazepam 2 mg 07/24/18 14:38 07/24/18 14:52 Valium - PO 2 mg DAILY PRN Administration AGITATION Docusate Sodium 100 mg 07/27/18 18:00 07/28/18 11:09 Colace - PO 100 mg BID MIGUEL Administration Lacosamide 200 mg 07/21/18 10:00 07/28/18 11:09 Vimpat - PO 200 mg BID MIGUEL Administration Lactulose 20 gm 07/18/18 14:00 07/28/18 05:49 Cephulac (Oral Use) PO 20 gm TID MIGUEL Administration Levetiracetam 500 mg 07/21/18 10:00 07/28/18 11:10 Keppra - PO 500 mg BID MIGUEL Administration Magnesium Oxide 400 mg 07/20/18 22:00 07/28/18 11:09 Mag-Ox - PO 400 mg BID MIGUEL Administration Nicotine 21 mg 07/24/18 10:00 07/28/18 11:11 Nicoderm Patch - TD 21 mg DAILY MIGUEL Administration Pantoprazole Sodium 20 mg 07/19/18 10:00 07/28/18 11:09 Protonix - PO 20 mg DAILY MIGUEL Administration Senna 2 tab 07/27/18 17:47 Senna - PO HS PRN CONSTIPATION ASSESSMENT/PLAN: This is a 58 year old man with a history of HTN, seizure disorder, alcohol abuse who presented to the ED seizing. 1. Acute hypoxic respiratory failure secondary to seizures - Extubated / 2. Seizure disorder with status epilepticus - Resolved - Continue Keppra, Vimpat, Valium 3. 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 Continuous alcohol dependence 5. Alcohol withdrawal - Resolved 6. Anemia - Macrocytic, likely secondary to alcohol use - Stable 7. Thrombocytopenia - Likely secondary to liver disease - Transfused 1 unit platelets with improvement - HIT Ab negative 8. Hyponatremia - Improved 9. Hypokalemia - Improved 10. Hypomagnesemia - Improved 11. Hypophosphatemia - Improved 12. Disposition - Plan for discharge to SNF Visit type - Emergency Visit Emergency Visit: Yes ED Registration Date: 07/16/18 Care time: The patient presented to the Emergency Department on the above date and was hospitalized for further evaluation of their emergent condition. - New Patient This patient is new to me today: No - Critical Care Critical Care patient: No - Discharge Referral Referred to [facility] Med P.C.: No
[2018-07-28] MEDS: diazePAM 2 MG TABLET PO PRN (15:43)
[2018-07-29] MEDS: LACTULOSE 20 GM/30 ML UDC (FOR ORAL USE ONLY) PO SCH ×3 (06:57→21:30)
[2018-07-29] MEDS: NICOTINE 21 MG/24 HOURS TOPICAL PATCH TD SCH (11:33)
[2018-07-29] MEDS: MAGNESIUM OXIDE 400 MG TABLET (FP) PO SCH ×2 (11:34→21:30)
[2018-07-29] MEDS: levETIRAcetam 500 MG TABLET (FP) PO SCH ×2 (11:34→21:30)
[2018-07-29] MEDS: LACOSAMIDE 50 MG TABLET PO SCH ×2 (11:34→21:30)
[2018-07-29] MEDS: DOCUSATE SODIUM 100 MG CAPSULE (FP) PO SCH ×2 (11:34→21:30)
[2018-07-29] MEDS: PANTOPRAZOLE 20 MG TABLET (FP) PO SCH (11:34)
[2018-07-29] MEDS ORDERED: LEVOTHYROXINE NA 25 MCG TABLET (FP) PO ONE (15:07)
[2018-07-29] MEDS ORDERED: diazePAM 2 MG TABLET PO PRN (15:25)
--- NOTE | 2018-07-29 16:00 | PN ---
Progress Note, Physician History of Present Illness: -Pt sent for repeat head CT which was negative for acute findings - routine TSH high and T4F low, pt started on synthroid 25mcg daily -Ammonia levels now normal, lactulose decreased from TID to BID, consider again decreasing dose in the morning. -Discharge pending rehab placement. - Current Medication List Current Medications: Active Medications Diazepam (Valium -) 2 mg PO DAILY PRN PRN Reason: AGITATION Docusate Sodium (Colace -) 100 mg PO BID [facility] Last Admin: 07/29/18 11:34 Dose: 100 mg Lacosamide (Vimpat -) 200 mg PO BID [facility] Last Admin: 07/29/18 11:34 Dose: 200 mg Lactulose (Cephulac (Oral Use)) 20 gm PO BID [facility] Levetiracetam (Keppra -) 500 mg PO BID [facility] Last Admin: 07/29/18 11:34 Dose: 500 mg Levothyroxine Sodium (Synthroid -) 25 mcg PO DAILY@0700 [facility] Magnesium Oxide (Mag-Ox -) 400 mg PO BID [facility] Last Admin: 07/29/18 11:34 Dose: 400 mg Nicotine (Nicoderm Patch -) 21 mg TD DAILY [facility] Last Admin: 07/29/18 11:33 Dose: 21 mg Pantoprazole Sodium (Protonix -) 20 mg PO DAILY [facility] Last Admin: 07/29/18 11:34 Dose: 20 mg Senna (Senna -) 2 tab PO HS PRN PRN Reason: CONSTIPATION - Objective Vital Signs: Vital Signs Temperature 98.5 F 07/29/18 14:41 Pulse Rate 85 07/29/18 14:41 Respiratory Rate 18 07/29/18 14:41 Blood Pressure 105/85 07/29/18 14:41 O2 Sat by Pulse Oximetry (%) 99 07/29/18 09:00 Constitutional: Yes: Calm, Cachectic Eyes: Yes: PERRL, Sclera Icterus HENT: Yes: Atraumatic, Normocephalic Neck: Yes: Supple Cardiovascular: Yes: Regular Rate and Rhythm Respiratory: Yes: Regular, CTA Bilaterally Gastrointestinal: Yes: Normal Bowel Sounds, Soft ...Rectal Exam: Yes: Deferred Musculoskeletal: Yes: WNL Extremities: Yes: Cool Edema: No Peripheral Pulses WNL: Yes Peripheral Pulses: Left Radial: 2+, Right Radial: 2+, Left Doralis Pedis: 2+, Right Dorsalis Pedis: 2+ Integumentary: Yes: WNL, Venous Stasis Changes ...Motor Strength: WNL Psychiatric: Yes: Alert Labs: CBC, BMP 07/27/18 09:30 07/27/18 09:30 INR, PTT INR 1.74 (0.83-1.09) H 07/16/18 12:00 - ....Imaging Cat Scan: Report Reviewed (Head CT 07-29-2018 No significant interval change. Moderate Hypertrophy. Focal encephalomalacia again seen in frontal lobe, anteriorly. No gross acute intracaranial pathology.) Problem List - Problems (1) Seizure Assessment/Plan: vimpat 200mg BID keppra 500mg BID valium 2mg daily PRN outpt neuro follow up Code(s): R56.9 - UNSPECIFIED CONVULSIONS (2) HTN (hypertension) Assessment/Plan: cardiac diet Code(s): I10 - ESSENTIAL (PRIMARY) HYPERTENSION (3) Encephalopathy Assessment/Plan: lactulose 20gm decreased to BID repeat head CT negative Pt awaiting rehab placement Code(s): G93.40 - ENCEPHALOPATHY, UNSPECIFIED Impression/Plan Impression/Plan: GERD: protonix 20mg daily Bowel regimen with senna and colace DISPO: -full code -pt needs short rehab facility Visit type - Emergency Visit Emergency Visit: Yes ED Registration Date: 07/16/18 Care time: The patient presented to the Emergency Department on the above date and was hospitalized for further evaluation of their emergent condition. - New Patient This patient is new to me today: No - Critical Care Critical Care patient: No - Discharge Referral Referred to [facility] Med P.C.: No
[2018-07-30] MEDS ORDERED: LEVOTHYROXINE NA 25 MCG TABLET (FP) PO SCH (07:00)
[2018-07-30 09:52] LABS: HEMATOCRIT 28.9 % (35.4-49); MCH 35.1 pg (25.7-33.7); MCHC 34.5 g/dl (32.0-35.9); MEAN CELL VOLUME 101.8 fl (80-96); MEAN PLT VOLUME 8.8 fl (7.5-11.1); PLATELET COUNT 312 K/MM3 (134-434); RBC 2.84 M/mm3 (4.00-5.60); RDW 13.7 % (11.9-15.9); WHITE BLOOD COUNT 8.5 K/mm3 (4.0-10.0)
[2018-07-30 10:18] LABS: ALBUMIN 2.8 g/dl (3.4-5.0); ALK PHOS 70 U/L (45-117); ANION GAP 8 MMOL/L (8-16); BILIRUBIN,TOTAL 0.2 mg/dL (0.2-1); BLOOD UREA NITROGEN 11 mg/dL (7-18); CALCIUM 8.5 mg/dL (8.5-10.1); CHLORIDE 100 mmol/L (98-107); CO2 26 mmol/L (21-32); CREATININE 0.8 mg/dL (0.55-1.3); GLUCOSE,RANDOM 146 mg/dL (74-106); MAGNESIUM 1.9 mg/dL (1.8-2.4); PHOSPHOROUS 3.2 mg/dL (2.5-4.9); POTASSIUM 4.3 mmol/L (3.5-5.1); SGOT/AST 23 U/L (15-37); SGPT/ALT 21 U/L (13-61); SODIUM 133 mmol/L (136-145); TOT PROT 5.8 g/dl (6.4-8.2)
[2018-07-30] MEDS: DOCUSATE SODIUM 100 MG CAPSULE (FP) PO SCH (11:14)
[2018-07-30] MEDS: LACTULOSE 20 GM/30 ML UDC (FOR ORAL USE ONLY) PO SCH (11:14)
[2018-07-30] MEDS: MAGNESIUM OXIDE 400 MG TABLET (FP) PO SCH (11:15)
[2018-07-30] MEDS: PANTOPRAZOLE 20 MG TABLET (FP) PO SCH (11:15)
[2018-07-30] MEDS: LACOSAMIDE 50 MG TABLET PO SCH (11:15)
[2018-07-30] MEDS: NICOTINE 21 MG/24 HOURS TOPICAL PATCH TD SCH (11:17)
[2018-07-30] MEDS: levETIRAcetam 500 MG TABLET (FP) PO SCH (11:17)
--- NOTE | 2018-07-30 11:18 | CONSULT ---
Admitting History and Physical - Primary Care Physician PCP: Lilian Fernandez - Admission Limitations to Obtaining History: Clinical Condition - Smoking History Smoking history: Never smoked Have you smoked in the past 12 months: No Aproximately how many cigarettes per day: 4 - Alcohol/Substance Use Hx Alcohol Use: No History - Admission Reason For Visit: SEPSIS - General Mental Status: Awake and Alert, Able to Follow Commands, Forgetful Attention: Intact Ability to Follow Directions: Good Head/Neck Control: WFL - Hearing Hearing: Functional Speech Evaluation - Communication Primary Language: KHMER Communication: Yes: Within Normal Limits Oral Expression Ability: Yes: No Impairment - Speech Production Able to Make Needs Known: Yes: WNL Intelligibility: Yes: WNL - Speech Characteristics Voice Loudness: Normal Voice Pitch: Yes: Normal Voice Phonatory-based Quality: Yes: Normal Speech Pattern: Normal Nasal Resonance: Normal Articulation: Yes: Precise Rate of Speech: Intact - Language/Auditory Comprehension Follows: Yes: 1 Stage Simple Commands - Language/Verbal Expression Able to Respond to Simple Queries: Yes: WNL Able to Communicate Wants and Needs: Yes: WNL Functional Communication Status: Yes: WNL - Swallow Evaluation/Bedside Assessment Current Nutritional Intake: Soft (receiving chopped food) Oral Secretions: Yes: WFL Dentition: Yes: Edentulous Facial Symmetry at Rest: Symmetrical Facial Symmetry on Retraction: Symmetrical Against Resistance Opening: Normal Against Resistance Closing: Normal Pucker Lips: Normal Smile: Normal Lingual Movement: Normal, Symmetric Lingual Speed of Movement: Normal Lingual Movement Strgth Against Opposition: Normal Lingual Movement Characteristics: Normal Velopharyngeal Movement: Normal Laryngeal Elevation: WFL Laryngeal Movement: Able to Palpate Rate of Intake: WFL Bolus Size: WFL Labial Seal: WFL Chewing: WFL Oral Prep Time: WFL A-P Transit: WFL Timing of Swallow: WFL Coughing/Throat Clear: No Change in Voice: No Recommendations - Speech Evaluation, Impression/Plan Impression: No signs of dysphagia. Edentulous but efficient mastication. Reported to not eat impulsively. - Dysphagia Impressions/Plan Swallowing Skills: WFL Dysphagia Impressions: No Impairment *Silent aspiration: cannot be R/O at bedside - Recommendations Diet Consistency: Regular Medication Administration: Whole with water Liquids: Thin Liquids
[2018-07-30 15:17] VITALS: BP 134/73; PULSE 83; TEMP 98.6
--- NOTE | 2018-07-30 15:54 | DS ---
Physical Exam: SUBJECTIVE: Patient seen and examined. asymptomatic. eager to go to Rehab. denies CP, SOB, fever, chills, N/V/C/D OBJECTIVE: Vital Signs Period Temp Pulse Resp BP Sys/Rubio Pulse Ox Last 24 Hr 98.4 F-98.6 F 67-83 18-20 105-140/66-79 98-100 PHYSICAL EXAM GENERAL: The patient is awake, alert, and fully oriented, in no acute distress. HEAD: Normal with no signs of trauma. EYES: PERRL, extraocular movements intact, sclera anicteric, conjunctiva clear. ENT: Ears normal, nares patent, oropharynx clear without exudates, moist mucous membranes. NECK: Trachea midline, full range of motion, supple. LUNGS: Breath sounds equal, clear to auscultation bilaterally, no wheezes, no crackles, no accessory muscle use. HEART: Regular rate and rhythm, S1, S2 without murmur, rub or gallop. ABDOMEN: Soft, nontender, nondistended, normoactive bowel sounds, no guarding, no rebound, no hepatosplenomegaly, no masses. EXTREMITIES: 2+ pulses, warm, well-perfused, no edema. NEUROLOGICAL: Cranial nerves II through XII grossly intact. Normal speech, gait not observed. PSYCH: Normal mood, normal affect. SKIN: Warm, dry, normal turgor, no rashes or lesions noted. LABS Laboratory Results - last 24 hr 07/30/18 07/30/18 09:30 09:30 WBC 8.5 RBC 2.84 L Hgb 10.0 L Hct 28.9 L MCV 101.8 H MCH 35.1 H MCHC 34.5 RDW 13.7 Plt Count 312 MPV 8.8 Sodium 133 L Potassium 4.3 Chloride 100 Carbon Dioxide 26 Anion Gap 8 BUN 11 Creatinine 0.8 Creat Clearance w eGFR 99.29 Random Glucose 146 H Calcium 8.5 Phosphorus 3.2 Magnesium 1.9 Total Bilirubin 0.2 AST 23 ALT 21 Alkaline Phosphatase 70 Total Protein 5.8 L Albumin 2.8 L HOSPITAL COURSE: Date of Admission:07/16/18 Date of Discharge: 07/30/18 ADmitting diagnosis: Seizure, acute hypoxic respiratory failure, thrombocytopenia Pre hospital course 58 year old male with PMH HTN, seizure disorder, ETOH abuse BIBA to ED after 3 witnessed falls. Upon presentation pt was unresponsive, actively seizing. In her he recieved the anti seizure later on was intubated and started on propofol .He has multiple admissions to hospital for seizure and alcohol intoxication. Subsequent hospital course was intubated in the ER as he was actively seizing for airway protection. LP was done to r/o menningitis. extubated. Imaging done showing encephalomacia. seen by neuro. vimpat started. pt remained seizure free. had thrombocytopenia and received 1 unit of platelets. was d/c to [facility] Minutes to complete discharge: 40 Discharge Summary Reason For Visit: SEPSIS Current Active Problems Altered mental status (Acute) Encephalopathy (Acute) Seizure (Acute) Sepsis (Acute) Condition: Improved - Instructions Diet, Activity, Other Instructions: You were admitted to the hospital because of your seizures. You were placed on a breathing machine temporarily to protect your airway, Your seizure medications were adjusted. Refer to medication list for these changes Continue a low salt diet Refrain from drinking alcohol as this is detrimental to your health and is affecting your liver. Follow up with your primary care doctor after discharge from rehab. You should have your thyroid function tested as it was slightly elevated here. Follow up with the neurologist. there may need more testing Return to the ER if you develop chest pain, difficulty breathing or fever (temp >101) Referrals: Fabrizio Saldivar MD [Staff Physician] - Disposition: RETIREMENT FACILITY - Home Medications Comprehensive Discharge Medication List: Ambulatory Orders Amlodipine Besylate [Norvasc -] 10 mg PO DAILY 02/15/18 Folic Acid - 1 mg PO DAILY #30 tablet 02/22/18 Multivitamins [Multivit ([facility] Formulary)] 1 tab PO DAILY #30 tab 02/22/18 Thiamine HCl [Vitamin B1 -] 100 mg PO DAILY #30 tablet 02/22/18 levETIRAcetam [Keppra -] 500 mg PO BID #60 tablet 02/22/18 Lacosamide [Vimpat -] 200 mg PO BID tab MDD 2 tabs 07/30/18 Nicotine Patch [Nicoderm Patch -] 21 mg TD DAILY patch 07/30/18 Sennosides [Senna -] 2 tab PO HS PRN tablet 07/30/18 This patient is new to me today: Yes Date on this admission: 07/30/18 Emergency Visit: Yes ED Registration Date: 07/16/18 Care time: The patient presented to the Emergency Department on the above date and was hospitalized for further evaluation of their emergent condition. Critical Care patient: No - Discharge Referral Referred to [facility] No
[2018-08-04 03:13] LABS: TOXOPLASMA IGG,CSF < 3.0 IU/mL (.)
== END 2018-07-30 19:11 | DRG 133 ==
LOC: JER 09:13 → JERBED 12:06 → JICU 14:13 → J5S 07-18 13:39
PROVIDERS: ADMIT Internal Medicine; ATTEND Internal Medicine
PROC: 5A1935Z Respiratory Ventilation, Less than 24 Consecutive Hours (ICD-10-PCS; principal; 2018-07-16)
PROC: 0BH17EZ Insertion of Endotracheal Airway into Trachea, Via Natural or Artificial Opening (ICD-10-PCS; 2018-07-16)
PROC: 009U3ZX Drainage of Spinal Canal, Percutaneous Approach, Diagnostic (ICD-10-PCS; 2018-07-16)
DX: J96.01 Acute respiratory failure with hypoxia (principal); G93.40 Encephalopathy, unspecified; G40.911 Epilepsy, unspecified, intractable, with status epilepticus; E72.20 Disorder of urea cycle metabolism, unspecified; R64 Cachexia; E87.2 Acidosis; D69.6 Thrombocytopenia, unspecified; G93.89 Other specified disorders of brain; E83.39 Other disorders of phosphorus metabolism; K86.1 Other chronic pancreatitis; E83.42 Hypomagnesemia; E87.1 Hypo-osmolality and hyponatremia; E87.6 Hypokalemia; I10 Essential (primary) hypertension; F10.239 Alcohol dependence with withdrawal, unspecified; R29.6 Repeated falls; F12.10 Cannabis abuse, uncomplicated; Z68.1 Body mass index [BMI] 19.9 or less, adult; E16.2 Hypoglycemia, unspecified; R40.2432 Glasgow coma scale score 3-8, at arrival to emergency department; Z91.14 Patient's other noncompliance with medication regimen; R26.81 Unsteadiness on feet
CPT/HCPCS: 36415; 36430; 36600; 70450-TC; 71045-TC-FY; 72125-TC; 76705-TC; 80048; 80053; 80076; 80177; 80185; 80307; 81003; 81015; 82140; 82172; 82375; 82550; 82553; 82784; 82803; 82945; 82962; 82977; 83010; 83050; 83605; 83735; 83883; 84100; 84157; 84439; 84443; 84460; 84484; 85025; 85027; 85610; 85730; 86022; 86592; 86617; 86663; 86664; 86665; 86694; 86695; 86704; 86706; 86707; 86708; 86735; 86765; 86777; 86787; 86788; 86789; 86803; 86850; 86900; 86901; 87040; 87086; 87340; 87389; 87476; 87529; 87798; 87804; 93005; 93010; 97116-GP; 97161-GP; 99285-25; J0131; J1644; J7030; P9034; P9038

== ENCOUNTER 2019-11-23 15:56 | Inpatient (IN) | payer OTHER ==
[2019-11-23 16:29] VITALS: BMI 21.1
[2019-11-23 17:30] LABS: EPI CELLS 17 /uL (0-25.1); HYALINE CASTS 0 /uL (0-3.1); URINE APPEARANCE CLEAR; URINE BACTERIA 462 /uL (0-1359); URINE BILIRUBIN NEGATIVE (NEGATIVE); URINE COLOR YELLOW; URINE GLUCOSE (UA) 2+ (NEGATIVE); URINE KETONE NEGATIVE (NEGATIVE); URINE LEUK ESTERASE NEGATIVE (NEGATIVE); URINE NITRITE NEGATIVE (NEGATIVE); URINE PROTEIN 1+ (NEGATIVE); URINE RBC 9 /uL (0-23.9); URINE UROBILINOGEN 0.2 mg/dL (0.2-1.0); URINE WBC 12 /uL (0-25.8)
[2019-11-23] MEDS ORDERED: levETIRAcetam 500 MG TABLET (FP) PO ONE ×3 (18:29→22:43)
--- NOTE | 2019-11-23 18:34 | PDOC ---
Documentation entered by Zora Mendoza SCRIBE, acting as scribe for Juancarlos Reyes MD. Juancarlos Reyes MD: This documentation has been prepared by the Kelly whitfield Adrianna, SCRIBE, under my direction and personally reviewed by me in its entirety. I confirm that the documentation accurately reflects all work, treatment, procedures, and medical decision making performed by me. Attending Attestation - Resident Resident Name: Rupesh Marie - ED Attending Attestation I have performed the following: I have examined & evaluated the patient, The case was reviewed & discussed with the resident, I agree w/resident's findings & plan, Exceptions are as noted - HPI HPI: The patient is a 59 year old male, with significant PMH of seizures (last episode was 2 years ago- no longer on meds), EtOH abuse, nicotine dependence, who presents to the ED s/p possible seizure. Patient was found in his apartment complex on the ground by his super. He is unsure how long he was down for and has no recollection of the episode. He notes upon waking up, he felt post-ictal like he typically does after his prior episodes. Denies tongue biting or incontinence. Allergies: NKA, NKDA Surgical History: None reported Social History: EtOH abuse. Daily smoker - Physicial Exam PE: Agree with resident exam - Medical Decision Making 11/25/19 11:55 59 M with likely seizure. - Labs - CT head - Discuss w/ neuro Discharge - Discharge Information Problems reviewed: Yes Clinical Impression/Diagnosis: Seizure - Follow up/Referral - Patient Discharge Instructions - Post Discharge Activity
--- NOTE | 2019-11-23 18:45 | PDOC ---
History of Present Illness - General Chief Complaint: Seizure Stated Complaint: SEIZURE Time Seen by Provider: 11/23/19 16:29 History Source: Patient Exam Limitations: No Limitations - History of Present Illness Initial Comments: 11/23/19 18:39 59 yo male pmh seizures presents to the ED after LOC and found down. EMS report pt found at the bottom of his steps, [address], by his land lord, pt does not remember events prior to or after the fall. Pt does not know how long he has been down. States he feels like it may have been a siezure. Pt reports last seizure 2 years ago, not on any medications (was on Dilantin) does not have a current Neurologist (was followed at [facility]). Pt denies CP, SOB, HOLLAND, changes in vision, weakness or sensory changes on 1 side , N/V/F/C, changes in speech. Past History - Medical History Allergies/Adverse Reactions: Allergies Allergy/AdvReac Type Severity Reaction Status Date / Time No Known Allergies Allergy Verified 07/16/18 09:34 Home Medications: Ambulatory Orders Amlodipine Besylate [Norvasc -] 10 mg PO DAILY 02/15/18 Folic Acid - 1 mg PO DAILY #30 tablet 02/22/18 Multivitamins [Multivit ([facility] Formulary)] 1 tab PO DAILY #30 tab 02/22/18 Thiamine HCl [Vitamin B1 -] 100 mg PO DAILY #30 tablet 02/22/18 levETIRAcetam [Keppra -] 500 mg PO BID #60 tablet 02/22/18 Lacosamide [Vimpat -] 200 mg PO BID tab MDD 2 tabs 07/30/18 Nicotine Patch [Nicoderm Patch -] 21 mg TD DAILY patch 07/30/18 Sennosides [Senna -] 2 tab PO HS PRN tablet 07/30/18 Ascorbic Acid [Vitamin C -] 500 mg PO BID 08/13/19 Ferrous Sulfate 325 mg PO BID 08/13/19 Naltrexone HCl 50 mg PO DAILY #30 tablet 11/07/19 Asthma: No Cancer: No Cardiac Disorders: No CVA: No COPD: No CHF: No Diabetes: No GI Disorders: Yes (pancreatitis 2007) Disorders: No HTN: Yes Liver Disease: Yes (cirrhosis) Seizures: Yes (? drug related) Thyroid Disease: No - Psycho-Social/Smoking History Smoking History: Current every day smoker Have you smoked in the past 12 months: Yes Number of Cigarettes Smoked Daily: 3 Information on smoking cessation initiated: No 'Breaking Loose' booklet given: 09/09/12 - Substance Abuse Hx (Audit-C & DAST Scrn) How often the patient has a drink containing alcohol: Monthly or less How often the patient has six or more drinks on one occasion: Less than monthly Score: In Men: 4 or > Positive; In Women: 3 or > Positive: 2 Screen Result (Pos requires Nsg. Audit-10AR): Negative In the last yr the pt used illegal drug/Rx for NonMed reason: No Score: Yes response is considered Positive: 0 Screen Result (Positive result requires Nsg. DAST-10): Negative Review of Systems - Review of Systems Constitutional: Yes: Symptoms Reported HEENTM: Yes: Symptoms Reported Respiratory: Yes: Symptoms reported Cardiac (ROS): Yes: Symptoms Reported ABD/GI: Yes: Symptoms Reported : Yes: Symptoms Reported Musculoskeletal: Yes: Symptoms Reported Integumentary: Yes: Symptoms Reported Neurological: Yes: Symptoms reported *Physical Exam - Vital Signs Last Vital Signs Temp Pulse Resp BP Pulse Ox 99.3 F 89 20 152/88 99 11/23/19 16:26 11/23/19 16:26 11/23/19 16:26 11/23/19 16:26 11/23/19 16:26 - Physical Exam General Appearance: Yes: Nourished, Appropriately Dressed. No: Apparent Distress HEENT: positive: EOMI, CRYSTAL Neck: positive: Supple. negative: Carotid bruit Respiratory/Chest: positive: Lungs Clear, Normal Breath Sounds. negative: Respiratory Distress, Accessory Muscle Use, Rapid RR, Crackles, Rales, Rhonchi, Stridor, Wheezing Cardiovascular: positive: Regular Rhythm, Regular Rate, S1, S2. negative: Edema, JVD, Murmur Vascular Pulses: Dorsalis-Pedis (R): 4+, Doralis-Pedis (L): 4+ Gastrointestinal/Abdominal: positive: Flat, Soft. negative: Pulsatile Mass, Protuberent, Distended, Guarding, Rebound, Tenderness Musculoskeletal: negative: CVA Tenderness Extremity: positive: Normal Capillary Refill, Normal Inspection, Normal Range of Motion Integumentary: positive: Normal Color, Dry, Warm Neurologic: positive: financial dealers II-XII NML intact, Fully Oriented, Alert, Normal Mood/Affect, Normal Response, Motor Strength 5/5. negative: EOM Palsy, Facial Droop, Numbness, Sensory Deficit, Finger to Nose, Confused, Disoriented ED Treatment Course - LABORATORY CBC & Chemistry Diagram: 11/23/19 18:40 11/23/19 18:30 - ADDITIONAL ORDERS Additional order review: Laboratory Results 11/23/19 17:07 Urine Color Yellow Urine Appearance Clear Urine pH 6.0 Ur Specific [place] 1.012 Urine Protein 1+ H Urine Glucose (UA) 2+ H Urine Ketones Negative Urine Blood Negative Urine Nitrite Negative Urine Bilirubin Negative Urine Urobilinogen 0.2 Ur Leukocyte Esterase Negative Urine WBC (Auto) 12 Urine RBC (Auto) 9 Urine Casts (Auto) 0 U Epithel Cells (Auto) 17 Urine Bacteria (Auto) 462 - RADIOLOGY Radiology Studies Ordered: Category Date Time Status CERVICAL SPINE CT W/O CONTR [CT] Stat CT Scan 11/23/19 16:[address] WITHOUT CONTRAST [CT] Stat CT Scan 11/23/19 16:41 Completed CHEST X-RAY PORTABLE* [RAD] Stat Radiology 11/23/19 16:40 Completed Medical Decision Making - Medical Decision Making 11/23/19 18:46 59 yo male pmh seizures presents to the ED after LOC and found down. EMS report pt found at the bottom of his steps, [address], by his land lord, pt does not remember events prior to or after the fall. Pt does not know how long he has be en down. States he feels like it may have been a siezure. Pt reports last seizure 2 years ago, not on any medications (was on Dilantin) does not have a current Neurologist (was followed at [facility]). Pt denies CP, SOB, HOLLAND, changes in vision, weakness or sensory changes on 1 side , N/V/F/C, changes in speech. Vitals stable EKG NSR vent rate 67. Noted peaked T waves. Pending CMP DDX INLT: Syncope and collapse, seizure, ACS, arrhythmia CT head and C spine, labs, EKG, CXR Discussed case with Dr. Hodge, states likely seizure, pt should be admitted for new onset seizures (not controlled or on medications or followed by outpatient neurology) Brain MRI non con, EEG and 1000 mg Keppra BID for seizures Will s/o to night team for follow up labs and complete admission Discharge - Discharge Information Problems reviewed: Yes Clinical Impression/Diagnosis: Seizure - Follow up/Referral - Patient Discharge Instructions - Post Discharge Activity
[2019-11-23 18:50] LABS: BASO % 0.7 % (0-2.0); EOS % 0.5 % (0-4.5); HEMATOCRIT 45.5 % (35.4-49); HEMOGLOBIN 14.9 GM/dL (11.7-16.9); LYMPH % 18.6 % (8-40); MCH 34.4 pg (25.7-33.7); MCHC 32.8 g/dl (32.0-35.9); MEAN CELL VOLUME 104.9 fl (80-96); MONO % 10.7 % (3.8-10.2); NEUT % 69.5 % (42.8-82.8); PLATELET COUNT 89 K/MM3 (134-434); RBC 4.34 M/mm3 (4.00-5.60); RDW 15.5 % (11.9-15.9); WHITE BLOOD COUNT 6.8 K/mm3 (4.0-10.0)
[2019-11-23 19:24] LABS: ALBUMIN 3.8 g/dl (3.4-5.0); ALK PHOS 96 U/L (45-117); ANION GAP 14 MMOL/L (8-16); BILIRUBIN,TOTAL 0.4 mg/dL (0.2-1); CALCIUM 8.9 mg/dL (8.5-10.1); CHLORIDE 104 mmol/L (98-107); CO2 17 mmol/L (21-32); CREATININE 0.9 mg/dL (0.55-1.3); GLUCOSE,RANDOM 94 mg/dL (74-106); POTASSIUM 5.1 mmol/L (3.5-5.1); SGOT/AST 56 U/L (15-37); SGPT/ALT 25 U/L (13-61); SODIUM 134 mmol/L (136-145); TOT PROT 7.3 g/dl (6.4-8.2)
[2019-11-23] MEDS ORDERED: SODIUM CHLORIDE 1,000 ML IV SCH (21:30)
[2019-11-23] MEDS ORDERED: FOLIC ACID INJECTION - 1 MG, THIAMINE HCL 100 MG, MULTIVIT INJECTION ADULT 10 ML in SOD... IVPB ONE (21:32)
[2019-11-23] MEDS: levETIRAcetam 500 MG TABLET (FP) PO SCH (23:09)
--- NOTE | 2019-11-24 00:01 | HP ---
CHIEF COMPLAINT: Possible seizure after found down in apartment HISTORY OF PRESENT ILLNESS: Pt is a 59 yo M with PMHx of seizures, alcohol abuse presenting to the ED after being found down at the base of his steps in his apartment by the super. Pt states he is unsure of how long he was down. He awoke with a superficial laceration on his forehead. Pt states he awoke from this episode feeling as if he was in a post-ictal state similar to his seizures in the past. Pt denies any tongue biting or urinary incontinence. Pt denies having any drinks in the last few days, but does admit to drinking previously. Pt states he was on Dilantin previously for his seizures but he stopped taking them 2 years ago. He also no longer follows up with his neurologist at [facility] for the last 2 years. Pt denies headache, CP, SOB, HOLLAND, vision changes, urinary incontinence, weakness/sensation, nausea/vomiting, fever/chills, speech changes. ER course was notable for: (1) EKG showed peaked T waves; normal K+ (5.1) (2) CT head and cervical both showed no acute bleeds or changes. PAST MEDICAL HISTORY: As stated above PAST SURGICAL HISTORY: Denies Social History: Alcohol: Admits to drinking in past Drugs: Pt denies Allergies No Known Allergies Allergy (Verified 07/16/18 09:34) HOME MEDICATIONS: Home Medications Medication Instructions Recorded Amlodipine Besylate [Norvasc -] 10 mg PO DAILY 02/15/18 Folic Acid - 1 mg PO DAILY #30 tablet 02/22/18 Multivitamins [Multivit ([facility] 1 tab PO DAILY #30 tab 02/22/18 Formulary)] Thiamine HCl [Vitamin B1 -] 100 mg PO DAILY #30 tablet 02/22/18 levETIRAcetam [Keppra -] 500 mg PO BID #60 tablet 02/22/18 Lacosamide [Vimpat -] 200 mg PO BID tab MDD 2 tabs 07/30/18 Nicotine Patch [Nicoderm Patch -] 21 mg TD DAILY patch 07/30/18 Sennosides [Senna -] 2 tab PO HS PRN tablet 07/30/18 Ascorbic Acid [Vitamin C -] 500 mg PO BID 08/13/19 Ferrous Sulfate 325 mg PO BID 08/13/19 Naltrexone HCl 50 mg PO DAILY #30 tablet 11/07/19 REVIEW OF SYSTEMS CONSTITUTIONAL: Absent: fever, chills, diaphoresis, generalized weakness, malaise, loss of appetite, weight change HEENT: Absent: rhinorrhea, nasal congestion, throat pain, throat swelling, difficulty swallowing, mouth swelling, ear pain, eye pain, visual changes CARDIOVASCULAR: Absent: chest pain, syncope, palpitations, irregular heart rate, lightheadedn ess, peripheral edema RESPIRATORY: Absent: cough, shortness of breath, dyspnea with exertion, orthopnea, wheezing, stridor, hemoptysis GASTROINTESTINAL: Absent: abdominal pain, abdominal distension, nausea, vomiting, diarrhea, constipation, melena, hematochezia GENITOURINARY: Absent: dysuria, frequency, urgency, hesitancy, hematuria, flank pain, genital pain MUSCULOSKELETAL: Absent: myalgia, arthralgia, joint swelling, back pain, neck pain SKIN: Absent: rash, itching, pallor HEMATOLOGIC/IMMUNOLOGIC: Absent: easy bleeding, easy bruising, lymphadenopathy, frequent infections ENDOCRINE: Absent: unexplained weight gain, unexplained weight loss, heat intolerance, cold intolerance NEUROLOGIC: Absent: headache, focal weakness or paresthesias, dizziness, unsteady gait, seizure, mental status changes, bladder or bowel incontinence PSYCHIATRIC: Absent: anxiety, depression, suicidal or homicidal ideation, hallucinations. PHYSICAL EXAMINATION Vital Signs - 24 hr 11/23/19 11/23/19 16:26 20:36 Temperature 99.3 F 99.2 F Pulse Rate 89 Pulse Rate [ 82 Right Radial] Respiratory 20 Rate Blood Pressure 152/88 Blood Pressure 156/85 [Right Arm] O2 Sat by Pulse 99 98 Oximetry (%) GENERAL: Awake, alert, and fully oriented, in no acute distress. HEAD: Superficial laceration on forehead. Normal with no signs of trauma. EYES: Pupils equal, round and reactive to light, extraocular movements intact, sclera anicteric, conjunctiva clear. No lid lag. EARS, NOSE, THROAT: Ears normal, nares patent, oropharynx clear without exudates. Moist mucous membranes. NECK: Normal range of motion, supple without lymphadenopathy, JVD, or masses. LUNGS: Breath sounds equal, clear to auscultation bilaterally. No wheezes, and no crackles. No accessory muscle use. HEART: Regular rate and rhythm, normal S1 and S2 without murmur, rub or gallop. ABDOMEN: Soft, nontender, not distended, normoactive bowel sounds, no guarding, no rebound, no masses. No hepatomegaly or splenomegaly. MUSCULOSKELETAL: Normal range of motion at all joints. No bony deformities or tenderness. No CVA tenderness. UPPER EXTREMITIES: 2+ pulses, warm, well-perfused. No cyanosis. No clubbing. No peripheral edema. LOWER EXTREMITIES: 2+ pulses, warm, well-perfused. No calf tenderness. No peripheral edema. NEUROLOGICAL: Cranial nerves II-XII intact. Normal speech. Normal gait. PSYCHIATRIC: Cooperative. Good eye contact. Appropriate mood and affect. SKIN: Warm, dry, normal turgor, no rashes or lesions noted, normal capillary refill. Laboratory Results - last 24 hr 11/23/19 11/23/19 11/23/19 17:07 18:30 18:40 WBC 6.8 RBC 4.34 Hgb 14.9 Hct 45.5 MCV 104.9 H MCH 34.4 H MCHC 32.8 RDW 15.5 Plt Count 89 L D MPV 10.0 Absolute Neuts (auto) 4.7 Neutrophils % 69.5 D Lymphocytes % 18.6 D Monocytes % 10.7 H Eosinophils % 0.5 D Basophils % 0.7 Nucleated RBC % 0 Sodium 134 L Potassium 5.1 Chloride 104 Carbon Dioxide 17 L Anion Gap 14 BUN 3.0 L Creatinine 0.9 Est GFR (CKD-EPI)AfAm 107.97 Est GFR (CKD-EPI)NonAf 93.16 Random Glucose 94 Calcium 8.9 Total Bilirubin 0.4 AST 56 H ALT 25 Alkaline Phosphatase 96 Creatine Kinase 222 Creatine Kinase Index No Result Required. CK-MB (CK-2) TNP Troponin I < 0.02 Total Protein 7.3 Albumin 3.8 Urine Color Yellow Urine Appearance Clear Urine pH 6.0 Ur Specific [place] 1.012 Urine Protein 1+ H Urine Glucose (UA) 2+ H Urine Ketones Negative Urine Blood Negative Urine Nitrite Negative Urine Bilirubin Negative Urine Urobilinogen 0.2 Ur Leukocyte Esterase Negative Urine WBC (Auto) 12 Urine RBC (Auto) 9 Urine Casts (Auto) 0 U Epithel Cells (Auto) 17 Urine Bacteria (Auto) 462 Alcohol, Quantitative 11/23/19 23:15 WBC RBC Hgb Hct MCV MCH MCHC RDW Plt Count MPV Absolute Neuts (auto) Neutrophils % Lymphocytes % Monocytes % Eosinophils % Basophils % Nucleated RBC % Sodium Potassium Chloride Carbon Dioxide Anion Gap BUN Creatinine Est GFR (CKD-EPI)AfAm Est GFR (CKD-EPI)NonAf Random Glucose Calcium Total Bilirubin AST ALT Alkaline Phosphatase Creatine Kinase Creatine Kinase Index CK-MB (CK-2) Troponin I Total Protein Albumin Urine Color Urine Appearance Urine pH Ur Specific [place] Urine Protein Urine Glucose (UA) Urine Ketones Urine Blood Urine Nitrite Urine Bilirubin Urine Urobilinogen Ur Leukocyte Esterase Urine WBC (Auto) Urine RBC (Auto) Urine Casts (Auto) U Epithel Cells (Auto) Urine Bacteria (Auto) Alcohol, Quantitative < 3 ASSESSMENT/PLAN: Pt is a 59 yo M with PMHx of seizure history (last 2 years ago), alcohol abuse presenting after being found down in his apartment by his super with no recollection of how long he was down. No tongue biting or urinary incontinence admitted for possible seizure being worked up by neurology (Dr. Hodge) with EEG, MRI without contrast and started on Keppra 1000 mg BID. #Possible seizure -Consulted Neuro (Dr. Hodge) -Started on Keppra 1000mg BID -F/u on EEG in AM -MRI without contrast ordered to determine if structural -Urine tox ordered to determine if drug related seizure #Alcohol abuse hx -Alcohol screen negative (<3) -CIWA 4; continue CIWA checks to monitor for withdrawal symptoms -Initiate CIWA protocol if necessary -IV banana bag ordered for nutrient deficiencies in alcoholism -PO thiamine and folate starting tomorrow for nutritional deficiencies #Thrombocytopenia -Platelets 89 -Likely secondary to alcohol abuse FEN -NS @ 83 mL/hr -Soft diet Prophylaxis -Lovenox 40mg SQ daily Dispo Admit to med surg with CIWA checks for possible alcohol withdrawal. Started on Keppra 1000mg BID for possible seizure. Neuro consulted. Follow up on AM EEG and MRI without contrast results. Family Medical History Family History: Unremarkable (unremarkable) Problem List - Problem (1) Alcohol abuse Code(s): F10.10 - ALCOHOL ABUSE, UNCOMPLICATED (2) Hypokalemia Code(s): E87.6 - HYPOKALEMIA (3) Seizure Code(s): R56.9 - UNSPECIFIED CONVULSIONS (4) Alcohol dependence Code(s): F10.20 - ALCOHOL DEPENDENCE, UNCOMPLICATED Qualifiers: Substance use status: uncomplicated Qualified Code(s): F10.20 - Alcohol dependence, uncomplicated (5) Cirrhosis Code(s): K74.60 - UNSPECIFIED CIRRHOSIS OF LIVER Qualifiers: Hepatic cirrhosis type: alcoholic cirrhosis Ascites presence: without ascites Qualified Code(s): K70.30 - Alcoholic cirrhosis of liver without ascites (6) History of seizure Code(s): Z87.898 - PERSONAL HISTORY OF OTHER SPECIFIED CONDITIONS (7) Nicotine dependence Code(s): F17.200 - NICOTINE DEPENDENCE, UNSPECIFIED, UNCOMPLICATED Qualifiers: Nicotine product type: cigarettes Substance use status: uncomplicated Qualified Code(s): F17.210 - Nicotine dependence, cigarettes, uncomplicated (8) Seizure disorder Code(s): G40.909 - EPILEPSY, UNSP, NOT INTRACTABLE, WITHOUT STATUS EPILEPTICUS Visit type - Emergency Visit Emergency Visit: Yes ED Registration Date: 11/23/19 Care time: The patient presented to the Emergency Department on the above date and was hospitalized for further evaluation of their emergent condition. - New Patient This patient is new to me today: Yes Date on this admission: 11/27/19 - Critical Care Critical Care patient: No ATTENDING PHYSICIAN STATEMENT I saw and evaluated the patient. I reviewed the resident's note and discussed the case with the resident. I agree with the resident's findings and plan as documented. SUBJECTIVE: OBJECTIVE: ASSESSMENT AND PLAN:
--- NOTE | 2019-11-24 00:17 | PN ---
Teaching Attending Note Name of Resident: Veronique Hart ATTENDING PHYSICIAN STATEMENT I saw and evaluated the patient. I reviewed the resident's note and discussed the case with the resident. I agree with the resident's findings and plan as documented. SUBJECTIVE: This is a 59 year old man with a history of alcohol abuse, seizures who was found on the floor at the base of the steps of his apartment. He does not recall what happened but thinks he had a seizure. He was initially confused when he was found. OBJECTIVE: Vital Signs Period Temp Pulse Resp BP Sys/Rubio Pulse Ox Last 24 Hr 99.2 F-99.3 F 82-89 20 152-156/85-88 98-99 HEART: S1S2, RRR LUNGS: Clear ABDOMEN: Soft, non-distended, non-tender, normal BS EXTREMITIES: No edema Laboratory Tests 11/23/19 11/23/19 11/23/19 17:07 18:30 18:40 WBC 6.8 RBC 4.34 Hgb 14.9 Hct 45.5 MCV 104.9 H MCH 34.4 H MCHC 32.8 RDW 15.5 Plt Count 89 L D MPV 10.0 Absolute Neuts (auto) 4.7 Neutrophils % 69.5 D Lymphocytes % 18.6 D Monocytes % 10.7 H Eosinophils % 0.5 D Basophils % 0.7 Nucleated RBC % 0 Sodium 134 L Potassium 5.1 Chloride 104 Carbon Dioxide 17 L Anion Gap 14 BUN 3.0 L Creatinine 0.9 Est GFR (CKD-EPI)AfAm 107.97 Est GFR (CKD-EPI)NonAf 93.16 Random Glucose 94 Calcium 8.9 Total Bilirubin 0.4 AST 56 H ALT 25 Alkaline Phosphatase 96 Creatine Kinase 222 Creatine Kinase Index No Result Required. CK-MB (CK-2) TNP Troponin I < 0.02 Total Protein 7.3 Albumin 3.8 Urine Color Yellow Urine Appearance Clear Urine pH 6.0 Ur Specific [place] 1.012 Urine Protein 1+ H Urine Glucose (UA) 2+ H Urine Ketones Negative Urine Blood Negative Urine Nitrite Negative Urine Bilirubin Negative Urine Urobilinogen 0.2 Ur Leukocyte Esterase Negative Urine WBC (Auto) 12 Urine RBC (Auto) 9 Urine Casts (Auto) 0 U Epithel Cells (Auto) 17 Urine Bacteria (Auto) 462 Alcohol, Quantitative 11/23/19 23:15 WBC RBC Hgb Hct MCV MCH MCHC RDW Plt Count MPV Absolute Neuts (auto) Neutrophils % Lymphocytes % Monocytes % Eosinophils % Basophils % Nucleated RBC % Sodium Potassium Chloride Carbon Dioxide Anion Gap BUN Creatinine Est GFR (CKD-EPI)AfAm Est GFR (CKD-EPI)NonAf Random Glucose Calcium Total Bilirubin AST ALT Alkaline Phosphatase Creatine Kinase Creatine Kinase Index CK-MB (CK-2) Troponin I Total Protein Albumin Urine Color Urine Appearance Urine pH Ur Specific [place] Urine Protein Urine Glucose (UA) Urine Ketones Urine Blood Urine Nitrite Urine Bilirubin Urine Urobilinogen Ur Leukocyte Esterase Urine WBC (Auto) Urine RBC (Auto) Urine Casts (Auto) U Epithel Cells (Auto) Urine Bacteria (Auto) Alcohol, Quantitative < 3 Home Medications Medication Instructions Recorded Amlodipine Besylate [Norvasc -] 10 mg PO DAILY 02/15/18 Folic Acid - 1 mg PO DAILY #30 tablet 02/22/18 Multivitamins [Multivit ([facility] 1 tab PO DAILY #30 tab 02/22/18 Formulary)] Thiamine HCl [Vitamin B1 -] 100 mg PO DAILY #30 tablet 02/22/18 levETIRAcetam [Keppra -] 500 mg PO BID #60 tablet 02/22/18 Lacosamide [Vimpat -] 200 mg PO BID tab MDD 2 tabs 07/30/18 Nicotine Patch [Nicoderm Patch -] 21 mg TD DAILY patch 07/30/18 Sennosides [Senna -] 2 tab PO HS PRN tablet 07/30/18 Ascorbic Acid [Vitamin C -] 500 mg PO BID 08/13/19 Ferrous Sulfate 325 mg PO BID 08/13/19 Naltrexone HCl 50 mg PO DAILY #30 tablet 11/07/19 ASSESSMENT AND PLAN: This is a 59 year old man with a history of alcohol abuse, seizures who presented to the ED after being found on the floor at his apartment. 1. Probable seizure - Likely alcohol related - Keppra started in ED - will continue - Follow-up MRI of brain - EEG - Neurology consult 2. Alcohol dependence, continuous - Multivitamin, thiamine, folic acid - Watch for signs of withdrawal
[2019-11-24 01:27] LABS: COCAINE, UR NEGATIVE ng/ml (CUTOFF=300); OPIATES, URI NEGATIVE ng/ml (CUTOFF=300); PHENCYCLIDINE,URINE NEGATIVE ng/ml (CUTOFF=25); URINE AMPHETAMINES NEGATIVE ng/ml (CUTOFF=500); URINE BARBITURATES NEGATIVE ng/ml (CUTOFF=200)
[2019-11-24 01:31] LABS: METHADONE, UR NEGATIVE ng/ml (CUTOFF=300); URINE BENZODIAZEPINES NEGATIVE ng/ml (CUTOFF=200)
--- NOTE | 2019-11-24 09:03 | PN ---
Physical Exam: SUBJECTIVE: Patient seen and examined OBJECTIVE: Vital Signs Period Temp Pulse Resp BP Sys/Rubio Pulse Ox Last 24 Hr 98.2 F-99.3 F 54-89 18-20 130-156/75-88 98-100 GENERAL: The patient is awake, alert, and fully oriented, in no acute distress. HEAD: Normal with no signs of trauma. EYES: PERRL, extraocular movements intact, sclera anicteric, conjunctiva clear. No ptosis. ENT: Ears normal, nares patent, oropharynx clear without exudates, moist mucous membranes. NECK: Trachea midline, full range of motion, supple. LUNGS: Breath sounds equal, clear to auscultation bilaterally, no wheezes, no crackles, no accessory muscle use. HEART: Regular rate and rhythm, S1, S2 without murmur, rub or gallop. ABDOMEN: Soft, nontender, nondistended, normoactive bowel sounds, no guarding, no rebound, no hepatosplenomegaly, no masses. EXTREMITIES: 2+ pulses, warm, well-perfused, no edema. NEUROLOGICAL: Cranial nerves II through XII grossly intact. Normal speech, gait not observed. PSYCH: Normal mood, normal affect. SKIN: Warm, dry, normal turgor, no rashes or lesions noted Laboratory Results - last 24 hr 11/23/19 11/23/19 11/23/19 17:07 18:30 18:40 WBC 6.8 RBC 4.34 Hgb 14.9 Hct 45.5 MCV 104.9 H MCH 34.4 H MCHC 32.8 RDW 15.5 Plt Count 89 L D MPV 10.0 Absolute Neuts (auto) 4.7 Neutrophils % 69.5 D Lymphocytes % 18.6 D Monocytes % 10.7 H Eosinophils % 0.5 D Basophils % 0.7 Nucleated RBC % 0 Sodium 134 L Potassium 5.1 Chloride 104 Carbon Dioxide 17 L Anion Gap 14 BUN 3.0 L Creatinine 0.9 Est GFR (CKD-EPI)AfAm 107.97 Est GFR (CKD-EPI)NonAf 93.16 Random Glucose 94 Calcium 8.9 Total Bilirubin 0.4 AST 56 H ALT 25 Alkaline Phosphatase 96 Creatine Kinase 222 Creatine Kinase Index No Result Required. CK-MB (CK-2) TNP Troponin I < 0.02 Total Protein 7.3 Albumin 3.8 Urine Color Yellow Urine Appearance Clear Urine pH 6.0 Ur Specific [place] 1.012 Urine Protein 1+ H Urine Glucose (UA) 2+ H Urine Ketones Negative Urine Blood Negative Urine Nitrite Negative Urine Bilirubin Negative Urine Urobilinogen 0.2 Ur Leukocyte Esterase Negative Urine WBC (Auto) 12 Urine RBC (Auto) 9 Urine Casts (Auto) 0 U Epithel Cells (Auto) 17 Urine Bacteria (Auto) 462 Opiates Screen Methadone Screen Barbiturate Screen Phencyclidine Screen Ur Amphetamines Screen MDMA (Ecstasy) Screen Benzodiazepines Screen Cocaine Screen U Marijuana (THC) Screen Alcohol, Quantitative 11/23/19 11/24/19 23:15 01:12 WBC RBC Hgb Hct MCV MCH MCHC RDW Plt Count MPV Absolute Neuts (auto) Neutrophils % Lymphocytes % Monocytes % Eosinophils % Basophils % Nucleated RBC % Sodium Potassium Chloride Carbon Dioxide Anion Gap BUN Creatinine Est GFR (CKD-EPI)AfAm Est GFR (CKD-EPI)NonAf Random Glucose Calcium Total Bilirubin AST ALT Alkaline Phosphatase Creatine Kinase Creatine Kinase Index CK-MB (CK-2) Troponin I Total Protein Albumin Urine Color Urine Appearance Urine pH Ur Specific [place] Urine Protein Urine Glucose (UA) Urine Ketones Urine Blood Urine Nitrite Urine Bilirubin Urine Urobilinogen Ur Leukocyte Esterase Urine WBC (Auto) Urine RBC (Auto) Urine Casts (Auto) U Epithel Cells (Auto) Urine Bacteria (Auto) Opiates Screen Negative Methadone Screen Negative Barbiturate Screen Negative Phencyclidine Screen Negative Ur Amphetamines Screen Negative MDMA (Ecstasy) Screen Negative Benzodiazepines Screen Negative Cocaine Screen Negative U Marijuana (THC) Screen Negative Alcohol, Quantitative < 3 Active Medications Generic Name Dose Route Start Last Admin Trade Name Jjq PRN Reason Stop Dose Admin Folic Acid 1 mg 11/24/19 10:00 Folic Acid - PO DAILY MIGUEL Sodium Chloride 1,000 mls @ 83 mls/hr 11/23/19 21:30 Normal Saline - IV ASDIR MIGUEL Levetiracetam 1,000 mg 11/23/19 22:00 11/23/19 23:09 Keppra - PO 1,000 mg BID MIGUEL Administration Multivitamins/Minerals/Vitamin C 1 tab 11/24/19 10:00 Tab-A-Vit - PO DAILY MIGUEL Thiamine HCl 100 mg 11/24/19 10:00 Vitamin B1 - PO DAILY MIGUEL ASSESSMENT/PLAN: ATTENDING PHYSICIAN STATEMENT I saw and evaluated the patient. I reviewed the resident's note and discussed the case with the resident. I agree with the resident's findings and plan as documented. SUBJECTIVE: OBJECTIVE: ASSESSMENT AND PLAN:
[2019-11-24] MEDS ORDERED: levETIRAcetam 500 MG TABLET (FP) PO ONE (09:07)
[2019-11-24] MEDS ORDERED: THIAMINE HCL 100 MG TABLET (FP) ONE (09:07)
[2019-11-24] MEDS ORDERED: MULTIVITAMINS (DAILY MVI) TABLET (FP) ONE (09:07)
[2019-11-24] MEDS ORDERED: FOLIC ACID 1 MG TABLET (FP) ONE (09:08)
[2019-11-24] MEDS: levETIRAcetam 500 MG TABLET (FP) PO SCH (09:12)
[2019-11-24] MEDS ORDERED: THIAMINE HCL 100 MG TABLET (FP) PO SCH (10:00)
[2019-11-24] MEDS ORDERED: ENOXAPARIN NA (PORCINE) 40 MG/0.4 ML DISP.SYRIN SQ SCH (10:00)
[2019-11-24] MEDS ORDERED: MULTIVITAMINS (DAILY MVI) TABLET (FP) PO SCH (10:00)
[2019-11-24] MEDS ORDERED: CYANOCOBALAMIN 1,000 MCG TABLET (FP) PO SCH (10:00)
[2019-11-24] MEDS ORDERED: FOLIC ACID 1 MG TABLET (FP) PO SCH (10:00)
[2019-11-24 10:45] LABS: EOS % 5.7 % (0-4.5); HEMATOCRIT 45.3 % (35.4-49); HEMOGLOBIN 14.9 GM/dL (11.7-16.9); LYMPH % 35.7 % (8-40); MCH 34.7 pg (25.7-33.7); MCHC 32.9 g/dl (32.0-35.9); MEAN CELL VOLUME 105.5 fl (80-96); MEAN PLT VOLUME 10.5 fl (7.5-11.1); MONO % 14.6 % (3.8-10.2); PLATELET COUNT 85 K/MM3 (134-434); RBC 4.29 M/mm3 (4.00-5.60); RDW 15.1 % (11.9-15.9); WHITE BLOOD COUNT 5.2 K/mm3 (4.0-10.0)
[2019-11-24 11:22] LABS: ALBUMIN 3.1 g/dl (3.4-5.0); BILIRUBIN,TOTAL 0.6 mg/dL (0.2-1); CALCIUM 8.1 mg/dL (8.5-10.1); CREATININE 0.7 mg/dL (0.55-1.3); MAGNESIUM 1.9 mg/dL (1.8-2.4); PHOSPHOROUS 2.4 mg/dL (2.5-4.9); POTASSIUM 3.6 mmol/L (3.5-5.1); TOT PROT 6.1 g/dl (6.4-8.2)
[2019-11-24 11:24] LABS: EPI CELLS 19 /uL (0-25.1); HYALINE CASTS 1 /uL (0-3.1); PH,URINE 6.5 (5.0-8.0); URINE APPEARANCE CLEAR; URINE BACTERIA 548 /uL (0-1359); URINE BILIRUBIN NEGATIVE (NEGATIVE); URINE COLOR YELLOW; URINE GLUCOSE (UA) NEGATIVE (NEGATIVE); URINE KETONE NEGATIVE (NEGATIVE); URINE LEUK ESTERASE 1+ (NEGATIVE); URINE NITRITE NEGATIVE (NEGATIVE); URINE PROTEIN NEGATIVE (NEGATIVE); URINE RBC 5 /uL (0-23.9); URINE WBC 31 /uL (0-25.8)
[2019-11-24 11:27] LABS: BLOOD UREA NITROGEN 2.5 mg/dL (7-18)
--- NOTE | 2019-11-24 11:51 | EKG ---
Test Reason : Blood Pressure : / mmHG Vent. Rate : 067 BPM Atrial Rate : 067 BPM P-R Int : 186 ms QRS Dur : 060 ms QT Int : 390 ms P-R-T Axes : 075 053 074 degrees QTc Int : 412 ms POOR DATA QUALITY, INTERPRETATION MAY BE ADVERSELY AFFECTED NORMAL SINUS RHYTHM POSSIBLE LEFT ATRIAL ENLARGEMENT ANTEROSEPTAL INFARCT (CITED ON OR BEFORE 16-JUL-2018) ABNORMAL ECG WHEN COMPARED WITH ECG OF 16-JUL-2018 10:24, VENT. RATE HAS DECREASED BY 80 BPM NONSPECIFIC T WAVE ABNORMALITY NO LONGER EVIDENT IN LATERAL LEADS Confirmed by JS TAY MD ([id number]) on 11/24/2019 11:51:15 AM Referred By: Confirmed By:JS TAY MD
[2019-11-24 12:06] LABS: ANISOCYTOSIS 0; MACROCYTOSIS 0; PLATELET ESTIMATE DECREASED
[2019-11-24 13:30] VITALS: BP 132/71; PULSE 60; TEMP 99
--- NOTE | 2019-11-24 13:30 | PN ---
Teaching Attending Note Name of Resident: Ej Larios ATTENDING PHYSICIAN STATEMENT I saw and evaluated the patient. I reviewed the resident's note and discussed the case with the resident. I agree with the resident's findings and plan as documented. SUBJECTIVE: Seen and examined at bedside. Patient is alert and oriented x3. States that he is feeling "much better". MRI brain does not show any acute changes. Pending EEG and neurology evaluation. OBJECTIVE: Last Vital Signs Temp Pulse Resp BP Pulse Ox 98.2 F 54 L 18 130/75 100 11/24/19 07:51 11/24/19 07:51 11/24/19 07:51 11/24/19 07:51 11/24/19 07:51 PE: per resident note Labs/Imaging: reviewed ASSESSMENT AND PLAN: Pt is a 59 yo M with PMHx of seizure history (last 2 years ago), alcohol abuse presenting after being found down in his apartment by his super with no recollection of how long he was down. No tongue biting or urinary incontinence admitted for possible seizure being worked up by neurology (Dr. Hodge) with EEG, MRI without contrast and started on Keppra 1000 mg BID. 59-year-old female with a past medical history of EtOH abuse, seizure disorder, thrombocytopenia, probable liver disease, who has not taken AED medications in 2.5 years and does not follow-up with Dr. presents with loss of consciousness an d presumed seizure. #Presumed seizure Lactate not drawn but admission labs show anion gap metabolic acidosis suggestive of seizure. Patient's description of events support postictal state. Neurology consulted: Requested MRI and EEG Continue Keppra #History of alcohol abuse Patient states last drink was 3 days ago. Usually drinks 2 drinks per day Not currently in clinical withdrawals Continue vitamins and monitor for withdrawals #Thrombocytopenia Likely in the setting of liver disease. Required platelet transfusion on last admission Hold DVT prophylaxis DVTppx: scds Dispo: Patient should be referred to residency clinic as he currently does not have a doctor and does not take any medications.
--- NOTE | 2019-11-24 13:51 | CON.NEURO ---
Consult - Past Medical History [employer]USEUM [employer]IAN: Yes: Seizure - Alcohol/Substance Use Hx Alcohol Use: Yes History of Substance Use: reports: Cocaine, Marijuana - Smoking History Smoking history: Current every day smoker Have you smoked in the past 12 months: Yes Aproximately how many cigarettes per day: 3 - Social History ADL: Support Services Home Medications - Allergies Allergies/Adverse Reactions: Allergies Allergy/AdvReac Type Severity Reaction Status Date / Time No Known Allergies Allergy Verified 07/16/18 09:34 - Home Medications Home Medications: Ambulatory Orders Amlodipine Besylate [Norvasc -] 10 mg PO DAILY 02/15/18 Folic Acid - 1 mg PO DAILY #30 tablet 02/22/18 Multivitamins [Multivit ([facility] Formulary)] 1 tab PO DAILY #30 tab 02/22/18 Thiamine HCl [Vitamin B1 -] 100 mg PO DAILY #30 tablet 02/22/18 levETIRAcetam [Keppra -] 500 mg PO BID #60 tablet 02/22/18 Lacosamide [Vimpat -] 200 mg PO BID tab MDD 2 tabs 07/30/18 Nicotine Patch [Nicoderm Patch -] 21 mg TD DAILY patch 07/30/18 Sennosides [Senna -] 2 tab PO HS PRN tablet 07/30/18 Ascorbic Acid [Vitamin C -] 500 mg PO BID 08/13/19 Ferrous Sulfate 325 mg PO BID 08/13/19 Naltrexone HCl 50 mg PO DAILY #30 tablet 11/07/19 Phenytoin 100 mg PO TID 11/24/19 Physical Exam-Neuro Vital Signs: Vital Signs Temperature 99.0 F 11/24/19 13:29 Pulse Rate 60 11/24/19 13:29 Respiratory Rate 18 11/24/19 13:29 Blood Pressure 132/71 11/24/19 13:29 O2 Sat by Pulse Oximetry (%) 100 11/24/19 13:29 Labs: CBC, BMP 11/24/19 10:00 11/24/19 06:00 Assessment/Plan CC Breakthrough seizure HPI 59 year old male history of alcohol abuse, and seizure ( last one 3 years ago) . He was found unresponsive, not sure how long he was done. There was laceration on forehead. It was suspected he has seizure. there is no tongue bite or incontinence. Patient has normal ct head. P PAST MEDICAL HISTORY: As stated above PAST SURGICAL HISTORY: Denies Social History: Alcohol: Admits to drinking in past Drugs: Pt denies Allergies No Known Allergies Allergy (Verified 07/16/18 09:34) HOME MEDICATIONS: Home Medications Medication Instructions Recorded Amlodipine Besylate [Norvasc -] 10 mg PO DAILY 02/15/18 Folic Acid - 1 mg PO DAILY #30 tablet 02/22/18 Multivitamins [Multivit ([facility] 1 tab PO DAILY #30 tab 02/22/18 Formulary)] Thiamine HCl [Vitamin B1 -] 100 mg PO DAILY #30 tablet 02/22/18 levETIRAcetam [Keppra -] 500 mg PO BID #60 tablet 02/22/18 Lacosamide [Vimpat -] 200 mg PO BID tab MDD 2 tabs 07/30/18 Nicotine Patch [Nicoderm Patch -] 21 mg TD DAILY patch 07/30/18 Sennosides [Senna -] 2 tab PO HS PRN tablet 07/30/18 Ascorbic Acid [Vitamin C -] 500 mg PO BID 08/13/19 Ferrous Sulfate 325 mg PO BID 08/13/19 Naltrexone HCl 50 mg PO DAILY #30 tablet 11/07/19 ROS,FH,SH reviewed in chart NEUROLGICAL EXAMINATION Alert oriented x 3, neck is supple eomi, pupils reactive no face asymmetry moving all ext sensation is normal ct unremarkable mri of brain and eeg pending Assessment/Plan Seizure, after three of seizure under control, patient denies alcohol abuse. This event suspected for seizure, given he has no seizure for three year.I recommend to do mri of brain and eeg - Resume keppra 1 gm po bid - seizure precautions - mri of brain and eeg -follow up outpatient THanking you so much Henry Hodge MD
== END 2019-11-24 15:31 | disposition left against medical advice (07) | DRG 53 ==
LOC: JER 15:56 → JERBED 19:53
PROVIDERS: ADMIT Internal Medicine; ATTEND Internal Medicine
DX: G40.909 Epilepsy, unspecified, not intractable, without status epilepticus (principal); S01.81XA Laceration without foreign body of other part of head, initial encounter; F10.20 Alcohol dependence, uncomplicated; F14.90 Cocaine use, unspecified, uncomplicated; F12.90 Cannabis use, unspecified, uncomplicated; F17.210 Nicotine dependence, cigarettes, uncomplicated; D69.6 Thrombocytopenia, unspecified; K74.60 Unspecified cirrhosis of liver; E87.2 Acidosis; W18.39XA Other fall on same level, initial encounter; Y92.098 Other place in other non-institutional residence as the place of occurrence of the external cause
CPT/HCPCS: 36415; 70450-TC; 70551-TC; 71045-TC-FY; 72125-TC; 80053; 80307; 81003; 82550; 83735; 84100; 84484; 85025; 87086; 93005; 93010; 95816; 99285-25; U0003

== ENCOUNTER 2020-02-07 12:26 | Inpatient (IN) | payer OTHER ==
[2020-02-07] MEDS ORDERED: LACTATED RINGERS SOLUTION 1000 ML INFUS.BAG IV ONE (12:43)
[2020-02-07 12:45] VITALS: BMI 20.3
[2020-02-07] MEDS ORDERED: ACETAMINOPHEN 1000 MG/100 ML VIAL (NON FORMULARY) IVPB ONE (12:45)
[2020-02-07 12:48] VITALS: TEMP 99.2
--- NOTE | 2020-02-07 13:03 | PDOC ---
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 Patient is currently AAOx3 and denies any complains. Does not remember losing consciousness. States he takes dilantin for seizures and hasn't had one in three years. Last drink was two weeks prior. EMS though he was in rapid a-fib and gave diltiazem, but was likely sinus tachycardia with underlying disturbance due to patient shaking. PMH/PSH: as above Home Medications Medication Instructions Recorded Amlodipine Besylate [Norvasc -] 10 mg PO DAILY 02/15/18 Folic Acid - 1 mg PO DAILY #30 tablet 02/22/18 Multivitamins [Multivit ([facility] 1 tab PO DAILY #30 tab 02/22/18 Formulary)] Thiamine HCl [Vitamin B1 -] 100 mg PO DAILY #30 tablet 02/22/18 levETIRAcetam [Keppra -] 500 mg PO BID #60 tablet 02/22/18 Lacosamide [Vimpat -] 200 mg PO BID tab MDD 2 tabs 07/30/18 Sennosides [Senna -] 2 tab PO HS PRN tablet 07/30/18 Ascorbic Acid [Vitamin C -] 500 mg PO BID 08/13/19 Ferrous Sulfate 325 mg PO BID 08/13/19 Phenytoin 100 mg PO TID 11/24/19 Naltrexone HCl 50 mg PO DAILY #30 tablet 02/03/20 Nicotine Patch [Nicoderm Patch -] 21 mg TD DAILY #30 patch 02/03/20 Allergies Allergy/AdvReac Type Severity Reaction Status Date / Time No Known Allergies Allergy Verified 02/07/20 12:45 ROS GENERAL/CONSTITUTIONAL: No fever or chills. No weakness. HEAD, EYES, EARS, NOSE AND THROAT: No change in vision. No ear pain or discharge. No sore throat. CARDIOVASCULAR: No chest pain or shortness of breath RESPIRATORY: No cough, wheezing, or hemoptysis. GASTROINTESTINAL: No nausea, vomiting, diarrhea or constipation. GENITOURINARY: No dysuria, frequency, or change in urination. MUSCULOSKELETAL: No joint or muscle swelling or pain. No neck or back pain. SKIN: No rash NEUROLOGIC: No headache, vertigo ENDOCRINE: No increased thirst. No abnormal weight change HEMATOLOGIC/LYMPHATIC: No anemia, easy bleeding, or history of blood clots. ALLERGIC/IMMUNOLOGIC: No hives or skin allergy. PE GENERAL: Awake, alert, and fully oriented, shivering HEAD: No signs of trauma, normocephalic, atraumatic EYES: PERRLA, EOMI, sclera anicteric, conjunctiva clear ENT: Auricles normal inspection, hearing grossly normal, nares patent, oropharynx clear without exudates. Moist mucosa NECK: Normal ROM, supple, no lymphadenopathy, JVD, or masses LUNGS: No distress, speaks full sentences, clear to auscultation bilaterally HEART: Regular rate and rhythm, normal S1 and S2, no murmurs, rubs or gallops, peripheral pulses normal and equal bilaterally. ABDOMEN: Soft, nontender, normoactive bowel sounds. No guarding, no rebound. No masses EXTREMITIES : Normal inspection, Normal range of motion, no edema. No clubbing or cyanosis. NEUROLOGICAL: Cranial nerves II through XII grossly intact. 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 Patient is currently AAOx3 and denies any complains. EMS though he was in rapid a-fib and gave diltiazem, but was likely sinus tachycardia with underlying disturbance due to patient shaking. Afebrile on rectal temp. Pulse 100 and BP 181/90. Normal neuro exam. DDx includes syncope, seizure, infection -EKG -CXR -CT head and c-spine -CBC, CMP, cardiac enzymes, coags, lactic, blood cultures, UA/UC, T&S, phenytoin level -fluids, tylenol 02/07/20 15:14 EKG: NSR, rate 87, normal axis, normal intervals, no ischemic ST-T changes CXR: no acute pathology CT head and c-spine: no acute pathology Labs: notable for low phenytoin level and elevated lactate. Will repeat lactate Abnormal Lab Results 02/07/20 02/07/20 02/07/20 12:45 12:45 12:45 MCV 102.6 H MCH 34.0 H Plt Count 87 L Monocytes % 12.2 H Eosinophils % 5.5 H PT with INR 13.40 H INR 1.13 H POC VBG pO2 134.1 H VBG HCO3 20.7 L VBG O2 Sat (Cindy) 98.5 H VBG Base Excess -4.5 L Sodium BUN Random Glucose Lactic Acid Calcium Magnesium Alkaline Phosphatase Urine Protein Urine Glucose (UA) 02/07/20 02/07/20 02/07/20 12:45 12:45 14:13 MCV MCH Plt Count Monocytes % Eosinophils % PT with INR INR POC VBG pO2 VBG HCO3 VBG O2 Sat (Cindy) VBG Base Excess Sodium 134 L BUN 5.1 L Random Glucose 266 H Lactic Acid 4.6 H* Calcium 8.4 L Magnesium 1.6 L Alkaline Phosphatase 127 H Urine Protein 1+ H Urine Glucose (UA) 2+ H Spoke with neurologist Dr. Hart who initially recommended outpatient follow up, but as patient has not picked up meds since November, will admit. Med rec was done, and will give home meds: vimpat 200mg bid dilantin 100mg tid keppra 1000mg bid 02/07/20 16:46 Signed out to admitting team who will accept the patient. Tele obs for seizure vs. syncope. Past History - Medical History Allergies/Adverse Reactions: Allergies Allergy/AdvReac Type Severity Reaction Status Date / Time No Known Allergies Allergy Verified 02/07/20 12:45 Home Medications: Ambulatory Orders Amlodipine Besylate [Norvasc -] 10 mg PO DAILY 02/15/18 Folic Acid - 1 mg PO DAILY #30 tablet 02/22/18 Multivitamins [Multivit ([facility] Formulary)] 1 tab PO DAILY #30 tab 02/22/18 Thiamine HCl [Vitamin B1 -] 100 mg PO DAILY #30 tablet 02/22/18 levETIRAcetam [Keppra -] 500 mg PO BID #60 tablet 02/22/18 Lacosamide [Vimpat -] 200 mg PO BID tab MDD 2 tabs 07/30/18 Sennosides [Senna -] 2 tab PO HS PRN tablet 07/30/18 Ascorbic Acid [Vitamin C -] 500 mg PO BID 08/13/19 Ferrous Sulfate 325 mg PO BID 08/13/19 Phenytoin 100 mg PO TID 11/24/19 Naltrexone HCl 50 mg PO DAILY #30 tablet 02/03/20 Nicotine Patch [Nicoderm Patch -] 21 mg TD DAILY #30 patch 02/03/20 Asthma: No Cancer: No Cardiac Disorders: No CVA: No COPD: No CHF: No Diabetes: No GI Disorders: Yes (pancreatitis 2007) Disorders: No HTN: Yes Liver Disease: Yes (cirrhosis alcohol related) Seizures: Yes (? drug related) Thyroid Disease: No - Surgical History Abdominal Surgery: No (trach reversed now) - Psycho-Social/Smoking History Smoking History: Current every day smoker Have you smoked in the past 12 months: Yes Number of Cigarettes Smoked Daily: 20 Information on smoking cessation initiated: No 'Breaking Loose' booklet given: 09/09/12 - Substance Abuse Hx (Audit-C & DAST Scrn) In the last yr the pt used illegal drug/Rx for NonMed reason: No Score: Yes response is considered Positive: 0 Screen Result (Positive result requires Nsg. DAST-10): Negative *Physical Exam - Vital Signs Last Vital Signs Temp Pulse Resp BP Pulse Ox 99.2 F 100 H 16 181/90 H 100 02/07/20 12:51 02/07/20 12:33 02/07/20 12:33 02/07/20 12:33 02/07/20 12:33 ED Treatment Course - LABORATORY CBC & Chemistry Diagram: 02/07/20 12:45 02/07/20 12:45 - RADIOLOGY Radiology Studies Ordered: Category Date Time Status CERVICAL SPINE CT W/O CONTR [CT] Stat CT Scan 02/07/20 12:[address] WITHOUT CONTRAST [CT] Stat CT Scan 02/07/20 12:40 Ordered CXRPORT [CHEST X-RAY PORTABLE*] [RAD] Stat Radiology 02/07/20 12:41 Ordered Discharge - Discharge Information Problems reviewed: Yes Clinical Impression/Diagnosis: Seizure Syncope Qualifiers: Syncope type: unspecified Qualified Code(s): R55 - Syncope and collapse Condition: Fair - Follow up/Referral - Patient Discharge Instructions - Post Discharge Activity
[2020-02-07] MEDS ORDERED: ACETAMINOPHEN INJECTION 100 ML IVPB ONE (13:05)
[2020-02-07 13:09] LABS: BASO % 0.5 % (0-2.0); EOS % 5.5 % (0-4.5); HEMATOCRIT 48.9 % (35.4-49); HEMOGLOBIN 16.2 GM/dL (11.7-16.9); LYMPH % 32.1 % (8-40); MCHC 33.2 g/dl (32.0-35.9); MEAN CELL VOLUME 102.6 fl (80-96); MEAN PLT VOLUME 10.9 fl (7.5-11.1); MONO % 12.2 % (3.8-10.2); NEUT % 49.7 % (42.8-82.8); PLATELET COUNT 87 K/MM3 (134-434); RBC 4.77 M/mm3 (4.00-5.60); RDW 15.7 % (11.9-15.9); WHITE BLOOD COUNT 7.1 K/mm3 (4.0-10.0)
[2020-02-07 13:16] LABS: INR 1.13 (0.83-1.09); PROTHROMBIN TIME (PATIENT) 13.4 SEC (9.7-13.0)
--- NOTE | 2020-02-07 13:18 | PDOC ---
Documentation entered by Rita Sanchez SCRIBE, acting as scribe for Iris Sanchez DO. Iris Sanchez DO: This documentation has been prepared by the Daniel whitfield Xhesika, SCRIBE, under my direction and personally reviewed by me in its entirety. I confirm that the documentation accurately reflects all work, treatment, procedures, and medical decision making performed by me. Attending Attestation - Resident Resident Name: Larry Sinclair - ED Attending Attestation I have performed the following: I have examined & evaluated the patient, The case was reviewed & discussed with the resident, I agree w/resident's findings & plan, Exceptions are as noted - HPI HPI: 02/07/20 12:47 The patient is a 59 year old male, with significant PMH of seizures, EtOH abuse, nicotine dependence, who presents to the ED BIBA s/p syncope. Pt was found on the ground after home health aide heard a thump. Per aide she did not visualize any shaking. Pt did not return to MS baseline until arriving to the ED. Per EMS, pt was found to be in Afib and was given 15mg Cardizem x2. Pt denies any CP, SOB, headache, dizziness. Denies fevers, chills, N/V/D. Allergies: NKA, NKDA - Physicial Exam PE: 02/07/20 12:56 GENERAL: Awake, alert, and oriented, in no acute distress. +shaking/rigors. +chills HEAD: No signs of trauma ENT: Auricles normal inspection, hearing grossly normal, nares patent, oropharynx clear without exudates. +dry mucous membranes NECK: Normal ROM, supple, no lymphadenopathy, JVD, or masses LUNGS: Breath sounds equal, clear to auscultation bilaterally. No wheezes, and no crackles HEART: +tachy, no murmurs, rubs or gallops ABDOMEN: Soft, nontender, normoactive bowel sounds. No guarding, no rebound. No masses EXTREMITIES: Normal range of motion, no edema. Moving all extremities. NEUROLOGICAL: Cranial nerves II through XII grossly intact. SKIN: +dry scaly skin diffusely. 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 -pt arrives in sinus tach, warm to touch -awake, alert, oriented -concern for seizure activity -rectal temp 99 -will send labs, head ct, ct c spine, cultures -covid swab -will send dilatin level -will most likely need admission 02/07/20 14:51 pt states he was taking dilantin, however per prior notes and documentation he was supposed to be on keppra 1g bid no tongue biting elevated lactate, poss from seizure will repeat low mag, will replace 02/07/20 15:[address] c spine with djd 02/07/20 15:58 resident obtained medication list vimpat 200mg bid dilantin 100mg tid keppra 1000mg bid case again discussed with Dr. Hart - pt has not picked up meds from pharmacy since november concern for syncope vs seizure will redose all meds Dr. Hart will see in consult microblog sent to [facility] for hospitalization 02/07/20 16:32 resident discussed the case with [facility] who accepts pt to service Heart Score/ECG Review - ECG Intrepretation Comment:: 02/07/20 13:18 sinus at 87, nl axis, nl interval, no acute st/t wave findings Discharge - Discharge Information Problems reviewed: Yes Clinical Impression/Diagnosis: Seizure, Syncope Condition: Fair - Admission Yes - Follow up/Referral - Patient Discharge Instructions - Post Discharge Activity
[2020-02-07 13:19] LABS: ACTIVATED PTT 26.6 SECONDS (25.2-36.5)
[2020-02-07 13:22] LABS: VENOUS BASE EXCESS -4.5 mmol/L (-2-2); VENOUS O2 SATURATION 98.5 % (70-80); VENOUS PCO2 38.8 mmHg (38-52); VENOUS PH 7.344 (7.310-7.410)
[2020-02-07 13:39] LABS: ALBUMIN 3.5 g/dl (3.4-5.0); ALK PHOS 127 U/L (45-117); ANION GAP 11 MMOL/L (8-16); BILIRUBIN,TOTAL 0.7 mg/dL (0.2-1); BLOOD UREA NITROGEN 5.1 mg/dL (7-18); CALCIUM 8.4 mg/dL (8.5-10.1); CHLORIDE 101 mmol/L (98-107); CO2 22 mmol/L (21-32); CREATININE 1.1 mg/dL (0.55-1.3); GLUCOSE,RANDOM 266 mg/dL (74-106); MAGNESIUM 1.6 mg/dL (1.8-2.4); SGOT/AST 23 U/L (15-37); SGPT/ALT 13 U/L (13-61); SODIUM 134 mmol/L (136-145); TOT PROT 6.9 g/dl (6.4-8.2)
[2020-02-07] MEDS ORDERED: MAGNESIUM SULF 50% (8.12 MEQ/2 ML-1 GM VIAL) IVPB ONE (14:46)
[2020-02-07] MEDS ORDERED: levETIRAcetam 500 MG/5 ML INJECTION VIAL IVPB ONE ×2 (14:48→15:08)
[2020-02-07 15:00] LABS: EPI CELLS 19 /uL (0-25.1); HYALINE CASTS 2 /uL (0-3.1); URINE APPEARANCE CLEAR; URINE BACTERIA 155 /uL (0-1359); URINE BILIRUBIN NEGATIVE (NEGATIVE); URINE COLOR YELLOW; URINE GLUCOSE (UA) 2+ (NEGATIVE); URINE KETONE NEGATIVE (NEGATIVE); URINE LEUK ESTERASE NEGATIVE (NEGATIVE); URINE NITRITE NEGATIVE (NEGATIVE); URINE PROTEIN 1+ (NEGATIVE); URINE RBC 10 /uL (0-23.9); URINE UROBILINOGEN 0.2 mg/dL (0.2-1.0); URINE WBC 19 /uL (0-25.8)
--- OUTSIDE RECORDS SUMMARY | 2020-02-07 15:03 | XMS ---
:1960 Author Organization [facility] Care Team Providers Name Role Phone ED STAFF ZEINAB ROCK Unavailable Unavailable ALEJANDRO BARAKAT Unavailable Unavailable AKWUBA, II Unavailable Unavailable ED STAFF PHYSICIAN, STAFF Unavailable Unavailable DAVINO PHILIP Unavailable Unavailable Re-disclosure Warning The records that you are about to access may contain information from federally- assisted alcohol or drug abuse programs. If such information is present, then the following federally mandated warning applies: This information has been disclosed to you from records protected by federal confidentiality rules (42 CFR part 2). The federal rules prohibit you from making any further disclosure of this information unless further disclosure is expressly permitted by the written consent of the person to whom it pertains or as otherwise permitted by 42 CFR part 2. A general authorization for the release of medical or other information is NOT sufficient for this purpose. The Federal rules restrict any use of the information to criminally investigate or prosecute any alcohol or drug abuse patient.The records that you are about to access may contain highly sensitive health information, the redisclosure of which is protected by Article 27-F of the [facility] Public Health law. If you continue you may haveaccess to information: Regarding HIV / AIDS; Provided by facilities licensed or operated by the [facility] Office of Mental Health; or Provided by the [facility] Office for People With Developmental Disabilities. If such information is present, then the following [facility] mandated warning applies: This information has been disclosed to you from confidential records which are protected by state law. State law prohibits you from making any further disclosure of this information without the specific written consent of the person to whom it pertains, or as otherwise permitted by law. Any unauthorized further disclosure in violation of state law may result in a fine or half-way sentence or both. A general authorization for the release of medical or other information is NOT sufficient authorization for further disclosure. Allergies and Adverse Reactions Type Description Substance Reaction Status Data Source(s ) Drug allergy No Known Drug No Known Drug [facility] No Known No Known Allergies No Known eCW3 ( [place] [facility]) No Known No Known Allergies No Known eCW3 ( [facility]) Encounters Encounter Providers Location Date Indications Data Source(s ) Outpatient Attender: DAVION Colon 01/06/2020 [facility] JOJO 09:08:00 AM [facility] DANUTAAdmitter: EDT DAVION JOJO RICARDOReferrer: II AKWUBA Emergency Attender: ZEINAB ED H 12/13/2019 Adithya Magdalenos STAFF 07:45:00 AM [facility] PHYSICIANAttender: EDT - STAFF ED STAFF 12/13/2019 PHYSICIANAdmitter: 10:00:00 AM [facility] STAFF EDT PHYSICIAN Patient discharged. Emergency Attender: ZEINAB ED STAFF H 10/17/2019 08:31:00 AM [facility] PHYSICIANAttender: STAFF ED EDT - 10/17/2019 [facility] STAFF PHYSICIANAdmitter: 12:45:00 PM EDT [facility] ED STAFF PHYSICIAN Patient discharged. Inpatient Attender: [facility] H-HAL5 07/31/2019 08:29:00 [facility] CHILDEBERTAttender: STAFF ED AM EDT - [address] [place] [address] STAFF PHYSICIANAdmitter: 11:53:00 AM EDT [facility] CHILDEBERTReferrer: [facility] CHILDEBERT Patient discharged. Outpatient [facility] 10/05/2018 12:00:00 AM eCW3 ([facility] A28 EDT - 10/05/2018 12:00:00 [facility] Care) AM EDT Outpatient [facility] 09/10/2018 12:00:00 AM eCW3 ([place] [id number] EDT - 09/10/2018 12:00:00 Health Care) AM EDT Medications Medication Brand Start Product Dose Route Administrative Pharmacy [facility] Indications Reaction Description Data Name Date Form Instructions Instructions Source(s) Amlodipine Amlodi .0 active Amlodipi ne eCW3 10 MG Oral funmilayo 2015 {tabl Besylate 10 ( [place] Tablet Besyla 12:00: et} mg [place] Amlodipine te 10 00 AM Health Besylate 10 mg ED Care) mg Amlodipine Amlodi .0 active Amlodipi ne eCW3 10 MG Oral funmilayo 2015 {tabl Besylate 10 ( [place] Tablet Besyla 12:00: et} mg [place] Amlodipine te 10 00 AM Health Besylate 10 mg ED Care) mg ferrous Ferrou 1.0 active Ferrous eCW3 sulfate 325 s {tabl Sulfate 325 ([place] MG Oral Sulfat et} (65 Fe) MG Rive r Tablet e 325 Health Ferrous (65 Care) Sulfate 325 Fe) MG (65 Fe) MG Vitamin C Vitami 1.0 active Vitamin C e CW3 500 MG n C {caps 500 MG (Wilson 500 MG [address]} [facility]) Senna 8.6 Senna 2.0 active Senna 8.6 MG eCW3 MG 8.6 MG {tabl ([place] ets_a [place] t_bed [facility] time_ Care) as_ne eded} Senna 8.6 Senna 2.0 active Senna 8.6 MG eCW3 MG 8.6 MG {tabl ([place] ets_a [place] t_bed [facility] time_ Care) as_ne eded} ferrous Ferrou 1.0 active Ferrous eCW3 sulfate 325 s {tabl Sulfate 325 ([facility] MG Oral Sulfat et} (65 Fe) MG Rive r Tablet e 325 Health Ferrous (65 Care) Sulfate 325 Fe) MG (65 Fe) MG Ibuprofen ibupro 1 complet [facility] 600 MG Oral fen ed Sheila Tablet 600 mg Medical ibuprofen Tablet Center 600 mg , Tablet, Ordere Ordered By: d By: stefano Yusuf MDDirection Tim, s: 1 tablet MDDire oral every ctions eight hours : 1 PRN pain tablet oral every eight hours PRN pain 24 HR Nicoti 1.0 active Nicotine 21 eCW 3 Nicotine ne 21 {patc MG/24HR ([place] 0.875 MG/HR MG/24H h_to_ [place] Transdermal R skin} Health Patch Care) Nicotine 21 MG/24HR 24 HR Nicoti 1.0 active Nicotine 21 eCW 3 Nicotine ne 21 {patc MG/24HR ([place] 0.875 MG/HR MG/24H h_to_ [place] Transdermal R skin} Health Patch Care) Nicotine 21 MG/24HR Levetiracet Keppra 1.0 active Keppra 50 0 eCW3 am 500 MG 500 MG {tabl MG ([place] Oral Tablet et} [place] [Keppra] [facility] Keppra 500 Care) MG Levetiracet Keppra 1.0 active Keppra 50 0 eCW3 am 500 MG 500 MG {tabl MG ([place] Oral Tablet et} [place] [Keppra] [facility] Keppra 500 Care) MG lacosamide Vimpat 1.0 active Vimpat 200 eCW3 200 MG Oral 200 MG {tabl MG ([place] Tablet et} [place] [Vimpat] [facility] Vimpat 200 Care) MG Vitamin C Vitami 1.0 active Vitamin C e CW3 500 MG n C {caps 500 MG (Wilson 500 MG ule} [facility] Care) lacosamide Vimpat 1.0 active Vimpat 200 eCW3 200 MG Oral 200 MG {tabl MG ([place] Tablet et} [place] [Vimpat] [facility] Vimpat 200 Care) MG Phenytoin phenyt 1 complet [facility] sodium 100 oin ed Sheila MG Extended sodium Medica l Release extend Center Oral ed 100 Capsule mg phenytoin Capsul sodium e, extended Ordere 100 mg d By: Ana Lilia Buck Ordered By: Tim Suh MDDire MDDirection ctions s: 1 : 1 capsule capsul oral every e oral eight hours every eight hours Insurance Providers Payer name Policy type Policy ID Covered Covered libertarian's Policy P miky / Coverage libertarian ID relationship to [place] [employer] ormation type hernandez MEDICAID [id number] SP [id number] Problems, Conditions, and Diagnoses Code Display Name Description Problem Type Effective Data Dates Source(s) F10.20 Alcohol dependence Alcohol dependence Problem 9 eCW3 ([place] 12:00:00 AM [facility] EDT Care) F17.210 Cigarette smoker Cigarette smoker Problem 02/16/2017 eC W3 ([place] 12:00:00 AM [facility] EDT Care) R91.1 Pulmonary nodule Pulmonary nodule Problem 08/21/2016 eC W3 ([place] 12:00:00 AM [facility] EDT Care) F12.20 Cannabis Marijuana smoker Problem 08/05/2016 eCW3 ([place] dependence 12:00:00 AM [facility] EDT Care) F10.10 Alcohol abuse Alcohol abuse Problem 05/21/2016 eCW3 ([place] 12:00:00 AM [facility] EST Care) I10 Hypertension Hypertension Problem 05/21/2016 eCW3 ([place] 12:00:00 AM [facility]) G40.909 Seizure disorder Seizure disorder Problem 05/21/2016 eC W3 ([place] 12:00:00 AM [facility]) M25.512 Pain in left PAIN IN LEFT Diagnosis 01/06/2020 [facility] shoulder SHOULDER 09:08:00 AM Medical EDT Center Y99.9 Unspecified UNSPECIFIED Diagnosis 12/13/2019 [facility] Rasta bustillo external cause EXTERNAL CAUSE 07:45:00 AM Medic al status STATUS EDT Center Y92.[address] Diagnosis 12/13/2019 Sheila or not applicable OR NOT APPLICABLE 07:45:00 AM Medical EDT Center Y93.9 Activity, ACTIVITY, Diagnosis 12/13/2019 [facility] Magdalenos unspecified UNSPECIFIED 07:45:00 AM Medical EDT Center W19.XXXA Unspecified fall, UNSPECIFIED FALL, Diagnosis 12/13/2019 [facility] Sosa initial encounter INITIAL ENCOUNTER 07:45:00 AM Medical EDT Center S42.202A Unspecified UNSP FRACTURE OF Diagnosis 12/13/2019 [facility] Barboza osephs fracture of upper UPPER END OF LEFT 07:45:00 AM Medical end of left HUMERUS, INIT FOR EDT Center humerus, initial CLOS FX encounter for closed fracture Z91.14 Patient's other PATIENT'S OTHER Diagnosis 10/17/2019 Adithya Sosa noncompliance with NONCOMPLIANCE WITH 08:31:00 AM Medical medication regimen MEDICATION REGIMEN EDT Center Y92.[address] AND Diagnosis 10/17/[address] 08:31:[address] of EDT Center occurrence of the external cause E87.1 Hypo-osmolality HYPO-OSMOLALITY Diagnosis 10/17/2019 Adithya Sosa and hyponatremia AND HYPONATREMIA 08:31:00 AM M edical EDT Center G40.909 Epilepsy, EPILEPSY, UNSP, Diagnosis 10/17/2019 [facility] Reyes ephs unspecified, not NOT INTRACTABLE, 08:31:00 AM M edical intractable, WITHOUT STATUS EDT Center without status EPILEPTICUS epilepticus S00.93XA Contusion of CONTUSION OF Diagnosis 10/17/2019 [facility] Box phs unspecified part UNSPECIFIED PART 08:31:00 AM M edical of head, initial OF HEAD, INITIAL EDT Ce nter encounter ENCOUNTER R56.9 Unspecified UNSPECIFIED Diagnosis 10/17/2019 [facility] Magdaleno s convulsions CONVULSIONS 08:31:00 AM Medical EDT Center F17.210 Nicotine NICOTINE Diagnosis 08/01/2019 [facility] Sosa dependence, DEPENDENCE, 11:53:00 AM Medical cigarettes, CIGARETTES, EDT Center uncomplicated UNCOMPLICATED Y90.7 Blood alcohol BLOOD ALCOHOL Diagnosis 08/01/2019 [facility] Stacey yadav level of 200-239 LEVEL OF 200-239 11:53:00 AM edical mg/100 ml MG/100 ML EDT Center F10.229 Alcohol dependence ALCOHOL DEPENDENCE Diagnosis 0 [facility] Sosa with intoxication, WITH INTOXICATION, 08:29:00 AM Medical unspecified UNSPECIFIED EDT Center Results ID Date Data Source [id number] 11/24/2019 06:35:00 AM EDT [facility] Name Value Range Interpretation Description Data Sup porting Code Source(s) Document(s ) SARS [facility] coronavirus 2 RNA This lab was ordered by [facility] and reported by [facility]. ID Date Data Source HematologyRou.[id number] 10/17/2019 10:22:[address] [facility] 0400 Name Value Range Interpretation Description Data Sup porting Code Source(s) Document(s ) Leukocytes 4.4-11.0 <content Saint [#/volume] in styleCode="Bold Sheila Blood by ">White Blood Medical Automated count Cell Count Center </content>7.66 KCUMM<content styleCode="Ital ics"> (4.4-11.0 KCUMM)</content > Erythrocytes 4.4-5.9 Below low normal <content Saint [#/volume] in styleCode="Bold Sheila Blood by ">Red Blood Medical Automated count Cell Count Center </content>3.65 MCUMM L<content styleCode="Ital ics"> (4.4-5.9 MCUMM)</content > Hematocrit 41.0-53. Below low normal <content Saint [Volume 0 styleCode="Bold Sheila Fraction] of ">Hematocrit Medical Blood by </content>35.8 Center Automated count % L<content styleCode="Ital ics"> (41.0-53.0 %)</content> Erythrocyte mean 26.0-34. <content [facility] corpuscular 0 styleCode="Bold Sheila hemoglobin ">Mean Medical [Entitic mass] Corposcular Center by Automated Hemoglobin count </content>33.7 PG<content styleCode="Ital ics"> (26.0-34.0 PG)</content> Erythrocyte mean 32.0-37. <content [facility] corpuscular 0 styleCode="Bold Sheila hemoglobin ">Mean Corpus. Medical concentration Hgb Center [Mass/volume] by Concentration Automated count (MCHC) </content>34.4 G/DL<content styleCode="Ital ics"> (32.0-37.0 G/DL)</content> Hemoglobin 13.5-17. Below low normal <content Saint [Mass/volume] in 5 styleCode="Bold Sheila Blood ">Hemoglobin Medical </content>12.3 Center G/DL L<content styleCode="Ital ics"> (13.5-17.5 G/DL)</content> Erythrocyte mean 80.0-100 <content [facility] corpuscular .0 styleCode="Bold Sheila volume [Entitic ">Mean Medical volume] by Corpuscular Center Automated count Volume </content>98.1 FL<content styleCode="Ital ics"> (80.0-100.0 FL)</content> Erythrocyte 11.5-14. <content [facility] distribution 5 styleCode="Bold Sheila width [Ratio] by ">Red Cell Medical Automated count Distribution Center Width </content>13.4 %<content styleCode="Ital ics"> (11.5-14.5 %)</content> Platelet mean 8.0-11.0 <content [facility] volume [Entitic styleCode="Bold Shiela volume] in Blood ">Mean Platelet Medical by Automated Volume Center count </content>10.8 FL<content styleCode="Ital ics"> (8.0-11.0 FL)</content> UNK 1.6-7.3 <content Saint styleCode="Bold Sheila ">Neutrophil Medical Count Center </content>4.94 KCUMM<content styleCode="Ital ics"> (1.6-7.3 KCUMM)</content > Neutrophils 36-66 <content Saint [#/volume] in styleCode="Bold Sheila Blood by ">Neutrophil Medical Automated count </content>64.5 Center %<content styleCode="Ital ics"> (36-66 %)</content> Platelets 130-400 Below low normal <content Saint [#/volume] in styleCode="Bold Sheila Blood by ">Platelet Medical Automated count Count Center </content>119 KCUMM L<content styleCode="Ital ics"> (130-400 KCUMM)</content > Lymphocytes 24.0-44. Below low normal <content Saint [#/volume] in 0 styleCode="Bold Sheila Blood by ">Lymphocyte Medical Automated count </content>20.2 Center % L<content styleCode="Ital ics"> (24.0-44.0 %)</content> UNK 0.0-0.6 <content Saint styleCode="Bold Sheila ">Eosinophil Medical Count Center </content>0.13 KCUMM<content styleCode="Ital ics"> (0.0-0.6 KCUMM)</content > Monocytes 3.0-10.0 Above high <content Saint [#/volume] in normal styleCode="Bold Sheila Blood by ">Monocyte Medical Automated count </content>12.7 Center % H<content styleCode="Ital ics"> (3.0-10.0 %)</content> UNK 1.0-4.8 <content Saint styleCode="Bold Hseila ">Lymphocyte Medical Count Center </content>1.55 KCUMM<content styleCode="Ital ics"> (1.0-4.8 KCUMM)</content > Eosinophils 0-5.0 <content Saint [#/volume] in styleCode="Bold Sheila Blood by ">Eosinophil Medical Automated count </content>1.7 Center %<content styleCode="Ital ics"> (0-5.0 %)</content> UNK 0.2-0.9 Above high <content Saint normal styleCode="Bold Sheila ">Monocyte Medical Count Center </content>0.97 KCUMM H<content styleCode="Ital ics"> (0.2-0.9 KCUMM)</content > UNK 0 <content Saint styleCode="Bold Sheila ">Nucleated Red Medical Blood Cell Center </content>0.0 /100<content styleCode="Ital ics"> (0 /100)</content> Basophils 0.0-1.0 <content Saint [#/volume] in styleCode="Bold Sheila Blood by ">Basophil Medical Automated count </content>0.8 Center %<content styleCode="Ital ics"> (0.0-1.0 %)</content> UNK 0-0.1 <content Saint styleCode="Bold Sheila ">Immature Medical Granulocyte Center Count </content>0.01 KCUMM<content styleCode="Ital ics"> (0-0.1 KCUMM)</content > UNK 0.0 <content Saint styleCode="Bold Sheila ">Nucleated Red Medical Blood Cell Center Count </content>0.00 KCUMM<content styleCode="Ital ics"> (0.0 KCUMM)</content > UNK 0.0-0.3 <content Saint styleCode="Bold Sheila ">Basophil Medical Count Center </content>0.06 KCUMM<content styleCode="Ital ics"> (0.0-0.3 KCUMM)</content > UNK NONE <content Saint SEEN styleCode="Bold Sheila ">Platelet Medical Clumping Center </content>NONE SEEN <content styleCode="Ital ics"> (NONE SEEN )</content> UNK NORMAL <content Saint styleCode="Bold Sheila ">Platelet Medical Estimate Center </content>PLT. SLIGHTLY DECREASED <content styleCode="Ital ics"> (NORMAL )</content> UNK < 1 <content Saint styleCode="Bold Sheila ">Immature Medical Granulocyte Center Ratio </content>0.1 %<content styleCode="Ital ics"> (< 1 %)</content> ID Date Data Source GFR(Creatinine).[id number] 10/17/2019 10:22:[address] [facility] 0-0400 Name Value Range Interpretation Code Description Data Katie rce(s) Supporting Document(s ) UNK > 60 <content [facility] styleCode="Bold"> Medical Cent er EGFR </content>148 GFR<content styleCode="Italic s"> (> 60 GFR)</content> ID Date Data Source [id number] 10/17/2019 10:22:00 AM EDT [facility] Name Value Range Interpretation Description Data Sup porting Code Source(s) Document(s ) Carbon 22-30 <content Saint dioxide, total styleCode="Suki Sheila [Moles/volume] d">Carbon Medical in Serum or Dioxide Center Plasma </content>23 MEQ/L<content styleCode="Sharon lics"> (22-30 MEQ/L)</conten t> UNK 9-20 Below low normal <content Saint styleCode="Suki Sheila d">BUN Medical </content>2 Center MG/DL L<content styleCode="Sharon lics"> (9-20 MG/DL)</conten t> Chloride 98-107 <content Saint [Moles/volume] styleCode="Suki Sheila in Serum or d">Chloride Medical Plasma </content>104 Center MEQ/L<content styleCode="Sharon lics"> (98-107 MEQ/L)</conten t> Sodium 137-145 Below low normal <content Saint [Moles/volume] styleCode="Suki Sheila in Serum or d">Sodium Medical Plasma </content>133 Center MEQ/L L<content styleCode="Sharon lics"> (137-145 MEQ/L)</conten t> Potassium 3.5-5.3 <content [facility] [Moles/volume] styleCode="Suki Magdalenos in Serum or d">Potassium Medical Plasma </content>3.6 Center MEQ/L<content styleCode="Sharon lics"> (3.5-5.3 MEQ/L)</conten t> UNK > 60 <content Saint styleCode="Suki Magdalenos d">EGFR Medical </content>148 Center GFR<content styleCode="Sharon lics"> (> 60 GFR)</content> Glucose 74-106 Above high normal <content Saint [Mass/volume] styleCode="Suki Magdalenos in Serum or d">Glucose Medical Plasma </content>121 Center MG/DL H<content styleCode="Sharon lics"> (74-106 MG/DL)</conten t> Creatinine 0.5-1.3 <content Saint [Mass/volume] styleCode="Suki Magdalenos in Serum or d">Creatinine Medical Plasma </content>0.7 Center MG/DL<content styleCode="Sharon lics"> (0.5-1.3 MG/DL)</conten t> Calcium 8.4-10.2 <content Saint [Mass/volume] styleCode="Suki Magdalenos in Serum or d">Calcium Medical Plasma </content>9.0 Center MG/DL<content styleCode="Sharon lics"> (8.4-10.2 MG/DL)</conten t> ID Date Data Source Liver 07/31/2019 01:00:00 PM EDT [facility] Profile.[id number] Name Value Range Interpretation Description Data Sup porting Code Source(s) Document(s ) Alkaline 38-126 <content [facility] phosphatase styleCode="Bold"> Sheila [Enzymatic Alkaline Medical activity/volume] Phosphatase (ALP) Cente r in Serum or Plasma </content>63 IU/L<content styleCode="Italic s"> (38-126 IU/L)</content> Bilirubin.total 0.2-1.3 <content Saint [Mass/volume] in styleCode="Bold"> Dmitri hs Serum or Plasma Bilirubin Total Medical </content>0.3 Center MG/DL<content styleCode="Italic s"> (0.2-1.3 MG/DL)</content> Alanine 7-50 <content Saint aminotransferase styleCode="Bold"> Dmitri hs [Enzymatic Alanine Medical activity/volume] Aminotransferase Center in Serum or Plasma (ALT) </content>20 IU/L<content styleCode="Italic s"> (7-50 IU/L)</content> Aspartate 17-59 Above high <content Saint aminotransferase normal styleCode="Bold"> Dmitri hs [Enzymatic Aspartate Medical activity/volume] Aminotransferase Center in Serum or Plasma (AST) </content>63 IU/L H<content styleCode="Italic s"> (17-59 IU/L)</content> Albumin 3.5-5.0 <content [facility] [Mass/volume] in styleCode="Bold"> Dmitri hs Serum or Plasma Albumin Medical </content>4.0 Center G/DL<content styleCode="Italic s"> (3.5-5.0 G/DL)</content> ID Date Data Source HematologyRou.[id number] 07/31/2019 01:00:[address] [facility] 0400 Name Value Range Interpretation Description Data Sup porting Code Source(s) Document(s ) Leukocytes 4.4-11.0 <content Saint [#/volume] in styleCode="Bold [facility] Blood by ">White Blood Medical Automated count Cell Count Center </content>4.57 KCUMM<content styleCode="Ital ics"> (4.4-11.0 KCUMM)</content > Hemoglobin 13.5-17. <content Saint [Mass/volume] in 5 styleCode="Bold [facility] Blood ">Hemoglobin Medical </content>13.6 Center G/DL<content styleCode="Ital ics"> (13.5-17.5 G/DL)</content> Erythrocyte mean 26.0-34. <content [facility] corpuscular 0 styleCode="Bold Sheila hemoglobin ">Mean Medical [Entitic mass] Corposcular Center by Automated Hemoglobin count </content>32.2 PG<content styleCode="Ital ics"> (26.0-34.0 PG)</content> Erythrocytes 4.4-5.9 Below low normal <content Saint [#/volume] in styleCode="Bold Sheila Blood by ">Red Blood Medical Automated count Cell Count Center </content>4.23 MCUMM L<content styleCode="Ital ics"> (4.4-5.9 MCUMM)</content > Hematocrit 41.0-53. Below low normal <content Saint [Volume 0 styleCode="Bold Sheila Fraction] of ">Hematocrit Medical Blood by </content>40.6 Center Automated count % L<content styleCode="Ital ics"> (41.0-53.0 %)</content> Erythrocyte mean 80.0-100 <content [facility] corpuscular .0 styleCode="Bold Sheila volume [Entitic ">Mean Medical volume] by Corpuscular Center Automated count Volume </content>96.0 FL<content styleCode="Ital ics"> (80.0-100.0 FL)</content> Platelets 130-400 Below low normal <content Saint [#/volume] in styleCode="Bold Sheila Blood by ">Platelet Medical Automated count Count Center </content>116 KCUMM L<content styleCode="Ital ics"> (130-400 KCUMM)</content > Platelet mean 8.0-11.0 Above high <content Saint volume [Entitic normal styleCode="Bold Sheila volume] in Blood ">Mean Platelet Medical by Automated Volume Center count </content>11.4 FL H<content styleCode="Ital ics"> (8.0-11.0 FL)</content> Erythrocyte 11.5-14. <content [facility] distribution 5 styleCode="Bold Sheila width [Ratio] by ">Red Cell Medical Automated count Distribution Center Width </content>13.2 %<content styleCode="Ital ics"> (11.5-14.5 %)</content> Erythrocyte mean 32.0-37. <content [facility] corpuscular 0 styleCode="Bold Sheila hemoglobin ">Mean Corpus. Medical concentration Hgb Center [Mass/volume] by Concentration Automated count (MCHC) </content>33.5 G/DL<content styleCode="Ital ics"> (32.0-37.0 G/DL)</content> UNK NONE <content Saint SEEN styleCode="Bold Sheila ">Platelet Medical Clumping Center </content>NONE SEEN <content styleCode="Ital ics"> (NONE SEEN )</content> UNK NORMAL <content Saint styleCode="Bold Sheila ">Platelet Medical Estimate Center </content>PLT. SLIGHTLY DECREASED <content styleCode="Ital ics"> (NORMAL )</content> UNK 0 <content Saint styleCode="Bold Sheila ">Nucleated Red Medical Blood Cell Center </content>0.0 /100<content styleCode="Ital ics"> (0 /100)</content> UNK 0.0 <content Saint styleCode="Bold Sheila ">Nucleated Red Medical Blood Cell Center Count </content>0.00 KCUMM<content styleCode="Ital ics"> (0.0 KCUMM)</content > ID Date Data Source GFR(Creatinine).[id number] 07/31/2019 01:00:[address] [facility] 0-0400 Name Value Range Interpretation Code Description Data Katie rce(s) Supporting Document(s ) UNK > 60 <content [facility] styleCode="Bold"> Medical Cent er EGFR </content>148 GFR<content styleCode="Italic s"> (> 60 GFR)</content> ID Date Data Source CHMROUTINECCDA.[id number] 07/31/2019 01:00:[address] [facility] -0400 Name Value Range Interpretation Description Data Sup porting Code Source(s) Document(s ) UNK >= 1.0 <content Saint styleCode="Suki Sheila d">AG Ratio Medical </content>1.5 Center <content styleCode="Sharon lics"> (>= 1.0 )</content> Magnesium 1.6-2.3 Below low normal <content Saint [Mass/volume] styleCode="Suki Magdalenos in Serum or d">Magnesium Medical Plasma </content>1.5 Center MG/DL L<content styleCode="Sharon lics"> (1.6-2.3 MG/DL)</conten t> Phosphate 2.5-4.5 <content [facility] [Mass/volume] styleCode="Suki Sheila in Serum or d">Phosphorus Medical Plasma </content>2.7 Center MG/DL<content styleCode="Sharon lics"> (2.5-4.5 MG/DL)</conten t> UNK 2.3-3.5 <content Saint styleCode="Suki Sheila d">Globulin Medical </content>2.6 Center G/DL<content styleCode="Sharon lics"> (2.3-3.5 G/DL)</content > Protein 6.3-8.2 <content [facility] [Mass/volume] styleCode="Suki Magdalenos in Serum or d">Total Medical Plasma Protein Center </content>6.6 G/DL<content styleCode="Sharon lics"> (6.3-8.2 G/DL)</content > ID Date Data Source [facility].[id number] 07/31/2019 01:00:00 PM EDT [facility] Name Value Range Interpretation Description Data Sup porting Code Source(s) Document(s ) Sodium 137-145 Below low <content Saint [Moles/volume] in normal styleCode="Bold"> Isauro [facility] Serum or Plasma Sodium Medical </content>136 Center MEQ/L L<content styleCode="Italic s"> (137-145 MEQ/L)</content> UNK 9-20 <content Saint styleCode="Bold"> Sheila BUN </content>9 Medical MG/DL<content Center styleCode="Italic s"> (9-20 MG/DL)</content> Potassium 3.5-5.3 <content Saint [Moles/volume] in styleCode="Bold"> Isauro phs Serum or Plasma Potassium Medical </content>4.1 Center MEQ/L<content styleCode="Italic s"> (3.5-5.3 MEQ/L)</content> Chloride 98-107 <content Saint [Moles/volume] in styleCode="Bold"> Isauro phs Serum or Plasma Chloride Medical </content>103 Center MEQ/L<content styleCode="Italic s"> (98-107 MEQ/L)</content> Creatinine 0.5-1.3 <content [facility] [Mass/volume] in styleCode="Bold"> Dmitri hs Serum or Plasma Creatinine Medical </content>0.7 Center MG/DL<content styleCode="Italic s"> (0.5-1.3 MG/DL)</content> Carbon dioxide, 22-30 <content Saint total styleCode="Bold"> Sheila [Moles/volume] in Carbon Dioxide Medical Serum or Plasma </content>22 Center MEQ/L<content styleCode="Italic s"> (22-30 MEQ/L)</content> UNK > 60 <content Saint styleCode="Bold"> Sheila EGFR Medical </content>148 Center GFR<content styleCode="Italic s"> (> 60 GFR)</content> Calcium 8.4-10. <content [facility] [Mass/volume] in 2 styleCode="Bold"> Dmitri hs Serum or Plasma Calcium Medical </content>8.6 Center MG/DL<content styleCode="Italic s"> (8.4-10.2 MG/DL)</content> Glucose 74-106 Above high <content [facility] [Mass/volume] in normal styleCode="Bold"> Dmitri hs Serum or Plasma Glucose Medical </content>208 Center MG/DL H<content styleCode="Italic s"> (74-106 MG/DL)</content> Aspartate 17-59 Above high <content Saint aminotransferase normal styleCode="Bold"> Dmitri hs [Enzymatic Aspartate Medical activity/volume] Aminotransferase Center in Serum or Plasma (AST) </content>63 IU/L H<content styleCode="Italic s"> (17-59 IU/L)</content> Alanine 7-50 <content [facility] aminotransferase styleCode="Bold"> Dmitri hs [Enzymatic Alanine Medical activity/volume] Aminotransferase Center in Serum or Plasma (ALT) </content>20 IU/L<content styleCode="Italic s"> (7-50 IU/L)</content> Alkaline 38-126 <content Saint phosphatase styleCode="Bold"> Sheila [Enzymatic Alkaline Medical activity/volume] Phosphatase (ALP) Cente r in Serum or Plasma </content>63 IU/L<content styleCode="Italic s"> (38-126 IU/L)</content> Albumin 3.5-5.0 <content [facility] [Mass/volume] in styleCode="Bold"> Dmitri hs Serum or Plasma Albumin Medical </content>4.0 Center G/DL<content styleCode="Italic s"> (3.5-5.0 G/DL)</content> Bilirubin.total 0.2-1.3 <content [facility] [Mass/volume] in styleCode="Bold"> Dmitri hs Serum or Plasma Bilirubin Total Medical </content>0.3 Center MG/DL<content styleCode="Italic s"> (0.2-1.3 MG/DL)</content> ID Date Data Source [facility].[id number] 07/31/2019 11:30:[address] [facility] -0400 Name Value Range Interpretation Description Data Sup porting Code Source(s) Document(s ) Cannabinoids <content Saint [Presence] in styleCode="[facility] Urine by Screen d">Cannabinoid Medical method >50 ng/mL s Center </content>NEGA TIVE NG/ML (Reference Range: not available)<br/ > ID Date Data Source Urinalysis.[id number] 07/31/2019 11:30:[address] [facility] 0 Name Value Range Interpretation Description Data Sup porting Code Source(s) Document(s ) UNK CLEAR <content Saint styleCode="[facility] d">Urine Medical Clarity Center </content>ALFA R <content styleCode="Sharon lics"> (CLEAR )</content> Color of Urine YELLOW <content Saint styleCode="Suki Sheila d">Color, Medical Urine Center </content>YELL OW <content styleCode="Sharon lics"> (YELLOW )</content> Ketones NEGATIVE <content [facility] [Mass/volume] styleCode="Suki Sheila in Urine by d">Urine Medical Test strip Ketone Center </content>NEGA TIVE MG/DL<content styleCode="Sharon lics"> (NEGATIVE MG/DL)</conten t> UNK NEGATIVE <content Saint styleCode="Suki Sheila d">Urine Medical Bilirubin Center </content>NEGA TIVE <content styleCode="Sharon lics"> (NEGATIVE )</content> Specific 1.015-1.02 <content Saint gravity of 5 styleCode="Suki Sheila Urine by Test d">Urine Medical strip Specific Center [place] </content>1.02 5 <content styleCode="Sharon lics"> (1.015-1.025 )</content> Glucose NEGATIVE <content [facility] [Mass/volume] styleCode="Uski Sheila in Urine by d">Urine Medical Test strip Glucose Center </content>NEGA TIVE MG/DL<content styleCode="Sharon lics"> (NEGATIVE MG/DL)</conten t> Urobilinogen 0.2-1.0 <content Saint [Units/volume] styleCode="Suki Sheila in Urine by d">Urine Medical Test strip Urobilinogen Center </content>0.2 MG/DL<content styleCode="Sharon lics"> (0.2-1.0 MG/DL)</conten t> pH of Urine by 4.5-8.0 <content Saint Test strip styleCode="Suki Sheila d">Urine pH Medical </content>6.0 Center <content styleCode="Sharon lics"> (4.5-8.0 )</content> Hemoglobin NEGATIVE <content Saint [Presence] in styleCode="Suki Sheila Urine by Test d">Urine Blood Medical strip </content>NEGA Center TIVE <content styleCode="Sharon lics"> (NEGATIVE )</content> Protein NEGATIVE <content Saint [Mass/volume] styleCode="Suki Sosa in Urine by d">Urine Medical Test strip Protein Center </content>NEGA TIVE MG/DL<content styleCode="Sharon lics"> (NEGATIVE MG/DL)</conten t> Nitrite NEGATIVE <content Saint [Presence] in styleCode="Suki Sosa Urine by Test d">Urine Medical strip Nitrite Center </content>NEGA TIVE <content styleCode="Sharon lics"> (NEGATIVE )</content> Leukocyte NEGATIVE <content Saint esterase styleCode="Suki Sosa [Presence] in d">Urine Medical Urine by Test Leukocyte Center strip </content>NEGA TIVE <content styleCode="Sharon lics"> (NEGATIVE )</content> ID Date Data Source Liver 07/31/2019 10:09:00 AM EDT [facility] Profile.[id number] Name Value Range Interpretation Description Data Sup porting Code Source(s) Document(s ) Alanine 7-50 <content Saint aminotransferase styleCode="Bold"> Dmitri hs [Enzymatic Alanine Medical activity/volume] Aminotransferase Center in Serum or Plasma (ALT) </content>24 IU/L<content styleCode="Italic s"> (7-50 IU/L)</content> Aspartate 17-59 Above high <content Saint aminotransferase normal styleCode="Bold"> Dmitri hs [Enzymatic Aspartate Medical activity/volume] Aminotransferase Center in Serum or Plasma (AST) </content>78 IU/L H<content styleCode="Italic s"> (17-59 IU/L)</content> Alkaline 38-126 <content Saint phosphatase styleCode="Bold"> Sheila [Enzymatic Alkaline Medical activity/volume] Phosphatase (ALP) Cente r in Serum or Plasma </content>80 IU/L<content styleCode="Italic s"> (38-126 IU/L)</content> Albumin 3.5-5.0 <content [facility] [Mass/volume] in styleCode="Bold"> Dmitri hs Serum or Plasma Albumin Medical </content>4.5 Center G/DL<content styleCode="Italic s"> (3.5-5.0 G/DL)</content> UNK 0.0-0.3 <content Saint styleCode="Bold"> [facility] Bilirubin, Direct Medical </content>< 0.2 Center MG/DL<content styleCode="Italic s"> (0.0-0.3 MG/DL)</content> Bilirubin.total 0.2-1.3 <content [facility] [Mass/volume] in styleCode="Bold"> Dmitri hs Serum or Plasma Bilirubin Total Medical </content>0.3 Center MG/DL<content styleCode="Italic s"> (0.2-1.3 MG/DL)</content> ID Date Data Source GFR(Creatinine).[id number] 07/31/2019 10:09:[address] [facility] 0-0400 Name Value Range Interpretation Code Description Data Katie rce(s) Supporting Document(s ) UNK > 60 <content [facility] styleCode="Bold"> Medical Cent er EGFR </content>111 GFR<content styleCode="Italic s"> (> 60 GFR)</content> ID Date Data Source BMP.[id number] 07/31/2019 10:09:00 AM EDT [facility] Name Value Range Interpretation Description Data Sup porting Code Source(s) Document(s ) Sodium 137-145 <content Saint [Moles/volume] in styleCode="Bold"> Isauro phs Serum or Plasma Sodium Medical </content>143 Center MEQ/L<content styleCode="Italic s"> (137-145 MEQ/L)</content> Carbon dioxide, 22-30 <content Saint total styleCode="Bold"> Sheila [Moles/volume] in Carbon Dioxide Medical Serum or Plasma </content>29 Center MEQ/L<content styleCode="Italic s"> (22-30 MEQ/L)</content> Chloride 98-107 <content Saint [Moles/volume] in styleCode="Bold"> Isauro phs Serum or Plasma Chloride Medical </content>107 Center MEQ/L<content styleCode="Italic s"> (98-107 MEQ/L)</content> Creatinine 0.5-1.3 <content Saint [Mass/volume] in styleCode="Bold"> Dmitri hs Serum or Plasma Creatinine Medical </content>0.9 Center MG/DL<content styleCode="Italic s"> (0.5-1.3 MG/DL)</content> UNK 9-20 <content Saint styleCode="Bold"> Sheila BUN </content>11 Medical MG/DL<content Center styleCode="Italic s"> (9-20 MG/DL)</content> Potassium 3.5-5.3 <content Saint [Moles/volume] in styleCode="Bold"> Isauro phs Serum or Plasma Potassium Medical </content>4.6 Center MEQ/L<content styleCode="Italic s"> (3.5-5.3 MEQ/L)</content> UNK > 60 <content Saint styleCode="Bold"> Sheila EGFR Medical </content>111 Center GFR<content styleCode="Italic s"> (> 60 GFR)</content> Aspartate 17-59 Above high <content Saint aminotransferase normal styleCode="Bold"> Dmitri hs [Enzymatic Aspartate Medical activity/volume] Aminotransferase Center in Serum or Plasma (AST) </content>78 IU/L H<content styleCode="Italic s"> (17-59 IU/L)</content> Glucose 74-106 <content Saint [Mass/volume] in styleCode="Bold"> Dmitri hs Serum or Plasma Glucose Medical </content>106 Center MG/DL<content styleCode="Italic s"> (74-106 MG/DL)</content> Alanine 7-50 <content Saint aminotransferase styleCode="Bold"> Dmitri hs [Enzymatic Alanine Medical activity/volume] Aminotransferase Center in Serum or Plasma (ALT) </content>24 IU/L<content styleCode="Italic s"> (7-50 IU/L)</content> Calcium 8.4-10. <content Saint [Mass/volume] in 2 styleCode="Bold"> Dmitri hs Serum or Plasma Calcium Medical </content>9.2 Center MG/DL<content styleCode="Italic s"> (8.4-10.2 MG/DL)</content> Albumin 3.5-5.0 <content [facility] [Mass/volume] in styleCode="Bold"> Dmitri hs Serum or Plasma Albumin Medical </content>4.5 Center G/DL<content styleCode="Italic s"> (3.5-5.0 G/DL)</content> Alkaline 38-126 <content Saint phosphatase styleCode="Bold"> Sheila [Enzymatic Alkaline Medical activity/volume] Phosphatase (ALP) Cente r in Serum or Plasma </content>80 IU/L<content styleCode="Italic s"> (38-126 IU/L)</content> Bilirubin.total 0.2-1.3 <content [facility] [Mass/volume] in styleCode="Bold"> Dmitri hs Serum or Plasma Bilirubin Total Medical </content>0.3 Center MG/DL<content styleCode="Italic s"> (0.2-1.3 MG/DL)</content> ID Date Data Source Liver 07/31/2019 09:01:00 AM EDT [facility] Profile.[id number] Name Value Range Interpretation Description Data Sup porting Code Source(s) Document(s ) Bilirubin.total <content Saint [Mass/volume] in styleCode="Bold"> Dmitri hs Serum or Plasma Bilirubin Total Medical </content>Test Center not performed. MG/DL (Reference Range: not available)
Alanine <content Saint aminotransferase styleCode="Bold"> Dmitri hs [Enzymatic Alanine Medical activity/volume] Aminotransferase Center in Serum or Plasma (ALT) </content>Test not performed. IU/L (Reference Range: not available)
Alkaline <content Saint phosphatase styleCode="Bold"> Sheila [Enzymatic Alkaline Medical activity/volume] Phosphatase (ALP) Cente r in Serum or Plasma </content>Test not performed. IU/L (Reference Range: not available)
Aspartate <content Saint aminotransferase styleCode="Bold"> Dmitri hs [Enzymatic Aspartate Medical activity/volume] Aminotransferase Center in Serum or Plasma (AST) </content>Test not performed. IU/L (Reference Range: not available)
Albumin <content Saint [Mass/volume] in styleCode="Bold"> Dmitri hs Serum or Plasma Albumin Medical </content>Test Center not performed. G/DL (Reference Range: not available)
UNK <content Saint styleCode="Bold"> Sheila Bilirubin, Direct Medical </content>Test Center not performed. MG/DL (Reference Range: not available)
ID Date Data Source HematologyRou.[id number] 07/31/2019 09:01:00 AM EDT Benjy nt [facility] 0400 Name Value Range Interpretation Description Data Sup porting Code Source(s) Document(s ) Leukocytes 4.4-11.0 Below low normal <content Saint [#/volume] in styleCode="Bold Sheila Blood by ">White Blood Medical Automated count Cell Count Center </content>4.28 KCUMM L<content styleCode="Ital ics"> (4.4-11.0 KCUMM)</content > Erythrocytes 4.4-5.9 <content Saint [#/volume] in styleCode="Bold Sheila Blood by ">Red Blood Medical Automated count Cell Count Center </content>5.15 MCUMM<content styleCode="Ital ics"> (4.4-5.9 MCUMM)</content > Hemoglobin 13.5-17. <content Saint [Mass/volume] in 5 styleCode="Bold Sheila Blood ">Hemoglobin Medical </content>16.6 Center G/DL<content styleCode="Ital ics"> (13.5-17.5 G/DL)</content> Erythrocyte 11.5-14. <content Saint distribution 5 styleCode="Bold Sheila width [Ratio] by ">Red Cell Medical Automated count Distribution Center Width </content>13.2 %<content styleCode="Ital ics"> (11.5-14.5 %)</content> Erythrocyte mean 26.0-34. <content Saint corpuscular 0 styleCode="Bold Sheila hemoglobin ">Mean Medical [Entitic mass] Corposcular Center by Automated Hemoglobin count </content>32.2 PG<content styleCode="Ital ics"> (26.0-34.0 PG)</content> Hematocrit 41.0-53. <content Saint [Volume 0 styleCode="Bold Sehila Fraction] of ">Hematocrit Medical Blood by </content>49.6 Center Automated count %<content styleCode="Ital ics"> (41.0-53.0 %)</content> Erythrocyte mean 80.0-100 <content Saint corpuscular .0 styleCode="Bold Sheila volume [Entitic ">Mean Medical volume] by Corpuscular Center Automated count Volume </content>96.3 FL<content styleCode="Ital ics"> (80.0-100.0 FL)</content> Erythrocyte mean 32.0-37. <content Saint corpuscular 0 styleCode="Bold Sheila hemoglobin ">Mean Corpus. Medical concentration Hgb Center [Mass/volume] by Concentration Automated count (MCHC) </content>33.5 G/DL<content styleCode="Ital ics"> (32.0-37.0 G/DL)</content> Platelets 130-400 <content Saint [#/volume] in styleCode="Bold Sheila Blood by ">Platelet Medical Automated count Count Center </content>131 KCUMM<content styleCode="Ital ics"> (130-400 KCUMM)</content > Platelet mean 8.0-11.0 Above high <content Saint volume [Entitic normal styleCode="Bold Sheila volume] in Blood ">Mean Platelet Medical by Automated Volume Center count </content>11.1 FL H<content styleCode="Ital ics"> (8.0-11.0 FL)</content> UNK 0 <content Saint styleCode="Bold Sheila ">Nucleated Red Medical Blood Cell Center </content>0.0 /100<content styleCode="Ital ics"> (0 /100)</content> UNK 0.0 <content Saint styleCode="Bold Sheila ">Nucleated Red Medical Blood Cell Center Count </content>0.00 KCUMM<content styleCode="Ital ics"> (0.0 KCUMM)</content > UNK 0 Above high <content Saint normal styleCode="Bold Sheila ">Atypical Medical Lymphocyte Center </content>7.0 % H<content styleCode="Ital ics"> (0 %)</content> UNK 21-51 Above high <content Saint normal styleCode="Bold Sheila ">Manual Medical Lymphocyte Center Count </content>59.0 % H<content styleCode="Ital ics"> (21-51 %)</content> UNK 2-9 <content Saint styleCode="Bold Sheila ">Monocyte-Manu Medical al Center </content>9.0 %<content styleCode="Ital ics"> (2-9 %)</content> UNK 42-75 Below low normal <content Saint styleCode="Bold Sheila ">Manual Medical Neutrophil Center count </content>14.0 % L<content styleCode="Ital ics"> (42-75 %)</content> UNK NONE <content Saint SEEN styleCode="Bold Sheila ">Platelet Medical Clumping Center </content>NONE SEEN <content styleCode="Ital ics"> (NONE SEEN )</content> UNK NORMAL <content Saint styleCode="Bold Sheila ">Target Cell Medical </content>SLIGH Center T <content styleCode="Ital ics"> (NORMAL )</content> UNK 0-3 Above high <content Saint normal styleCode="Bold Sheila ">Manual Medical Eosinophil Center Count </content>9.0 % H<content styleCode="Ital ics"> (0-3 %)</content> UNK NORMAL <content Saint styleCode="Bold Sheila ">Poikilocyte Medical </content>SLIGH Center T <content styleCode="Ital ics"> (NORMAL )</content> UNK 0-1 Above high <content Saint normal styleCode="Bold Sheila ">Manual Medical Basophil Count Center </content>2.0 % H<content styleCode="Ital ics"> (0-1 %)</content> UNK NORMAL <content Saint styleCode="Bold Sheila ">RBC Medical Morphology Center </content>ABNOR MAL <content styleCode="Ital ics"> (NORMAL )</content> UNK NONE <content Saint SEEN styleCode="Bold Sheila ">Teardrop Cell Medical </content>SLIGH Center T <content styleCode="Ital ics"> (NONE SEEN )</content> ID Date Data Source GFR(Creatinine).[id number] 07/31/2019 09:01:00 AM EDT Benjy [facility] 0-0400 Name Value Range Interpretation Code Description Data Katie rce(s) Supporting Document(s ) UNK <content [facility] styleCode="Bold"> Medical Cent er EGFR </content>Test not performed. GFR (Reference Range: not available)
ID Date Data Source BMP.[id number] 07/31/2019 09:01:00 AM EDT [facility] Name Value Range Interpretation Description Data Sup porting Code Source(s) Document(s ) Sodium <content Saint [Moles/volume] in styleCode="Bold"> Isauro phs Serum or Plasma Sodium Medical </content>Test Center not performed. MEQ/L (Reference Range: not available)
UNK <content Saint styleCode="Bold"> Sheila BUN Medical </content>Test Center not performed. MG/DL (Reference Range: not available)
Potassium <content Saint [Moles/volume] in styleCode="Bold"> Isauro phs Serum or Plasma Potassium Medical </content>Test Center not performed. MEQ/L (Reference Range: not available)
Chloride <content Saint [Moles/volume] in styleCode="Bold"> Isauro phs Serum or Plasma Chloride Medical </content>Test Center not performed. MEQ/L (Reference Range: not available)
Creatinine <content Saint [Mass/volume] in styleCode="Bold"> Dmitri hs Serum or Plasma Creatinine Medical </content>Test Center not performed. MG/DL (Reference Range: not available)
Carbon dioxide, <content Saint total styleCode="Bold"> Sheila [Moles/volume] in Carbon Dioxide Medical Serum or Plasma </content>Test Center not performed. MEQ/L (Reference Range: not available)
Aspartate <content Saint aminotransferase styleCode="Bold"> Dmitri hs [Enzymatic Aspartate Medical activity/volume] Aminotransferase Center in Serum or Plasma (AST) </content>Test not performed. IU/L (Reference Range: not available)
Glucose <content Saint [Mass/volume] in styleCode="Bold"> Dmitri hs Serum or Plasma Glucose Medical </content>Test Center not performed. MG/DL (Reference Range: not available)
Calcium <content Saint [Mass/volume] in styleCode="Bold"> Dmitri hs Serum or Plasma Calcium Medical </content>Test Center not performed. MG/DL (Reference Range: not available)
Alanine <content Saint aminotransferase styleCode="Bold"> Dmitri hs [Enzymatic Alanine Medical activity/volume] Aminotransferase Center in Serum or Plasma (ALT) </content>Test not performed. IU/L (Reference Range: not available)
UNK <content Saint styleCode="Bold"> Sheila EGFR Medical </content>Test Center not performed. GFR (Reference Range: not available)
Alkaline <content Saint phosphatase styleCode="Bold"> Sheila [Enzymatic Alkaline Medical activity/volume] Phosphatase (ALP) Cente r in Serum or Plasma </content>Test not performed. IU/L (Reference Range: not available)
Bilirubin.total <content Saint [Mass/volume] in styleCode="Bold"> Dmitri hs Serum or Plasma Bilirubin Total Medical </content>Test Center not performed. MG/DL (Reference Range: not available)
Albumin <content Saint [Mass/volume] in styleCode="Bold"> Dmitri hs Serum or Plasma Albumin Medical </content>Test Center not performed. G/DL (Reference Range: not available)
Procedure Social History Code Duration Value Status Description Data Source(s ) Smoking 12/13/2019 Denies Ever completed Denies Ever Smoked [facility] Sheila 08:21:00 AM EDT Smoked Medical C enter Smoking 12/13/2019 Denies Ever completed Denies Ever Smoked [facility] Sheila 07:55:00 AM EDT Smoked Medical C enter Smoking 10/17/2019 Denies Ever completed Denies Ever Smoked [facility] Sheila 09:16:00 AM EDT Smoked Medical C enter Smoking 10/17/2019 Denies Ever completed Denies Ever Smoked [facility] Sheila 09:04:00 AM EDT Smoked Medical C enter Smoking 10/17/2019 Denies Ever completed Denies Ever Smoked [facility] Sheila 08:45:00 AM EDT Smoked Medical C enter Smoking 07/31/2019 Occasional Smoker completed Occasional Smoker [facility] Sheila 02:40:00 PM EDT Medical C enter Smoking 07/31/2019 Occasional Smoker completed Occasional Smoker [facility] Sheila 12:38:00 PM EDT Medical C enter Smoking 07/31/2019 Denies Ever completed Denies Ever Smoked [facility] Sheila 08:47:00 AM EDT Smoked Medical C enter Smoking 07/31/2019 Denies Ever completed Denies Ever Smoked [facility] Sheila 08:45:00 AM EDT Smoked Medical C enter Smoking 07/31/2019 Denies Ever completed Denies Ever Smoked [facility] Sheila 08:36:00 AM EDT Smoked Medical C enter Smoking 07/30/2019 Current Smoker completed Current Smoker eCW3 ( [place] 12:00:00 AM [facility]) Smoking 04/18/2019 Current Smoker completed Current Smoker eCW3 ( [place] 12:00:00 AM [facility]) Smoking Unknown if ever completed Unknown if ever Adithya Sosa smoked smoked Medical Center Current Smoker completed Current Smoker eCW3 ( [facility]) Current Smoker completed Current Smoker eCW3 ( [facility]) Vital Signs ID Date Data Source UNK Name Value Range Interpretation Code Description Data Source(s) Body temperature 36.381377 36.694146 Domonique [facility] Respiratory rate 18 /min 18 /min [facility] Oxygen saturation 98 % 98 % [facility] by Pulse oximetry Heart rate 70 /min 70 /min [facility] Diastolic blood 60 mm[Hg] 60 mm[Hg] [facility] pressure [facility] Systolic blood 130 mm[Hg] 130 mm[Hg] [facility] pressure [facility] Body weight 68.489442 kg 68.255832 kg [facility] Body temperature 36.429407 36.726343 Domonique [facility] Respiratory rate 18 /min 18 /min [facility] Oxygen saturation 98 % 98 % [facility] in [facility] by Pulse oximetry Heart rate 87 /min 87 /min [facility] Body height 170.090428 170.166691 cm [facility] Medical [place] Diastolic blood 80 mm[Hg] 80 mm[Hg] [facility] pressure Medical Center Systolic blood 130 mm[Hg] 130 mm[Hg] [facility] Body mass index 23.4 kg/m2 23.4 kg/m2 [facility] (BMI) [Ratio] Medical [address] Body temperature 36.094136 36.189288 [facility] Respiratory rate 17 /min 17 /min [facility] Oxygen saturation 98 % 98 % [facility] Arterial blood [facility] by Pulse oximetry Heart rate 78 /min 78 /min [facility] [facility] Diastolic blood 76 mm[Hg] 76 mm[Hg] [facility] pressure [facility] Systolic blood 133 mm[Hg] 133 mm[Hg] [facility] Body temperature 36.610728 36.015240 [facility] Respiratory rate 17 /min 17 /min [facility] Oxygen saturation 99 % 99 % [facility] Arterial blood [facility] by Pulse oximetry Heart rate 88 /min 88 /min [facility] Diastolic blood 80 mm[Hg] 80 mm[Hg] [facility] pressure [facility] Systolic blood 123 mm[Hg] 123 mm[Hg] [facility] Body temperature 37.430158 37.185627 [facility] Respiratory rate 18 /min 18 /min [facility] Oxygen saturation 100 % 100 % [facility] blood [facility] by Pulse oximetry Heart rate 75 /min 75 /min [facility] Diastolic blood 96 mm[Hg] 96 mm[Hg] [facility] Systolic blood 126 mm[Hg] 126 mm[Hg] [facility] Body temperature 36.786259 36.172061 [facility] Respiratory rate 17 /min 17 /min [facility] Oxygen saturation 99 % 99 % [facility] Arterial blood [facility] by Pulse oximetry Heart rate 77 /min 77 /min [facility] Diastolic blood 95 mm[Hg] 95 mm[Hg] [facility] Systolic blood 144 mm[Hg] 144 mm[Hg] [facility] Body weight 58.660317 kg 58.599616 kg [facility] Body temperature 36.369846 36.437369 [facility] Respiratory rate 19 /min 19 /min [facility] Oxygen saturation 98 % 98 % [facility] in Arterial blood [facility] by Pulse oximetry Heart rate 65 /min 65 /min [facility] Body height 170.091658 170.563298 cm [facility] Medical [place] Diastolic blood 102 mm[Hg] 102 mm[Hg] [facility] pressure [facility] Center Systolic blood 157 mm[Hg] 157 mm[Hg] [facility] Body mass index 20.3 kg/m2 20.3 kg/m2 [facility] (BMI) [Ratio] Medical [facility] ter Body temperature 36.010219 36.903979 [facility] Respiratory rate 20 /min 20 /min [facility] Heart rate 94 /min 94 /min [facility] Diastolic blood 79 mm[Hg] 79 mm[Hg] [facility] Systolic blood 136 mm[Hg] 136 mm[Hg] [facility] Body weight 54.087421 kg 54.387719 kg [facility] Body height 170.277447 170.359667 cm [facility] Body mass index 18.78 kg/m2 18.78 kg/m2 [facility] osep (BMI) [Ratio] Medical [address] Body temperature 36.915610 36.826394 [facility] Respiratory rate 20 /min 20 /min [facility] Heart rate 59 /min 59 /min [facility] Diastolic blood 76 mm[Hg] 76 mm[Hg] [facility] Systolic blood 128 mm[Hg] 128 mm[Hg] [facility] Body temperature 36.804395 36.028040 [facility] Respiratory rate 18 /min 18 /min [facility] Heart rate 87 /min 87 /min [facility] Diastolic blood 81 mm[Hg] 81 mm[Hg] [facility] pressure [facility] Center Systolic blood 142 mm[Hg] 142 mm[Hg] [facility] Body weight 54.752961 kg 54.308490 kg [facility] Measured [facility] Body height 170.304091 170.698697 cm [facility] Body mass index 18.78 kg/m2 18.78 kg/m2 [facility] (BMI) [Ratio] Medical [facility] ter Body weight 54.154340 kg 54.302946 kg [facility] Body temperature 36.598797 36.923100 [facility] Respiratory rate 18 /min 18 /min [facility] Oxygen saturation 99 % 99 % [facility] Arterial blood [facility] by Pulse oximetry Heart rate 91 /min 91 /min [facility] Body height 170.393780 170.808111 cm [facility] Medical [place] Diastolic blood 62 mm[Hg] 62 mm[Hg] [facility] pressure [facility] Center Systolic blood 150 mm[Hg] 150 mm[Hg] [facility] Body mass index 18.78 kg/m2 18.78 kg/m2 [facility] (BMI) [Ratio] Medical [facility] ter Body temperature 36.043471 36.286787 [facility] Respiratory rate 17 /min 17 /min [facility] Oxygen saturation 98 % 98 % [facility] Arterial blood [facility] by Pulse oximetry Heart rate 88 /min 88 /min [facility] Diastolic blood 82 mm[Hg] 82 mm[Hg] [facility] pressure [facility] Center Systolic blood 140 mm[Hg] 140 mm[Hg] [facility] Oxygen saturation 100 % 100 % [facility] Arterial blood [facility] by Pulse oximetry Body temperature 36.444808 36.282095 [facility] Respiratory rate 16 /min 16 /min [facility] Heart rate 66 /min 66 /min [facility] Diastolic blood 89 mm[Hg] 89 mm[Hg] [facility] pressure [facility] Center Systolic blood 142 mm[Hg] 142 mm[Hg] [facility] Body weight 75.433323 kg 75.600438 kg [facility] Oxygen saturation 98 % 98 % [facility] Arterial blood [facility] by Pulse oximetry Body height 167.227264 167.668661 cm [facility] Body mass index 26.6 kg/m2 26.6 kg/m2 [facility] (BMI) [Ratio] Medical [address] Diastolic blood 78 mm[Hg] 78 mm[Hg] eCW3 ([facility]) Systolic blood 124 mm[Hg] 124 mm[Hg] eCW3 ([facility] on [facility]) Body temperature 98.6 [degF] 98.6 [degF] eCW3 ( [facility]) Heart rate 18 /min 18 /min eCW3 ([facility]) Body mass index 20.58 kg/m2 20.58 kg/m2 eCW3 ([facility] (BMI) [Ratio] [facility]) Body weight 125.6 125.6 [lb_av] eCW3 ([facility] on [lb_av] [facility]) Body height 65.5 [in_i] 65.5 [in_i] eCW3 ([facility]) Diastolic blood 80 mm[Hg] 80 mm[Hg] eCW3 ([facility]) Systolic blood 123 mm[Hg] 123 mm[Hg] eCW3 ([facility] on [facility]) Body temperature 97.7 [degF] 97.7 [degF] eCW3 ( [facility]) Heart rate 18 /min 18 /min eCW3 ([facility]) Body mass index 20.81 kg/m2 20.81 kg/m2 eCW3 ([facility] (BMI) [Ratio] [facility]) Body weight 127.0 127.0 [lb_av] eCW3 ([facility] on [lb_av] [facility]) Body height 65.5 [in_i] 65.5 [in_i] eCW3 ([facility]) Patient Treatment Plan of Care Planned Activity Planned Date Details Description Data Source (s) Ibuprofen 600 MG Oral [facility] Phenytoin sodium 100 MG [facility] Extended Release Oral Center Capsule
[2020-02-07] MEDS ORDERED: MAGNESIUM 1GM/D5W - 2 GM/200 ML IVPB IVPB ONE (15:08)
[2020-02-07] MEDS ORDERED: PHENYTOIN NA EXTENDED 100 MG CAPSULE (FP) PO ONE (15:58)
[2020-02-07] MEDS ORDERED: LACOSAMIDE 50 MG TABLET PO ONE ×2 (15:58→16:02)
[2020-02-07] MEDS ORDERED: PHENYTOIN NA EXTENDED 100 MG CAPSULE (FP) ONE (16:02)
[2020-02-07] MEDS ORDERED: SODIUM CHLORIDE 1,000 ML IV SCH (16:45)
[2020-02-07] MEDS ORDERED: SENNOSIDES 8.6MG TABLET (FP) PO PRN (17:11)
--- NOTE | 2020-02-07 17:14 | HP ---
CHIEF COMPLAINT: seizure PCP: HISTORY OF PRESENT ILLNESS: Patient is a 59 /o male with a history of seizures, alcohol use, and cirrhosis who was found to have a seizure. Patent has not been compliant with his home meds. Patient reports he has been taking his medication but does not know the names. He is unsure when he had his last seizure. Reports his Aide saw him seizing. he denies urinating or defecating on himself, reports he hit his head on the right side, josse biting his tongue. Denies fever, chills, nausea, vomiting, sputum production, or pain with urination. ER course was notable for: (1) (2) (3) Recent Travel: PAST MEDICAL HISTORY: seizures, alcohol use, and cirrhosis PAST SURGICAL HISTORY: denies Social History: Smoking: occasional Alcohol: reports occasional Drugs: denies Allergies No Known Allergies Allergy (Verified 02/07/20 12:45) HOME MEDICATIONS: Home Medications Medication Instructions Recorded Amlodipine Besylate [Norvasc -] 10 mg PO DAILY 02/15/18 Folic Acid - 1 mg PO DAILY #30 tablet 02/22/18 Multivitamins [Multivit ([facility] 1 tab PO DAILY #30 tab 02/22/18 Formulary)] Thiamine HCl [Vitamin B1 -] 100 mg PO DAILY #30 tablet 02/22/18 levETIRAcetam [Keppra -] 500 mg PO BID #60 tablet 02/22/18 Lacosamide [Vimpat -] 200 mg PO BID tab MDD 2 tabs 07/30/18 Sennosides [Senna -] 2 tab PO HS PRN tablet 07/30/18 Ascorbic Acid [Vitamin C -] 500 mg PO BID 08/13/19 Ferrous Sulfate 325 mg PO BID 08/13/19 Phenytoin 100 mg PO TID 11/24/19 Naltrexone HCl 50 mg PO DAILY #30 tablet 02/03/20 Nicotine Patch [Nicoderm Patch -] 21 mg TD DAILY #30 patch 02/03/20 REVIEW OF SYSTEMS CONSTITUTIONAL: Absent: fever, chills, diaphoresis, generalized weakness, malaise, loss of appetite, weight change HEENT: Absent: rhinorrhea, nasal congestion, throat pain, throat swelling, difficulty swallowing, mouth swelling, ear pain, eye pain, visual changes CARDIOVASCULAR: Absent: chest pain, syncope, palpitations, irregular heart rate, lightheadedness, peripheral edema RESPIRATORY: Absent: cough, shortness of breath, dyspnea with exertion, orthopnea, wheezing, stridor, hemoptysis GASTROINTESTINAL: Absent: abdominal pain, abdominal distension, nausea, vomiting, diarrhea, constipation, melena, hematochezia GENITOURINARY: Absent: dysuria, frequency, urgency, hesitancy, hematuria, flank pain, genital pain MUSCULOSKELETAL: Absent: myalgia, arthralgia, joint swelling, back pain, neck pain SKIN: Absent: rash, itching, pallor HEMATOLOGIC/IMMUNOLOGIC: Absent: easy bleeding, easy bruising, lymphadenopathy, frequent infections ENDOCRINE: Absent: unexplained weight gain, unexplained weight loss, heat intolerance, cold intolerance NEUROLOGIC: seizure Absent: headache, focal weakness or paresthesias, dizziness, unsteady gait,, mental status changes, bladder or bowel incontinence PSYCHIATRIC: Absent: anxiety, depression, suicidal or homicidal ideation, hallucinations. PHYSICAL EXAMINATION Vital Signs - 24 hr 02/07/20 02/07/20 02/07/20 12:33 12:48 12:51 Temperature 97.2 F L 99.2 F 99.2 F Pulse Rate 100 H Respiratory 16 Rate Blood Pressure 181/90 H O2 Sat by Pulse 100 Oximetry (%) GENERAL: Awake, alert, and fully oriented, in no acute distress. sleepy, cachectic looking HEAD: Normal with no signs of trauma. EYES: Pupils equal, round and reactive to light, extraocular movements intact, EARS, NOSE, THROAT: mucous membranes. LUNGS: Breath sounds equal, clear to auscultation bilaterally. No wheezes, and no crackles. No accessory muscle use. HEART: Regular rate and rhythm, normal S1 and S2 without murmur, rub or gallop. ABDOMEN: Soft, nontender, not distended, normoactive bowel sounds, no guarding, no rebound, no masses. MUSCULOSKELETAL: Normal range of motion at all joints. No bony deformities or tenderness. No CVA tenderness. LOWER EXTREMITIES:No peripheral edema. SKIN: Warm, dry, normal turgor, no rashes or lesions noted, normal capillary refill. CBC, BMP 02/07/20 12:45 02/07/20 12:45 ASSESSMENT/PLAN: Patient is a 59 /o male with a history of seizures, alcohol use, and cirrhosis who was found to have a seizure. #Seizure - likely 2/2 to noncompliance - r/o infectious sources - will continue home meds, keppra, phenytoin, and Lamictal - phenytoin level negaive, f/u keppra level - f/u Dr. Hart - f/u repeat lactic - head CT: no acute intracranial hemorrhage, mass effect, or infarct - cannot exclude syncope so monitor on tele, f/u echo, carotids #HTN - continue amlodipine #unclear substance abuse hx - f/u HIV, hep panel, RPR -continue thiamine, protonix FEN - hypo magnesium - replet Mg - regular diet Dispo: monitor on tele * needs to be med rec'd Family Medical History Family History: As Documented Visit type - Emergency Visit Emergency Visit: Yes ED Registration Date: 02/07/20 Care time: The patient presented to the Emergency Department on the above date and was hospitalized for further evaluation of their emergent condition. - New Patient This patient is new to me today: Yes Date on this admission: 02/08/20 - Critical Care Critical Care patient: No ATTENDING PHYSICIAN STATEMENT I saw and evaluated the patient. I reviewed the resident's note and discussed the case with the resident. I agree with the resident's findings and plan as documented. SUBJECTIVE: OBJECTIVE: ASSESSMENT AND PLAN:
--- OUTSIDE RECORDS SUMMARY | 2020-02-07 18:30 | XMS ---
:1960 Author Organization [facility] Care Team Providers Name Role Phone ED STAFF ZEINAB ROCK Unavailable Unavailable ALEJANDRO BARAKAT Unavailable Unavailable AKWUBA, II Unavailable Unavailable ED STAFF PHYSICIAN, STAFF Unavailable Unavailable DAVION PHILIP Unavailable Unavailable Re-disclosure Warning The records [...] is protected by Article 27-F of the [facility] Public Health law. If you continue you may haveaccess to information: Regarding HIV / AIDS; Provided by facilities licensed or operated by the [facility] Office of Mental Health; or Provided by the [facility] Office for People With Developmental Disabilities. If such information is present, then the following [facility] mandated warning applies: This information has been [...] law may result in a fine or group home sentence or both. A general authorization for the release of medical or other information is NOT sufficient authorization for further disclosure. Allergies and Adverse Reactions Type Description Substance Reaction Status Data Source(s ) Drug allergy No Known Drug No Known Drug [facility] No Known No Known Allergies No Known eCW3 ( [facility]) No Known No Known Allergies No Known eCW3 ( [facility]) Encounters Encounter Providers Location Date Indications Data Source(s ) Outpatient Attender: DAVION Colon 01/06/2020 [facility] JOJO 09:08:00 AM Medical [facility] DANUTAAdmitter: EDT DAVION [facility] II AKWUBA Emergency Attender: ZEINAB ED H 12/13/2019 Adithya Magdalenos STAFF 07:45:00 AM [facility] PHYSICIANAttender: EDT - STAFF ED STAFF 12/13/2019 PHYSICIANAdmitter: 10:00:00 AM [facility] ED STAFF EDT PHYSICIAN Patient discharged. Emergency Attender: ZEINAB ED STAFF H 10/17/2019 08:31:00 AM [facility] PHYSICIANAttender: STAFF ED EDT - 10/17/2019 [facility] STAFF PHYSICIANAdmitter: 12:45:00 PM EDT SE[facility]STOP[facility] ED STAFF PHYSICIAN Patient discharged. Inpatient Attender: ALEJANDRO [facility] H-HAL5 07/31/2019 08:29:00 [facility] CHILDEBERTAttender: STAFF ED AM EDT - [address] [place] [address] STAFF PHYSICIANAdmitter: 11:53:00 AM EDT ALEJANDRO [facility] CHILDEBERTReferrer: ALEJANDRO [facility] CHILDEBERT Patient discharged. Outpatient [facility] 10/05/2018 12:00:00 AM eCW3 ([facility] A28 EDT - 10/05/2018 12:00:00 [facility] Care) AM EDT Outpatient [facility] 09/10/2018 12:00:00 AM eCW3 ([place] [id number] EDT - 09/10/2018 12:00:00 Health Care) AM EDT Medications Medication Brand Start Product Dose Route Administrative Pharmacy [facility] Indications Reaction Description Data Name Date Form Instructions Instructions Source(s) Amlodipine Amlodi .0 active Amlodipi ne eCW3 10 MG Oral funmilayo 2015 {tabl Besylate 10 ( [place] Tablet Besyla 12:00: et} mg River Amlodipine te 10 00 AM Health Besylate 10 mg EDT Care) mg Amlodipine Amlodi .0 active Amlodipi ne eCW3 10 MG Oral funmilayo 2015 {tabl Besylate 10 ( [place] Tablet Besyla 12:00: et} mg [place] Amlodipine te 10 00 AM Health Besylate 10 mg EDT Care) mg ferrous Ferrou 1.0 active Ferrous eCW3 sulfate 325 s {tabl Sulfate 325 (Wilson MG Oral Sulfat et} (65 Fe) MG Rive r Tablet e 325 Health Ferrous (65 Care) Sulfate 325 Fe) MG (65 Fe) MG Vitamin C Vitami 1.0 active Vitamin C e CW3 500 MG n C {caps 500 MG ([place] 500 MG ule} [facility]) Senna 8.6 Senna 2.0 active Senna 8.6 MG eCW3 MG 8.6 MG {tabl ([place] ets_a River t_bed Health time_ Care) as_ne eded} Senna 8.6 Senna 2.0 active Senna 8.6 MG eCW3 MG 8.6 MG {tabl ([place] ets_a River t_bed Health time_ Care) as_ne eded} ferrous Ferrou 1.0 [...] MG {tabl MG ([place] Oral Tablet et} [place] [Keppra] [facility] Keppra 500 Care) MG Levetiracet Keppra 1.0 active Keppra 50 0 eCW3 am 500 MG 500 MG {tabl MG ([place] Oral Tablet et} [place] [Keppra] [facility] Keppra 500 Care) MG lacosamide Vimpat 1.0 active Vimpat 200 eCW3 200 MG Oral 200 MG {tabl MG ([place] Tablet et} [place] [Vimpat] [facility] Vimpat 200 Care) MG Vitamin C Vitami 1.0 active Vitamin C e CW3 500 MG n C {caps 500 MG ([place] 500 MG ule} [facility]) lacosamide Vimpat 1.0 active Vimpat 200 eCW3 200 MG Oral 200 MG {tabl MG ([place] Tablet et} [place] [Vimpat] [facility] Vimpat 200 Care) MG Phenytoin phenyt 1 [...] to [facility] ormation type hernandez MEDICAID [id number] SP [id number] W [id number] 01 [id number] Problems, Conditions, and Diagnoses Code Display Name Description Problem Type Effective Data Dates Source(s) F10.20 Alcohol dependence Alcohol dependence Problem 9 eCW3 ([place] 12:00:00 AM [facility] EDT Care) F17.210 Cigarette smoker Cigarette smoker Problem 02/16/2017 eC W3 ([place] 12:00:00 AM [facility] EDT Care) R91.1 Pulmonary nodule Pulmonary nodule Problem 08/21/2016 eC W3 ([place] 12:00:00 AM [facility] EDT Care) F12.20 Cannabis Marijuana smoker Problem 08/05/2016 eCW3 (Hu dson dependence 12:00:00 AM [facility] EDT Care) F10.10 Alcohol abuse Alcohol abuse Problem 05/21/2016 eCW3 (Hu dson 12:00:00 AM [facility] EST Care) I10 Hypertension Hypertension Problem 05/21/2016 eCW3 ([place] 12:00:00 AM [facility]) G40.909 Seizure disorder Seizure disorder Problem 05/21/2016 eC W3 ([place] 12:00:00 AM [facility]) M25.512 Pain in left PAIN IN LEFT Diagnosis 01/06/2020 [facility] shoulder SHOULDER 09:08:00 AM Medical EDT Center Y99.9 Unspecified UNSPECIFIED Diagnosis 12/13/2019 [facility] Rasta bustillo external cause EXTERNAL CAUSE 07:45:00 AM Medic al status STATUS EDT Center Y92.[address] Diagnosis 12/13/2019 [facility] Sosa or not applicable OR NOT APPLICABLE 07:45:00 [...] UNSP STRE[address] AND Diagnosis 10/17/[address] 08:31:[address] of EDT Center occurrence of the external cause E87.1 Hypo-osmolality HYPO-OSMOLALITY Diagnosis 10/17/2019 Adithya nick Sosa and hyponatremia AND HYPONATREMIA 08:31:00 AM [...] EDT Center Results ID Date Data Source [id number] 11/24/2019 06:35:00 AM EDT [facility] Name Value Range Interpretation Description Data Sup porting Code Source(s) Document(s ) SARS [facility] coronavirus 2 RNA This lab was ordered by [facility] and reported by [facility]. ID Date Data Source HematologyRou.[id number] 10/17/2019 10:22:00 AM EDT [facility] 0400 Name Value Range Interpretation Description Data Sup porting Code Source(s) Document(s ) Leukocytes 4.4-11.0 <content Saint [#/volume] in styleCode="Bold [facility] Blood by ">White Blood Medical Automated count [...] mean 8.0-11.0 <content Saint volume [Entitic styleCode="Bold Sheila volume] in Blood ">Mean Platelet [...] (3.0-10.0 %)</content> UNK 1.0-4.8 <content Saint styleCode="Bold Sheila ">Lymphocyte Medical Count Center </content>1.55 KCUMM<content styleCode="Ital [...] (< 1 %)</content> ID Date Data Source GFR(Creatinine).[id number] 10/17/2019 10:22:00 AM EDT [facility] 0-0400 Name Value Range Interpretation Code Description Data Katie rce(s) Supporting Document(s ) UNK > 60 <content [facility] styleCode="Bold"> Medical Cent er EGFR </content>148 GFR<content styleCode="Italic s"> (> 60 GFR)</content> ID Date Data Source [facility].[id number] 10/17/2019 10:22:00 AM EDT [facility] Name Value Range Interpretation Description Data Sup [...] Data Source Liver 07/31/2019 01:00:00 PM EDT [facility] Profile.[id number] Name Value Range Interpretation Description Data Sup [...] s"> (3.5-5.0 G/DL)</content> ID Date Data Source HematologyRou.[id number] 07/31/2019 01:00:00 PM EDT [facility] 0400 Name Value Range Interpretation Description Data Sup porting Code Source(s) Document(s ) Leukocytes 4.4-11.0 <content Saint [#/volume] in styleCode="Bold [facility] Blood by ">White Blood Medical Automated count Cell Count Center </content>4.57 KCUMM<content styleCode="Ital ics"> (4.4-11.0 KCUMM)</content > Hemoglobin 13.5-17. <content Saint [Mass/volume] in 5 styleCode="Bold [facility] Blood ">Hemoglobin Medical </content>13.6 Center G/DL<content styleCode="Ital [...] (0.0 KCUMM)</content > ID Date Data Source GFR(Creatinine).[id number] 07/31/2019 01:00:00 PM EDT [facility] 0-0400 Name Value Range Interpretation Code Description Data Katie rce(s) Supporting Document(s ) UNK > 60 <content [facility] styleCode="Bold"> Medical Cent er EGFR </content>148 GFR<content styleCode="Italic s"> (> 60 GFR)</content> ID Date Data Source CHMROUTINECCDA.[id number] 07/31/2019 01:00:00 PM EDT [facility] -0400 Name Value Range Interpretation Description Data Sup porting Code Source(s) Document(s ) UNK >= 1.0 <content [facility] styleCode="Suki Sheila d">AG Ratio Medical </content>1.5 Center <content styleCode="Sharon lics"> (>= 1.0 )</content> Magnesium 1.6-2.3 Below low normal <content Saint [Mass/volume] styleCode="Suki Sosa in Serum or d">Magnesium Medical Plasma </content>1.5 Center MG/DL L<content styleCode="Sharon lics"> (1.6-2.3 MG/DL)</conten t> Phosphate 2.5-4.5 <content Saint [Mass/volume] styleCode="Suki Magdalenos in Serum or d">Phosphorus Medical Plasma </content>2.7 Center MG/DL<content styleCode="Sharon lics"> (2.5-4.5 MG/DL)</conten t> UNK 2.3-3.5 <content Saint styleCode="Suki Magdalenos d">Globulin Medical </content>2.6 Center G/DL<content styleCode="Sharon lics"> (2.3-3.5 G/DL)</content > Protein 6.3-8.2 <content Saint [Mass/volume] styleCode="Suki Magdalenos in Serum or d">Total Medical Plasma Protein Center </content>6.6 G/DL<content styleCode="Sharon lics"> (6.3-8.2 G/DL)</content > ID Date Data Source [facility].[id number] 07/31/2019 01:00:00 PM EDT [facility] Name Value Range Interpretation Description Data Sup porting Code Source(s) Document(s ) Sodium 137-145 Below low <content Saint [Moles/volume] in normal styleCode="Bold"> Isa[facility] Serum or Plasma Sodium Medical </content>136 Center [...] s"> (0.2-1.3 MG/DL)</content> ID Date Data Source CHMROUTINECCDA.[id number] 07/31/2019 11:30:00 AM EDT [facility] -0400 Name Value Range Interpretation Description Data Sup porting Code Source(s) Document(s ) Cannabinoids <content Saint [Presence] in styleCode="[facility] Urine by Screen d">Cannabinoid Medical method >50 ng/mL s Center </content>NEGA TIVE NG/ML (Reference Range: not available)<br/ > ID Date Data Source Urinalysis.[id number] 07/31/2019 11:30:00 AM EDT [facility] 0 Name Value Range Interpretation Description Data Sup porting Code Source(s) Document(s ) UNK CLEAR <content Saint styleCode="[facility] d">Urine Medical Clarity Center </content>ALFA R [...] by Test d">Urine Medical strip Specific Center Liberal </content>1.02 5 <content styleCode="Sharon lics"> (1.015-1.025 )</content> Glucose NEGATIVE <content Saint [Mass/volume] styleCode="Suki Sheila in [...] Data Source Liver 07/31/2019 10:09:00 AM EDT [facility] Profile.[id number] Name Value Range Interpretation Description Data Sup [...] (3.5-5.0 G/DL)</content> UNK 0.0-0.3 <content Saint styleCode="Bold"> [facility] Bilirubin, Direct Medical </content>< 0.2 Center MG/DL<content styleCode="Italic s"> (0.0-0.3 MG/DL)</content> Bilirubin.total 0.2-1.3 <content Saint [Mass/volume] in styleCode="Bold"> Dmitri hs Serum or Plasma Bilirubin Total Medical </content>0.3 Center MG/DL<content styleCode="Italic s"> (0.2-1.3 MG/DL)</content> ID Date Data Source GFR(Creatinine).[id number] 07/31/2019 10:09:00 AM EDT [facility] 0-0400 Name Value Range Interpretation Code Description Data Katie rce(s) Supporting Document(s ) UNK > 60 <content [facility] styleCode="Bold"> Medical Cent er EGFR </content>111 GFR<content styleCode="Italic s"> (> 60 GFR)</content> ID Date Data Source [id number] 07/31/2019 10:09:00 AM EDT [facility] Name Value Range Interpretation Description Data Sup [...] Data Source Liver 07/31/2019 09:01:00 AM EDT [facility] Profile.[id number] Name Value Range Interpretation Description Data Sup [...] Range: not available)
ID Date Data Source HematologyRou.[id number] 07/31/2019 09:01:00 AM EDT Benjy nt [facility] 0400 Name Value Range Interpretation Description Data [...] Hematocrit 41.0-53. <content Saint [Volume 0 styleCode="Bold Sheila Fraction] of ">Hematocrit Medical Blood by </content>49.6 [...] (NONE SEEN )</content> ID Date Data Source GFR(Creatinine).[id number] 07/31/2019 09:01:00 AM EDT Benjy [facility] 0-0400 Name Value Range Interpretation Code Description Data Katie rce(s) Supporting Document(s ) UNK <content [facility] styleCode="Bold"> Medical Cent er EGFR </content>Test not performed. GFR (Reference Range: not available)
ID Date Data Source [id number] 07/31/2019 09:01:00 AM EDT [facility] Name Value Range Interpretation Description Data Sup [...] Denies Ever completed Denies Ever Smoked [facility] Sehila 08:47:00 AM EDT Smoked Medical C enter Smoking 07/31/2019 Denies Ever completed Denies Ever Smoked [facility] Sheila 08:45:00 AM EDT Smoked Medical C enter Smoking 07/31/2019 Denies Ever completed Denies Ever Smoked [facility] Sheila 08:36:00 AM EDT Smoked Medical C enter Smoking 07/30/2019 Current Smoker completed Current Smoker eCW3 ( [place] 12:00:00 AM [facility]) Smoking 04/18/2019 Current Smoker completed Current Smoker eCW3 ( [place] 12:00:00 AM [facility]) Smoking Unknown if ever completed Unknown if ever Adithya Sosa smoked smoked Medical Center Current Smoker completed Current Smoker eCW3 ( [facility]) Current Smoker completed Current Smoker eCW3 ( [facility]) Vital Signs ID Date Data Source UNK Name Value Range Interpretation Code Description Data Source(s) Body temperature 36.696832 36.639539 [facility] Respiratory rate 18 /min 18 /min [facility] Oxygen saturation 98 % 98 % [facility] in [facility] by Pulse oximetry Heart rate 70 /min 70 /min [facility] Diastolic blood 60 mm[Hg] 60 mm[Hg] [facility] pressure [facility] Systolic blood 130 mm[Hg] 130 mm[Hg] [facility] pressure [facility] Body weight 68.982780 kg 68.795425 kg [facility] Body temperature 36.114633 36.056955 [facility] Respiratory rate 18 /min 18 /min [facility] Oxygen saturation 98 % 98 % [facility] J osephs in [facility] by Pulse oximetry Heart rate 87 /min 87 /min [facility] Body height 170.339289 170.980080 cm [facility] Diastolic blood 80 mm[Hg] 80 mm[Hg] [facility] pressure Medical Center Systolic blood 130 mm[Hg] 130 mm[Hg] [facility] Body mass index 23.4 kg/m2 23.4 kg/m2 [facility] (BMI) [Ratio] Medical [address] Body temperature 36.622857 36.131675 [facility] Respiratory rate 17 /min 17 /min [facility] Oxygen saturation 98 % 98 % [facility] in Arterial blood [facility] by Pulse oximetry Heart rate 78 /min 78 /min [facility] Diastolic blood 76 mm[Hg] 76 mm[Hg] [facility] Systolic blood 133 mm[Hg] 133 mm[Hg] [facility] Body temperature 36.989263 36.797449 [facility] Respiratory rate 17 /min 17 /min [facility] Oxygen saturation 99 % 99 % [facility] in Arterial blood Medical Center by Pulse oximetry Heart rate 88 /min 88 /min [facility] Diastolic blood 80 mm[Hg] 80 mm[Hg] [facility] Systolic blood 123 mm[Hg] 123 mm[Hg] [facility] Body temperature 37.303746 37.371993 [facility] Respiratory rate 18 /min 18 /min [facility] Oxygen saturation 100 % 100 % [facility] in Arterial blood [facility] by Pulse oximetry Heart rate 75 /min 75 /min [facility] Diastolic blood 96 mm[Hg] 96 mm[Hg] [facility] Systolic blood 126 mm[Hg] 126 mm[Hg] [facility] Body temperature 36.999575 36.070266 [facility] Respiratory rate 17 /min 17 /min [facility] Oxygen saturation 99 % 99 % [facility] in Arterial blood [facility] by Pulse oximetry Heart rate 77 /min 77 /min [facility] Diastolic blood 95 mm[Hg] 95 mm[Hg] [facility] Center Systolic blood 144 mm[Hg] 144 mm[Hg] [facility] pressure Medical Center Body weight 58.041637 kg 58.931402 kg [facility] Measured Medical Center Body temperature 36.380626 36.940908 [facility] Respiratory rate 19 /min 19 /min [facility] Oxygen saturation 98 % 98 % [facility] cooperep in Arterial blood Medical Center by Pulse oximetry Heart rate 65 /min 65 /min [facility] Body height 170.234393 170.342616 cm [facility] Diastolic blood 102 mm[Hg] 102 mm[Hg] [facility] pressure Medical Center Systolic blood 157 mm[Hg] 157 mm[Hg] [facility] Medical Center Body mass index 20.3 kg/m2 20.3 kg/m2 [facility] (BMI) [Ratio] Medical [facility] ter Body temperature 36.804645 36.794562 [facility] Respiratory rate 20 /min 20 /min [facility] Heart rate 94 /min 94 /min [facility] Diastolic blood 79 mm[Hg] 79 mm[Hg] [facility] Systolic blood 136 mm[Hg] 136 mm[Hg] [facility] Medical Center Body weight 54.809861 kg 54.663124 kg [facility] Measured Medical Center Body height 170.724238 170.753170 cm [facility] Body mass index 18.78 kg/m2 18.78 kg/m2 [facility] (BMI) [Ratio] Medical [facility] ter Body temperature 36.879039 36.144659 [facility] Respiratory rate 20 /min 20 /min [facility] Heart rate 59 /min 59 /min [facility] Diastolic blood 76 mm[Hg] 76 mm[Hg] [facility] Systolic blood 128 mm[Hg] 128 mm[Hg] [facility] Medical Center Body temperature 36.290533 36.274464 [facility] Respiratory rate 18 /min 18 /min [facility] Center Heart rate 87 /min 87 /min [facility] Diastolic blood 81 mm[Hg] 81 mm[Hg] [facility] pressure Medical Center Systolic blood 142 mm[Hg] 142 mm[Hg] [facility] Medical Center Body weight 54.780067 kg 54.992306 kg [facility] Measured Medical Center Body height 170.016362 170.176228 cm [facility] Medical [place] Body mass index 18.78 kg/m2 18.78 kg/m2 [facility] (BMI) [Ratio] Medical [facility] ter Body weight 54.249324 kg 54.711569 kg [facility] Measured Medical Center Body temperature 36.295746 36.014748 [facility] Respiratory rate 18 /min 18 /min [facility] Oxygen saturation 99 % 99 % [facility] in Arterial blood Medical Center by Pulse oximetry Heart rate 91 /min 91 /min [facility] Body height 170.726048 170.246780 cm [facility] Medical [place] Diastolic blood 62 mm[Hg] 62 mm[Hg] [facility] pressure Medical Center Systolic blood 150 mm[Hg] 150 mm[Hg] [facility] Medical Center Body mass index 18.78 kg/m2 18.78 kg/m2 [facility] (BMI) [Ratio] Medical [facility] ter Body temperature 36.265945 36.911131 [facility] Respiratory rate 17 /min 17 /min [facility] Oxygen saturation 98 % 98 % [facility]ph[facility] in Arterial blood [facility] by Pulse oximetry Heart rate 88 /min 88 /min [facility] Diastolic blood 82 mm[Hg] 82 mm[Hg] [facility] pressure Medical Center Systolic blood 140 mm[Hg] 140 mm[Hg] [facility] Medical Center Oxygen saturation 100 % 100 % [facility] in Arterial blood Medical Center by Pulse oximetry Body temperature 36.189332 36.753306 [facility] Respiratory rate 16 /min 16 /min [facility] Center Heart rate 66 /min 66 /min [facility] Diastolic blood 89 mm[Hg] 89 mm[Hg] [facility] pressure Medical Center Systolic blood 142 mm[Hg] 142 mm[Hg] [facility] Medical Center Body weight 75.499916 kg 75.798905 kg [facility] Measured Medical Center Oxygen saturation 98 % 98 % [facility] in [facility] blood [facility] by Pulse oximetry Body height 167.529115 167.107293 cm [facility] Center Body mass index 26.6 kg/m2 26.6 kg/m2 [facility] (BMI) [Ratio] Medical [facility] Diastolic blood 78 mm[Hg] 78 mm[Hg] eCW3 ([facility]) Systolic blood 124 mm[Hg] 124 mm[Hg] eCW3 ([facility] on pressure [facility]) Body temperature 98.6 [degF] 98.6 [degF] eCW3 ( [facility]) Heart rate 18 /min 18 /min eCW3 ([facility]) Body mass index 20.58 kg/m2 20.58 kg/m2 eCW3 (H udson (BMI) [Ratio] [facility]) Body weight 125.6 125.6 [lb_av] eCW3 ([facility] on [lb_av] [facility]) Body height 65.5 [in_i] 65.5 [in_i] eCW3 ([facility]) Diastolic blood 80 mm[Hg] 80 mm[Hg] eCW3 ([facility]) Systolic blood 123 mm[Hg] 123 mm[Hg] eCW3 ([facility] on [facility]) Body temperature 97.7 [degF] 97.7 [degF] eCW3 ( [facility]) Heart rate 18 /min 18 /min eCW3 ([facility]) Body mass index 20.81 kg/m2 20.81 kg/m2 eCW3 (H udson (BMI) [Ratio] [facility]) Body weight 127.0 127.0 [lb_av] eCW3 ([facility] on [lb_av] [facility]) Body height 65.5 [in_i] 65.5 [in_i] eCW3 ([facility]) Patient Treatment Plan of Care Planned Activity Planned Date Details Description Data Source (s) Ibuprofen 600 MG Oral [facility] Tablet Center Phenytoin sodium 100 MG [facility] Extended Release Oral Center Capsule
[2020-02-07 21:24] VITALS: BP 117/67; PULSE 62
[2020-02-07] MEDS ORDERED: ASCORBIC ACID 500 MG TABLET (FP) PO SCH (22:00)
[2020-02-07] MEDS ORDERED: levETIRAcetam 500 MG TABLET (FP) PO SCH (22:00)
[2020-02-07] MEDS ORDERED: FERROUS SO4 325 MG TABLET (FP) PO SCH (22:00)
[2020-02-07] MEDS ORDERED: PHENYTOIN 100 MG/4 ML U-D CUP PO SCH (22:00)
[2020-02-07] MEDS ORDERED: ASCORBIC ACID 500 MG TABLET (FP) ONE (22:11)
[2020-02-07] MEDS ORDERED: FERROUS SO4 325 MG TABLET (FP) ONE (22:12)
[2020-02-07] MEDS ORDERED: levETIRAcetam 500 MG TABLET (FP) PO ONE (22:12)
--- NOTE | 2020-02-07 23:07 | PN ---
Teaching Attending Note Name of Resident: Cherelle Evans ATTENDING PHYSICIAN STATEMENT I saw and evaluated the patient. I reviewed the resident's note and discussed the case with the resident. I agree with the resident's findings and plan as documented. SUBJECTIVE: Patient seen and examined at bedside, endorses episode of syncope earlier in the day witnessed by DIRECTOR OF SPEECH PATHOLOGY in which he believes she described was a breakthrough seizure, has R eye swelling from fall. ?compliance w/ seizure meds. VSS. OBJECTIVE: GA tired appearing, cachectic, unkempt HEENT R eye swelling but EOMI, neck supple, dry MM, no oral thrush, injected conjunctiva Chest CTAB, no crackles CVS S1, S2+, RRR ABd thin body habitus, Soft, NT, ND, BS+ Ext no LE edema, no calf tenderness, moves all 4 ext. Vital Signs (72 hours) 02/07/20 02/07/20 02/07/20 12:33 12:48 12:51 Temperature 97.2 F L 99.2 F 99.2 F Pulse Rate 100 H Pulse Rate [ Left Radial] Respiratory 16 Rate Blood Pressure 181/90 H Blood Pressure [Right Arm] O2 Sat by Pulse 100 Oximetry (%) 02/07/20 21:05 Temperature Pulse Rate Pulse Rate [ 62 Left Radial] Respiratory 16 Rate Blood Pressure Blood Pressure 117/67 [Right Arm] O2 Sat by Pulse 97 Oximetry (%) Laboratory Results - last 24 hr 02/07/20 02/07/20 02/07/20 12:45 12:45 12:45 WBC 7.1 RBC 4.77 Hgb 16.2 Hct 48.9 MCV 102.6 H MCH 34.0 H MCHC 33.2 RDW 15.7 Plt Count 87 L MPV 10.9 Absolute Neuts (auto) 3.6 Neutrophils % 49.7 Lymphocytes % 32.1 Monocytes % 12.2 H Eosinophils % 5.5 H Basophils % 0.5 Nucleated RBC % 0 PT with INR 13.40 H INR 1.13 H PTT (Actin FS) 26.6 VBG pH 7.344 POC VBG pCO2 38.8 POC VBG pO2 134.1 H VBG HCO3 20.7 L VBG O2 Sat (Cindy) 98.5 H VBG Base Excess -4.5 L Sodium Potassium Chloride Carbon Dioxide Anion Gap BUN Creatinine Est GFR (CKD-EPI)AfAm Est GFR (CKD-EPI)NonAf Random Glucose Lactic Acid Calcium Magnesium Total Bilirubin AST ALT Alkaline Phosphatase Creatine Kinase Troponin I Total Protein Albumin Urine Color Urine Appearance Urine pH Ur Specific Hawks Urine Protein Urine Glucose (UA) Urine Ketones Urine Blood Urine Nitrite Urine Bilirubin Urine Urobilinogen Ur Leukocyte Esterase Urine WBC (Auto) Urine RBC (Auto) Urine Casts (Auto) U Epithel Cells (Auto) Urine Bacteria (Auto) Phenytoin Blood Type Antibody Screen 02/07/20 02/07/20 02/07/20 12:45 12:45 12:45 WBC RBC Hgb Hct MCV MCH MCHC RDW Plt Count MPV Absolute Neuts (auto) Neutrophils % Lymphocytes % Monocytes % Eosinophils % Basophils % Nucleated RBC % PT with INR INR PTT (Actin FS) VBG pH POC VBG pCO2 POC VBG pO2 VBG HCO3 VBG O2 Sat (Cindy) VBG Base Excess Sodium 134 L Potassium 4.0 Chloride 101 Carbon Dioxide 22 Anion Gap 11 BUN 5.1 L Creatinine 1.1 Est GFR (CKD-EPI)AfAm 84.71 Est GFR (CKD-EPI)NonAf 73.09 Random Glucose 266 H Lactic Acid 4.6 H* Calcium 8.4 L Magnesium 1.6 L Total Bilirubin 0.7 AST 23 ALT 13 Alkaline Phosphatase 127 H Creatine Kinase 107 Troponin I < 0.02 Total Protein 6.9 Albumin 3.5 Urine Color Urine Appearance Urine pH Ur Specific Hawks Urine Protein Urine Glucose (UA) Urine Ketones Urine Blood Urine Nitrite Urine Bilirubin Urine Urobilinogen Ur Leukocyte Esterase Urine WBC (Auto) Urine RBC (Auto) Urine Casts (Auto) U Epithel Cells (Auto) Urine Bacteria (Auto) Phenytoin <0.4 Blood Type Antibody Screen 02/07/20 02/07/20 02/07/20 12:45 14:13 15:50 WBC RBC Hgb Hct MCV MCH MCHC RDW Plt Count MPV Absolute Neuts (auto) Neutrophils % Lymphocytes % Monocytes % Eosinophils % Basophils % Nucleated RBC % PT with INR INR PTT (Actin FS) VBG pH POC VBG pCO2 POC VBG pO2 VBG HCO3 VBG O2 Sat (Cindy) VBG Base Excess Sodium Potassium Chloride Carbon Dioxide Anion Gap BUN Creatinine Est GFR (CKD-EPI)AfAm Est GFR (CKD-EPI)NonAf Random Glucose Lactic Acid 1.9 Calcium Magnesium Total Bilirubin AST ALT Alkaline Phosphatase Creatine Kinase Troponin I Total Protein Albumin Urine Color Yellow Urine Appearance Clear Urine pH 6.0 Ur Specific Hawks 1.011 Urine Protein 1+ H Urine Glucose (UA) 2+ H Urine Ketones Negative Urine Blood Negative Urine Nitrite Negative Urine Bilirubin Negative Urine Urobilinogen 0.2 Ur Leukocyte Esterase Negative Urine WBC (Auto) 19 Urine RBC (Auto) 10 Urine Casts (Auto) 2 U Epithel Cells (Auto) 19 Urine Bacteria (Auto) 155 Phenytoin Blood Type A POSITIVE Antibody Screen Negative Home Medications Medication Instructions Recorded Amlodipine Besylate [Norvasc -] 10 mg PO DAILY 02/15/18 Folic Acid - 1 mg PO DAILY #30 tablet 02/22/18 Multivitamins [Multivit ([facility] 1 tab PO DAILY #30 tab 02/22/18 Formulary)] Thiamine HCl [Vitamin B1 -] 100 mg PO DAILY #30 tablet 02/22/18 levETIRAcetam [Keppra -] 500 mg PO BID #60 tablet 02/22/18 Lacosamide [Vimpat -] 200 mg PO BID tab MDD 2 tabs 07/30/18 Sennosides [Senna -] 2 tab PO HS PRN tablet 07/30/18 Ascorbic Acid [Vitamin C -] 500 mg PO BID 08/13/19 Ferrous Sulfate 325 mg PO BID 08/13/19 Phenytoin 100 mg PO TID 11/24/19 Naltrexone HCl 50 mg PO DAILY #30 tablet 02/03/20 Nicotine Patch [Nicoderm Patch -] 21 mg TD DAILY #30 patch 02/03/20 Current Medications Generic Name Dose Route Start Last Admin Trade Name Freq PRN Reason Stop Dose Admin Amlodipine Besylate 10 mg 02/08/20 10:00 Norvasc - PO DAILY [facility] Ascorbic Acid 500 mg 02/07/20 22:00 Vitamin C - PO BID [facility] Aspirin 81 mg 02/08/20 10:00 Asa - PO DAILY [facility] Enoxaparin Sodium 40 mg 02/08/20 10:00 Lovenox - SQ DAILY [facility] Ferrous Sulfate 325 mg 02/07/20 22:00 Feosol - PO BID [facility] Folic Acid 1 mg 02/08/20 10:00 Folic Acid - PO DAILY [facility] Sodium Chloride 1,000 mls @ 83 mls/hr 02/07/20 16:45 02/07/20 16:55 Normal Saline - IV 83 mls/hr ASDIR MIGUEL Administration Levetiracetam 500 mg 02/07/20 22:00 Keppra - PO BID MIGUEL Multivitamins/Minerals/Vitamin C 1 tab 02/08/20 10:00 Tab-A-Vit - PO DAILY [facility] Pantoprazole Sodium 40 mg 02/08/20 10:00 Protonix Iv IVPUSH DAILY [facility] Phenytoin Sodium 100 mg 02/07/20 22:00 Dilantin Oral Suspension - PO TID MIGUEL Senna 2 tab 02/07/20 17:11 Senna - PO HS PRN CONSTIPATION Thiamine HCl 100 mg 02/08/20 10:00 Vitamin B1 - PO DAILY [facility] ASSESSMENT AND PLAN: 59 M Epilepsy with breakthrough seizures HTN ?Continued Etoh abuse ? Medication non-compliance Deconditioning Plan: Neurochecks, correct electrolytes Echo/Carotids to r/o neurogenic syncope Continue tele monitoring IV hydration Thiamine/FA/MV, recommend higher doses of thiamine due to suspected Wernicke's DVT ppx: Lovenox
--- NOTE | 2020-02-08 08:57 | DS ---
Physical Exam: SUBJECTIVE: Made aware patient left AMA last night. OBJECTIVE: Vital Signs Period Temp Pulse Resp BP Sys/Rubio Pulse Ox Last 24 Hr 97.2 F-99.2 F 62-100 16-16 117-181/67-90 97-100 LABS CBC, BMP 02/07/20 12:45 02/07/20 12:45 HOSPITAL COURSE: Date of Admission:02/07/20 Patient is a 59 /o male with a history of seizures, alcohol use, and cirrhosis who was found to have a seizure. Likely 2/2 to noncomplaince with low phenytoin level. Anti seizure medications administered. Work up ordered but unable to be completed. Patient left AMA overnight. head CT: no acute intracranial hemorrhage, mass effect, or infarct Date of Discharge: 02/08/20 Minutes to complete discharge: 40 Discharge Summary Problems reviewed: Yes Reason For Visit: SEIZURE Syncope Condition: Fair - Instructions Disposition: AGAINST MEDICAL ADVICE - Home Medications Comprehensive Discharge Medication List: Ambulatory Orders Amlodipine Besylate [Norvasc -] 10 mg PO DAILY 02/15/18 Folic Acid - 1 mg PO DAILY #30 tablet 02/22/18 Multivitamins [Multivit ([facility] Formulary)] 1 tab PO DAILY #30 tab 02/22/18 Thiamine HCl [Vitamin B1 -] 100 mg PO DAILY #30 tablet 02/22/18 levETIRAcetam [Keppra -] 500 mg PO BID #60 tablet 02/22/18 Lacosamide [Vimpat -] 200 mg PO BID tab MDD 2 tabs 07/30/18 Sennosides [Senna -] 2 tab PO HS PRN tablet 07/30/18 Ascorbic Acid [Vitamin C -] 500 mg PO BID 08/13/19 Ferrous Sulfate 325 mg PO BID 08/13/19 Phenytoin 100 mg PO TID 11/24/19 Naltrexone HCl 50 mg PO DAILY #30 tablet 02/03/20 Nicotine Patch [Nicoderm Patch -] 21 mg TD DAILY #30 patch 02/03/20 This patient is new to me today: No Emergency Visit: No Critical Care patient: No - Discharge Referral Referred to [facility] No ATTENDING PHYSICIAN STATEMENT I saw and evaluated the patient. I reviewed the resident's note and discussed the case with the resident. I agree with the resident's findings and plan as documented. SUBJECTIVE: OBJECTIVE: ASSESSMENT AND PLAN:
[2020-02-08] MEDS ORDERED: THIAMINE HCL 100 MG TABLET (FP) PO SCH (10:00)
[2020-02-08] MEDS ORDERED: PANTOPRAZOLE SODIUM 40 MG VIAL IVPUSH SCH (10:00)
[2020-02-08] MEDS ORDERED: FOLIC ACID 1 MG TABLET (FP) PO SCH (10:00)
[2020-02-08] MEDS ORDERED: ASPIRIN 81 MG CHEWABLE TABLETS PO SCH (10:00)
[2020-02-08] MEDS ORDERED: amLODIPine BESYLATE 10 MG TABLET (FP) PO SCH (10:00)
[2020-02-08] MEDS ORDERED: MULTIVITAMINS (DAILY MVI) TABLET (FP) PO SCH (10:00)
[2020-02-08] MEDS ORDERED: ENOXAPARIN NA (PORCINE) 40 MG/0.4 ML DISP.SYRIN SQ SCH (10:00)
--- NOTE | 2020-02-08 10:03 | EKG ---
Test Reason : Blood Pressure : / mmHG Vent. Rate : 087 BPM Atrial Rate : 087 BPM P-R Int : 178 ms QRS Dur : 062 ms QT Int : 348 ms P-R-T Axes : 065 054 075 degrees QTc Int : 418 ms POOR DATA QUALITY, INTERPRETATION MAY BE ADVERSELY AFFECTED NORMAL SINUS RHYTHM POSSIBLE LEFT ATRIAL ENLARGEMENT SEPTAL INFARCT (CITED ON OR BEFORE 16-JUL-2018) ABNORMAL ECG WHEN COMPARED WITH ECG OF 23-NOV-2019 18:10, NO SIGNIFICANT CHANGE WAS FOUND Confirmed by Michele Galindo ([id number]) on 02/08/2020 10:03:03 AM Referred By: Confirmed By:Michele Galindo
== END 2020-02-08 00:45 | disposition left against medical advice (07) | DRG 53 ==
LOC: JER 12:26 → JERBED 16:34
DX: G40.909 Epilepsy, unspecified, not intractable, without status epilepticus (principal); T42.6X6A Underdosing of other antiepileptic and sedative-hypnotic drugs, initial encounter; Z68.20 Body mass index [BMI] 20.0-20.9, adult; I10 Essential (primary) hypertension; R64 Cachexia; Z91.14 Patient's other noncompliance with medication regimen
CPT/HCPCS: 36415; 70450-TC; 71045-TC-FY; 72125-TC; 80053; 80185; 81003; 82550; 82803; 83605; 83735; 84484; 85025; 85610; 85730; 86850; 86900; 86901; 87040; 87086; 93005; 93010; 99285-25; J0131; U0003

== ENCOUNTER 2020-10-08 09:20 | Inpatient (IN) | payer OTHER ==
[2020-10-08 09:50] VITALS: BMI 18.8
[2020-10-08] MEDS ORDERED: guaiFENesin 200 MG/10 ML 10 ML UNIT-DOSE CUPS PO PRN (13:11)
[2020-10-08] MEDS ORDERED: NICOTINE POLACRILEX 2 MG GUM BC PRN (13:11)
[2020-10-08] MEDS ORDERED: MAGNESIUM HYDROX 2400MG/30ML ORAL SUSPENSION 30 ML CUP PO PRN (13:11)
[2020-10-08] MEDS ORDERED: P-EPHED 60MG/TRIPROLIDI 2.5MG TABLET PO PRN (13:11)
[2020-10-08] MEDS ORDERED: LOPERAMIDE HCL 2 MG CAPSULE PO PRN (13:11)
[2020-10-08] MEDS ORDERED: MAGNESIUM CITRATE 300 ML BOTTLE PO PRN (13:11)
[2020-10-08] MEDS ORDERED: NICOTINE 7 MG/24 HOURS TOPICAL PATCH TD SCH (13:15)
[2020-10-08] MEDS ORDERED: hydrOXYzine PAMOATE 25 MG CAPSULE (FP) PO SCH (14:00)
[2020-10-08] MEDS: PRENATAL VITAMINS W/ FOLIC ACID TABLET (FP) PO SCH (14:51)
[2020-10-08] MEDS ORDERED: TUBERCULIN PPD 5 TU/0.1ML VIAL ID ONE (14:53)
[2020-10-08 20:34] LABS: PH,URINE 5.5 (5.0-8.0); URINE APPEARANCE CLEAR; URINE BILIRUBIN NEGATIVE (NEGATIVE); URINE COLOR YELLOW; URINE GLUCOSE (UA) NEGATIVE (NEGATIVE); URINE KETONE NEGATIVE (NEGATIVE); URINE LEUK ESTERASE NEGATIVE (NEGATIVE); URINE NITRITE NEGATIVE (NEGATIVE); URINE PROTEIN NEGATIVE (NEGATIVE); URINE UROBILINOGEN 0.2 mg/dL (0.2-1.0)
[2020-10-08] MEDS: VARENICLINE TARTRATE 1 MG TAB PO SCH (21:13)
[2020-10-08] MEDS: MELATONIN 5 MG TABLETS PO SCH (21:13)
[2020-10-08] MEDS: THIAMINE HCL 100 MG TABLET (FP) PO SCH (21:13)
[2020-10-08] MEDS: levETIRAcetam 500 MG TABLET (FP) PO SCH (21:14)
[2020-10-08] MEDS ORDERED: VARENICLINE TARTRATE 1 MG TAB NR SCH (22:00)
[2020-10-09] MEDS: PRENATAL VITAMINS W/ FOLIC ACID TABLET (FP) PO SCH (10:16)
[2020-10-09] MEDS: amLODIPine BESYLATE 10 MG TABLET (FP) PO SCH (10:17)
[2020-10-09] MEDS: ATORVASTATIN CA 20 MG TABLET (FP) PO SCH (10:17)
[2020-10-09] MEDS: levETIRAcetam 500 MG TABLET (FP) PO SCH ×2 (10:17→21:31)
[2020-10-09] MEDS: VARENICLINE TARTRATE 1 MG TAB PO SCH ×2 (10:18→21:31)
[2020-10-09 10:39] LABS: CALCIUM 8.6 mg/dL (8.5-10.1); HEMATOCRIT 33.3 % (35.4-49); HEMOGLOBIN 11.3 GM/dL (11.7-16.9); MCH 33.6 pg (25.7-33.7); MEAN CELL VOLUME 98.8 fl (80-96); MEAN PLT VOLUME 11.3 fl (7.5-11.1); PLATELET COUNT 138 K/MM3 (134-434); RBC 3.37 M/mm3 (4.00-5.60); RDW 13.3 % (11.9-15.9); WHITE BLOOD COUNT 5.1 K/mm3 (4.0-10.0)
[2020-10-09 10:40] LABS: ALBUMIN 3.5 g/dl (3.4-5.0); BLOOD UREA NITROGEN 4.6 mg/dL (7-18)
[2020-10-09 10:43] LABS: CREATININE 0.6 mg/dL (0.55-1.3)
[2020-10-09 10:45] LABS: TOT PROT 6.5 g/dl (6.4-8.2)
[2020-10-09 10:47] LABS: BILIRUBIN,TOTAL 0.4 mg/dL (0.2-1)
[2020-10-09] MEDS: MELATONIN 5 MG TABLETS PO SCH (21:31)
[2020-10-09] MEDS: THIAMINE HCL 100 MG TABLET (FP) PO SCH (21:31)
[2020-10-10] MEDS: amLODIPine BESYLATE 10 MG TABLET (FP) PO SCH (09:46)
[2020-10-10] MEDS: levETIRAcetam 500 MG TABLET (FP) PO SCH ×2 (09:46→21:11)
[2020-10-10] MEDS: ACETAMINOPHEN 325 MG TABLET (FP) PO PRN (09:46)
[2020-10-10] MEDS: ATORVASTATIN CA 20 MG TABLET (FP) PO SCH (09:46)
[2020-10-10] MEDS: VARENICLINE TARTRATE 1 MG TAB PO SCH ×2 (09:46→21:12)
[2020-10-10] MEDS: PRENATAL VITAMINS W/ FOLIC ACID TABLET (FP) PO SCH (09:48)
[2020-10-10] MEDS: THIAMINE HCL 100 MG TABLET (FP) PO SCH (21:11)
[2020-10-10] MEDS: MELATONIN 5 MG TABLETS PO SCH (21:11)
[2020-10-11] MEDS: levETIRAcetam 500 MG TABLET (FP) PO SCH ×2 (10:38→21:55)
[2020-10-11] MEDS: VARENICLINE TARTRATE 1 MG TAB PO SCH ×2 (10:38→21:55)
[2020-10-11] MEDS: ATORVASTATIN CA 20 MG TABLET (FP) PO SCH (10:38)
[2020-10-11] MEDS: PRENATAL VITAMINS W/ FOLIC ACID TABLET (FP) PO SCH (10:38)
[2020-10-11] MEDS: amLODIPine BESYLATE 10 MG TABLET (FP) PO SCH (10:39)
[2020-10-11] MEDS: MELATONIN 5 MG TABLETS PO SCH (21:55)
[2020-10-11] MEDS: THIAMINE HCL 100 MG TABLET (FP) PO SCH (21:55)
[2020-10-12 06:07] LABS: SARS-CoV-2 NAA Not Detected (Not Detected)
[2020-10-12] MEDS: PRENATAL VITAMINS W/ FOLIC ACID TABLET (FP) PO SCH (10:28)
[2020-10-12] MEDS: ATORVASTATIN CA 20 MG TABLET (FP) PO SCH (10:29)
[2020-10-12] MEDS: levETIRAcetam 500 MG TABLET (FP) PO SCH ×2 (10:29→21:13)
[2020-10-12] MEDS: amLODIPine BESYLATE 10 MG TABLET (FP) PO SCH (10:29)
[2020-10-12] MEDS: VARENICLINE TARTRATE 1 MG TAB PO SCH ×2 (10:30→21:13)
[2020-10-12] MEDS: MELATONIN 5 MG TABLETS PO SCH (21:13)
[2020-10-12] MEDS: THIAMINE HCL 100 MG TABLET (FP) PO SCH (21:13)
[2020-10-13] MEDS: ATORVASTATIN CA 20 MG TABLET (FP) PO SCH (10:10)
[2020-10-13] MEDS: PRENATAL VITAMINS W/ FOLIC ACID TABLET (FP) PO SCH (10:10)
[2020-10-13] MEDS: levETIRAcetam 500 MG TABLET (FP) PO SCH ×2 (10:10→21:43)
[2020-10-13] MEDS: VARENICLINE TARTRATE 1 MG TAB PO SCH ×2 (10:10→21:43)
[2020-10-13] MEDS: amLODIPine BESYLATE 10 MG TABLET (FP) PO SCH (10:10)
[2020-10-13] MEDS: MELATONIN 5 MG TABLETS PO SCH (21:43)
[2020-10-13] MEDS: THIAMINE HCL 100 MG TABLET (FP) PO SCH (21:43)
[2020-10-14] MEDS: VARENICLINE TARTRATE 1 MG TAB PO SCH ×2 (09:49→21:04)
[2020-10-14] MEDS: levETIRAcetam 500 MG TABLET (FP) PO SCH ×2 (09:49→21:04)
[2020-10-14] MEDS: amLODIPine BESYLATE 10 MG TABLET (FP) PO SCH (09:49)
[2020-10-14] MEDS: PRENATAL VITAMINS W/ FOLIC ACID TABLET (FP) PO SCH (09:49)
[2020-10-14] MEDS: ATORVASTATIN CA 20 MG TABLET (FP) PO SCH (09:49)
[2020-10-14] MEDS: MAG HYDROX/AL HYDROX/SIMETH 30 ML UNIT-DOSE CUP PO PRN (09:50)
[2020-10-14] MEDS: ACETAMINOPHEN 325 MG TABLET (FP) PO PRN (12:01)
[2020-10-14] MEDS: THIAMINE HCL 100 MG TABLET (FP) PO SCH (21:04)
[2020-10-14] MEDS: MELATONIN 5 MG TABLETS PO SCH (21:04)
[2020-10-14] MEDS: IBUPROFEN 400 MG TABLET (FP) PO PRN (21:05)
[2020-10-15] MEDS: MAG HYDROX/AL HYDROX/SIMETH 30 ML UNIT-DOSE CUP PO PRN (08:25)
[2020-10-15] MEDS: IBUPROFEN 400 MG TABLET (FP) PO PRN (08:27)
[2020-10-15] MEDS: VARENICLINE TARTRATE 1 MG TAB PO SCH ×2 (10:24→21:42)
[2020-10-15] MEDS: hydrOXYzine PAMOATE 25 MG CAPSULE (FP) PO PRN ×2 (10:24→21:42)
[2020-10-15] MEDS: PRENATAL VITAMINS W/ FOLIC ACID TABLET (FP) PO SCH (10:24)
[2020-10-15] MEDS: levETIRAcetam 500 MG TABLET (FP) PO SCH ×2 (10:25→21:41)
[2020-10-15] MEDS: amLODIPine BESYLATE 10 MG TABLET (FP) PO SCH (10:25)
[2020-10-15] MEDS: ATORVASTATIN CA 20 MG TABLET (FP) PO SCH (10:25)
[2020-10-15] MEDS: MELATONIN 5 MG TABLETS PO SCH (21:41)
[2020-10-15] MEDS: THIAMINE HCL 100 MG TABLET (FP) PO SCH (21:41)
[2020-10-16] MEDS: amLODIPine BESYLATE 10 MG TABLET (FP) PO SCH (09:45)
[2020-10-16] MEDS: VARENICLINE TARTRATE 1 MG TAB PO SCH ×2 (09:45→21:06)
[2020-10-16] MEDS: ATORVASTATIN CA 20 MG TABLET (FP) PO SCH (09:45)
[2020-10-16] MEDS: levETIRAcetam 500 MG TABLET (FP) PO SCH ×2 (09:45→21:06)
[2020-10-16] MEDS: PRENATAL VITAMINS W/ FOLIC ACID TABLET (FP) PO SCH (09:45)
[2020-10-16] MEDS: MELATONIN 5 MG TABLETS PO SCH (21:06)
[2020-10-16] MEDS: hydrOXYzine PAMOATE 25 MG CAPSULE (FP) PO PRN (21:06)
[2020-10-16] MEDS: THIAMINE HCL 100 MG TABLET (FP) PO SCH (21:06)
[2020-10-17] MEDS: amLODIPine BESYLATE 10 MG TABLET (FP) PO SCH (10:04)
[2020-10-17] MEDS: ATORVASTATIN CA 20 MG TABLET (FP) PO SCH (10:04)
[2020-10-17] MEDS: levETIRAcetam 500 MG TABLET (FP) PO SCH ×2 (10:04→21:10)
[2020-10-17] MEDS: PRENATAL VITAMINS W/ FOLIC ACID TABLET (FP) PO SCH (10:04)
[2020-10-17] MEDS: VARENICLINE TARTRATE 1 MG TAB PO SCH ×2 (10:06→21:10)
[2020-10-17] MEDS: THIAMINE HCL 100 MG TABLET (FP) PO SCH (21:10)
[2020-10-17] MEDS: MELATONIN 5 MG TABLETS PO SCH (21:10)
[2020-10-17] MEDS: hydrOXYzine PAMOATE 25 MG CAPSULE (FP) PO PRN (21:11)
[2020-10-18] MEDS: levETIRAcetam 500 MG TABLET (FP) PO SCH ×2 (10:35→21:07)
[2020-10-18] MEDS: amLODIPine BESYLATE 10 MG TABLET (FP) PO SCH (10:35)
[2020-10-18] MEDS: ATORVASTATIN CA 20 MG TABLET (FP) PO SCH (10:35)
[2020-10-18] MEDS: PRENATAL VITAMINS W/ FOLIC ACID TABLET (FP) PO SCH (10:35)
[2020-10-18] MEDS: VARENICLINE TARTRATE 1 MG TAB PO SCH ×2 (10:36→21:08)
[2020-10-18] MEDS: THIAMINE HCL 100 MG TABLET (FP) PO SCH (21:07)
[2020-10-18] MEDS: MELATONIN 5 MG TABLETS PO SCH (21:07)
[2020-10-18] MEDS: hydrOXYzine PAMOATE 25 MG CAPSULE (FP) PO PRN (21:07)
[2020-10-19] MEDS: MAG HYDROX/AL HYDROX/SIMETH 30 ML UNIT-DOSE CUP PO PRN (08:31)
[2020-10-19] MEDS: amLODIPine BESYLATE 10 MG TABLET (FP) PO SCH (10:15)
[2020-10-19] MEDS: levETIRAcetam 500 MG TABLET (FP) PO SCH ×2 (10:15→21:50)
[2020-10-19] MEDS: ATORVASTATIN CA 20 MG TABLET (FP) PO SCH (10:15)
[2020-10-19] MEDS: PRENATAL VITAMINS W/ FOLIC ACID TABLET (FP) PO SCH (10:15)
[2020-10-19] MEDS: VARENICLINE TARTRATE 1 MG TAB PO SCH ×2 (10:16→21:51)
[2020-10-19] MEDS: THIAMINE HCL 100 MG TABLET (FP) PO SCH (21:50)
[2020-10-19] MEDS: MELATONIN 5 MG TABLETS PO SCH (21:50)
[2020-10-19] MEDS: hydrOXYzine PAMOATE 25 MG CAPSULE (FP) PO PRN (21:51)
[2020-10-20] MEDS ORDERED: PT OWN MED DRAWER 7, Y5N ONE (08:53)
[2020-10-20] MEDS: levETIRAcetam 500 MG TABLET (FP) PO SCH ×2 (10:28→21:16)
[2020-10-20] MEDS: amLODIPine BESYLATE 10 MG TABLET (FP) PO SCH (10:29)
[2020-10-20] MEDS: VARENICLINE TARTRATE 1 MG TAB PO SCH ×2 (10:29→21:16)
[2020-10-20] MEDS: ATORVASTATIN CA 20 MG TABLET (FP) PO SCH (10:29)
[2020-10-20] MEDS: PRENATAL VITAMINS W/ FOLIC ACID TABLET (FP) PO SCH (10:29)
[2020-10-20] MEDS: hydrOXYzine PAMOATE 25 MG CAPSULE (FP) PO PRN (21:16)
[2020-10-20] MEDS: THIAMINE HCL 100 MG TABLET (FP) PO SCH (21:16)
[2020-10-20] MEDS: MELATONIN 5 MG TABLETS PO SCH (21:16)
[2020-10-21] MEDS: levETIRAcetam 500 MG TABLET (FP) PO SCH ×2 (10:09→21:37)
[2020-10-21] MEDS: PRENATAL VITAMINS W/ FOLIC ACID TABLET (FP) PO SCH (10:09)
[2020-10-21] MEDS: ATORVASTATIN CA 20 MG TABLET (FP) PO SCH (10:09)
[2020-10-21] MEDS: amLODIPine BESYLATE 10 MG TABLET (FP) PO SCH (10:09)
[2020-10-21] MEDS: VARENICLINE TARTRATE 1 MG TAB PO SCH ×2 (10:09→21:38)
[2020-10-21] MEDS: hydrOXYzine PAMOATE 25 MG CAPSULE (FP) PO PRN ×2 (13:42→21:37)
[2020-10-21] MEDS: MELATONIN 5 MG TABLETS PO SCH (21:37)
[2020-10-21] MEDS: THIAMINE HCL 100 MG TABLET (FP) PO SCH (21:37)
[2020-10-22] MEDS: ATORVASTATIN CA 20 MG TABLET (FP) PO SCH (10:54)
[2020-10-22] MEDS: levETIRAcetam 500 MG TABLET (FP) PO SCH ×2 (10:54→21:15)
[2020-10-22] MEDS: amLODIPine BESYLATE 10 MG TABLET (FP) PO SCH (10:54)
[2020-10-22] MEDS: PRENATAL VITAMINS W/ FOLIC ACID TABLET (FP) PO SCH (10:54)
[2020-10-22] MEDS: VARENICLINE TARTRATE 1 MG TAB PO SCH ×2 (10:54→21:16)
[2020-10-22] MEDS: AMMONIUM LACTATE 12% LOTION 225 GM BOTTLE TP PRN (10:55)
[2020-10-22] MEDS: THIAMINE HCL 100 MG TABLET (FP) PO SCH (21:15)
[2020-10-22] MEDS: MELATONIN 5 MG TABLETS PO SCH (21:15)
[2020-10-22] MEDS: hydrOXYzine PAMOATE 25 MG CAPSULE (FP) PO PRN (21:16)
[2020-10-23] MEDS: amLODIPine BESYLATE 10 MG TABLET (FP) PO SCH (09:44)
[2020-10-23] MEDS: ATORVASTATIN CA 20 MG TABLET (FP) PO SCH (09:44)
[2020-10-23] MEDS: levETIRAcetam 500 MG TABLET (FP) PO SCH ×2 (09:44→21:30)
[2020-10-23] MEDS: PRENATAL VITAMINS W/ FOLIC ACID TABLET (FP) PO SCH (09:45)
[2020-10-23] MEDS: VARENICLINE TARTRATE 1 MG TAB PO SCH ×2 (09:45→21:31)
[2020-10-23] MEDS: THIAMINE HCL 100 MG TABLET (FP) PO SCH (21:30)
[2020-10-23] MEDS: hydrOXYzine PAMOATE 25 MG CAPSULE (FP) PO PRN (21:30)
[2020-10-23] MEDS: MELATONIN 5 MG TABLETS PO SCH (21:30)
[2020-10-24] MEDS ORDERED: PT OWN MED DRAWER 7, Y5N ONE ×2 (09:52→18:53)
[2020-10-24] MEDS: ATORVASTATIN CA 20 MG TABLET (FP) PO SCH (10:39)
[2020-10-24] MEDS: amLODIPine BESYLATE 10 MG TABLET (FP) PO SCH (10:39)
[2020-10-24] MEDS: levETIRAcetam 500 MG TABLET (FP) PO SCH ×2 (10:40→21:15)
[2020-10-24] MEDS: VARENICLINE TARTRATE 1 MG TAB PO SCH ×2 (10:41→21:15)
[2020-10-24] MEDS: PRENATAL VITAMINS W/ FOLIC ACID TABLET (FP) PO SCH (10:41)
[2020-10-24] MEDS: IBUPROFEN 400 MG TABLET (FP) PO PRN (12:18)
[2020-10-24] MEDS: MELATONIN 5 MG TABLETS PO SCH (21:14)
[2020-10-24] MEDS: hydrOXYzine PAMOATE 25 MG CAPSULE (FP) PO PRN (21:15)
[2020-10-24] MEDS: THIAMINE HCL 100 MG TABLET (FP) PO SCH (21:15)
[2020-10-25] MEDS: amLODIPine BESYLATE 10 MG TABLET (FP) PO SCH (11:03)
[2020-10-25] MEDS: levETIRAcetam 500 MG TABLET (FP) PO SCH ×2 (11:03→21:38)
[2020-10-25] MEDS: ATORVASTATIN CA 20 MG TABLET (FP) PO SCH (11:03)
[2020-10-25] MEDS: PRENATAL VITAMINS W/ FOLIC ACID TABLET (FP) PO SCH (11:03)
[2020-10-25] MEDS: VARENICLINE TARTRATE 1 MG TAB PO SCH ×2 (11:04→21:39)
[2020-10-25] MEDS: MELATONIN 5 MG TABLETS PO SCH (21:38)
[2020-10-25] MEDS: THIAMINE HCL 100 MG TABLET (FP) PO SCH (21:38)
[2020-10-25] MEDS: hydrOXYzine PAMOATE 25 MG CAPSULE (FP) PO PRN (21:38)
[2020-10-26] MEDS: amLODIPine BESYLATE 10 MG TABLET (FP) PO SCH (09:43)
[2020-10-26] MEDS: ATORVASTATIN CA 20 MG TABLET (FP) PO SCH (09:43)
[2020-10-26] MEDS: levETIRAcetam 500 MG TABLET (FP) PO SCH ×2 (09:43→21:07)
[2020-10-26] MEDS: VARENICLINE TARTRATE 1 MG TAB PO SCH ×2 (09:44→21:07)
[2020-10-26] MEDS: PRENATAL VITAMINS W/ FOLIC ACID TABLET (FP) PO SCH (09:44)
[2020-10-26] MEDS: THIAMINE HCL 100 MG TABLET (FP) PO SCH (21:07)
[2020-10-26] MEDS: hydrOXYzine PAMOATE 25 MG CAPSULE (FP) PO PRN (21:07)
[2020-10-26] MEDS: MELATONIN 5 MG TABLETS PO SCH (21:07)
[2020-10-27] MEDS: ATORVASTATIN CA 20 MG TABLET (FP) PO SCH (09:51)
[2020-10-27] MEDS: PRENATAL VITAMINS W/ FOLIC ACID TABLET (FP) PO SCH (09:51)
[2020-10-27] MEDS: levETIRAcetam 500 MG TABLET (FP) PO SCH ×2 (09:51→22:22)
[2020-10-27] MEDS: amLODIPine BESYLATE 10 MG TABLET (FP) PO SCH (09:51)
[2020-10-27] MEDS: AMMONIUM LACTATE 12% LOTION 225 GM BOTTLE TP PRN (09:52)
[2020-10-27] MEDS: VARENICLINE TARTRATE 1 MG TAB PO SCH ×2 (09:52→22:22)
[2020-10-27] MEDS: MELATONIN 5 MG TABLETS PO SCH (22:22)
[2020-10-27] MEDS: hydrOXYzine PAMOATE 25 MG CAPSULE (FP) PO PRN (22:22)
[2020-10-27] MEDS: THIAMINE HCL 100 MG TABLET (FP) PO SCH (22:22)
[2020-10-28] MEDS: VARENICLINE TARTRATE 1 MG TAB PO SCH ×2 (10:26→21:06)
[2020-10-28] MEDS: PRENATAL VITAMINS W/ FOLIC ACID TABLET (FP) PO SCH (10:26)
[2020-10-28] MEDS: ATORVASTATIN CA 20 MG TABLET (FP) PO SCH (10:26)
[2020-10-28] MEDS: amLODIPine BESYLATE 10 MG TABLET (FP) PO SCH (10:26)
[2020-10-28] MEDS: levETIRAcetam 500 MG TABLET (FP) PO SCH ×2 (10:26→21:05)
[2020-10-28] MEDS: hydrOXYzine PAMOATE 25 MG CAPSULE (FP) PO PRN (21:05)
[2020-10-28] MEDS: THIAMINE HCL 100 MG TABLET (FP) PO SCH (21:05)
[2020-10-28] MEDS: MELATONIN 5 MG TABLETS PO SCH (21:05)
[2020-10-29] MEDS: PRENATAL VITAMINS W/ FOLIC ACID TABLET (FP) PO SCH (10:42)
[2020-10-29] MEDS: ATORVASTATIN CA 20 MG TABLET (FP) PO SCH (10:42)
[2020-10-29] MEDS: levETIRAcetam 500 MG TABLET (FP) PO SCH ×2 (10:42→21:49)
[2020-10-29] MEDS: amLODIPine BESYLATE 10 MG TABLET (FP) PO SCH (10:42)
[2020-10-29] MEDS: VARENICLINE TARTRATE 1 MG TAB PO SCH ×2 (10:47→21:50)
[2020-10-29] MEDS: THIAMINE HCL 100 MG TABLET (FP) PO SCH (21:49)
[2020-10-29] MEDS: hydrOXYzine PAMOATE 25 MG CAPSULE (FP) PO PRN (21:50)
[2020-10-29] MEDS: MELATONIN 5 MG TABLETS PO SCH (21:50)
[2020-10-30] MEDS: levETIRAcetam 500 MG TABLET (FP) PO SCH ×2 (09:57→21:21)
[2020-10-30] MEDS: ATORVASTATIN CA 20 MG TABLET (FP) PO SCH (09:57)
[2020-10-30] MEDS: PRENATAL VITAMINS W/ FOLIC ACID TABLET (FP) PO SCH (09:57)
[2020-10-30] MEDS: amLODIPine BESYLATE 10 MG TABLET (FP) PO SCH (09:57)
[2020-10-30] MEDS: VARENICLINE TARTRATE 1 MG TAB PO SCH ×2 (09:57→21:22)
[2020-10-30] MEDS: THIAMINE HCL 100 MG TABLET (FP) PO SCH (21:21)
[2020-10-30] MEDS: hydrOXYzine PAMOATE 25 MG CAPSULE (FP) PO PRN (21:21)
[2020-10-30] MEDS: MELATONIN 5 MG TABLETS PO SCH (21:22)
[2020-10-31] MEDS: PRENATAL VITAMINS W/ FOLIC ACID TABLET (FP) PO SCH (10:07)
[2020-10-31] MEDS: VARENICLINE TARTRATE 1 MG TAB PO SCH ×2 (10:07→21:03)
[2020-10-31] MEDS: hydrOXYzine PAMOATE 25 MG CAPSULE (FP) PO PRN ×2 (10:07→21:03)
[2020-10-31] MEDS: ATORVASTATIN CA 20 MG TABLET (FP) PO SCH (10:07)
[2020-10-31] MEDS: amLODIPine BESYLATE 10 MG TABLET (FP) PO SCH (10:07)
[2020-10-31] MEDS: levETIRAcetam 500 MG TABLET (FP) PO SCH ×2 (10:07→21:03)
[2020-10-31] MEDS: THIAMINE HCL 100 MG TABLET (FP) PO SCH (21:03)
[2020-10-31] MEDS: MELATONIN 5 MG TABLETS PO SCH (21:03)
[2020-11-01] MEDS: levETIRAcetam 500 MG TABLET (FP) PO SCH ×2 (10:16→21:30)
[2020-11-01] MEDS: amLODIPine BESYLATE 10 MG TABLET (FP) PO SCH (10:16)
[2020-11-01] MEDS: PRENATAL VITAMINS W/ FOLIC ACID TABLET (FP) PO SCH (10:16)
[2020-11-01] MEDS: ATORVASTATIN CA 20 MG TABLET (FP) PO SCH (10:16)
[2020-11-01] MEDS: VARENICLINE TARTRATE 1 MG TAB PO SCH ×2 (10:16→21:30)
[2020-11-01] MEDS: THIAMINE HCL 100 MG TABLET (FP) PO SCH (21:30)
[2020-11-01] MEDS: MELATONIN 5 MG TABLETS PO SCH (21:30)
[2020-11-01] MEDS: hydrOXYzine PAMOATE 25 MG CAPSULE (FP) PO PRN (21:30)
[2020-11-02] MEDS: ATORVASTATIN CA 20 MG TABLET (FP) PO SCH (10:25)
[2020-11-02] MEDS: MAG HYDROX/AL HYDROX/SIMETH 30 ML UNIT-DOSE CUP PO PRN (10:26)
[2020-11-02] MEDS: PRENATAL VITAMINS W/ FOLIC ACID TABLET (FP) PO SCH (10:26)
[2020-11-02] MEDS: amLODIPine BESYLATE 10 MG TABLET (FP) PO SCH (10:26)
[2020-11-02] MEDS: levETIRAcetam 500 MG TABLET (FP) PO SCH ×2 (10:28→21:03)
[2020-11-02] MEDS: VARENICLINE TARTRATE 1 MG TAB PO SCH ×2 (10:29→21:04)
[2020-11-02] MEDS: IBUPROFEN 400 MG TABLET (FP) PO PRN (12:52)
[2020-11-02] MEDS ORDERED: BISMUTH SUBSALICYLATE 262 MG/15 ML BTL PO PRN (14:11)
[2020-11-02] MEDS: MELATONIN 5 MG TABLETS PO SCH (21:03)
[2020-11-02] MEDS: hydrOXYzine PAMOATE 25 MG CAPSULE (FP) PO PRN (21:03)
[2020-11-02] MEDS: THIAMINE HCL 100 MG TABLET (FP) PO SCH (21:03)
[2020-11-03] MEDS: levETIRAcetam 500 MG TABLET (FP) PO SCH ×2 (10:38→21:42)
[2020-11-03] MEDS: amLODIPine BESYLATE 10 MG TABLET (FP) PO SCH (10:38)
[2020-11-03] MEDS: PRENATAL VITAMINS W/ FOLIC ACID TABLET (FP) PO SCH (10:38)
[2020-11-03] MEDS: ATORVASTATIN CA 20 MG TABLET (FP) PO SCH (10:38)
[2020-11-03] MEDS: VARENICLINE TARTRATE 1 MG TAB PO SCH ×2 (10:42→21:42)
[2020-11-03] MEDS: hydrOXYzine PAMOATE 25 MG CAPSULE (FP) PO PRN (21:42)
[2020-11-03] MEDS: THIAMINE HCL 100 MG TABLET (FP) PO SCH (21:42)
[2020-11-03] MEDS: MELATONIN 5 MG TABLETS PO SCH (21:42)
[2020-11-04] MEDS: ATORVASTATIN CA 20 MG TABLET (FP) PO SCH (10:13)
[2020-11-04] MEDS: levETIRAcetam 500 MG TABLET (FP) PO SCH ×2 (10:13→21:08)
[2020-11-04] MEDS: hydrOXYzine PAMOATE 25 MG CAPSULE (FP) PO PRN ×2 (10:13→21:08)
[2020-11-04] MEDS: amLODIPine BESYLATE 10 MG TABLET (FP) PO SCH (10:13)
[2020-11-04] MEDS: PRENATAL VITAMINS W/ FOLIC ACID TABLET (FP) PO SCH (10:13)
[2020-11-04] MEDS: VARENICLINE TARTRATE 1 MG TAB PO SCH ×2 (10:13→21:09)
[2020-11-04] MEDS: THIAMINE HCL 100 MG TABLET (FP) PO SCH (21:08)
[2020-11-04] MEDS: MELATONIN 5 MG TABLETS PO SCH (21:08)
[2020-11-05 07:20] VITALS: BP 100/68; PULSE 78; TEMP 98.1
[2020-11-05] MEDS ORDERED: PT OWN MED DRAWER 7, Y5N ONE (08:39)
== END 2020-11-05 08:46 | disposition home or self-care (01) | DRG 772 ==
LOC: YASAS 09:20 → Y3W 12:26
PROVIDERS: ADMIT Allergy & Immunology; ATTEND Allergy & Immunology
PROC: HZ42ZZZ Group Counseling for Substance Abuse Treatment, Cognitive-Behavioral (ICD-10-PCS; principal; 2020-10-08)
DX: F10.20 Alcohol dependence, uncomplicated (principal); F17.210 Nicotine dependence, cigarettes, uncomplicated; G40.909 Epilepsy, unspecified, not intractable, without status epilepticus; I10 Essential (primary) hypertension; K70.30 Alcoholic cirrhosis of liver without ascites
CPT/HCPCS: 36415; 80053; 81003; 85027; 86780; C9803; U0003; U0005

== ENCOUNTER 2021-02-14 17:11 | Emergency (ER) | payer OTHER ==
[2021-02-14 17:25] VITALS: BP 130/85; PULSE 89; TEMP 98.2; BMI 20.2
[2021-02-14] MEDS ORDERED: levETIRAcetam 500 MG/5 ML INJECTION VIAL IVPB ONE ×2 (19:25→20:20)
[2021-02-14 21:00] LABS: BASO % 0.9 % (0-2.0); EOS % 5.2 % (0-4.5); HEMATOCRIT 41.8 % (35.4-49); HEMOGLOBIN 14.2 GM/dL (11.7-16.9); LYMPH % 29.6 % (8-40); MCH 31.6 pg (25.7-33.7); MCHC 34.1 g/dl (32.0-35.9); MEAN CELL VOLUME 92.6 fl (80-96); MEAN PLT VOLUME 11.5 fl (7.5-11.1); MONO % 9.2 % (3.8-10.2); NEUT % 55.1 % (42.8-82.8); PLATELET COUNT 118 10^3/uL (134-434); RBC 4.51 M/mm3 (4.00-5.60); RDW 13.1 % (11.9-15.9); WHITE BLOOD COUNT 8.3 K/mm3 (4.0-10.0)
[2021-02-14 21:04] LABS: METHADONE, UR NEGATIVE (NEGATIVE); URINE AMPHETAMINES NEGATIVE (NEGATIVE); URINE BENZODIAZEPINES NEGATIVE (NEGATIVE)
[2021-02-14 21:05] LABS: OPIATES, URI NEGATIVE (NEGATIVE); PHENCYCLIDINE,URINE NEGATIVE (NEGATIVE)
[2021-02-14 21:11] LABS: CHLORIDE 102 mmol/L (98-107); SODIUM 136 mmol/L (136-145)
[2021-02-14 21:12] LABS: COCAINE, UR NEGATIVE (NEGATIVE); URINE BARBITURATES NEGATIVE (NEGATIVE)
[2021-02-14] MEDS ORDERED: LACTATED RINGERS SOLUTION 1000 ML INFUS.BAG IV ONE (21:12)
[2021-02-14 21:13] LABS: ALBUMIN 3.9 g/dl (3.4-5.0); ANION GAP 8 MMOL/L (8-16); CO2 27 mmol/L (21-32)
[2021-02-14 21:14] LABS: BLOOD UREA NITROGEN 5.9 mg/dL (7-18); GLUCOSE,RANDOM 94 mg/dL (74-106)
[2021-02-14 21:16] LABS: SGOT/AST 45 U/L (15-37); SGPT/ALT 43 U/L (13-61)
[2021-02-14 21:17] LABS: CREATININE 0.8 mg/dL (0.55-1.3)
[2021-02-14 21:18] LABS: BILIRUBIN,TOTAL 0.3 mg/dL (0.2-1); TOT PROT 7.7 g/dl (6.4-8.2)
[2021-02-14 21:19] LABS: ALK PHOS 110 U/L (45-117)
== END 2021-02-14 23:12 | disposition home or self-care (01) ==
LOC: JER 17:11
PROC: 3E033GC Introduction of Other Therapeutic Substance into Peripheral Vein, Percutaneous Approach (ICD-10-PCS; principal; 2021-02-14)
DX: G40.89 Other seizures (principal)
CPT/HCPCS: 36415; 70450-TC; 72125-TC; 76512; 80053; 80177; 80307; 82550; 82553; 82962; 84484; 85025; 93005; 93010; 99285-25

== ENCOUNTER 2023-01-02 12:31 | Inpatient (IN) | payer OTHER ==
[2023-01-02] MEDS ORDERED: SODIUM CHLORIDE 0.9% 1000 ML INFUS.BAG IV ONE (12:58)
[2023-01-02 13:29] LABS: BASO % 1.3 % (0-2.0); EOS % 2.3 % (0-4.5); HEMATOCRIT 39.1 % (35.4-49); HEMOGLOBIN 12.9 GM/dL (11.7-16.9); LYMPH % 19.3 % (8-40); MCH 31.9 pg (25.7-33.7); MEAN CELL VOLUME 96.5 fl (80-96); MEAN PLT VOLUME 10.9 fl (7.5-11.1); MONO % 7.9 % (3.8-10.2); NEUT % 69.2 % (42.8-82.8); PLATELET COUNT 86 10^3/uL (134-434); RBC 4.05 M/mm3 (4.00-5.60); RDW 13.8 % (11.9-15.9); WHITE BLOOD COUNT 6.7 K/mm3 (4.0-10.0)
[2023-01-02] MEDS ORDERED: LORazepam 2 MG/ML SDV VIAL IM ONE (13:47)
[2023-01-02] MEDS ORDERED: LORazepam 2 MG/ML SDV VIAL IVPUSH ONE ×2 (13:48→14:01)
[2023-01-02 14:11] LABS: CHLORIDE 106 mmol/L (98-107); POTASSIUM 4.5 mmol/L (3.5-5.1); SODIUM 138 mmol/L (136-145)
[2023-01-02 14:15] LABS: ANION GAP 11 MMOL/L (8-16); BLOOD UREA NITROGEN 4.8 mg/dL (7-18); CO2 21 mmol/L (21-32); MAGNESIUM 1.6 mg/dL (1.8-2.4)
[2023-01-02 14:16] LABS: ALBUMIN 4.1 g/dl (3.4-5.0); GLUCOSE,RANDOM 137 mg/dL (74-106)
[2023-01-02 14:18] LABS: CREATININE 0.8 mg/dL (0.55-1.3); SGPT/ALT 39 U/L (13-61)
[2023-01-02 14:19] LABS: ALK PHOS 75 U/L (45-117)
[2023-01-02 14:20] LABS: BILIRUBIN,TOTAL 0.4 mg/dL (0.2-1); TOT PROT 7.7 g/dl (6.4-8.2)
[2023-01-02 14:28] LABS: LACTIC ACID 4.5 mmol/L (0.4-2.0)
[2023-01-02 14:41] LABS: CALCIUM 8.6 mg/dL (8.5-10.1); SGOT/AST 102 U/L (15-37)
[2023-01-02] MEDS ORDERED: MAGNESIUM SULFATE IN WATER 2 GM/50 ML IVPB IVPB ONE ×2 (16:15→16:51)
[2023-01-02] MEDS ORDERED: THIAMINE HCL 100 MG TABLET (FP) PO ONE (16:16)
[2023-01-02] MEDS ORDERED: FOLIC ACID 1 MG TABLET (FP) PO ONE (16:16)
[2023-01-02] MEDS ORDERED: THIAMINE HCL 100 MG TABLET (FP) ONE (16:50)
[2023-01-02] MEDS ORDERED: FOLIC ACID 1 MG TABLET (FP) ONE (16:51)
[2023-01-02] MEDS ORDERED: diazePAM CARPU-JECT 10 MG/2 ML DISP.SYRIN IVPUSH ONE (17:07)
[2023-01-02] MEDS ORDERED: diazePAM CARPU-JECT 10 MG/2 ML DISP.SYRIN ONE (17:10)
[2023-01-02] MEDS ORDERED: diazePAM CARPU-JECT 10 MG/2 ML DISP.SYRIN IVPUSH PRN ×2 (22:00)
[2023-01-02] MEDS: levETIRAcetam 500 MG TABLET (FP) PO SCH (22:05)
[2023-01-02] MEDS: HEPARIN NA (PORCINE) 5,000 UNITS/ML 1ML VIAL SQ SCH (22:05)
[2023-01-03] MEDS: ATORVASTATIN CA 20 MG TABLET (FP) PO SCH ×2 (02:05→22:07)
[2023-01-03] MEDS ORDERED: diazePAM CARPU-JECT 10 MG/2 ML DISP.SYRIN ONE (02:55)
[2023-01-03 08:17] LABS: HEMATOCRIT 44.8 % (35.4-49); HEMOGLOBIN 14.8 GM/dL (11.7-16.9); MCH 31.9 pg (25.7-33.7); MEAN CELL VOLUME 96.8 fl (80-96); RBC 4.63 M/mm3 (4.00-5.60); RDW 13.4 % (11.9-15.9)
[2023-01-03 08:18] LABS: WHITE BLOOD COUNT 8.9 K/mm3 (4.0-10.0)
[2023-01-03 08:19] LABS: MEAN PLT VOLUME 12.1 fl (7.5-11.1); PLATELET COUNT 112 10^3/uL (134-434)
[2023-01-03 08:26] LABS: POTASSIUM 4.5 mmol/L (3.5-5.1)
[2023-01-03 08:32] LABS: BLOOD UREA NITROGEN 3.3 mg/dL (7-18)
[2023-01-03 08:34] LABS: ALBUMIN 4.3 g/dl (3.4-5.0); CALCIUM 8.7 mg/dL (8.5-10.1)
[2023-01-03 08:35] LABS: CREATININE 0.6 mg/dL (0.55-1.3); MAGNESIUM 1.9 mg/dL (1.8-2.4)
[2023-01-03 08:38] LABS: PHOSPHOROUS 2.4 mg/dL (2.5-4.9)
[2023-01-03 08:39] LABS: BILIRUBIN,TOTAL 0.7 mg/dL (0.2-1); TOT PROT 8.5 g/dl (6.4-8.2)
[2023-01-03] MEDS ORDERED: amLODIPine BESYLATE 10 MG TABLET (FP) PO SCH (10:00)
[2023-01-03] MEDS ORDERED: FOLIC ACID 1 MG TABLET (FP) PO SCH (10:00)
[2023-01-03] MEDS ORDERED: ENOXAPARIN NA (PORCINE) 40 MG/0.4 ML DISP.SYRIN SQ SCH (10:00)
[2023-01-03 10:22] LABS: ANISOCYTOSIS 0; HELMET CELLS 0; HOWELL-JOLLY BODIES 0; MACROCYTOSIS 0; OVALOCYTE 0; ROULEAU 0; SICKELED CELLS 0; TARGET CELLS 0; TEAR DROP CELLS 0; TOXIC GRANULATION 0
[2023-01-03] MEDS: HEPARIN NA (PORCINE) 5,000 UNITS/ML 1ML VIAL SQ SCH ×2 (11:35→22:10)
[2023-01-03] MEDS: levETIRAcetam 500 MG TABLET (FP) PO SCH ×2 (11:36→22:07)
[2023-01-03] MEDS: NICOTINE 21 MG/24 HOURS TOPICAL PATCH TD SCH ×2 (11:37→11:47)
[2023-01-03] MEDS: SODIUM CHLORIDE 1,000 ML IV SCH ×2 (11:38→19:10)
[2023-01-03] MEDS ORDERED: chlordiazePOXIDE HCL 25 MG CAPSULE PO PRN (12:59)
[2023-01-03] MEDS ORDERED: NAPH,MB-DB/K PH,MBDB POWDER PACKET PO ONE (13:10)
[2023-01-03] MEDS ORDERED: MAGNESIUM SULF 50% (8.12 MEQ/2 ML-1 GM VIAL) IVPB ONE (13:10)
[2023-01-03] MEDS: chlordiazePOXIDE HCL 25 MG CAPSULE PO SCH ×3 (14:55→22:08)
[2023-01-03] MEDS ORDERED: THIAMINE HCL 200 MG/2 ML VIAL IVPB ONE (15:55)
[2023-01-03] MEDS ORDERED: SODIUM CHLORIDE 1,000 ML IV SCH (16:00)
[2023-01-03] MEDS: THIAMINE HCL 200 MG/2 ML VIAL IVPB SCH (22:08)
[2023-01-04] MEDS ORDERED: chlordiazePOXIDE HCL 25 MG CAPSULE PO PRN (01:10)
[2023-01-04] MEDS: SODIUM CHLORIDE 1,000 ML IV SCH (02:31)
[2023-01-04] MEDS: chlordiazePOXIDE HCL 25 MG CAPSULE PO SCH ×2 (05:41→11:19)
[2023-01-04] MEDS: HEPARIN NA (PORCINE) 5,000 UNITS/ML 1ML VIAL SQ SCH ×3 (05:42→21:25)
[2023-01-04] MEDS: THIAMINE HCL 200 MG/2 ML VIAL IVPB SCH ×4 (05:43→21:26)
[2023-01-04] MEDS ORDERED: THIAMINE HCL 100 MG TABLET (FP) PO SCH (10:00)
[2023-01-04 10:48] LABS: HEMATOCRIT 46.8 % (35.4-49); HEMOGLOBIN 15.3 GM/dL (11.7-16.9); MCH 32.1 pg (25.7-33.7); MCHC 32.6 g/dl (32.0-35.9); MEAN CELL VOLUME 98.3 fl (80-96); MEAN PLT VOLUME 10.8 fl (7.5-11.1); PLATELET COUNT 86 10^3/uL (134-434); RBC 4.76 M/mm3 (4.00-5.60); RDW 13.3 % (11.9-15.9); WHITE BLOOD COUNT 7.7 K/mm3 (4.0-10.0)
[2023-01-04 11:03] LABS: POTASSIUM 3.2 mmol/L (3.5-5.1)
[2023-01-04 11:05] LABS: CALCIUM 8.9 mg/dL (8.5-10.1)
[2023-01-04 11:06] LABS: ALBUMIN 4.6 g/dl (3.4-5.0); BLOOD UREA NITROGEN 5.5 mg/dL (7-18); MAGNESIUM 2.4 mg/dL (1.8-2.4)
[2023-01-04 11:09] LABS: CREATININE 0.6 mg/dL (0.55-1.3); PHOSPHOROUS 2.1 mg/dL (2.5-4.9)
[2023-01-04 11:10] LABS: BILIRUBIN,TOTAL 0.9 mg/dL (0.2-1); TOT PROT 8.4 g/dl (6.4-8.2)
[2023-01-04] MEDS: FOLIC ACID 1 MG TABLET (FP) PO SCH (11:18)
[2023-01-04] MEDS: levETIRAcetam 500 MG TABLET (FP) PO SCH ×2 (11:18→21:25)
[2023-01-04] MEDS: amLODIPine BESYLATE 10 MG TABLET (FP) PO SCH (11:19)
[2023-01-04] MEDS: NICOTINE 21 MG/24 HOURS TOPICAL PATCH TD SCH (11:19)
[2023-01-04 16:19] VITALS: BMI 15.7
[2023-01-04] MEDS: ATORVASTATIN CA 20 MG TABLET (FP) PO SCH (21:25)
[2023-01-05] MEDS: SODIUM CHLORIDE 1,000 ML IV SCH ×2 (02:18→06:17)
[2023-01-05] MEDS ORDERED: chlordiazePOXIDE HCL 25 MG CAPSULE PO SCH (05:00)
[2023-01-05] MEDS: chlordiazePOXIDE HCL 25 MG CAPSULE PO SCH ×4 (05:50→22:31)
[2023-01-05] MEDS: THIAMINE HCL 200 MG/2 ML VIAL IVPB SCH (05:51)
[2023-01-05] MEDS: HEPARIN NA (PORCINE) 5,000 UNITS/ML 1ML VIAL SQ SCH ×3 (05:51→22:32)
[2023-01-05 10:18] LABS: POTASSIUM 3.2 mmol/L (3.5-5.1)
[2023-01-05 10:21] LABS: BLOOD UREA NITROGEN 7.9 mg/dL (7-18); MAGNESIUM 2.1 mg/dL (1.8-2.4)
[2023-01-05 10:24] LABS: CREATININE 0.6 mg/dL (0.55-1.3); PHOSPHOROUS 2.3 mg/dL (2.5-4.9)
[2023-01-05] MEDS: amLODIPine BESYLATE 10 MG TABLET (FP) PO SCH (11:54)
[2023-01-05] MEDS: MULTIVITAMINS (DAILY MVI) TABLET (FP) PO SCH (11:55)
[2023-01-05] MEDS: NICOTINE 21 MG/24 HOURS TOPICAL PATCH TD SCH (11:55)
[2023-01-05] MEDS: THIAMINE HCL 200 MG/2 ML VIAL IM SCH (11:56)
[2023-01-05] MEDS: FOLIC ACID 1 MG TABLET (FP) PO SCH (11:57)
[2023-01-05] MEDS: levETIRAcetam 500 MG TABLET (FP) PO SCH ×2 (11:58→22:31)
[2023-01-05 12:33] LABS: HEMATOCRIT 39.1 % (35.4-49); HEMOGLOBIN 12.9 GM/dL (11.7-16.9); MCH 31.8 pg (25.7-33.7); MEAN CELL VOLUME 96.2 fl (80-96); MEAN PLT VOLUME 10.3 fl (7.5-11.1); PLATELET COUNT 77 10^3/uL (134-434); RBC 4.06 M/mm3 (4.00-5.60); RDW 13.6 % (11.9-15.9); WHITE BLOOD COUNT 9.3 K/mm3 (4.0-10.0)
[2023-01-05] MEDS ORDERED: POTASSIUM CHLORIDE ORAL LIQUID 20 MEQ/15 ML PO ONE (14:04)
[2023-01-05] MEDS: ATORVASTATIN CA 20 MG TABLET (FP) PO SCH (22:32)
[2023-01-06] MEDS ORDERED: chlordiazePOXIDE HCL 10 MG CAPSULE PO PRN ×2
[2023-01-06] MEDS ORDERED: chlordiazePOXIDE HCL 10 MG CAPSULE PO SCH (05:00)
[2023-01-06] MEDS: SODIUM CHLORIDE 1,000 ML IV SCH ×2 (05:45→16:25)
[2023-01-06] MEDS: HEPARIN NA (PORCINE) 5,000 UNITS/ML 1ML VIAL SQ SCH ×3 (05:46→22:34)
[2023-01-06] MEDS: chlordiazePOXIDE HCL 10 MG CAPSULE PO SCH ×4 (05:46→22:33)
[2023-01-06] MEDS: NICOTINE 21 MG/24 HOURS TOPICAL PATCH TD SCH (10:31)
[2023-01-06] MEDS: THIAMINE HCL 200 MG/2 ML VIAL IM SCH (10:31)
[2023-01-06] MEDS: MULTIVITAMINS (DAILY MVI) TABLET (FP) PO SCH (10:33)
[2023-01-06] MEDS: levETIRAcetam 500 MG TABLET (FP) PO SCH ×2 (10:33→22:33)
[2023-01-06] MEDS: FOLIC ACID 1 MG TABLET (FP) PO SCH (10:33)
[2023-01-06] MEDS: amLODIPine BESYLATE 10 MG TABLET (FP) PO SCH (10:34)
[2023-01-06 11:26] LABS: HEMATOCRIT 39.6 % (35.4-49); HEMOGLOBIN 13.1 GM/dL (11.7-16.9); MCH 32.1 pg (25.7-33.7); MCHC 33.1 g/dl (32.0-35.9); MEAN PLT VOLUME 10.9 fl (7.5-11.1); RBC 4.08 M/mm3 (4.00-5.60); RDW 13.4 % (11.9-15.9); WHITE BLOOD COUNT 7.1 K/mm3 (4.0-10.0)
[2023-01-06 11:40] LABS: POTASSIUM 3.4 mmol/L (3.5-5.1)
[2023-01-06 12:06] LABS: BLOOD UREA NITROGEN 6.2 mg/dL (7-18); CALCIUM 8.8 mg/dL (8.5-10.1); MAGNESIUM 1.7 mg/dL (1.8-2.4)
[2023-01-06 12:07] LABS: PHOSPHOROUS 2.1 mg/dL (2.5-4.9)
[2023-01-06 12:08] LABS: CREATININE 0.5 mg/dL (0.55-1.3)
[2023-01-06 12:09] LABS: BILIRUBIN,TOTAL 0.5 mg/dL (0.2-1)
[2023-01-06 12:17] LABS: PLATELET COUNT 78 10^3/uL (134-434)
[2023-01-06 12:21] LABS: ALBUMIN 3.1 g/dl (3.4-5.0); TOT PROT 6.4 g/dl (6.4-8.2)
[2023-01-06] MEDS ORDERED: NAPH,MB-DB/K PH,MBDB POWDER PACKET PO ONE (15:25)
[2023-01-06] MEDS ORDERED: MAGNESIUM OXIDE 400 MG TABLET (FP) PO ONE (15:25)
[2023-01-06] MEDS ORDERED: POTASSIUM CHLORIDE TABS 20 MEQ TABLET.ER (FP) PO ONE (15:26)
[2023-01-06] MEDS: ATORVASTATIN CA 20 MG TABLET (FP) PO SCH (22:33)
[2023-01-07] MEDS: SODIUM CHLORIDE 1,000 ML IV SCH (03:23)
[2023-01-07] MEDS ORDERED: chlordiazePOXIDE HCL 10 MG CAPSULE PO SCH (05:00)
[2023-01-07] MEDS: chlordiazePOXIDE HCL 10 MG CAPSULE PO SCH ×2 (05:24→17:20)
[2023-01-07] MEDS: HEPARIN NA (PORCINE) 5,000 UNITS/ML 1ML VIAL SQ SCH ×3 (05:24→23:01)
[2023-01-07] MEDS: THIAMINE HCL 200 MG/2 ML VIAL IM SCH (10:25)
[2023-01-07] MEDS: NICOTINE 21 MG/24 HOURS TOPICAL PATCH TD SCH (10:25)
[2023-01-07] MEDS: levETIRAcetam 500 MG TABLET (FP) PO SCH ×2 (10:26→23:01)
[2023-01-07] MEDS: FOLIC ACID 1 MG TABLET (FP) PO SCH (10:26)
[2023-01-07] MEDS: amLODIPine BESYLATE 10 MG TABLET (FP) PO SCH (10:26)
[2023-01-07] MEDS: MULTIVITAMINS (DAILY MVI) TABLET (FP) PO SCH (10:26)
[2023-01-07 11:51] LABS: HEMATOCRIT 37.9 % (35.4-49); HEMOGLOBIN 12.2 GM/dL (11.7-16.9); MCH 31.6 pg (25.7-33.7); MCHC 32.2 g/dl (32.0-35.9); MEAN CELL VOLUME 98.2 fl (80-96); MEAN PLT VOLUME 11.3 fl (7.5-11.1); PLATELET COUNT 95 10^3/uL (134-434); RBC 3.86 M/mm3 (4.00-5.60); WHITE BLOOD COUNT 6.8 K/mm3 (4.0-10.0)
[2023-01-07 12:11] LABS: CHLORIDE 109 mmol/L (98-107); POTASSIUM 3.6 mmol/L (3.5-5.1); SODIUM 142 mmol/L (136-145)
[2023-01-07 12:26] LABS: ALBUMIN 2.9 g/dl (3.4-5.0); ANION GAP 7 MMOL/L (8-16); CALCIUM 8.5 mg/dL (8.5-10.1); CO2 26 mmol/L (21-32); GLUCOSE,RANDOM 134 mg/dL (74-106); MAGNESIUM 1.6 mg/dL (1.8-2.4)
[2023-01-07 12:29] LABS: CREATININE 0.6 mg/dL (0.55-1.3); PHOSPHOROUS 2.6 mg/dL (2.5-4.9); SGOT/AST 39 U/L (15-37); SGPT/ALT 20 U/L (13-61)
[2023-01-07 12:31] LABS: ALK PHOS 60 U/L (45-117); BILIRUBIN,TOTAL 0.4 mg/dL (0.2-1); BLOOD UREA NITROGEN 2.9 mg/dL (7-18)
[2023-01-07] MEDS ORDERED: MAGNESIUM OXIDE 400 MG TABLET (FP) PO ONE (16:32)
[2023-01-07] MEDS: ATORVASTATIN CA 20 MG TABLET (FP) PO SCH (23:01)
[2023-01-08] MEDS ORDERED: chlordiazePOXIDE HCL 10 MG CAPSULE PO ONE (05:00)
[2023-01-08] MEDS: chlordiazePOXIDE HCL 10 MG CAPSULE PO ONE ×2 (05:33→05:34)
[2023-01-08] MEDS: SODIUM CHLORIDE 1,000 ML IV SCH (05:58)
[2023-01-08] MEDS: HEPARIN NA (PORCINE) 5,000 UNITS/ML 1ML VIAL SQ SCH ×3 (06:26→22:05)
[2023-01-08] MEDS ORDERED: SODIUM CHLORIDE 1,000 ML IV SCH (07:07)
[2023-01-08] MEDS: MULTIVITAMINS (DAILY MVI) TABLET (FP) PO SCH (10:41)
[2023-01-08] MEDS: amLODIPine BESYLATE 10 MG TABLET (FP) PO SCH (10:41)
[2023-01-08] MEDS: FOLIC ACID 1 MG TABLET (FP) PO SCH (10:41)
[2023-01-08] MEDS: levETIRAcetam 500 MG TABLET (FP) PO SCH ×2 (10:41→22:05)
[2023-01-08] MEDS: THIAMINE HCL 200 MG/2 ML VIAL IM SCH (10:42)
[2023-01-08] MEDS: NICOTINE 21 MG/24 HOURS TOPICAL PATCH TD SCH (10:43)
[2023-01-08] MEDS: QUEtiapine FUMARATE 25 MG TABLET PO PRN (11:52)
[2023-01-08 11:59] LABS: HEMATOCRIT 37.6 % (35.4-49); HEMOGLOBIN 12.5 GM/dL (11.7-16.9); MCH 32.5 pg (25.7-33.7); MCHC 33.2 g/dl (32.0-35.9); MEAN CELL VOLUME 97.8 fl (80-96); MEAN PLT VOLUME 11.6 fl (7.5-11.1); PLATELET COUNT 100 10^3/uL (134-434); RBC 3.85 M/mm3 (4.00-5.60); RDW 12.8 % (11.9-15.9); WHITE BLOOD COUNT 10.9 K/mm3 (4.0-10.0)
[2023-01-08 12:23] LABS: POTASSIUM 3.3 mmol/L (3.5-5.1)
[2023-01-08 12:32] LABS: CALCIUM 9.1 mg/dL (8.5-10.1); MAGNESIUM 1.5 mg/dL (1.8-2.4)
[2023-01-08 12:33] LABS: BLOOD UREA NITROGEN 4.8 mg/dL (7-18)
[2023-01-08 12:35] LABS: CREATININE 0.6 mg/dL (0.55-1.3); PHOSPHOROUS 3.3 mg/dL (2.5-4.9)
[2023-01-08 12:37] LABS: TOT PROT 6.8 g/dl (6.4-8.2)
[2023-01-08 12:38] LABS: BILIRUBIN,TOTAL 0.4 mg/dL (0.2-1)
[2023-01-08 12:42] LABS: ALBUMIN 3.5 g/dl (3.4-5.0)
[2023-01-08] MEDS ORDERED: MAGNESIUM 1GM/D5W - 1 GM/100 ML IVPB IVPB ONE (13:13)
[2023-01-08] MEDS ORDERED: POTASSIUM CHLORIDE TABS 20 MEQ TABLET.ER (FP) PO ONE (13:13)
[2023-01-08] MEDS ORDERED: MAGNESIUM OXIDE 400 MG TABLET (FP) PO ONE (14:41)
[2023-01-08 14:52] LABS: LACTIC ACID 2.4 mmol/L (0.4-2.0)
[2023-01-08] MEDS: ATORVASTATIN CA 20 MG TABLET (FP) PO SCH (22:05)
[2023-01-09] MEDS: HEPARIN NA (PORCINE) 5,000 UNITS/ML 1ML VIAL SQ SCH ×3 (06:54→22:39)
[2023-01-09 09:52] LABS: HEMATOCRIT 39.2 % (35.4-49); HEMOGLOBIN 13.2 GM/dL (11.7-16.9); MCH 32.3 pg (25.7-33.7); MCHC 33.6 g/dl (32.0-35.9); MEAN CELL VOLUME 96.2 fl (80-96); PLATELET COUNT 131 10^3/uL (134-434); RBC 4.08 M/mm3 (4.00-5.60); RDW 13.2 % (11.9-15.9); WHITE BLOOD COUNT 12.6 K/mm3 (4.0-10.0)
[2023-01-09 10:10] LABS: POTASSIUM 4.1 mmol/L (3.5-5.1)
[2023-01-09 10:15] LABS: CALCIUM 9.4 mg/dL (8.5-10.1)
[2023-01-09 10:16] LABS: ALBUMIN 3.4 g/dl (3.4-5.0); BLOOD UREA NITROGEN 8.7 mg/dL (7-18); MAGNESIUM 1.8 mg/dL (1.8-2.4)
[2023-01-09 10:17] LABS: CREATININE 0.7 mg/dL (0.55-1.3); PHOSPHOROUS 3.1 mg/dL (2.5-4.9)
[2023-01-09 10:19] LABS: TOT PROT 7.4 g/dl (6.4-8.2)
[2023-01-09 10:20] LABS: BILIRUBIN,TOTAL 0.4 mg/dL (0.2-1)
[2023-01-09] MEDS: NICOTINE 21 MG/24 HOURS TOPICAL PATCH TD SCH ×2 (10:39→10:52)
[2023-01-09] MEDS: MULTIVITAMINS (DAILY MVI) TABLET (FP) PO SCH (10:39)
[2023-01-09] MEDS: THIAMINE HCL 200 MG/2 ML VIAL IM SCH (10:39)
[2023-01-09] MEDS: levETIRAcetam 500 MG TABLET (FP) PO SCH ×2 (10:39→22:39)
[2023-01-09] MEDS: FOLIC ACID 1 MG TABLET (FP) PO SCH (10:39)
[2023-01-09] MEDS: amLODIPine BESYLATE 10 MG TABLET (FP) PO SCH (10:39)
[2023-01-09 10:40] LABS: ANISOCYTOSIS 0; HELMET CELLS 0; HOWELL-JOLLY BODIES 0; MACROCYTOSIS 0; OVALOCYTE 0; ROULEAU 0; SICKELED CELLS 0; TARGET CELLS 0; TEAR DROP CELLS 0; TOXIC GRANULATION 0
[2023-01-09] MEDS: AMINO ACIDS/PROTEIN HYDROLYS 30 ML LIQUID.PKT PO SCH (13:56)
[2023-01-09] MEDS ORDERED: ACETAMINOPHEN 500 MG TABLET (FP) PO ONE (15:04)
[2023-01-09] MEDS: CEFTRIAXONE 1 GM in DEXTROSE 5%-WATER - 50 ML IVPB SCH (17:39)
[2023-01-09 19:21] LABS: EPI CELLS 13 /uL (0-25.1); HYALINE CASTS 3 /uL (0-3.1); URINE APPEARANCE CLEAR; URINE BACTERIA 2970 /uL (0-1359); URINE BILIRUBIN NEGATIVE (NEGATIVE); URINE COLOR DK YELLOW; URINE GLUCOSE (UA) NEGATIVE (NEGATIVE); URINE KETONE TRACE (NEGATIVE); URINE LEUK ESTERASE 2+ (NEGATIVE); URINE NITRITE NEGATIVE (NEGATIVE); URINE PROTEIN TRACE (NEGATIVE); URINE RBC 14 /uL (0-23.9); URINE WBC 195 /uL (0-25.8)
[2023-01-09] MEDS: ATORVASTATIN CA 20 MG TABLET (FP) PO SCH (22:39)
[2023-01-10] MEDS: HEPARIN NA (PORCINE) 5,000 UNITS/ML 1ML VIAL SQ SCH ×3 (05:58→21:48)
[2023-01-10] MEDS: AMINO ACIDS/PROTEIN HYDROLYS 30 ML LIQUID.PKT PO SCH (09:36)
[2023-01-10] MEDS: CEFTRIAXONE 1 GM in DEXTROSE 5%-WATER - 50 ML IVPB SCH (09:38)
[2023-01-10] MEDS: LACTOBACILLUS ACIDOPHILUS 1 TABLET PO SCH (09:39)
[2023-01-10] MEDS: FOLIC ACID 1 MG TABLET (FP) PO SCH (09:39)
[2023-01-10] MEDS: amLODIPine BESYLATE 10 MG TABLET (FP) PO SCH (09:39)
[2023-01-10] MEDS: levETIRAcetam 500 MG TABLET (FP) PO SCH ×2 (09:39→21:48)
[2023-01-10] MEDS: MULTIVITAMINS (DAILY MVI) TABLET (FP) PO SCH (09:39)
[2023-01-10] MEDS: THIAMINE HCL 100 MG TABLET (FP) PO SCH (09:41)
[2023-01-10] MEDS: NICOTINE 21 MG/24 HOURS TOPICAL PATCH TD SCH (11:01)
[2023-01-10 11:33] LABS: HEMATOCRIT 34.3 % (35.4-49); HEMOGLOBIN 11.5 GM/dL (11.7-16.9); MCH 32.3 pg (25.7-33.7); MCHC 33.7 g/dl (32.0-35.9); MEAN CELL VOLUME 95.8 fl (80-96); PLATELET COUNT 146 10^3/uL (134-434); RBC 3.58 M/mm3 (4.00-5.60); RDW 12.8 % (11.9-15.9); WHITE BLOOD COUNT 13.2 K/mm3 (4.0-10.0)
[2023-01-10 11:53] LABS: POTASSIUM 3.6 mmol/L (3.5-5.1)
[2023-01-10 11:57] LABS: CALCIUM 8.9 mg/dL (8.5-10.1)
[2023-01-10 11:59] LABS: ALBUMIN 2.8 g/dl (3.4-5.0); BLOOD UREA NITROGEN 13.9 mg/dL (7-18); MAGNESIUM 1.8 mg/dL (1.8-2.4)
[2023-01-10 12:02] LABS: CREATININE 0.7 mg/dL (0.55-1.3); PHOSPHOROUS 3.4 mg/dL (2.5-4.9)
[2023-01-10 12:03] LABS: BILIRUBIN,TOTAL 0.3 mg/dL (0.2-1); TOT PROT 6.1 g/dl (6.4-8.2)
[2023-01-10] MEDS: QUEtiapine FUMARATE 25 MG TABLET PO PRN (21:48)
[2023-01-10] MEDS: ATORVASTATIN CA 20 MG TABLET (FP) PO SCH (21:48)
[2023-01-11] MEDS: HEPARIN NA (PORCINE) 5,000 UNITS/ML 1ML VIAL SQ SCH ×3 (06:32→21:34)
[2023-01-11] MEDS: AMINO ACIDS/PROTEIN HYDROLYS 30 ML LIQUID.PKT PO SCH (09:10)
[2023-01-11] MEDS: LACTOBACILLUS ACIDOPHILUS 1 TABLET PO SCH (09:11)
[2023-01-11] MEDS: NICOTINE 21 MG/24 HOURS TOPICAL PATCH TD SCH (09:11)
[2023-01-11] MEDS: amLODIPine BESYLATE 10 MG TABLET (FP) PO SCH (09:11)
[2023-01-11] MEDS: FOLIC ACID 1 MG TABLET (FP) PO SCH (09:11)
[2023-01-11] MEDS: THIAMINE HCL 100 MG TABLET (FP) PO SCH (09:11)
[2023-01-11] MEDS: levETIRAcetam 500 MG TABLET (FP) PO SCH ×2 (09:11→21:35)
[2023-01-11] MEDS: MULTIVITAMINS (DAILY MVI) TABLET (FP) PO SCH (09:11)
[2023-01-11] MEDS: CEFTRIAXONE 1 GM in DEXTROSE 5%-WATER - 50 ML IVPB SCH (09:16)
[2023-01-11 09:37] LABS: HEMATOCRIT 35.6 % (35.4-49); MCH 32.1 pg (25.7-33.7); MCHC 33.9 g/dl (32.0-35.9); MEAN CELL VOLUME 94.9 fl (80-96); MEAN PLT VOLUME 10.9 fl (7.5-11.1); PLATELET COUNT 179 10^3/uL (134-434); RBC 3.75 M/mm3 (4.00-5.60); RDW 12.7 % (11.9-15.9); WHITE BLOOD COUNT 15.8 K/mm3 (4.0-10.0)
[2023-01-11] MEDS: QUEtiapine FUMARATE 25 MG TABLET PO PRN ×2 (10:00→18:26)
[2023-01-11 10:02] LABS: POTASSIUM 4.2 mmol/L (3.5-5.1)
[2023-01-11 10:12] LABS: BLOOD UREA NITROGEN 11.4 mg/dL (7-18); CALCIUM 8.7 mg/dL (8.5-10.1); MAGNESIUM 1.8 mg/dL (1.8-2.4)
[2023-01-11 10:14] LABS: CREATININE 0.7 mg/dL (0.55-1.3); PHOSPHOROUS 3.8 mg/dL (2.5-4.9)
[2023-01-11] MEDS: ACETAMINOPHEN 325 MG TABLET (FP) PO PRN ×2 (10:24→20:51)
[2023-01-11 10:45] LABS: ANISOCYTOSIS 0; MACROCYTOSIS 0
[2023-01-11] MEDS: ATORVASTATIN CA 20 MG TABLET (FP) PO SCH (21:35)
[2023-01-12] MEDS: HEPARIN NA (PORCINE) 5,000 UNITS/ML 1ML VIAL SQ SCH ×3 (06:20→21:48)
[2023-01-12 09:12] LABS: BASO % 0.9 % (0-2.0); EOS % 1.3 % (0-4.5); HEMATOCRIT 35.3 % (35.4-49); HEMOGLOBIN 11.8 GM/dL (11.7-16.9); LYMPH % 12.8 % (8-40); MCH 31.5 pg (25.7-33.7); MCHC 33.5 g/dl (32.0-35.9); MEAN PLT VOLUME 10.4 fl (7.5-11.1); PLATELET COUNT 241 10^3/uL (134-434); RBC 3.75 M/mm3 (4.00-5.60); RDW 13.3 % (11.9-15.9); WHITE BLOOD COUNT 14.3 K/mm3 (4.0-10.0)
[2023-01-12 09:32] LABS: POTASSIUM 3.7 mmol/L (3.5-5.1)
[2023-01-12 09:34] LABS: BLOOD UREA NITROGEN 13.6 mg/dL (7-18); CALCIUM 8.7 mg/dL (8.5-10.1)
[2023-01-12 09:37] LABS: CREATININE 0.7 mg/dL (0.55-1.3)
[2023-01-12] MEDS: FOLIC ACID 1 MG TABLET (FP) PO SCH (12:17)
[2023-01-12] MEDS: levETIRAcetam 500 MG TABLET (FP) PO SCH ×2 (12:17→21:48)
[2023-01-12] MEDS: LACTOBACILLUS ACIDOPHILUS 1 TABLET PO SCH (12:17)
[2023-01-12] MEDS: amLODIPine BESYLATE 10 MG TABLET (FP) PO SCH (12:17)
[2023-01-12] MEDS: THIAMINE HCL 100 MG TABLET (FP) PO SCH (12:17)
[2023-01-12] MEDS: MULTIVITAMINS (DAILY MVI) TABLET (FP) PO SCH (12:17)
[2023-01-12] MEDS: NICOTINE 21 MG/24 HOURS TOPICAL PATCH TD SCH (12:18)
[2023-01-12] MEDS: CEFTRIAXONE 1 GM in DEXTROSE 5%-WATER - 50 ML IVPB SCH (12:18)
[2023-01-12] MEDS: AMINO ACIDS/PROTEIN HYDROLYS 30 ML LIQUID.PKT PO SCH (12:31)
[2023-01-12 14:09] LABS: HIV INTERPRETATION NEGATIVE (NEGATIVE)
[2023-01-12] MEDS: QUEtiapine FUMARATE 25 MG TABLET PO PRN ×2 (14:15→21:48)
[2023-01-12] MEDS: ACETAMINOPHEN 325 MG TABLET (FP) PO PRN (14:18)
[2023-01-12] MEDS: AMPICILLIN NA/SULBACTAM NA 3 GM in SODIUM CHLORIDE 100 ML IVPB SCH (18:14)
[2023-01-12] MEDS: ATORVASTATIN CA 20 MG TABLET (FP) PO SCH (21:48)
[2023-01-13] MEDS: AMPICILLIN NA/SULBACTAM NA 3 GM in SODIUM CHLORIDE 100 ML IVPB SCH ×2 (02:35→09:09)
[2023-01-13] MEDS: HEPARIN NA (PORCINE) 5,000 UNITS/ML 1ML VIAL SQ SCH ×3 (05:51→22:27)
[2023-01-13] MEDS: FOLIC ACID 1 MG TABLET (FP) PO SCH (09:09)
[2023-01-13] MEDS: LACTOBACILLUS ACIDOPHILUS 1 TABLET PO SCH (09:09)
[2023-01-13] MEDS: levETIRAcetam 500 MG TABLET (FP) PO SCH ×2 (09:09→22:27)
[2023-01-13] MEDS: AMINO ACIDS/PROTEIN HYDROLYS 30 ML LIQUID.PKT PO SCH (09:09)
[2023-01-13] MEDS: MULTIVITAMINS (DAILY MVI) TABLET (FP) PO SCH (09:09)
[2023-01-13] MEDS: THIAMINE HCL 100 MG TABLET (FP) PO SCH (09:09)
[2023-01-13] MEDS: NICOTINE 21 MG/24 HOURS TOPICAL PATCH TD SCH (09:10)
[2023-01-13] MEDS: amLODIPine BESYLATE 10 MG TABLET (FP) PO SCH (09:10)
[2023-01-13 11:23] LABS: BASO % 0.6 % (0-2.0); EOS % 1.6 % (0-4.5); HEMATOCRIT 31.1 % (35.4-49); HEMOGLOBIN 10.6 GM/dL (11.7-16.9); LYMPH % 12.6 % (8-40); MCH 32.1 pg (25.7-33.7); MCHC 34.1 g/dl (32.0-35.9); MEAN CELL VOLUME 94.1 fl (80-96); MEAN PLT VOLUME 10.4 fl (7.5-11.1); MONO % 17.1 % (3.8-10.2); NEUT % 68.1 % (42.8-82.8); PLATELET COUNT 293 10^3/uL (134-434); RBC 3.31 M/mm3 (4.00-5.60); RDW 13.2 % (11.9-15.9)
[2023-01-13 12:52] LABS: ALBUMIN 2.7 g/dl (3.4-5.0); BLOOD UREA NITROGEN 13.4 mg/dL (7-18); POTASSIUM 4.1 mmol/L (3.5-5.1)
[2023-01-13 12:55] LABS: CALCIUM 8.7 mg/dL (8.5-10.1)
[2023-01-13 13:01] LABS: BILIRUBIN,TOTAL 0.7 mg/dL (0.2-1); CREATININE 0.6 mg/dL (0.55-1.3); PHOSPHOROUS 4.2 mg/dL (2.5-4.9); TOT PROT 6.6 g/dl (6.4-8.2)
[2023-01-13] MEDS: ATORVASTATIN CA 20 MG TABLET (FP) PO SCH (22:27)
[2023-01-14] MEDS: PIPERACILLIN/TAZOB 3.375 GM 3.375 GM in DEXTROSE 5%-WATER - 50 ML IVPB SCH ×5 (01:52→18:04)
[2023-01-14] MEDS: HEPARIN NA (PORCINE) 5,000 UNITS/ML 1ML VIAL SQ SCH ×2 (06:10→13:53)
[2023-01-14] MEDS: LACTOBACILLUS ACIDOPHILUS 1 TABLET PO SCH (09:02)
[2023-01-14] MEDS: MULTIVITAMINS (DAILY MVI) TABLET (FP) PO SCH (09:02)
[2023-01-14] MEDS: NICOTINE 21 MG/24 HOURS TOPICAL PATCH TD SCH (09:03)
[2023-01-14] MEDS: ACETAMINOPHEN 325 MG TABLET (FP) PO PRN (09:03)
[2023-01-14] MEDS: amLODIPine BESYLATE 10 MG TABLET (FP) PO SCH (09:03)
[2023-01-14] MEDS: FOLIC ACID 1 MG TABLET (FP) PO SCH (09:03)
[2023-01-14] MEDS: THIAMINE HCL 100 MG TABLET (FP) PO SCH (09:03)
[2023-01-14] MEDS: levETIRAcetam 500 MG TABLET (FP) PO SCH ×2 (09:03→22:41)
[2023-01-14] MEDS: AMINO ACIDS/PROTEIN HYDROLYS 30 ML LIQUID.PKT PO SCH (09:35)
[2023-01-14 09:43] LABS: HEMATOCRIT 36.9 % (35.4-49); HEMOGLOBIN 12.1 GM/dL (11.7-16.9); MCH 31.2 pg (25.7-33.7); MCHC 32.8 g/dl (32.0-35.9); MEAN CELL VOLUME 95.2 fl (80-96); MEAN PLT VOLUME 10.7 fl (7.5-11.1); PLATELET COUNT 290 10^3/uL (134-434); RBC 3.88 M/mm3 (4.00-5.60); RDW 13.6 % (11.9-15.9); WHITE BLOOD COUNT 12.5 K/mm3 (4.0-10.0)
[2023-01-14 10:39] LABS: ANISOCYTOSIS 0; MACROCYTOSIS 0
[2023-01-14] MEDS: ATORVASTATIN CA 20 MG TABLET (FP) PO SCH (22:41)
[2023-01-15] MEDS: PIPERACILLIN/TAZOB 3.375 GM 3.375 GM in DEXTROSE 5%-WATER - 50 ML IVPB SCH ×3 (04:00→17:57)
[2023-01-15 08:46] LABS: HEMATOCRIT 34.5 % (35.4-49); HEMOGLOBIN 11.9 GM/dL (11.7-16.9); MCH 32.3 pg (25.7-33.7); MCHC 34.4 g/dl (32.0-35.9); MEAN CELL VOLUME 94.1 fl (80-96); MEAN PLT VOLUME 9.4 fl (7.5-11.1); PLATELET COUNT 376 10^3/uL (134-434); RBC 3.67 M/mm3 (4.00-5.60); RDW 12.8 % (11.9-15.9); WHITE BLOOD COUNT 9.6 K/mm3 (4.0-10.0)
[2023-01-15 09:24] LABS: POTASSIUM 4.5 mmol/L (3.5-5.1)
[2023-01-15 09:27] LABS: ALBUMIN 2.6 g/dl (3.4-5.0); BLOOD UREA NITROGEN 14.4 mg/dL (7-18); MAGNESIUM 2.1 mg/dL (1.8-2.4)
[2023-01-15 09:30] LABS: CREATININE 0.6 mg/dL (0.55-1.3)
[2023-01-15 09:31] LABS: TOT PROT 6.8 g/dl (6.4-8.2)
[2023-01-15 09:32] LABS: BILIRUBIN,TOTAL 0.5 mg/dL (0.2-1)
[2023-01-15] MEDS: amLODIPine BESYLATE 10 MG TABLET (FP) PO SCH (11:18)
[2023-01-15] MEDS: AMINO ACIDS/PROTEIN HYDROLYS 30 ML LIQUID.PKT PO SCH (11:18)
[2023-01-15] MEDS: FOLIC ACID 1 MG TABLET (FP) PO SCH (11:18)
[2023-01-15] MEDS: LACTOBACILLUS ACIDOPHILUS 1 TABLET PO SCH (11:18)
[2023-01-15] MEDS: levETIRAcetam 500 MG TABLET (FP) PO SCH ×2 (11:18→22:49)
[2023-01-15] MEDS: MULTIVITAMINS (DAILY MVI) TABLET (FP) PO SCH (11:18)
[2023-01-15] MEDS: THIAMINE HCL 100 MG TABLET (FP) PO SCH (11:18)
[2023-01-15] MEDS: NICOTINE 21 MG/24 HOURS TOPICAL PATCH TD SCH (11:19)
[2023-01-15] MEDS: ENOXAPARIN NA (PORCINE) 40 MG/0.4 ML DISP.SYRIN SQ SCH (11:19)
[2023-01-15] MEDS ORDERED: QUEtiapine FUMARATE 25 MG TABLET PO PRN (12:43)
[2023-01-15] MEDS: OLANZapine 2.5 MG TABLET PO SCH (22:49)
[2023-01-15] MEDS: ATORVASTATIN CA 20 MG TABLET (FP) PO SCH (22:50)
[2023-01-16] MEDS: PIPERACILLIN/TAZOB 3.375 GM 3.375 GM in DEXTROSE 5%-WATER - 50 ML IVPB SCH ×2 (03:00→12:15)
[2023-01-16 09:12] LABS: HEMATOCRIT 37.1 % (35.4-49); HEMOGLOBIN 12.1 GM/dL (11.7-16.9); MCH 31.3 pg (25.7-33.7); MCHC 32.7 g/dl (32.0-35.9); MEAN CELL VOLUME 95.7 fl (80-96); MEAN PLT VOLUME 10.1 fl (7.5-11.1); PLATELET COUNT 408 10^3/uL (134-434); RBC 3.88 M/mm3 (4.00-5.60); RDW 12.6 % (11.9-15.9); WHITE BLOOD COUNT 9.4 K/mm3 (4.0-10.0)
[2023-01-16 09:31] LABS: CALCIUM 8.8 mg/dL (8.5-10.1)
[2023-01-16 09:32] LABS: ALBUMIN 2.6 g/dl (3.4-5.0); BLOOD UREA NITROGEN 10.8 mg/dL (7-18)
[2023-01-16 09:35] LABS: CREATININE 0.5 mg/dL (0.55-1.3)
[2023-01-16 09:36] LABS: BILIRUBIN,TOTAL 0.2 mg/dL (0.2-1)
[2023-01-16 09:37] LABS: TOT PROT 6.9 g/dl (6.4-8.2)
[2023-01-16] MEDS: LACTOBACILLUS ACIDOPHILUS 1 TABLET PO SCH (11:34)
[2023-01-16] MEDS: NICOTINE 21 MG/24 HOURS TOPICAL PATCH TD SCH (11:34)
[2023-01-16] MEDS: AMINO ACIDS/PROTEIN HYDROLYS 30 ML LIQUID.PKT PO SCH (11:34)
[2023-01-16] MEDS: OLANZapine 2.5 MG TABLET PO SCH (11:34)
[2023-01-16] MEDS: ENOXAPARIN NA (PORCINE) 40 MG/0.4 ML DISP.SYRIN SQ SCH (11:35)
[2023-01-16] MEDS: amLODIPine BESYLATE 10 MG TABLET (FP) PO SCH (11:35)
[2023-01-16] MEDS: THIAMINE HCL 100 MG TABLET (FP) PO SCH (11:35)
[2023-01-16] MEDS: levETIRAcetam 500 MG TABLET (FP) PO SCH ×2 (11:35→21:54)
[2023-01-16] MEDS: FOLIC ACID 1 MG TABLET (FP) PO SCH (11:35)
[2023-01-16] MEDS: MULTIVITAMINS (DAILY MVI) TABLET (FP) PO SCH (11:35)
[2023-01-16] MEDS: AMOX TR/POT CLAV 500MG/125MG TABLETS (FP) PO SCH (17:25)
[2023-01-16] MEDS: ATORVASTATIN CA 20 MG TABLET (FP) PO SCH (21:54)
[2023-01-16] MEDS: OLANZapine 5 MG TABLET PO SCH (21:54)
[2023-01-17] MEDS: THIAMINE HCL 100 MG TABLET (FP) PO SCH (09:42)
[2023-01-17] MEDS: NICOTINE 21 MG/24 HOURS TOPICAL PATCH TD SCH (09:42)
[2023-01-17] MEDS: AMINO ACIDS/PROTEIN HYDROLYS 30 ML LIQUID.PKT PO SCH (09:42)
[2023-01-17] MEDS: ENOXAPARIN NA (PORCINE) 40 MG/0.4 ML DISP.SYRIN SQ SCH (09:42)
[2023-01-17] MEDS: FOLIC ACID 1 MG TABLET (FP) PO SCH (09:43)
[2023-01-17] MEDS: AMOX TR/POT CLAV 500MG/125MG TABLETS (FP) PO SCH ×2 (09:43→17:30)
[2023-01-17] MEDS: LACTOBACILLUS ACIDOPHILUS 1 TABLET PO SCH (09:43)
[2023-01-17] MEDS: levETIRAcetam 500 MG TABLET (FP) PO SCH ×2 (09:43→22:07)
[2023-01-17] MEDS: OLANZapine 5 MG TABLET PO SCH ×2 (09:43→22:07)
[2023-01-17] MEDS: amLODIPine BESYLATE 10 MG TABLET (FP) PO SCH (09:43)
[2023-01-17] MEDS: MULTIVITAMINS (DAILY MVI) TABLET (FP) PO SCH (09:43)
[2023-01-17 09:46] LABS: HEMATOCRIT 36.7 % (35.4-49); HEMOGLOBIN 11.8 GM/dL (11.7-16.9); MCH 31.1 pg (25.7-33.7); MCHC 32.1 g/dl (32.0-35.9); MEAN CELL VOLUME 96.8 fl (80-96); MEAN PLT VOLUME 9.9 fl (7.5-11.1); PLATELET COUNT 497 10^3/uL (134-434); RBC 3.79 M/mm3 (4.00-5.60); RDW 13.1 % (11.9-15.9); WHITE BLOOD COUNT 9.8 K/mm3 (4.0-10.0)
[2023-01-17 10:04] LABS: POTASSIUM 4.1 mmol/L (3.5-5.1)
[2023-01-17 10:10] LABS: ALBUMIN 2.9 g/dl (3.4-5.0)
[2023-01-17 10:11] LABS: BLOOD UREA NITROGEN 12.4 mg/dL (7-18)
[2023-01-17 10:13] LABS: CREATININE 0.5 mg/dL (0.55-1.3)
[2023-01-17 10:15] LABS: BILIRUBIN,TOTAL 0.2 mg/dL (0.2-1); TOT PROT 7.2 g/dl (6.4-8.2)
[2023-01-17] MEDS: ATORVASTATIN CA 20 MG TABLET (FP) PO SCH (22:07)
[2023-01-18] MEDS: AMOX TR/POT CLAV 500MG/125MG TABLETS (FP) PO SCH ×2 (08:40→17:33)
[2023-01-18] MEDS: AMINO ACIDS/PROTEIN HYDROLYS 30 ML LIQUID.PKT PO SCH (08:40)
[2023-01-18] MEDS: NICOTINE 21 MG/24 HOURS TOPICAL PATCH TD SCH (09:21)
[2023-01-18] MEDS: OLANZapine 5 MG TABLET PO SCH ×2 (09:21→21:50)
[2023-01-18] MEDS: LACTOBACILLUS ACIDOPHILUS 1 TABLET PO SCH (09:21)
[2023-01-18] MEDS: FOLIC ACID 1 MG TABLET (FP) PO SCH (09:21)
[2023-01-18] MEDS: ENOXAPARIN NA (PORCINE) 40 MG/0.4 ML DISP.SYRIN SQ SCH (09:21)
[2023-01-18] MEDS: THIAMINE HCL 100 MG TABLET (FP) PO SCH (09:21)
[2023-01-18] MEDS: amLODIPine BESYLATE 10 MG TABLET (FP) PO SCH (09:21)
[2023-01-18] MEDS: MULTIVITAMINS (DAILY MVI) TABLET (FP) PO SCH (09:21)
[2023-01-18] MEDS: levETIRAcetam 500 MG TABLET (FP) PO SCH ×2 (09:21→21:50)
[2023-01-18] MEDS: ATORVASTATIN CA 20 MG TABLET (FP) PO SCH (21:50)
[2023-01-19] MEDS: AMOX TR/POT CLAV 500MG/125MG TABLETS (FP) PO SCH ×2 (07:51→17:02)
[2023-01-19] MEDS: AMINO ACIDS/PROTEIN HYDROLYS 30 ML LIQUID.PKT PO SCH (07:51)
[2023-01-19] MEDS: LACTOBACILLUS ACIDOPHILUS 1 TABLET PO SCH (09:59)
[2023-01-19] MEDS: OLANZapine 5 MG TABLET PO SCH ×2 (09:59→21:20)
[2023-01-19] MEDS: amLODIPine BESYLATE 10 MG TABLET (FP) PO SCH (09:59)
[2023-01-19] MEDS: THIAMINE HCL 100 MG TABLET (FP) PO SCH (09:59)
[2023-01-19] MEDS: levETIRAcetam 500 MG TABLET (FP) PO SCH ×2 (09:59→21:20)
[2023-01-19] MEDS: ENOXAPARIN NA (PORCINE) 40 MG/0.4 ML DISP.SYRIN SQ SCH (09:59)
[2023-01-19] MEDS: MULTIVITAMINS (DAILY MVI) TABLET (FP) PO SCH (09:59)
[2023-01-19] MEDS: NICOTINE 21 MG/24 HOURS TOPICAL PATCH TD SCH (09:59)
[2023-01-19] MEDS: FOLIC ACID 1 MG TABLET (FP) PO SCH (09:59)
[2023-01-19] MEDS: ATORVASTATIN CA 20 MG TABLET (FP) PO SCH (21:20)
[2023-01-20] MEDS: AMINO ACIDS/PROTEIN HYDROLYS 30 ML LIQUID.PKT PO SCH (08:55)
[2023-01-20] MEDS: AMOX TR/POT CLAV 500MG/125MG TABLETS (FP) PO SCH ×2 (08:55→17:43)
[2023-01-20] MEDS: ENOXAPARIN NA (PORCINE) 40 MG/0.4 ML DISP.SYRIN SQ SCH (09:14)
[2023-01-20] MEDS: NICOTINE 21 MG/24 HOURS TOPICAL PATCH TD SCH (09:15)
[2023-01-20] MEDS: FOLIC ACID 1 MG TABLET (FP) PO SCH (09:15)
[2023-01-20] MEDS: levETIRAcetam 500 MG TABLET (FP) PO SCH ×2 (09:15→21:08)
[2023-01-20] MEDS: LACTOBACILLUS ACIDOPHILUS 1 TABLET PO SCH (09:15)
[2023-01-20] MEDS: THIAMINE HCL 100 MG TABLET (FP) PO SCH (09:15)
[2023-01-20] MEDS: OLANZapine 5 MG TABLET PO SCH (09:15)
[2023-01-20] MEDS: amLODIPine BESYLATE 10 MG TABLET (FP) PO SCH (09:16)
[2023-01-20] MEDS: MULTIVITAMINS (DAILY MVI) TABLET (FP) PO SCH (09:16)
[2023-01-20 09:59] LABS: BASO % 1.2 % (0-2.0); EOS % 4.3 % (0-4.5); HEMATOCRIT 34.4 % (35.4-49); HEMOGLOBIN 10.9 GM/dL (11.7-16.9); LYMPH % 22.9 % (8-40); MCH 30.9 pg (25.7-33.7); MCHC 31.8 g/dl (32.0-35.9); MEAN CELL VOLUME 97.2 fl (80-96); MEAN PLT VOLUME 9.3 fl (7.5-11.1); MONO % 9.2 % (3.8-10.2); NEUT % 62.4 % (42.8-82.8); PLATELET COUNT 640 10^3/uL (134-434); RBC 3.54 M/mm3 (4.00-5.60); WHITE BLOOD COUNT 11.2 K/mm3 (4.0-10.0)
[2023-01-20 10:07] LABS: POTASSIUM 4.9 mmol/L (3.5-5.1)
[2023-01-20 10:23] LABS: BLOOD UREA NITROGEN 18.8 mg/dL (7-18); CALCIUM 9.2 mg/dL (8.5-10.1)
[2023-01-20 10:26] LABS: CREATININE 0.7 mg/dL (0.55-1.3)
[2023-01-20 10:28] LABS: BILIRUBIN,TOTAL 0.4 mg/dL (0.2-1); TOT PROT 7.3 g/dl (6.4-8.2)
[2023-01-20] MEDS: ATORVASTATIN CA 20 MG TABLET (FP) PO SCH (21:08)
[2023-01-20] MEDS: OLANZapine 10 MG TABLET PO SCH (21:08)
[2023-01-21] MEDS: ENOXAPARIN NA (PORCINE) 40 MG/0.4 ML DISP.SYRIN SQ SCH (09:15)
[2023-01-21] MEDS: NICOTINE 21 MG/24 HOURS TOPICAL PATCH TD SCH (09:16)
[2023-01-21] MEDS: OLANZapine 10 MG TABLET PO SCH ×2 (09:16→21:51)
[2023-01-21] MEDS: THIAMINE HCL 100 MG TABLET (FP) PO SCH (09:16)
[2023-01-21] MEDS: AMINO ACIDS/PROTEIN HYDROLYS 30 ML LIQUID.PKT PO SCH (09:16)
[2023-01-21] MEDS: FOLIC ACID 1 MG TABLET (FP) PO SCH (09:16)
[2023-01-21] MEDS: MULTIVITAMINS (DAILY MVI) TABLET (FP) PO SCH (09:16)
[2023-01-21] MEDS: LACTOBACILLUS ACIDOPHILUS 1 TABLET PO SCH (09:16)
[2023-01-21] MEDS: AMOX TR/POT CLAV 500MG/125MG TABLETS (FP) PO SCH ×2 (09:16→17:35)
[2023-01-21] MEDS: levETIRAcetam 500 MG TABLET (FP) PO SCH ×2 (09:16→21:51)
[2023-01-21] MEDS: amLODIPine BESYLATE 10 MG TABLET (FP) PO SCH (09:20)
[2023-01-21 12:49] LABS: HEMATOCRIT 30.8 % (35.4-49); HEMOGLOBIN 9.8 GM/dL (11.7-16.9); MCH 30.5 pg (25.7-33.7); MEAN CELL VOLUME 95.5 fl (80-96); MEAN PLT VOLUME 8.9 fl (7.5-11.1); PLATELET COUNT 554 10^3/uL (134-434); RBC 3.23 M/mm3 (4.00-5.60); RDW 13.5 % (11.9-15.9); WHITE BLOOD COUNT 14.5 K/mm3 (4.0-10.0)
[2023-01-21 13:03] LABS: POTASSIUM 4.6 mmol/L (3.5-5.1)
[2023-01-21 13:07] LABS: ALBUMIN 2.9 g/dl (3.4-5.0); BLOOD UREA NITROGEN 18.1 mg/dL (7-18); CALCIUM 8.9 mg/dL (8.5-10.1); MAGNESIUM 1.9 mg/dL (1.8-2.4)
[2023-01-21 13:10] LABS: CREATININE 0.7 mg/dL (0.55-1.3); PHOSPHOROUS 2.5 mg/dL (2.5-4.9)
[2023-01-21 13:12] LABS: BILIRUBIN,TOTAL 0.2 mg/dL (0.2-1); TOT PROT 6.7 g/dl (6.4-8.2)
[2023-01-21 18:40] VITALS: RESP 18
[2023-01-21] MEDS: ATORVASTATIN CA 20 MG TABLET (FP) PO SCH (21:51)
[2023-01-22 09:14] VITALS: BP 129/82; PULSE 112; TEMP 98.8
[2023-01-22] MEDS: AMINO ACIDS/PROTEIN HYDROLYS 30 ML LIQUID.PKT PO SCH (09:15)
[2023-01-22] MEDS: AMOX TR/POT CLAV 500MG/125MG TABLETS (FP) PO SCH (09:15)
[2023-01-22] MEDS: LACTOBACILLUS ACIDOPHILUS 1 TABLET PO SCH (09:15)
[2023-01-22] MEDS: THIAMINE HCL 100 MG TABLET (FP) PO SCH (09:15)
[2023-01-22] MEDS: FOLIC ACID 1 MG TABLET (FP) PO SCH (09:15)
[2023-01-22] MEDS: amLODIPine BESYLATE 10 MG TABLET (FP) PO SCH (09:15)
[2023-01-22] MEDS: OLANZapine 10 MG TABLET PO SCH (09:15)
[2023-01-22] MEDS: ENOXAPARIN NA (PORCINE) 40 MG/0.4 ML DISP.SYRIN SQ SCH (09:15)
[2023-01-22] MEDS: levETIRAcetam 500 MG TABLET (FP) PO SCH (09:15)
[2023-01-22] MEDS: MULTIVITAMINS (DAILY MVI) TABLET (FP) PO SCH (09:15)
[2023-01-22] MEDS: NICOTINE 21 MG/24 HOURS TOPICAL PATCH TD SCH (09:16)
[2023-01-22 10:13] LABS: HEMATOCRIT 35.7 % (35.4-49); HEMOGLOBIN 11.3 GM/dL (11.7-16.9); MCH 31.2 pg (25.7-33.7); MCHC 31.7 g/dl (32.0-35.9); MEAN CELL VOLUME 98.5 fl (80-96); MEAN PLT VOLUME 9.5 fl (7.5-11.1); PLATELET COUNT 564 10^3/uL (134-434); RBC 3.63 M/mm3 (4.00-5.60)
== END 2023-01-22 14:23 | disposition left against medical advice (07) | DRG 53 ==
LOC: JER 12:31 → JERBED 17:43 → J4W 01-03 07:07 → J5S 01-04 01:10 → OBSVTOIN 01-04 15:55
PROVIDERS: ADMIT Internal Medicine; ATTEND Internal Medicine
PROC: HZ2ZZZZ Detoxification Services for Substance Abuse Treatment (ICD-10-PCS; principal; 2023-01-03)
DX: G40.909 Epilepsy, unspecified, not intractable, without status epilepticus (principal); E44.0 Moderate protein-calorie malnutrition; J69.0 Pneumonitis due to inhalation of food and vomit; F10.239 Alcohol dependence with withdrawal, unspecified; N39.0 Urinary tract infection, site not specified; Z68.1 Body mass index [BMI] 19.9 or less, adult; I10 Essential (primary) hypertension; G92.8 Other toxic encephalopathy; R41.0 Disorientation, unspecified; R64 Cachexia; R50.9 Fever, unspecified; E16.2 Hypoglycemia, unspecified; W18.39XA Other fall on same level, initial encounter; Y92.230 Patient room in hospital as the place of occurrence of the external cause; B95.2 Enterococcus as the cause of diseases classified elsewhere; B96.1 Klebsiella pneumoniae [K. pneumoniae] as the cause of diseases classified elsewhere; Z91.148 Patient's other noncompliance with medication regimen for other reason
CPT/HCPCS: 0241U-QW; 36415; 70450-TC; 71045-TC-FY; 73560-TC-LT-FY; 76775-TC; 80048; 80053; 80177; 80185; 80307; 81003; 82550; 82553; 82962; 83605; 83735; 84100; 84436; 84443; 84484; 85025; 85027; 85651; 86140; 87040; 87086; 87186; 87389; 87635; 93005; 93010; 97116-GP; 97162-GP; 99285-25; G0378; J1644

== ENCOUNTER 2023-08-13 13:01 | Inpatient (IN) | payer OTHER ==
[2023-08-13] MEDS ORDERED: HALOPERIDOL LACTATE 5 MG/ML ONE ×2 (13:41→22:45)
[2023-08-13] MEDS: HALOPERIDOL LACTATE 5 MG/ML IM ONE ×2 (13:51→22:43)
[2023-08-13 14:08] VITALS: BMI 19.5
[2023-08-13 15:32] LABS: BASO % 0.6 % (0-2.0); EOS % 1.6 % (0-4.5); HEMATOCRIT 39.4 % (35.4-49); HEMOGLOBIN 12.9 GM/dL (11.7-16.9); LYMPH % 28.9 % (8-40); MCHC 32.7 g/dl (32.0-35.9); MEAN CELL VOLUME 97.8 fl (80-96); MEAN PLT VOLUME 10.6 fl (7.5-11.1); MONO % 12.9 % (3.8-10.2); PLATELET COUNT 69 10^3/uL (134-434); RBC 4.03 M/mm3 (4.00-5.60); RDW 13.3 % (11.9-15.9); WHITE BLOOD COUNT 5.3 K/mm3 (4.0-10.0)
[2023-08-13 15:54] LABS: CHLORIDE 102 mmol/L (98-107); POTASSIUM 3.1 mmol/L (3.5-5.1); SODIUM 136 mmol/L (136-145)
[2023-08-13 15:56] LABS: ALBUMIN 3.7 g/dl (3.4-5.0); ANION GAP 9 mmol/L (4-13); BLOOD UREA NITROGEN 3.7 mg/dL (7-18); CALCIUM 8.8 mg/dL (8.5-10.1); CO2 25 mmol/L (21-32); GLUCOSE,RANDOM 114 mg/dL (74-106)
[2023-08-13 15:59] LABS: CREATININE 0.7 mg/dL (0.55-1.3); SGOT/AST 83 U/L (15-37); SGPT/ALT 38 U/L (13-61)
[2023-08-13 16:01] LABS: BILIRUBIN,TOTAL 0.6 mg/dL (0.2-1)
[2023-08-13 16:02] LABS: ALK PHOS 70 U/L (45-117)
[2023-08-13] MEDS ORDERED: KCL 10 MEQ IVPB 10 MEQ/100 ML INFUS.BAG IVPB ONE (16:36)
[2023-08-13] MEDS: KCL 10 MEQ IVPB 10 MEQ/100 ML INFUS.BAG IVPB SCH (17:08)
[2023-08-13] MEDS: FOLIC ACID INJECTION - 1 MG, THIAMINE HCL 100 MG, MULTIVIT INJECTION ADULT 10 ML in SOD... IVPB ONE (23:54)
[2023-08-14] MEDS ORDERED: KCL 10 MEQ IVPB 10 MEQ/100 ML INFUS.BAG IVPB ONE (00:04)
[2023-08-14] MEDS: SODIUM CHLORIDE 1,000 ML IV SCH (02:07)
[2023-08-14 06:48] LABS: EPI CELLS 3 /uL (0-25.1); HYALINE CASTS 0 /uL (0-3.1); PH,URINE 7.5 (5.0-8.0); URINE APPEARANCE CLEAR; URINE BACTERIA 98 /uL (0-1359); URINE BILIRUBIN NEGATIVE (NEGATIVE); URINE COLOR YELLOW; URINE GLUCOSE (UA) NEGATIVE (NEGATIVE); URINE KETONE TRACE (NEGATIVE); URINE LEUK ESTERASE TRACE (NEGATIVE); URINE NITRITE NEGATIVE (NEGATIVE); URINE PROTEIN NEGATIVE (NEGATIVE); URINE RBC 20 /uL (0-23.9); URINE UROBILINOGEN 0.2 mg/dL (0.2-1.0); URINE WBC 15 /uL (0-25.8)
[2023-08-14 06:58] LABS: URINE BENZODIAZEPINES NEGATIVE (NEGATIVE)
[2023-08-14 06:59] LABS: COCAINE, UR NEGATIVE (NEGATIVE); METHADONE, UR NEGATIVE (NEGATIVE); OPIATES, URI NEGATIVE (NEGATIVE); URINE BARBITURATES NEGATIVE (NEGATIVE)
[2023-08-14 07:00] LABS: PHENCYCLIDINE,URINE NEGATIVE (NEGATIVE)
[2023-08-14 07:03] LABS: URINE AMPHETAMINES NEGATIVE (NEGATIVE)
[2023-08-14] MEDS: THIAMINE HCL 100 MG TABLET (FP) PO SCH (10:57)
[2023-08-14] MEDS: levETIRAcetam 500 MG TABLET (FP) PO SCH (10:57)
[2023-08-14] MEDS: ENOXAPARIN NA (PORCINE) 40 MG/0.4 ML DISP.SYRIN SQ SCH (10:57)
[2023-08-14] MEDS: FOLIC ACID 1 MG TABLET (FP) PO SCH (10:57)
[2023-08-14] MEDS: MULTIVITAMINS (DAILY MVI) TABLET (FP) PO SCH (10:57)
[2023-08-14] MEDS: ATORVASTATIN CA 20 MG TABLET (FP) PO SCH (21:24)
[2023-08-14] MEDS: OLANZapine 10 MG TABLET PO SCH (21:25)
[2023-08-15 09:22] LABS: POTASSIUM 3.2 mmol/L (3.5-5.1)
[2023-08-15 09:30] LABS: HEMATOCRIT 39.7 % (35.4-49); HEMOGLOBIN 13.3 GM/dL (11.7-16.9); MCH 32.6 pg (25.7-33.7); MCHC 33.5 g/dl (32.0-35.9); MEAN CELL VOLUME 97.5 fl (80-96); MEAN PLT VOLUME 11.1 fl (7.5-11.1); PLATELET COUNT 61 10^3/uL (134-434); RBC 4.07 M/mm3 (4.00-5.60); RDW 13.5 % (11.9-15.9); WHITE BLOOD COUNT 6.3 K/mm3 (4.0-10.0)
[2023-08-15 09:32] LABS: CALCIUM 8.6 mg/dL (8.5-10.1)
[2023-08-15 09:33] LABS: ALBUMIN 3.5 g/dl (3.4-5.0); BLOOD UREA NITROGEN 5.6 mg/dL (7-18)
[2023-08-15 09:36] LABS: CREATININE 0.5 mg/dL (0.55-1.3)
[2023-08-15 09:37] LABS: BILIRUBIN,TOTAL 0.8 mg/dL (0.2-1)
[2023-08-15] MEDS: amLODIPine BESYLATE 10 MG TABLET (FP) PO SCH (11:14)
[2023-08-15] MEDS: HALOPERIDOL LACTATE 5 MG/ML IM SCH (13:16)
[2023-08-15] MEDS: POTASSIUM CHLORIDE ORAL LIQUID 20 MEQ/15 ML PO ONE (15:21)
[2023-08-15] MEDS: POTASSIUM CHLORIDE 10 MEQ in SODIUM CHLORIDE 1,000 ML IV ONE (17:41)
[2023-08-15] MEDS: KCL 10 MEQ IVPB 10 MEQ/100 ML INFUS.BAG IVPB SCH (17:42)
[2023-08-16 10:10] LABS: POTASSIUM 3.9 mmol/L (3.5-5.1)
[2023-08-16 10:19] LABS: ALBUMIN 3.3 g/dl (3.4-5.0); BLOOD UREA NITROGEN 13.1 mg/dL (7-18); CALCIUM 8.8 mg/dL (8.5-10.1)
[2023-08-16 10:20] LABS: MAGNESIUM 1.8 mg/dL (1.8-2.4)
[2023-08-16 10:22] LABS: CREATININE 0.8 mg/dL (0.55-1.3)
[2023-08-16 10:24] LABS: BILIRUBIN,TOTAL 0.8 mg/dL (0.2-1); TOT PROT 6.6 g/dl (6.4-8.2)
[2023-08-16] MEDS: THIAMINE HCL 200 MG/2 ML VIAL IVPB SCH ×3 (13:33→21:06)
[2023-08-16] MEDS: chlordiazePOXIDE HCL 10 MG CAPSULE PO SCH (19:40)
[2023-08-16] MEDS: OLANZapine 10 MG TABLET PO SCH (21:05)
[2023-08-17 10:01] LABS: BASO % 1.1 % (0-2.0); EOS % 4.8 % (0-4.5); HEMATOCRIT 37.1 % (35.4-49); HEMOGLOBIN 12.2 GM/dL (11.7-16.9); LYMPH % 35.4 % (8-40); MCH 32.4 pg (25.7-33.7); MCHC 32.9 g/dl (32.0-35.9); MEAN CELL VOLUME 98.5 fl (80-96); MEAN PLT VOLUME 10.8 fl (7.5-11.1); MONO % 16.9 % (3.8-10.2); NEUT % 41.8 % (42.8-82.8); PLATELET COUNT 68 10^3/uL (134-434); RBC 3.76 M/mm3 (4.00-5.60); RDW 13.3 % (11.9-15.9); WHITE BLOOD COUNT 5.2 K/mm3 (4.0-10.0)
[2023-08-17 10:16] LABS: POTASSIUM 3.4 mmol/L (3.5-5.1)
[2023-08-17 10:19] LABS: BLOOD UREA NITROGEN 11.6 mg/dL (7-18); CALCIUM 8.9 mg/dL (8.5-10.1)
[2023-08-17 10:20] LABS: ALBUMIN 3.2 g/dl (3.4-5.0)
[2023-08-17 10:23] LABS: CREATININE 0.7 mg/dL (0.55-1.3)
[2023-08-17 10:24] LABS: BILIRUBIN,TOTAL 0.6 mg/dL (0.2-1)
[2023-08-17 10:25] LABS: TOT PROT 6.4 g/dl (6.4-8.2)
[2023-08-17 10:34] LABS: CHOLESTEROL 138 mg/dL (50-200)
[2023-08-17 10:35] LABS: LDL CHOLESTEROL (ONLY SJRH) 49 mg/dL (5-100)
[2023-08-17 10:43] LABS: HDL CHOLESTEROL 77 mg/dL (40-60)
[2023-08-17] MEDS: KCL 10 MEQ IVPB 10 MEQ/100 ML INFUS.BAG IVPB SCH (12:45)
[2023-08-17] MEDS: D5-1/2NS+20 MEQ KCL - 20 MEQ/1,000 ML INFUS.BAG IV SCH (21:20)
[2023-08-18] MEDS: chlordiazePOXIDE HCL 10 MG CAPSULE PO SCH (01:35)
[2023-08-19] MEDS: chlordiazePOXIDE HCL 10 MG CAPSULE PO SCH (17:06)
[2023-08-20 09:31] LABS: POTASSIUM 3.7 mmol/L (3.5-5.1)
[2023-08-20 09:36] LABS: CALCIUM 9.5 mg/dL (8.5-10.1)
[2023-08-20 09:40] LABS: CREATININE 0.7 mg/dL (0.55-1.3)
[2023-08-20] MEDS: THIAMINE HCL 100 MG TABLET (FP) PO SCH (10:00)
[2023-08-20] MEDS: OLANZAPINE 10 MG, OLANZAPINE 5 MG PO SCH (21:21)
[2023-08-20] MEDS ORDERED: OLANZapine 10 MG TABLET PO SCH (22:00)
[2023-08-21] MEDS: OLANZapine 10 MG TABLET PO SCH (06:12)
[2023-08-21 09:09] VITALS: RESP 18
[2023-08-21 10:08] LABS: POTASSIUM 3.6 mmol/L (3.5-5.1)
[2023-08-21 10:10] LABS: ALBUMIN 3.3 g/dl (3.4-5.0); BLOOD UREA NITROGEN 15.9 mg/dL (7-18); CALCIUM 9.4 mg/dL (8.5-10.1); MAGNESIUM 1.8 mg/dL (1.8-2.4)
[2023-08-21 10:13] LABS: CREATININE 0.7 mg/dL (0.55-1.3)
[2023-08-21 10:15] LABS: BILIRUBIN,TOTAL 0.4 mg/dL (0.2-1); TOT PROT 6.6 g/dl (6.4-8.2)
[2023-08-21] MEDS: NICOTINE 14 MG/24 HOURS TOPICAL PATCH TD SCH (10:48)
[2023-08-22 06:16] VITALS: BP 117/76; PULSE 71; TEMP 97.5
== END 2023-08-22 10:36 | DRG 775 ==
LOC: JER 13:01 → INTOOBSV 20:41 → JERBED 20:41 → J5S 08-14 04:11 → OBSVTOIN 08-14 09:44 → J5S 08-16 12:16
PROVIDERS: ADMIT Student in an Organized Health Care Education/Training Program; ATTEND Internal Medicine
DX: F10.230 Alcohol dependence with withdrawal, uncomplicated (principal); I10 Essential (primary) hypertension; E78.5 Hyperlipidemia, unspecified; E87.6 Hypokalemia; G40.909 Epilepsy, unspecified, not intractable, without status epilepticus; G93.41 Metabolic encephalopathy; K74.60 Unspecified cirrhosis of liver; F03.90 Unspecified dementia, unspecified severity, without behavioral disturbance, psychotic disturbance, mood disturbance, and anxiety; E87.1 Hypo-osmolality and hyponatremia; F10.27 Alcohol dependence with alcohol-induced persisting dementia; E43 Unspecified severe protein-calorie malnutrition; Z68.1 Body mass index [BMI] 19.9 or less, adult
CPT/HCPCS: 36415; 70450-TC; 71045-TC-FY; 72125-TC; 80048; 80053; 80061; 80307; 81003; 82140; 82607; 83735; 84439; 84443; 84484; 85025; 85027; 86780; 93005; 93010; 99285-25; G0378

== ENCOUNTER 2023-08-22 11:19 | Inpatient (IN) | payer OTHER ==
[2023-08-22 13:32] LABS: BASO % 1.3 % (0-2.0); EOS % 3.7 % (0-4.5); HEMATOCRIT 36.6 % (35.4-49); HEMOGLOBIN 12.1 GM/dL (11.7-16.9); LYMPH % 37.6 % (8-40); MCH 32.5 pg (25.7-33.7); MEAN CELL VOLUME 98.3 fl (80-96); MEAN PLT VOLUME 10.9 fl (7.5-11.1); MONO % 17.9 % (3.8-10.2); NEUT % 39.5 % (42.8-82.8); PLATELET COUNT 201 10^3/uL (134-434); RBC 3.72 M/mm3 (4.00-5.60); RDW 13.1 % (11.9-15.9); WHITE BLOOD COUNT 7.7 K/mm3 (4.0-10.0)
[2023-08-22 13:56] LABS: ALBUMIN 3.1 g/dl (3.4-5.0); CALCIUM 9.2 mg/dL (8.5-10.1)
[2023-08-22 13:57] LABS: BLOOD UREA NITROGEN 13.2 mg/dL (7-18)
[2023-08-22 13:59] LABS: CREATININE 0.7 mg/dL (0.55-1.3)
[2023-08-22 14:01] LABS: BILIRUBIN,TOTAL 0.3 mg/dL (0.2-1); TOT PROT 6.6 g/dl (6.4-8.2)
[2023-08-22 20:03] VITALS: BMI 17.5
[2023-08-22] MEDS: OLANZapine 5 MG TABLET PO SCH (21:48)
[2023-08-22] MEDS: ATORVASTATIN CA 20 MG TABLET (FP) PO SCH (21:48)
[2023-08-22] MEDS: LATANOPROST 0.005% OPHTH SOLN 2.5ML BOTTLE OU SCH (21:49)
[2023-08-22] MEDS: levETIRAcetam 500 MG TABLET (FP) PO SCH (21:49)
[2023-08-23] MEDS: NICOTINE 14 MG/24 HOURS TOPICAL PATCH TD SCH (09:24)
[2023-08-23] MEDS: OLANZapine 10 MG TABLET PO SCH (09:24)
[2023-08-23] MEDS: THIAMINE 100 MG TABLET PO SCH (09:24)
[2023-08-23] MEDS: FOLIC ACID 1 MG TABLET (FP) PO SCH (09:24)
[2023-08-23] MEDS: amLODIPine BESYLATE 10 MG TABLET (FP) PO SCH (09:24)
[2023-08-25] MEDS: hydrOXYzine PAMOATE 25 MG CAPSULE (FP) PO ONE (00:47)
[2023-08-25] MEDS: hydrOXYzine PAMOATE 25 MG CAPSULE (FP) PO PRN (22:23)
[2023-08-26] MEDS: MELATONIN 5 MG TABLETS PO PRN (00:55)
[2023-08-26] MEDS: ENOXAPARIN NA (PORCINE) 40 MG/0.4 ML DISP.SYRIN SQ SCH (11:13)
[2023-08-27] MEDS: hydrOXYzine PAMOATE 25 MG CAPSULE (FP) PO PRN (09:34)
[2023-09-05] MEDS: ACETAMINOPHEN 325 MG TABLET (FP) PO ONE (22:23)
[2023-09-06 15:00] LABS: BASO % 1.5 % (0-2.0); EOS % 8.3 % (0-4.5); HEMATOCRIT 36.8 % (35.4-49); HEMOGLOBIN 12.1 GM/dL (11.7-16.9); LYMPH % 38.5 % (8-40); MCH 32.3 pg (25.7-33.7); MCHC 32.8 g/dl (32.0-35.9); MEAN CELL VOLUME 98.6 fl (80-96); MEAN PLT VOLUME 10.7 fl (7.5-11.1); MONO % 10.4 % (3.8-10.2); NEUT % 41.3 % (42.8-82.8); PLATELET COUNT 192 10^3/uL (134-434); RBC 3.74 M/mm3 (4.00-5.60); RDW 12.6 % (11.9-15.9)
[2023-09-06 15:03] LABS: INR 1.1 (0.83-1.09); PROTHROMBIN TIME (PATIENT) 12.7 SEC (9.7-13.0)
[2023-09-06 15:12] LABS: POTASSIUM 4.4 mmol/L (3.5-5.1)
[2023-09-06 15:15] LABS: ALBUMIN 3.6 g/dl (3.4-5.0); BLOOD UREA NITROGEN 18.6 mg/dL (7-18); CALCIUM 9.6 mg/dL (8.5-10.1); MAGNESIUM 2.1 mg/dL (1.8-2.4)
[2023-09-06 15:19] LABS: CREATININE 0.8 mg/dL (0.55-1.3); PHOSPHOROUS 4.8 mg/dL (2.5-4.9)
[2023-09-06 15:21] LABS: BILIRUBIN,TOTAL 0.2 mg/dL (0.2-1); TOT PROT 7.2 g/dl (6.4-8.2)
[2023-09-07 08:46] LABS: BASO % 1.3 % (0-2.0); EOS % 9.4 % (0-4.5); HEMOGLOBIN 10.7 GM/dL (11.7-16.9); LYMPH % 34.1 % (8-40); MCH 32.3 pg (25.7-33.7); MCHC 33.3 g/dl (32.0-35.9); MEAN PLT VOLUME 11.1 fl (7.5-11.1); MONO % 13.2 % (3.8-10.2); PLATELET COUNT 187 10^3/uL (134-434); WHITE BLOOD COUNT 7.7 K/mm3 (4.0-10.0)
[2023-09-07 08:55] LABS: ACTIVATED PTT 32.2 SECONDS (25.2-36.5)
[2023-09-07 08:57] LABS: INR 1.11 (0.83-1.09); PROTHROMBIN TIME (PATIENT) 12.9 SEC (9.7-13.0)
[2023-09-07 09:15] LABS: POTASSIUM 4.2 mmol/L (3.5-5.1)
[2023-09-07 09:19] LABS: CALCIUM 9.4 mg/dL (8.5-10.1)
[2023-09-07 09:21] LABS: ALBUMIN 3.2 g/dl (3.4-5.0); BLOOD UREA NITROGEN 18.1 mg/dL (7-18); MAGNESIUM 2.1 mg/dL (1.8-2.4)
[2023-09-07 09:24] LABS: BILIRUBIN,TOTAL 0.4 mg/dL (0.2-1); CREATININE 0.7 mg/dL (0.55-1.3); PHOSPHOROUS 4.4 mg/dL (2.5-4.9); TOT PROT 6.5 g/dl (6.4-8.2)
[2023-09-09] MEDS: OLANZapine 10 MG TABLET PO SCH (21:40)
[2023-09-11 04:59] VITALS: PULSE 81
[2023-09-11 16:58] VITALS: BP 128/70; RESP 16; TEMP 97.8
== END 2023-09-11 17:25 | DRG 775 ==
LOC: JER 11:19 → JERBED 12:13 → J5S 17:07 → OBSVTOIN 08-24 13:15 → J6S 09-08 15:24
PROVIDERS: ADMIT Internal Medicine
DX: F10.27 Alcohol dependence with alcohol-induced persisting dementia (principal); E43 Unspecified severe protein-calorie malnutrition; K74.60 Unspecified cirrhosis of liver; E51.2 Wernicke's encephalopathy; E78.5 Hyperlipidemia, unspecified; I10 Essential (primary) hypertension; Z68.1 Body mass index [BMI] 19.9 or less, adult
CPT/HCPCS: 36415; 70450-TC; 80053; 82105; 83735; 84100; 85025; 85610; 85730; 87635; 93005; 93010; 97116-GP; 97161-GP; 99285-25; G0378